=== PATIENT | female | born 1945 | race Caucasian/White ===

== ENCOUNTER 2020-08-06 11:23 | Inpatient (IN) ==
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
--- NOTE | 2020-08-06 12:27 | Ultrasound Report ---
History: Acute renal failure FINDINGS: The patient was technically difficult to scan due to large body habitus and limited mobility. The right kidney measures 5.3 x 6.0 x 11.0 cm and the left measures 4.8 x 5.9 x 10.7 cm. There is no apparent mass, cyst or calculus in either kidney. There is mild dilatation of the infundibula and renal pelvis bilaterally. Doppler shows flow urine through both ureters into the bladder. The bladder contains 105 cc of urine. Adjacent to the posterior wall of the lateral lumen, there is a hypoechoic solid tissue which measures approximately 5.6 cm in width and 1.5 cm in thickness. We attempted to have the patient rolled to see if this structure moved. She was unable to turn . IMPRESSION: Technically limited exam showing borderline hydronephrosis in both kidneys. However, urine does flow through both ureters into the bladder. Solid mass versus sludge adherent to the posterior wall of the bladder lumen. This could be further evaluated by cystoscopy and urinalysis. Interpreted and Authenticated by: Manuel Pina 08/06/20
[2020-08-06 13:35] LABS: Basophils # (Auto) 0.05 K/mcL (0.00-0.20); Basophils % (Auto) 0.5 % (0.0-2.0); Eosinophils # (Auto) 0.17 K/mcL (0.00-0.70); Eosinophils % (Auto) 1.7 % (0.0-7.0); Hematocrit 24.6 % (36.0-48.0); Hemoglobin 8.1 g/dL (12.0-15.0); Lymphocytes # (Auto) 1.01 K/mcL (1.50-4.80); Lymphocytes % (Auto) 10.1 % (15.0-49.0); Mean Cell Volume 94.3 fL (80.0-100.0); Mean Corpuscular HGB Conc 32.9 g/dL (31.0-36.0); Mean Platelet Volume 9.8 fL (7.4-10.4); Monocytes # (Auto) 0.61 K/mcL (0.10-0.90); Monocytes % (Auto) 6.1 % (1.0-12.0); Neutrophils % (Auto) 81.6 % (38.0-78.0); Platelet Count 160 K/mcL (140-440); RBC 2.61 M/mcL (4.00-5.20); Red Cell Distribution Width 14.3 % (11.5-14.5)
[2020-08-06] MEDS ORDERED: NITROFURANTOIN SR 100 MG CAPSULE PO ONE (13:42)
[2020-08-06 13:57] LABS: ALT/SGPT 18 U/L (<40); AST/SGOT 25 U/L (<32); Albumin 2.7 gm/dL (3.2-5.2); Albumin/Globulin Ratio 0.5 (1.0-2.3); Alkaline Phosphatase 177 U/L (39-117); Bilirubin,Total 0.5 mg/dL (0.1-1.0); Blood Urea Nitrogen 70 mg/dL (8-23); Calcium 9.3 mg/dL (8.6-10.4); Carbon Dioxide 19 mmol/L (22-30); Chloride 88 mmol/L (96-108); Globulin 5.4 gm/dL (2.2-3.7); Glomerular Filtration Rate 16; Glucose 275 mg/dL (70-105)
--- NOTE | 2020-08-06 14:53 | Cat Scan Report ---
History: Acute renal failure, hydronephrosis, infection TECHNIQUE: Patient was imaged without contrast from the diaphragm to the symphysis pubis. Sagittal and coronal reformats are created. The radiation exposure was limited using dose reduction technology. FINDINGS: There is mild interstitial fibrosis in a subpleural distribution in both lung bases. No pleural effusion is present. Evaluation the abdominal organs without contrast is somewhat limited. There is subtle lobulation of the capsule of the liver. The liver is normal in size and the parenchyma is homogeneous. Gallbladder is partially contracted. There are no stones. The bile ducts are nondilated. The spleen is normal in size and homogeneous. No abnormality seen within the pancreas. The adrenals are normal and symmetric. Mild hydronephrosis is present in both kidneys and there is also dilatation of both ureters into the renal pelvis down to the ureterovesical junctions. There is no kidney stone. The renal cortex is normal in thickness bilaterally. There is stranding of the perirenal fat. The ureterovesical junctions are patulous. The urinary bladder is somewhat distorted and has asymmetric thickening of the wall. On the preceding ultrasound done earlier the same date there appear to be is solid tissue or sludge layering posteriorly within the urinary bladder. This is a clearly identifiable on the current CT scan. The posterior wall the bladder does appear to be thickened. The uterus and ovaries are atrophic. The bowel gas pattern is normal. No ascites mass, abscess or adenopathy are present within the abdomen or pelvis. Degenerative changes are present throughout the spine and there is a levoscoliotic curvature. IMPRESSION: Hydronephrosis and bilateral hydroureter. However, no obstructing lesion is seen at the ureterovesical junctions. There is asymmetric thickening of the urinary bladder which has an irregular somewhat distorted contour. This could be further evaluated by cystoscopy. Subtle lobulation the capsule of liver. This could be an anatomic variant or early cirrhosis. This should be correlated with liver enzymes. Dr. Berrios was called with the results Interpreted and Authenticated by: Manuel Pina 08/06/20
[2020-08-06] MEDS ORDERED: cefTRIAXone 2 GM in DEXTROSE 5% IN WATER 50 ML IV SCH (15:45)
[2020-08-06] MEDS ORDERED: 0.9 % SODIUM CHLORIDE 1,000 ML IV SCH ×2 (16:00→20:30)
--- NOTE | 2020-08-06 18:02 | Nephrology Progress Note ---
SUBJECTIVE Subjective Patient information: Note initiated : 08/06/20 at 6:02 pm Service Date, if different from initiated Date: [] Patient: Reny Sanches a 75 y/o F admitted on for ARF. Chief Complaint: [Recurrent acute renal failure] This patient's history in terms of her acute renal failure was well documented in my note of August 01, 2020. Patient is a 75-year-old woman with a history of diabetes, hypertension, hyperuricemia/gout, hyperlipidemia, morbid obesity, hypothyroidism referred by Cyrus Massey M.D. for evaluation of a mild decrease in her GFR. Previously, the patient had an episode of acute renal failure in mid May 2020 which was no doubt related to the combination of high-dose valsartan, in combination with low-dose furosemide and hydrochlorothiazide plus the addition of ibuprofen and Bactrim. Creatinine peaked at around 1.8 to 2.0 mg/dL, potassium abdelrahman to low fives and has now improved with just discontinuation of some of the offending medicines. Labs from May 30, 2020: Sodium 139 K 4.1 Cl 104 CO2 23 BUN 17 creatinine 1.0 EGFR 55 Calcium 9.0 Hemoglobin A1c 8.4% White count 6200 with 4.6% eosinophils H&H 9.3 and 30% respectively Albumin is 2.5 alk phos 118 AST 52 ALT 35 total bilirubin 0.[address] October 2019 So in summary this is a 75-year-old woman with near normal GFR 55 cc/min. In May 2020 she had an episode of acute renal failure due to a combination of ARB, diuretics, Bactrim and nonsteroidal anti-inflammatories. All this had resolved, her urine has no proteinuria and I would expect she will do fine as long as known drug combinations that reduced renal perfusion (RAASI therapy & NSAIDS), plus volume depletion (diuretics) or interfere with tubular function (Bactrim) are avoided. There is no proteinuria to suggest underlying diabetic nephropathy. The striking feature is this patient has an ESR of over 100 in July 2020. This is months after treatment of her putative urosepsis at [facility]. In my opinion a sedimentation rate over 100 may be related to infect ion/inflammation, vasculitis or a mitotic process. She will need to have a cath urine sent for urine eosinophils urinalysis and culture. We will also need to have a renal ultrasound to rule out any perinephric stranding in case she had pyelonephritis previously. While she formally had headaches, these are no longer an issue and she is said to have fibromyalgia in the past and if she was bothered by headaches and muscle pain now I would say polymyalgia rheumatica, and her current clinical situation I cannot make that diagnosis. She has been seen by infectious disease for what is believed to be a fungal rash in and around her breast and stage II sacral decubitus sores but there is nothing that the ID specialist on would warrant antibiotic therapy at the time. Finally, there is no history of cancer but this is certainly a concern if the sed rate remains elevated. Third concern of the patient's daughter is her decrease in mentation. Again polypharmacy would lead way and while she has been on Seroquel for years, tramadol, sertraline, and clonazepam should all be discontinued in an elderly patient with dementia and fall risk We will follow attempt to gather additional lab work over the holiday can best be described as difficulty at best. He was the chemistries drawn as she was leaving my office and reported the next day: When I went back to review other lab work in August 01 in the [employer] EMR I was surprised to find that everything was now reported as "TNP". The better part of Wednesday was spent getting the run around from the laboratory service, trying to figure out what had been done which had not been done etc.. I found out that the urine that they had collected was chock full of white cells had been discarded instead of sending for culture as previously ordered, I had the patient sent to the ER. My concern was here is a patient with recurrent acute renal failure, a milky return from her [facility] cath [facility] the [facility] with no culture sent is ordered, still no renal ultrasound and a sedimentation rate of over 100x2 determinations which screams either cancer or serious infection. In the emergency room the following labs were obtained: Laboratory Results - last 48 hr 08/06/20 08/06/20 12:11 12:11 WBC 10.0 RBC 2.61 L Hgb 8.1 L Hct 24.6 L MCV 94.3 MCH 31.0 MCHC 32.9 RDW 14.3 Plt Count 160 MPV 9.8 Neut % (Auto) 81.6 H Lymph % (Auto) 10.1 L Jewell % (Auto) 6.1 Eos % (Auto) 1.7 Baso % (Auto) 0.5 Lymph # (Auto) 1.01 L Jewell # (Auto) 0.61 Eos # (Auto) 0.17 Baso # (Auto) 0.05 Absolute Neutrophils 8.20 H Sodium 123 L Potassium 4.5 Chloride 88 L Carbon Dioxide 19 L Anion Gap 16.0 BUN 70 H Creatinine 2.8 H GFR Calculation 16 Glucose 275 H Calcium 9.3 Total Bilirubin 0.5 AST 25 ALT 18 Alkaline Phosphatase 177 H Total Protein 8.1 Albumin 2.7 L Globulin 5.4 H Albumin/Globulin Ratio 0.5 L Renal ultrasound 08/06/2020 CT scan 08/06/2020 1 year trend of serum creatinine So in summary this is an elderly woman with dementia who has had 2 episodes of acute renal failure since May 2020. The first of which improved with discontinuation of Bactrim, ARB medications, diuretics, and nonsteroidals. When I saw her in my clinic on 31 July I was concerned about polypharmacy and started weaning off as many medicines as I could at the [facility]. I saw that her creatinine had again risen above 2 mg/dl, I arranged for a stat renal ultrasound and a straight catheterization to obtain a sterile urine for culture. While the urine was sent and returned with numerous white cells concerning either for infection, pyelonephritis, renal abscess or papillary necrosis there is some sort of miscommunication and no culture was obtained. Therefore I requested that the patient be taken to the emergency room so that a proper work- up could be obtained in a reasonable fashion. I think that the hydronephrosis, although mild, is new and associated with an increase in the serum creatinine. I do not know what to make out of the material settled out in the base of the bladder but sloughed papilla, necrotic debris, or even cancerous cells given her sedimentation rate over 100 all come to mind. She needs Cedillo catheter, vigorous hydration with normal saline, sterile urine sample for culture and sensitivity, antibiotic therapy pending culture results, multiple urine sample sent for cytology to rule out uroepithelial cancer. She may well require cystoscopy to see why there is UVJ hydronephrosis in the absence of stones unless this is material sloughing from somewhere further up the renal collecting system. If her GFR improves with hydration then not have to admit that the hydronephrosis does not reflect obstructive uropathy but I think it is early to make that decision. Constitutional Vitals: Vital Signs Temp Pulse Resp BP Pulse Ox 36.2 C 71 18 139/70 100 08/06/20 11:27 08/06/20 17:01 08/06/20 11:27 08/06/20 17:01 08/06/20 17:01 Period Temp Pulse Resp BP Sys/Corbin Pulse Ox Last 24 Hr 36.2 C 61-72 18 90-139/42-120 97-100 Intake and Output 08/06/20 08/06/20 08/06/20 05:59 13:59 21:59 Intake Total 50 Balance 50 Weight 109.316 kg Patient Weight 08/07/20 05:59 Weight 109.316 kg Intake & Output: Intake & Output 08/06/20 08/06/20 08/06/20 05:59 13:59 21:59 Intake Total 50 Balance 50 Weight 109.316 kg Intake: IV 50 Rocephin 2 gm In Dextrose 5% in 50 Water 50 ml @ 100 mls/hr IV Q24H [facility] Rx#:[id number] Exam Const General comfortable Nutritional Appearance obese Orientation alert, awake, oriented to person and less confused than on 07/31/2020 Limitations Some alteration in mental status and physical limitations Details Wheelchair-bound Dementia at baseline on [place] Probable polypharmacy and decreased mentation HENMT Head normocephalic and atraumatic Ears hearing grossly normal bilaterally Eyes Alignment and Position alignment normal Sclera sclerae normal Pupils PERRL EOM EOM intact bilaterally Neck Neck supple Carotids normal carotid upstroke; No bruit Chest Chest normal inspection of the chest Resp Effort & Inspection normal respiratory effort Auscultation clear to auscultation bilaterally Cardio Rate regular rate Rhythm regular rhythm Heart Sounds S1 normal and S2 normal GI Inspection obesity Palpation soft Auscultation normal bowel sounds Rectal Exam deferred General deferred Skin General atrophy; No elasticity normal or turgor normal Rashes no rashes Details Cool extremities Neuro General alert, awake, oriented to person, moves all extremities, no focal motor deficits, CN's II-XI intact bilaterally, no meningeal signs, patient confused and unable to asses gait; No gait normal (Wheelchair-bound) Cranial Nerves CN's II-XII intact bilaterally Cognition abnormal cognition Speech speech normal Gait No gait normal (Wheelchair-bound) Extrem General muscle atrophy, pedal edema bilateral and other (Cool hands and f eet) Psych Mental Status No mental status grossly normal Mood mood and affect normal Speech and Movement speech and movement normal Attitude cooperative Insight limited and poor Judgment poor Details memory loss. A/P Assessment and plan (1) Acute prerenal azotemia: Status: Acute Comment: So in summary this is a 75-year-old woman with near normal GFR 55 cc/min. In May 2020 she had an episode of acute renal failure due to a combination of ARB, diuretics, Bactrim and nonsteroidal anti-inflammatories. All this has resolved, her urine has no proteinuria and I would expect she will do fine as long as known drug combinations that reduced renal perfusion (RAASI therapy & NSAIDS), plus volume depletion (diuretics) or interfere with tubular function (Bactrim) are avoided. There is no proteinuria to suggest underlying diabetic nephropathy. After a full recovery, a second episode of ARF has reoccurred in association with bilateral hydro, abnormal urinary bladder, pyuria and an ESR >100 mm/hr. A partial w/u was started but foiled by problems of getting studies done in a [facility] over the . (2) Pyuria: Status: Acute Comment: Outpatient culture was lost or never sent. Recheck tonight for U/A, C&S, urine Eos, urine cytology, urine uric acid/creatinine ratio and UAG. (3) Elevated erythrocyte sedimentation rate: Status: Acute Comment: The differential diagnosis includes infection/inflammation with urinary tract infections or soft tissue infections leading the list, autoimmune processes for which polymyalgia rheumatica would be the leading cause in this group based on age alone but she does not have clinical features at that presently (though she had headaches and myalgias in the past according to her problem list), and we should do some screening for autoimmune diseases with BRANDIE and ANCA testing as well as an RPR, and then malignancies in this group I had be concerned about multiple myeloma so we will check an SPEP and UPEP. (4) Polypharmacy: Status: Acute Comment: Finally, this patient is experiencing either progressive dementia or underlying dementia with medications interfering with her thought process such as the combination of tramadol sertraline and benzodiazepines. I have stopped the tramadol, and to taper the sertraline, and stop the clonazepam. Improved and I asked the melatonin at bedtime as well and may be cut the Seroquel to 50 or 100 mg at bedtime. (5) Acute hyponatremia: Status: Acute Comment: I suspect she has been drinking hypotonic fluids and could not clear the free H2O load due to ARF. (6) Other acute kidney failure: Status: Chronic Comment: R/O ATN, Obstructive uropathy, papillary necrosis, and acute GN (7) Bilateral hydronephrosis: Status: Acute Comment: Relatively acute and not due to stones. Will need a clear the air cysto or IV contrast CT imaging (8) Gout, unspecified: Status: Chronic Comment: Check uric acid and uninr uric acid/creatinine ratio Time Spent With Patient Time: Total time spent is greater than 50% in coordination of care (as documented) at patient's floor/unit and/or counseling patient:
[2020-08-06] MEDS ORDERED: ACETAMINOPHEN 325 MG TABLET PO PRN (20:30)
[2020-08-06] MEDS ORDERED: POLYETHYLENE GLYCOL 3350 17 GM PACKET PO PRN (20:30)
[2020-08-06] MEDS ORDERED: MAGNESIUM SULFATE 2 GM/50 ML BAG IV PRN (20:30)
[2020-08-06] MEDS ORDERED: POTASSIUM CHLORIDE 40 MEQ in DEXTROSE 5% IN WATER 500 ML IV PRN (20:30)
[2020-08-06] MEDS ORDERED: MELATONIN 3 MG TABLET PO PRN (20:30)
[2020-08-06] MEDS ORDERED: BISACODYL 10 MG SUPP.RECT PR PRN (20:30)
[2020-08-06] MEDS ORDERED: ONDANSETRON 4 MG/2 ML VIAL IV PRN (20:30)
[2020-08-06] MEDS ORDERED: DEXTROSE 50% 50 ML VIAL IV PRN (20:30)
[2020-08-06] MEDS ORDERED: ACETAMINOPHEN 650 MG/65 ML BAG IV PRN (20:30)
[2020-08-06] MEDS ORDERED: DEXTROSE 31 GM ORAL.SUSP PO PRN (20:30)
[2020-08-06] MEDS ORDERED: ONDANSETRON 4 MG ODT TABLET SL PRN (20:30)
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
[2020-08-06] MEDS: 0.9 % SODIUM CHLORIDE 1,000 ML IV SCH (21:57)
[2020-08-06] MEDS: INSULIN LISPRO 1 UNIT/0.01 ML UNIT SQ SCH (21:59)
[2020-08-06] MEDS: DOCUSATE SODIUM 100 MG CAPSULE PO SCH (22:52)
[2020-08-06] MEDS: HEPARIN 5,000 UNIT/ML VIAL SQ SCH (22:52)
[2020-08-06] MEDS: SENNOSIDES/DOCUSATE SODIUM 1 TAB TABLET PO SCH (22:52)
[2020-08-06 23:20] LABS: Appearance,Urine TURBID (Clear); Bacteria,Urine MANY /hpf (0); Bilirubin,Urine Negative (Negative); Color,Urine YELLOW; Culture Indicated,Urine No; Glucose,Urine (UA) Negative (Negative); Ketones,Urine Negative (Negative); Leukocyte Esterase,Urine 250 /ug (Negative); Nitrate,Urine Negative (Negative); Protein,Urine 100 mg/dL (Negative); Specific Gravity,Urine 1.009 (1.000-1.035); Urine Blood >=1.0 mg/dL (Negative); Urine RBC > 182 /hpf (0-1); Urine Squamous Epithelial Cell 12 /hpf (0-4); Urine Transitional Epi Cells 3 /hpf (0-2); Urine WBC > 182 /hpf (0-4); Urobilinogen,Urine Negative
[2020-08-06 23:25] LABS: Osmolality,Urine 205 mOSM/kg (80-1000)
[2020-08-06 23:50] LABS: Potassium,Urine Random 15.4 mmol/L
[2020-08-06 23:56] LABS: Uric Acid,Urine Random 11.2 mg/dL (37.0-92.0)
[2020-08-07 00:15] LABS: Creatinine,Urine 22.6 mg/dL (28.0-217.0); Microalbum/Creatinine Ratio,Ur 4526.5 mg/gm (0.0-30.0); Microalbumin,Urine 102.3 mg/dL
[2020-08-07 05:04] LABS: Basophils # (Auto) 0.03 K/mcL (0.00-0.20); Basophils % (Auto) 0.4 % (0.0-2.0); Eosinophils # (Auto) 0.17 K/mcL (0.00-0.70); Eosinophils % (Auto) 2.2 % (0.0-7.0); Hematocrit 23.7 % (36.0-48.0); Hemoglobin 7.5 g/dL (12.0-15.0); Lymphocytes # (Auto) 0.84 K/mcL (1.50-4.80); Lymphocytes % (Auto) 10.9 % (15.0-49.0); Mean Cell Volume 95.2 fL (80.0-100.0); Mean Corpuscular HGB Conc 31.6 g/dL (31.0-36.0); Mean Platelet Volume 9.3 fL (7.4-10.4); Monocytes # (Auto) 0.55 K/mcL (0.10-0.90); Monocytes % (Auto) 7.2 % (1.0-12.0); Neutrophils % (Auto) 79.3 % (38.0-78.0); Platelet Count 132 K/mcL (140-440); RBC 2.49 M/mcL (4.00-5.20); WBC 7.7 K/mcL (4.5-11.0)
[2020-08-07 05:30] LABS: ALT/SGPT 16 U/L (<40); AST/SGOT 22 U/L (<32); Albumin 2.4 gm/dL (3.2-5.2); Albumin/Globulin Ratio 0.5 (1.0-2.3); Alkaline Phosphatase 157 U/L (39-117); Bilirubin,Direct 0.2 mg/dL (<0.3); Bilirubin,Total 0.4 mg/dL (0.1-1.0); Blood Urea Nitrogen 59 mg/dL (8-23); Calcium 9.2 mg/dL (8.6-10.4); Carbon Dioxide 21 mmol/L (22-30); Chloride 99 mmol/L (96-108); Globulin 5.3 gm/dL (2.2-3.7); Glomerular Filtration Rate 19; Glucose 134 mg/dL (70-105); Lactate Dehydrogenase 156 U/L (135-225); Phosphorous 4.7 mg/dL (2.5-4.5); Triglycerides 87 mg/dL (<150); Uric Acid 7.5 mg/dL (2.5-8.0)
[2020-08-07] MEDS: 0.9 % SODIUM CHLORIDE 1,000 ML IV SCH (06:58)
[2020-08-07] MEDS ORDERED: 0.45 % SODIUM CHLORIDE 1,000 ML IV SCH ×2 (07:15→13:12)
[2020-08-07] MEDS: INSULIN LISPRO 1 UNIT/0.01 ML UNIT SQ SCH ×4 (07:38→21:52)
[2020-08-07] MEDS: cefTRIAXone 2 GM in DEXTROSE 5% IN WATER 50 ML IV SCH (08:54)
[2020-08-07] MEDS: MULTIVIT,THER IRON,CA,FA & MIN 1 TABLET PO SCH (08:54)
[2020-08-07] MEDS: DOCUSATE SODIUM 100 MG CAPSULE PO SCH ×2 (08:54→21:51)
[2020-08-07] MEDS: MUPIROCIN OINT 2% 22GM NARES SCH ×2 (08:54→21:55)
[2020-08-07] MEDS: HEPARIN 5,000 UNIT/ML VIAL SQ SCH ×2 (08:54→21:51)
--- NOTE | 2020-08-07 09:52 | Nephrology Progress Note ---
SUBJECTIVE Subjective Patient information: Note initiated : 08/07/20 at 9:46 am Service Date, if different from initiated Date: [] Patient: Reny Sanches 75 y/o F admitted on 08/06/20 for ARF. Chief Complaint: [ issues] This is a patient with mild to moderate dementia living in a assisted who is best described as failure to thrive. At least some of this was due to overmedication and her mental status seems much better yesterday when I saw her in the emergency department having stopped a number of psychoactive medications. In May 2020 she had an episode of acute renal failure that responded to discontinuation of an ARB, Bactrim, nonsteroidals, and diuretics with creatinine improving from 2 back to her baseline of around 1. Every several serum creatinine determinations to clearly demonstrate improvement back to her baseline. Asked to see her subsequently and had labs drawn on 07/31/20 that showed her creatinine had gone back up into the 2 milligrams per deciliter range, there is a marked elevation in her ESR greater than 100 and a urinalysis that had marked leukocytes and bacteria from a cath specimen from the assisted but somehow the culture was never obtained. Nurses at the facility describes her urine as milky and since there had been an inability to get labs done in a timely fashion let alone a renal ultrasound she was transferred to the emergency department where she was found to have ultrasound and CT evidence of bilateral hydronephrosis that is not longstanding as her renal cortical thickness is normal and her GFR was normal just a couple months ago. Also confirmed her was the pyuria and bacteriuria and cultures are pending, as well as acute renal failure with hyponatremia but there was no fever or elevated white count to suggest sepsis. All pyelonephritis was one of my concerns so is a uroepithelial cancer, papillary sloughing, and other causes of white cells in the urine and bilateral hydro without evidence of stones. Urology suggestion was to get an elective cystoscopy and ideally with hydration if her GFR improves she should have a CT with and without IV contrast for imaging of her urinary system and bladder. Urine culture hopefully is pending, she was started on Rocephin, and I have ordered 3 separate urine cytology darren dies as well as calculation of her urine anion gap and urine eosinophils. Laboratory Tests 08/07/20 08/07/20 08/07/20 04:09 04:09 08:05 WBC 7.7 Hgb 7.5 L Hct 23.7 L Plt Count 132 L Eos % (Auto) 2.2 Sodium 132 L 130 L Potassium 4.3 Chloride 99 Carbon Dioxide 21 L Anion Gap 12.0 BUN 59 H Creatinine 2.4 H GFR Calculation 19 Glucose 134 H Uric Acid 7.5 Calcium 9.2 Phosphorus 4.7 H Magnesium 1.7 Total Bilirubin 0.4 Direct Bilirubin 0.2 GGT 107 H AST 22 ALT 16 Alkaline Phosphatase 157 H Lactate Dehydrogenase 156 Total Protein 7.7 Albumin 2.4 L Globulin 5.3 H Albumin/Globulin Ratio 0.5 L Triglycerides 87 Laboratory Tests 08/06/20 08/06/20 08/06/20 21:53 21:53 21:53 Urine Color Yellow Urine Appearance Turbid A Urine pH 6.0 Ur Specific [place] 1.009 Urine Protein 100 A Urine Glucose (UA) Negative Urine Ketones Negative Urine Occult Blood >=1.0 A Urine Nitrate Negative Urine Bilirubin Negative Urine Urobilinogen Negative Ur Leukocyte Esterase 250 A Urine RBC > 182 H Urine WBC > 182 H Ur Squamous Epith Cells 12 H Ur Transition Epith Cell 3 H Urine Bacteria Many A Urine Eosinophils 2% Urine Osmolality 205 U Random Total Protein 256 Ur Random Sodium 46 Ur Random Potassium 15.4 Ur Random Chloride 37 L Ur Random Uric Acid 11.2 L Urine Creatinine 22.6 L Microalb/Creat Ratio 4526.5 H Constitutional Vitals: Vital Signs Temp Pulse Resp BP Pulse Ox 37.4 C H 78 18 131/50 100 08/07/20 08:01 08/07/20 08:01 08/07/20 08:01 08/07/20 08:01 08/07/20 08:01 Period Temp Pulse Resp BP Sys/[place]bin Pulse Ox Last 24 Hr 36.2 C-37.4 C 61-81 11-19 90-154/36-120 96-100 Intake and Output 08/06/20 08/07/20 08/07/20 21:59 05:59 13:59 Intake Total 0712 998 1001 Output Total 625 611 500 Balance 535 -371 1407 Weight 107.411 kg Intake & Output: Intake & Output 08/06/20 08/07/20 08/07/20 21:59 05:59 13:59 Intake Total 3253 346 8225 Output Total 625 611 500 Balance 535 -371 1407 Weight 107.411 kg Intake: IV 510 1067 Sodium Chloride 0.9% 1,000 ml @ 460 1067 125 mls/hr IV .Q8H [facility] Rx#: [id number] Rocephin 2 gm In Dextrose 5% in 50 Water 50 ml @ 100 mls/hr IV Q24H [facility] Rx#:[id number] Oral 240 840 IV - Manual Only 650 Output: Urine Catheter Amount 625 610 500 # of times incontinent of urine 1 Other: Meal Breakfast Percent of Meal Consumed 0% Feeding Ability Independent Urine Appearance Purulent Cloudy Hematuria Hematuria Hematuria Small Blood Clots Uretheral (Cedillo) Purulent Cloudy Hematuria Hematuria Urine Color Blood Tinged Red Brown Blood Tinged Uretheral (Cedillo) Blood Tinged Blood Tinged Urine Odor Normal General appearance: cooperative, no acute distress and obese Exam: Pleasantly demented Head Head exam: Present atraumatic and normocephalic Eye Eye exam: Present EOMI, normal appearance and PERRL Pupils: Present PERRL ENT ENT exam: Present mucous membranes moist Neck Neck exam: Present full ROM and normal inspection; Absent meningismus Respiratory Respiratory exam: Present rhonchi; Absent rales, respiratory distress, stridor and wheezes Cardiovascular Cardiovascular exam: Present normal rate and rhythm, RRR, +S1 and +S2 GI/Abdominal GI/Abdominal exam: Present normal bowel sounds and soft; Absent bruit Additional comments: Cedillo in place initially some blood-tinged urine but now clear yellow Extremities Exam Extremities exam: Present pedal edema; Absent tenderness Back Exam Back exam: Absent CVA tenderness (L) and CVA tenderness (R) Neurological Exam Neurological exam: Present abnormal gait (Not tested baseline is wheelchair bound), alert, altered (Pleasantly demented) and CN II-XII intact; Absent oriented X3 (Oriented to person) Psychiatric Psychiatric exam: Present normal mood Additional comments: Pleasant interactive but with gaps in memory Skin Skin exam: Present dry; Absent petechiae, rash and vesicles A/P Assessment and plan (1) Bilateral hydronephrosis: Status: Acute Comment: Relatively acute and not due to stones. Will need a clear the air cysto or IV contrast CT imaging (2) Pyuria: Status: Acute Comment: Outpatient culture was lost or never sent. Recheck tonight for U/A, C&S, urine Eos, urine cytology, urine uric acid/creatinine ratio and UAG. (3) Acute blood loss anemia: Status: Acute Comment: Check iron stores and retic count before transfusion Narrative A/P Narrative: 1. Continue IV and monitoring electrolyte GFR 2. Urine culture pending 3. Rocephin for now 4. Creatinine goes below 2 we can consider IV contrast CT to image ureters and bladder. 5. Patient she had a number of autoimmune labs sent off to work esr greater than 100/hr- need to find results 6. Reviewing top case assembler note looks like placement may be an issue. Time Spent With Patient Time: Total time spent is greater than 50% in coordination of care (as do cumented) at patient's floor/unit and/or counseling patient: Total time spent with greater than 50% in coordination of care (as documented) at patient's floor/unit and/or counseling patient:: Greater than 35 minutes
[2020-08-07] MEDS ORDERED: LOPERAMIDE 2 MG CAPSULE PO PRN (14:15)
[2020-08-07] MEDS ORDERED: ACETAMINOPHEN (PP) 325MG TABLET (#50) PO PRN (14:15)
--- NOTE | 2020-08-07 14:22 | Internal Med Progress Note ---
SUBJECTIVE Subjective Patient information: Note initiated : 08/07/20 at 2:15 pm Service Date, if different from initiated Date: [] Patient: Reny Sanches a 75 y/o F admitted on 08/06/20 for ARF. Chief Complaint: Ms. Sanches is a 75 year old F with history of HTN/HLD/DM type II/morbid obesity [facility] now presents to the ER from nephrology office for further hospitalization and evaluation of progressive renal insufficiency. Patient has become increasingly fatigued, lethargic and confused over the last few days and has not been able to function or perform ADLs. She denies associated dysuria, diarrhea, nausea but endorses difficulty urination. She denies changes in medications. Patient work-up in the ER was consistent with acute renal failure with creatinine 2.8. Notable pyuria, sodium 122 and profound change in mental status with GCS 8. Most of the history was obtained from patient's daughter/prior EMR notes. CT abdomen revealed bilateral hydronephrosis with likely bladder outlet obstruction. Urology was consulted. Nephrology was consulted and requested admission under hospitalist service. Subsequently hospitalist service was consulted At the time of my evaluation patient is very confused however oriented to place only. She could not provide any meaningful history over the last 72 hours. She however denies chest pain, fever, chills but endorses lightheadedness, dizziness. 08/07-patient clinically improving. Sodium up to 132. Sodium rise higher than goal. Transition to D5 half NS per nephrology. Urine osmolarity appropriately low ruling out SIADH. Creatinine down to 2.4. Continue antibiotic coverage. Await urine cultures. Improving mental status however remains disoriented. No overnight fever chills. No other concerns per nursing staff. No telemetry events. Restart diabetic diet Constitutional Vitals: Vital Signs Temp Pulse Resp BP Pulse Ox 98.6 F 78 15 138/82 99 08/07/20 12:01 08/07/20 08:01 08/07/20 12:08/07/20 12:08/07/20 12:01 Period Temp Pulse Resp BP Sys/Corbin Pulse Ox Last 24 Hr 98.1 F-99.4 F 63-81 11-19 98-154/36-120 96-100 Intake and Output 08/07/20 08/07/20 08/07/20 05:59 13:59 21:59 Intake Total 240 2006 Output Total 611 1000 Balance -371 1007 Weight 107.411 kg Patient Weight 08/08/20 05:59 Weight 107.411 kg Morbidly obese Alert but disoriented Nonlabored breathing Anxious and confused Nontender abdomen Cedillo is draining cloudy urine Intake & Output: Intake & Output 08/07/20 08/07/20 08/07/20 05:59 13:59 21:59 Intake Total 240 2006 Output Total 611 1000 Balance -371 1007 Weight 107.411 kg Intake: IV 1167 Sodium Chloride 0.9% 1,000 ml @ 1067 125 mls/hr IV .Q8H PAIGE Rx#: [id number] Rocephin 2 gm In Dextrose 5% in 50 Water 50 ml @ 100 mls/hr IV Q24H PAIGE Rx#:[id number] Oral 240 840 Output: Urine Catheter Amount 610 1000 # of times incontinent of urine 1 Other: Meal Breakfast Percent of Meal Consumed 0% Feeding Ability Independent Urine Appearance Cloudy Cloudy Hematuria Sediment Purulent Hematuria Uretheral (Cedillo) Cloudy Cloudy Hematuria Hematuria Small Blood Clots Urine Color Red Brown [place] Blood Tinged Uretheral (Cedillo) Blood Tinged Blood Tinged Urine Odor Normal Stool Size Small Stool Color Brown Stool Consistency Soft # of times incontinent of 1 Bowels OBJ DATA Labs CBC & Chem 7: 08/07/20 04:09 08/07/20 08:05 Labs: Abnormal Lab Results 08/07/20 08/07/20 08/07/20 08:05 04:09 04:09 RBC 2.49 L Hgb 7.5 L Hct 23.7 L Plt Count 132 L Neut % (Auto) 79.3 H Lymph % (Auto) 10.9 L Lymph # (Auto) 0.84 L Absolute Neutrophils Sodium 130 L 132 L Chloride Carbon Dioxide 21 L BUN 59 H Creatinine 2.4 H Glucose 134 H Osmolality Phosphorus 4.7 H GGT 107 H Alkaline Phosphatase 157 H Albumin 2.4 L Globulin 5.3 H Albumin/Globulin Ratio 0.5 L Urine Appearance Urine Protein Urine Occult Blood Ur Leukocyte Esterase Urine RBC Urine WBC Ur Squamous Epith Cells Ur Transition Epith Cell Urine Bacteria Urine Eosinophils Ur Random Chloride Ur Random Uric Acid Urine Creatinine Microalb/Creat Ratio 08/07/20 08/06/20 08/06/20 00:24 21:53 21:53 RBC Hgb Hct Plt Count Neut % (Auto) Lymph % (Auto) Lymph # (Auto) Absolute Neutrophils Sodium 127 L Chloride Carbon Dioxide BUN Creatinine Glucose Osmolality Phosphorus GGT Alkaline Phosphatase Albumin Globulin Albumin/Globulin Ratio Urine Appearance Urine Protein Urine Occult Blood Ur Leukocyte Esterase Urine RBC Urine WBC Ur Squamous Epith Cells Ur Transition Epith Cell Urine Bacteria Urine Eosinophils 2% A Ur Random Chloride 37 L Ur Random Uric Acid Urine Creatinine Microalb/Creat Ratio 08/06/20 08/06/20 08/06/20 21:53 21:53 12:11 RBC Hgb Hct Plt Count Neut % (Auto) Lymph % (Auto) Lymph # (Auto) Absolute Neutrophils Sodium Chloride Carbon Dioxide BUN Creatinine Glucose Osmolality 302 H Phosphorus GGT Alkaline Phosphatase Albumin Globulin Albumin/Globulin Ratio Urine Appearance Turbid A Urine Protein 100 A Urine Occult Blood >=1.0 A Ur Leukocyte Esterase 250 A Urine RBC > 182 H Urine WBC > 182 H Ur Squamous Epith Cells 12 H Ur Transition Epith Cell 3 H Urine Bacteria Many A Urine Eosinophils Ur Random Chloride Ur Random Uric Acid 11.2 L Urine Creatinine 22.6 L Microalb/Creat Ratio 4526.5 H 08/06/20 08/06/20 12:11 12:11 RBC 2.61 L Hgb 8.1 L Hct 24.6 L Plt Count Neut % (Auto) 81.6 H Lymph % (Auto) 10.1 L Lymph # (Auto) 1.01 L Absolute Neutrophils 8.20 H Sodium 123 L Chloride 88 L Carbon Dioxide 19 L BUN 70 H Creatinine 2.8 H Glucose 275 H Osmolality Phosphorus GGT Alkaline Phosphatase 177 H Albumin 2.7 L Globulin 5.4 H Albumin/Globulin Ratio 0.5 L Urine Appearance Urine Protein Urine Occult Blood Ur Leukocyte Esterase Urine RBC Urine WBC Ur Squamous Epith Cells Ur Transition Epith Cell Urine Bacteria Urine Eosinophils Ur Random Chloride Ur Random Uric Acid Urine Creatinine Microalb/Creat Ratio Meds: Medications Acetaminophen (Tylenol) 650 mg PO Q4-6HP PRN; Protocol PRN Reason: Per Pain Protocol/Fever > 101 Bisacodyl (Dulcolax) 10 mg WI Q2-3DAYS PRN PRN Reason: Constipation Dextrose (Dextrose 50%) 0 ml IV UD PRN PRN Reason: Hypoglycemia Diagnostic Test (Pha) (Accu-Chek) 1 each FS ACHS PAIGE Last Admin: 08/07/20 12:02 Dose: 1 each Documented by: Docusate Sodium (Colace) 100 mg PO BID [facility] Last Admin: 08/07/20 08:54 Dose: 100 mg Documented by: Glucose (Insta-Glucose) 15 gm PO PRN PRN PRN Reason: Hypoglycemia Heparin Sodium (Porcine) (Heparin) 5,000 unit SQ Q12 [facility] Last Admin: 08/07/20 08:54 Dose: 5,000 unit Documented by: Ceftriaxone Sodium 2 gm/ (Dextrose) 50 mls @ 100 mls/hr IV Q24H [facility]; Protocol Last Infusion: 08/07/20 09:35 Dose: Infused Documented by: Potassium Chloride 40 meq/ (Dextrose) 520 mls @ 130 mls/hr IV UD PRN PRN Reason: K+ = or < 3.5 Acetaminophen (Ofirmev) 650 mg in 65 mls @ 130 mls/hr IV Q6HP PRN; Protocol PRN Reason: Per Pain Protocol/Fever > 101 Magnesium Sulfate (Magnesium Sulfate) 2 gm in 50 mls @ 50 mls/hr IV UD PRN PRN Reason: MG = or < 1.7 Last Infusion: 08/07/20 11:35 Dose: Infused Documented by: Dextrose/Lactated Ringer's (Dextrose 5%-Lactated Ringers) 1,000 mls @ 84 mls/hr IV .[id number] [facility] Stop: 08/08/20 15:15 Sodium Chloride (Sodium Chloride 0.45%) 1,000 mls @ 100 mls/hr IV .Q10H [facility] Stop: 08/07/20 15:15 Insulin Human Lispro (Humalog) 0 unit SQ ACHS [facility]; Protocol Last Admin: 08/07/20 12:33 Dose: 3 units Documented by: Iron Carb/Multivit/Sap Basis Consultant/Folic Acid (Multivitamin W/Minerals) 1 tab PO DAILY [facility] Last Admin: 08/07/20 08:54 Dose: 1 tab Documented by: Melatonin (Melatonin 3mg Tablet) 3 mg PO HSP PRN PRN Reason: Insomnia Mupirocin (Bactroban Oint 2%) 1 dose NARES BID [facility] Last Admin: 08/07/20 08:54 Dose: 1 dose Documented by: Ondansetron HCl (Zofran Odt) 4 mg SL Q4-6HP PRN; Protocol PRN Reason: Nausea And Vomiting Last Admin: 12/30/20 08:34 Dose: 4 mg Documented by: Ondansetron HCl (Zofran) 4 mg IV Q4-6HP PRN; Protocol PRN Reason: Nausea And Vomiting Polyethylene Glycol (Miralax) 17 gm PO DAILYP PRN PRN Reason: Constipation Last Admin: 08/07/20 08:54 Dose: 17 gm Documented by: Senna/Docusate Sodium (Senna Plus Tablet) 1 tab PO HS PAIGE Last Admin: 08/06/20 22:52 Dose: 1 tab Documented by: A/P Narrative A/P Narrative: * Acute renal failure secondary to obstructive uropathy. Clinically improving. Cedillo is in place. Nephrology on board. Creatinine down to 2.4 from 2.8. * Acute change in mental status secondary to combination of hyponatremia/renal failure uremia * Hypervolemic hyponatremia likely secondary to bladder outlet obstruction/renal failure. Sodium improved from 08 30- 30. Continue 4 hourly sodium checks. Urine osmolarity appropriately low * Complicated UTI/[id number]-si-[id number] antibiotic based on cultures. CT evide nce of bladder wall thickening. Urology consulted for cystoscopy/bladder outlet obstruction evaluation. * Anxiety disorder on SSRIs * GERD continue PPI * History of dementia continue memantine * Anxiety/psychosis with dementia continue quetiapine * History of hypertension-ARB on hold in light of renal failure, continue atenolol * HLD on lovastatin * Hypothyroid on thyroxine * DM type II continue basal prandial insulin/renal CC diet * History of gout on allopurinol * Morbid obesity continue directed therapies/nutrition consult * Full code * Prophylaxis heparin Plan * Continue sodium checks * Cedillo's catheter decompression * Antibiotics de-escalation based on cultures * Renal function monitoring/further management per nephrology * Pre-existing medical condition management home medication Time Spent With Patient Time: Total time spent is greater than 50% in coordination of care (as documented) at patient's floor/unit and/or counseling patient: QUALITY Stroke Symptom Onset Unknown: No VTE Deep Vein Thrombosis/Pulmonary Embolism Present on Admission: No
[2020-08-07] MEDS ORDERED: ALBUTEROL SULFATE 200 PUFF INHALER INH PRN (14:40)
[2020-08-07] MEDS: DEXTROSE 5%-LR 1,000 ML IV SCH (15:17)
[2020-08-07] MEDS: SENNOSIDES/DOCUSATE SODIUM 1 TAB TABLET PO SCH (21:51)
[2020-08-07] MEDS: QUEtiapine 100 MG TABLET PO SCH (21:52)
[2020-08-07] MEDS: MELATONIN 3 MG TABLET PO SCH (21:52)
[2020-08-07] MEDS: ATENOLOL 50 MG TABLET PO SCH (21:53)
[2020-08-07] MEDS: SIMVASTATIN 20 MG TABLET PO SCH (21:54)
[2020-08-08] MEDS: DEXTROSE 5%-LR 1,000 ML IV SCH ×2 (03:41→15:46)
[2020-08-08 06:59] LABS: Retic Absolute 0.06 M/mcL (0.02-0.10)
[2020-08-08 07:28] LABS: Iron 72 ug/dL (37-145); TIBC Calculation 179 ug/dl (228-428); Transferrin % Saturation 40 % (15-50)
[2020-08-08 07:40] LABS: ALT/SGPT 14 U/L (<40); AST/SGOT 20 U/L (<32); Albumin 2.3 gm/dL (3.2-5.2); Albumin/Globulin Ratio 0.5 (1.0-2.3); Alkaline Phosphatase 143 U/L (39-117); Bilirubin,Direct < 0.2 mg/dL (<0.3); Bilirubin,Total 0.3 mg/dL (0.1-1.0); Blood Urea Nitrogen 49 mg/dL (8-23); Calcium 9.3 mg/dL (8.6-10.4); Carbon Dioxide 21 mmol/L (22-30); Chloride 98 mmol/L (96-108); Globulin 4.6 gm/dL (2.2-3.7); Glomerular Filtration Rate 25; Glucose 186 mg/dL (70-105); Lactate Dehydrogenase 174 U/L (135-225); Phosphorous 4.2 mg/dL (2.5-4.5); Triglycerides 70 mg/dL (<150); Uric Acid 6.4 mg/dL (2.5-8.0)
[2020-08-08] MEDS: LEVOTHYROXINE 50 MCG TABLET PO SCH (07:54)
[2020-08-08] MEDS: OMEPRAZOLE 20 MG CAPSULE PO SCH (07:54)
--- NOTE | 2020-08-08 08:42 | Nephrology Progress Note ---
SUBJECTIVE Subjective Patient information: Note initiated : 08/08/20 at 8:36 am Service Date, if different from initiated Date: [] Patient: Reny Sanches 75 y/o F admitted on 08/06/20 for ARF. Chief Complaint: [ARF] This is an elderly woman with back to back episodes of acute renal failure the first in May 2020 with complete recovery in the second was discovered at my initial clinic visit on July 31, 2020. She has pyuria, mild bilateral hydronephrosis without stones, some sort of mass or collection of tissue in the bladder, sed rate in excess of 100x2. She also had hyponatremia that rapidly corrected with just normal saline infusions and her serum creatinine was beginning to improve as of yesterday. The case was discussed with the urology service who recommended trying to correct her GFR to the point that a CT KUB with and without contrast could be done to get definitive imaging of her urinary track. An elective cystoscopy was also recommended but was not felt to be urgent. In the clinic visit I stopped many of the offending medications except for furosemide and this was stopped when I became aware of the elevated serum creatinine on or around August 03. There are also eosinophils in the urine but only 2%. And there is proteinuria but this could have to do tissue sloughing or what ever was collecting in the bladder as opposed to actual protein in the urine. I am not sure what the status of her SPEP, UPEP, ANCA, BRANDIE, complement levels all of which were sent as an outpatient but they may have been canceled by either [facility] or her jail. 08/08/20 08/08/20 08/08/20 05:12 05:12 05:12 Absolute Retic 0.06 Percent Retic 2.55 H Sodium 133 Potassium 4.4 Chloride 98 Carbon Dioxide 21 L Anion Gap 14.0 BUN 49 H Creatinine 1.9 H GFR Calculation 25 Glucose 186 H Uric Acid 6.4 Calcium 9.3 Phosphorus 4.2 Magnesium 2.1 Iron 72 TIBC 179 L Unsat Iron Binding 107 L Transferrin % Sat 40 Total Bilirubin 0.3 Direct Bilirubin < 0.2 GGT 92 H AST 20 ALT 14 Alkaline Phosphatase 143 H Lactate Dehydrogenase 174 Total Protein 6.9 Albumin 2.3 L Globulin 4.6 H Triglycerides 70 Iron stores are adequaate Trend of serum creatinine T/S yesterday and given 2 units pRBC for acute blood loss (to lab) anemia and marrow hyporesponsiveness due to ARF. ARF improving. Urine with GM neg rods. Constitutional Vitals: Vital Signs Temp Pulse Resp BP Pulse Ox 37.1 C 77 11 L 131/59 98 08/08/20 08:02 08/08/20 08:15 08/08/20 08:15 08/08/20 08:02 08/08/20 08:15 Period Temp Pulse Resp BP Sys/Corbin Pulse Ox Last 24 Hr 37.0 C-37.4 C 59-85 10-20 106-150/47-92 97-100 Intake and Output 08/07/20 08/08/20 08/08/20 21:59 05:59 13:59 Intake Total 1043 1000 Output Total 450 1450 Balance 593 -450 Weight 103.963 kg Intake & Output: Intake & Output 08/07/20 08/08/20 08/08/20 21:59 05:59 13:59 Intake Total 1043 1000 Output Total 450 1450 Balance 593 -450 Weight 103.963 kg Intake: IV 803 1000 Sodium Chloride 0.45% 1,000 ml 803 @ 100 mls/hr IV .Q10H PAIGE Rx#: [id number] Dextrose 5%-Lactated Ringers 1, 1000 000 ml @ 84 mls/hr IV .[id number] PAIGE Rx#:[id number] Oral 240 Output: Urine Catheter Amount 450 1450 Other: Meal Dinner Percent of Meal Consumed 25% Urine Appearance Sediment Cloudy Mucous Threads Mucous Threads Uretheral (Pettit) Sediment Sediment Mucous Threads Mucous Threads Urine Color Dark Yellow Dark Yellow Uretheral (Pettit) Dark Yellow Dark Yellow Urine Odor Normal Normal Uretheral (Pettit) Normal Normal Stool Size Small Stool Color Brown Stool Consistency Soft General appearance: no acute distress and obese Exam: Pleasantly demented Head Head exam: Present atraumatic; Absent normocephalic Eye Eye exam: Present EOMI and PERRL; Absent nystagmus and scleral icterus Pupils: Present PERRL ENT ENT exam: Present mucous membranes moist Neck Neck exam: Present meningismus and normal inspection Respiratory Respiratory exam: Present normal respiratory exam and CTAB Cardiovascular Cardiovascular exam: Present normal rate and rhythm, +S1 and +S2; Absent JVD GI/Abdominal GI/Abdominal exam: Present normal bowel sounds; Absent tenderness Additional comments: Pettit in place Extremities Exam Extremities exam: Present pedal edema (trace); Absent calf tenderness and tenderness Back Exam Back exam: Absent CVA tenderness (L) and CVA tenderness (R) Neurological Exam Neurological exam: Present altered (underlying dementia) and CN II-XII intact; Absent alert and oriented X3 (To person only) Psychiatric Psychiatric exam: Present normal mood Additional comments: Confused but pleasant Skin Skin exam: Present pallor; Absent petechiae and urticaria A/P Assessment and plan (1) Acute blood loss anemia: Assessment and plan: Less blood work Transfused with 2 units pRBCs Status: Acute Comment: Check iron stores and retic count before transfusion (2) Bilateral hydronephrosis: Assessment and plan: Needs CT KUB +/- IV contrast when SCr improved and then Cysto Status: Acute Comment: Relatively acute and not due to stones. Will need a clear the air cysto or IV contrast CT imaging (3) Urinary tract infection: Assessment and plan: Preceeded pettit Gm neg rods Rocephin for now Status: Acute Qualifiers: Hematuria presence: with hematuria Urinary tract infection type: site unspecified Qualified Code(s): N39.0 - Urinary tract infection, site not specified; R31.9 - Hematuria, unspecified (4) Acute hyponatremia: Assessment and plan: Improving Status: Acute Comment: I suspect she has been drinking hypotonic fluids and could not clear the free H2O load due to ARF. (5) Polypharmacy: Assessment and plan: Root cause of many of her issues Status: Acute Comment: Finally, this patient is experiencing either progressive dementia or underlying dementia with medications interfering with her thought process such as the c ombination of tramadol sertraline and benzodiazepines. I have stopped the tramadol, and to taper the sertraline, and stop the clonazepam. Improved and I asked the melatonin at bedtime as well and may be cut the Seroquel to 50 or 100 mg at bedtime. (6) Acute prerenal azotemia: Assessment and plan: Improving with volume and D/C of furosemide Will always have some edema Status: Acute Comment: So in summary this is a 75-year-old woman with near normal GFR 55 cc/min. In May 2020 she had an episode of acute renal failure due to a combination of ARB, diuretics, Bactrim and nonsteroidal anti-inflammatories. All this has resolved, her urine has no proteinuria and I would expect she will do fine as long as known drug combinations that reduced renal perfusion (RAASI therapy & NSAIDS), plus volume depletion (diuretics) or interfere with tubular function (Bactrim) are avoided. There is no proteinuria to suggest underlying diabetic nephropathy. After a full recovery, a second episode of ARF has reoccurred in association with bilateral hydro, abnormal urinary bladder, pyuria and an ESR >100 mm/hr. A partial w/u was started but foiled by problems of getting studies done in a jail over the holiday. (7) Elevated erythrocyte sedimentation rate: Assessment and plan: Cancer, Cancer Cancer > autoimmune > infection (this is a UTI no radiographic or clinical evidence of Pyelo. 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 Status: Acute Comment: The differential diagnosis includes infection/inflammation with urinary tract infections or soft tissue infections leading the list, autoimmune processes for which polymyalgia rheumatica would be the leading cause in this group based on age alone but she does not have clinical features at that presently (though she had headaches and myalgias in the past according to her problem list), and we should do some screening for autoimmune diseases with BRANDIE and ANCA testing as well as an RPR, and then malignancies in this group I had be concerned about multiple myeloma so we will check an SPEP and UPEP. (8) Pyuria: Assessment and plan: C/W UTI Status: Acute Comment: Outpatient culture was lost or never sent. Recheck tonight for U/A, C&S, urine Eos, urine cytology, urine uric acid/creatinine ratio and UAG. Narrative A/P Narrative: 1. Improved GFR and electrolytes 2. Transfused with 2 units pRBC and normal Iron stores 3. Plans for w/u of bilateral hyro and bladder "mass" with CT KUB and cysto. Pettit for now. Time Spent With Patient Time: 75 min total time spent is greater than 50% in coordination of care (as documented) at patient's floor/unit and/or counseling patient and speaking with daughter.:
[2020-08-08] MEDS: INSULIN LISPRO 1 UNIT/0.01 ML UNIT SQ SCH ×4 (09:11→20:46)
[2020-08-08] MEDS: INSULIN GLARGINE, HUMAN 1 UNIT/0.01 ML SQ SCH (09:12)
[2020-08-08] MEDS: ASPIRIN 325 MG ENTERIC COATED TABLET PO SCH (09:12)
[2020-08-08] MEDS: ALLOPURINOL 100 MG TABLET PO SCH (09:12)
[2020-08-08] MEDS: ATENOLOL 50 MG TABLET PO SCH ×2 (09:12→20:47)
[2020-08-08] MEDS: SERTRALINE 50 MG TABLET PO SCH (09:12)
[2020-08-08] MEDS: HEPARIN 5,000 UNIT/ML VIAL SQ SCH ×2 (09:12→20:46)
[2020-08-08] MEDS: DOCUSATE SODIUM 100 MG CAPSULE PO SCH ×2 (09:13→20:46)
[2020-08-08] MEDS: MULTIVIT,THER IRON,CA,FA & MIN 1 TABLET PO SCH (09:13)
[2020-08-08] MEDS: CYANOCOBALAMIN (VITAMIN B-12) 500 MCG TABLET PO SCH (09:13)
--- NOTE | 2020-08-08 09:25 | XRay Report ---
HISTORY: Acute renal failure FINDINGS: The lungs are clear and there is no evidence of pulmonary edema or pneumonia. The heart size is within upper limits of normal but magnified by portable technique. There is no pleural effusion. The mediastinum and ary are normal. IMPRESSION: Normal exam Interpreted and Authenticated by: Manuel Pina 08/08/20
[2020-08-08 09:45] LABS: Basophils # (Auto) 0.03 K/mcL (0.00-0.20); Basophils % (Auto) 0.6 % (0.0-2.0); Eosinophils # (Auto) 0.14 K/mcL (0.00-0.70); Eosinophils % (Auto) 2.6 % (0.0-7.0); Hematocrit 20.4 % (36.0-48.0); Hemoglobin 6.6 g/dL (12.0-15.0); Lymphocytes # (Auto) 0.97 K/mcL (1.50-4.80); Lymphocytes % (Auto) 17.9 % (15.0-49.0); Mean Corpuscular HGB Conc 32.4 g/dL (31.0-36.0); Mean Platelet Volume 10.8 fL (7.4-10.4); Monocytes # (Auto) 0.51 K/mcL (0.10-0.90); Monocytes % (Auto) 9.4 % (1.0-12.0); Neutrophils % (Auto) 69.5 % (38.0-78.0); Platelet Count 119 K/mcL (140-440); RBC 2.17 M/mcL (4.00-5.20); Red Cell Distribution Width 14.4 % (11.5-14.5); WBC 5.4 K/mcL (4.5-11.0)
[2020-08-08] MEDS ORDERED: 0.9 % SODIUM CHLORIDE 250 ML IV SCH (10:00)
[2020-08-08] MEDS: cefTRIAXone 2 GM in DEXTROSE 5% IN WATER 50 ML IV SCH (10:28)
[2020-08-08] MEDS: MEMANTINE 21 MG PO SCH (10:29)
[2020-08-08] MEDS: Fluticasone Furoate-Vilanterol [Breo Ellipta] Inhaler INH SCH (10:29)
[2020-08-08] MEDS: MUPIROCIN OINT 2% 22GM NARES SCH ×2 (10:29→20:45)
--- NOTE | 2020-08-08 13:39 | Internal Med Progress Note ---
SUBJECTIVE Subjective Patient information: Note initiated : 08/08/20 at 1:30 pm Service Date, if different from initiated Date: [] Patient: Reny Sanches a 75 y/o F admitted on 08/06/20 for ARF. Chief Complaint: [] Interval history: Ms. Sanches is a 75 year old F resident of [facility] since mid-May with history of HTN/HLD/DM type II/morbid obesity who was recently evaluated at nephrology office for worsening renal function now presents to the ER from nephrology office for further hospitalization and evaluation of progressive renal insufficiency. Patient has become increasingly fatigued, lethargic and confused over the last few days and has not been able to function or perform ADLs. She denies associated dysuria, diarrhea, nausea but endorses difficulty urination. She denies changes in medications. Patient work-up in the ER was consistent with acute renal failure with creatinine 2.8. Notable pyuria, sodium 122 and profound change in mental status with GCS 8. Most of the history was obtained from patient's daughter/prior EMR notes. CT abdomen revealed bilateral hydronephrosis with likely bladder outlet obstruction. Urology was consulted. Nephrology was consulted and requested admission under hospitalist service. Moriah almonte hospitalist service was consulted At the time of my evaluation patient is very confused however oriented to place only. She could not provide any meaningful history over the last 72 hours. She however denies chest pain, fever, chills but endorses lightheadedness, dizziness. 08/07-patient clinically improving. Sodium up to 132. Sodium rise higher than goal. Transition to D5 half NS per nephrology. Urine osmolarity appropriately low ruling out SIADH. Creatinine down to 2.4. Continue antibiotic coverage. Await urine cultures. Improving mental status however remains disoriented. No overnight fever chills. No other concerns per nursing staff. No telemetry events. Restart diabetic diet 08/08-patient seen in room along with daughter. Intermittently confused but much more alert since yesterday. Hemoglobin 6.6, 2 units PRBC transfusion per nephrology. Creatinine down to 1.9, Cedillo's draining clear urine, sodium improved to 133. Following commands. Remains disoriented. No overnight fever chills. Ongoing management per nephrology. No concerns expressed by nursing staff except for occasional incontinence. Ongoing MRSA decolonization. Daughter expressed concerns about transitioning to [place] and would want alternate facility including [facility] Constitutional Vitals: Vital Signs Temp Pulse Resp BP Pulse Ox 98.2 F 67 16 143/66 97 08/08/20 12:01 08/08/20 12:02 08/08/20 12:02 08/08/20 12:01 08/08/20 12:02 Period Temp Pulse Resp BP Sys/Corbin Pulse Ox Last 24 Hr 98.2 F-99.3 F 59-85 10- 106-150/47-92 97-100 Intake and Output 08/07/20 08/08/20 08/08/20 21:59 05:59 13:59 Intake Total 1043 1000 720 Output Total 450 1450 1000 Balance 593 -450 -280 Weight 103.963 kg Response to commands, remains confused Cedillo draining clear urine No telemetry events Nonlabored breathing Intake & Output: Intake & Output 08/07/20 08/08/20 08/08/20 21:59 05:59 13:59 Intake Total 1043 1000 720 Output Total 450 1450 1000 Balance 593 -450 -280 Weight 103.963 kg Intake: IV 803 1000 Sodium Chloride 0.45% 1,000 ml 803 @ 100 mls/hr IV .Q10H PAIGE Rx#: [id number] Dextrose 5%-Lactated Ringers 1, 1000 000 ml @ 84 mls/hr IV .[id number] PAIGE Rx#:[id number] Oral 240 720 Output: Urine Catheter Amount 450 1450 1000 Other: Meal Dinner Breakfast Percent of Meal Consumed 25% 100% Feeding Ability Assist with Tray Set Up Urine Appearance Sediment Cloudy Cloudy Mucous Threads Mucous Threads Uretheral (Cedillo) Sediment Sediment Mucous Threads Mucous Threads Urine Color Dark Yellow Dark Yellow Bright Yellow Uretheral (Cedillo) Dark Yellow Dark Yellow Urine Odor Normal Normal Uretheral (Cedillo) Normal Normal Stool Size Small Stool Color Brown Stool Consistency Soft OBJ DATA Labs CBC & Chem 7: 08/08/20 05:12 08/08/20 05:12 Labs: Abnormal Lab Results 08/08/20 08/08/20 08/08/20 05:12 05:12 05:12 RBC Hgb Hct Plt Count MPV Neut % (Auto) Lymph % (Auto) Lymph # (Auto) Absolute Neutrophils Percent Retic 2.55 H Sodium Chloride Carbon Dioxide 21 L BUN 49 H Creatinine 1.9 H Glucose 186 H Osmolality Phosphorus TIBC 179 L Unsat Iron Binding 107 L GGT 92 H Alkaline Phosphatase 143 H Albumin 2.3 L Globulin 4.6 H Albumin/Globulin Ratio 0.5 L Urine Appearance Urine Protein Urine Occult Blood Ur Leukocyte Esterase Urine RBC Urine WBC Ur Squamous Epith Cells Ur Transition Epith Cell Urine Bacteria Urine Eosinophils Ur Random Chloride Ur Random Uric Acid Urine Creatinine Microalb/Creat Ratio 08/08/20 08/07/20 08/07/20 05:12 12:00 08:05 RBC 2.17 L Hgb 6.6 L* Hct 20.4 L* Plt Count 119 L MPV 10.8 H Neut % (Auto) Lymph % (Auto) Lymph # (Auto) 0.97 L Absolute Neutrophils Percent Retic Sodium 129 L 130 L Chloride Carbon Dioxide BUN Creatinine Glucose Osmolality Phosphorus TIBC Unsat Iron Binding GGT Alkaline Phosphatase Albumin Globulin Albumin/Globulin Ratio Urine Appearance Urine Protein Urine Occult Blood Ur Leukocyte Esterase Urine RBC Urine WBC Ur Squamous Epith Cells Ur Transition Epith Cell Urine Bacteria Urine Eosinophils Ur Random Chloride Ur Random Uric Acid Urine Creatinine Microalb/Creat Ratio 08/07/20 08/07/20 08/07/20 04:09 04:09 00:24 RBC 2.49 L Hgb 7.5 L Hct 23.7 L Plt Count 132 L MPV Neut % (Auto) 79.3 H Lymph % (Auto) 10.9 L Lymph # (Auto) 0.84 L Absolute Neutrophils Percent Retic Sodium 132 L 127 L Chloride Carbon Dioxide 21 L BUN 59 H Creatinine 2.4 H Glucose 134 H Osmolality Phosphorus 4.7 H TIBC Unsat Iron Binding GGT 107 H Alkaline Phosphatase 157 H Albumin 2.4 L Globulin 5.3 H Albumin/Globulin Ratio 0.5 L Urine Appearance Urine Protein Urine Occult Blood Ur Leukocyte Esterase Urine RBC Urine WBC Ur Squamous Epith Cells Ur Transition Epith Cell Urine Bacteria Urine Eosinophils Ur Random Chloride Ur Random Uric Acid Urine Creatinine Microalb/Creat Ratio 08/06/20 08/06/20 08/06/20 21:53 21:53 21:53 RBC Hgb Hct Plt Count MPV Neut % (Auto) Lymph % (Auto) Lymph # (Auto) Absolute Neutrophils Percent Retic Sodium Chloride Carbon Dioxide BUN Creatinine Glucose Osmolality Phosphorus TIBC Unsat Iron Binding GGT Alkaline Phosphatase Albumin Globulin Albumin/Globulin Ratio Urine Appearance Urine Protein Urine Occult Blood Ur Leukocyte Esterase Urine RBC Urine WBC Ur Squamous Epith Cells Ur Transition Epith Cell Urine Bacteria Urine Eosinophils 2% A Ur Random Chloride 37 L Ur Random Uric Acid 11.2 L Urine Creatinine 22.6 L Microalb/Creat Ratio 4526.5 H 08/06/20 08/06/20 08/06/20 21:53 12:11 12:11 RBC Hgb Hct Plt Count MPV Neut % (Auto) Lymph % (Auto) Lymph # (Auto) Absolute Neutrophils Percent Retic Sodium 123 L Chloride 88 L Carbon Dioxide 19 L BUN 70 H Creatinine 2.8 H Glucose 275 H Osmolality 302 H Phosphorus TIBC Unsat Iron Binding GGT Alkaline Phosphatase 177 H Albumin 2.7 L Globulin 5.4 H Albumin/Globulin Ratio 0.5 L Urine Appearance Turbid A Urine Protein 100 A Urine Occult Blood >=1.0 A Ur Leukocyte Esterase 250 A Urine RBC > 182 H Urine WBC > 182 H Ur Squamous Epith Cells 12 H Ur Transition Epith Cell 3 H Urine Bacteria Many A Urine Eosinophils Ur Random Chloride Ur Random Uric Acid Urine Creatinine Microalb/Creat Ratio 08/06/20 12:11 RBC 2.61 L Hgb 8.1 L Hct 24.6 L Plt Count MPV Neut % (Auto) 81.6 H Lymph % (Auto) 10.1 L Lymph # (Auto) 1.01 L Absolute Neutrophils 8.20 H Percent Retic Sodium Chloride Carbon Dioxide BUN Creatinine Glucose Osmolality Phosphorus TIBC Unsat Iron Binding GGT Alkaline Phosphatase Albumin Globulin Albumin/Globulin Ratio Urine Appearance Urine Protein Urine Occult Blood Ur Leukocyte Esterase Urine RBC Urine WBC Ur Squamous Epith Cells Ur Transition Epith Cell Urine Bacteria Urine Eosinophils Ur Random Chloride Ur Random Uric Acid Urine Creatinine Microalb/Creat Ratio Meds: Medications Acetaminophen (Tylenol) 650 mg PO Q4-6HP PRN; Protocol PRN Reason: Per Pain Protocol/Fever > 101 Albuterol Sulfate (Ventolin) 1 puff INH Q4HP PRN PRN Reason: Shortness Of Breath Allopurinol (Zyloprim) 100 mg PO DAILY [facility] Last Admin: 08/08/20 09:12 Dose: 100 mg Documented by: Aspirin (Ecotrin) 325 mg PO DAILY [facility] Last Admin: 08/08/20 09:12 Dose: 325 mg Documented by: Atenolol (Tenormin) 50 mg PO BID [facility] Last Admin: 08/08/20 09:12 Dose: 50 mg Documented by: Bisacodyl (Dulcolax) 10 mg MT Q2-3DAYS PRN PRN Reason: Constipation Cyanocobalamin (Vitamin B-12) 1,000 mcg PO DAILY [facility] Last Admin: 08/08/20 09:13 Dose: 1,000 mcg Documented by: Dextrose (Dextrose 50%) 0 ml IV UD PRN PRN Reason: Hypoglycemia Diagnostic Test (Pha) (Accu-Chek) 1 each FS ACHS [facility] Last Admin: 08/08/20 12:12 Dose: 1 each Documented by: Docusate Sodium (Colace) 100 mg PO BID [facility] Last Admin: 08/08/20 09:13 Dose: 100 mg Documented by: Ergocalciferol (Drisdol) 50,000 unit PO TuFr@0900 [facility] Glucose (Insta-Glucose) 15 gm PO PRN PRN PRN Reason: Hypoglycemia Heparin Sodium (Porcine) (Heparin) 5,000 unit SQ Q12 [facility] Last Admin: 08/08/20 09:12 Dose: 5,000 unit Documented by: Ceftriaxone Sodium 2 gm/ (Dextrose) 50 mls @ 100 mls/hr IV Q24H [facility]; Protocol Last Admin: 08/08/20 10:28 Dose: 100 mls/hr Documented by: Potassium Chloride 40 meq/ (Dextrose) 520 mls @ 130 mls/hr IV UD PRN PRN Reason: K+ = or < 3.5 Acetaminophen (Ofirmev) 650 mg in 65 mls @ 130 mls/hr IV Q6HP PRN; Protocol PRN Reason: Per Pain Protocol/Fever > 101 Magnesium Sulfate (Magnesium Sulfate) 2 gm in 50 mls @ 50 mls/hr IV UD PRN PRN Reason: MG = or < 1.7 Last Infusion: 08/07/20 11:35 Dose: Infused Documented by: Dextrose/Lactated Ringer's (Dextrose 5%-Lactated Ringers) 1,000 mls @ 84 mls/hr IV .[id number] [facility] Stop: 08/08/20 15:15 Last Admin: 08/08/20 03:41 Dose: 84 mls/hr Documented by: Sodium Chloride (Sodium Chloride 0.9%) 250 mls @ 20 mls/hr IV .[id number] [facility] Stop: 08/08/20 22:29 Insulin Glargine (Lantus) 44 unit SQ DAILY [facility] Last Admin: 08/08/20 09:12 Dose: 44 unit Documented by: Insulin Human Lispro (Humalog) 0 unit SQ [facility]; Protocol Last Admin: 08/08/20 09:11 Dose: 2 units Documented by: Iron Carb/Multivit/[place]/Folic Acid (Multivitamin W/Minerals) 1 tab PO DAILY [facility] Last Admin: 08/08/20 09:13 Dose: 1 tab Documented by: [facility] Last Admin: 08/08/20 07:54 Dose: 50 mcg Documented by: Loperamide HCl (Imodium) 4 mg PO Q6H PRN PRN Reason: Diarrhea Melatonin (Melatonin 3mg Tablet) 3 mg PO HSP PRN PRN Reason: Insomnia Melatonin (Melatonin 3mg Tablet) 9 mg PO HS [facility] Last Admin: 08/07/20 21:52 Dose: 9 mg Documented by: Mupirocin (Bactroban Oint 2%) 1 dose NARES BID [facility] Last Admin: 08/08/20 10:29 Dose: 1 dose Documented by: Omep[facility] ([facility]ilosec) [facility] Last Admin: 08/08/20 07:54 Dose: 20 mg Documented by: Ondansetron HCl (Zofran Odt) 4 mg SL Q4-6HP PRN; Protocol PRN Reason: Nausea And Vomiting Last Admin: 08/07/20 08:34 Dose: 4 mg Documented by: Ondansetron HCl (Zofran) 4 mg IV Q4-6HP PRN; Protocol PRN Reason: Nausea And Vomiting Fluticasone Furoate- Vilanterol [Breo Ellipta] Inhaler 1 dose INH DAILY [facility] Last Admin: 08/08/20 10:29 Dose: Not Given Documented by: Linaclotide [Linzess (] 145 Mcg Cap) 1 dose PO DAILY [facility] Last Admin: 08/08/20 10:29 Dose: Not Given Documented by: Memantine Er 21 Mg (Tab) 1 dose PO QDAY [facility] Last Admin: 08/08/20 10:29 Dose: Not Given Documented by: Polyethylene Glycol (Miralax) 17 gm PO DAILYP PRN PRN Reason: Constipation Last Admin: 08/07/20 08:54 Dose: 17 gm Documented by: Quetiapine Fumarate (Seroquel) 200 mg PO [facility] Last Admin: 08/07/20 21:52 Dose: 200 mg Documented by: Senna/Docusate Sodium (Senna Plus Tablet) 1 tab PO [facility] Last Admin: 08/07/20 21:51 Dose: 1 tab Documented by: Sertraline HCl (Zoloft) 50 mg PO QDAY [facility] Last Admin: 08/08/20 09:12 Dose: 50 mg Documented by: Simvastatin (Zocor) 20 mg PO [facility] Last Admin: 08/07/20 21:54 Dose: 20 mg Documented by: A/P Narrative A/P Narrative: * Acute renal failure secondary to obstructive uropathy. Cedillo's decompression, nephrology discussed case with urology. No urgent need for cystoscopy. Creatinine down to 1.9 from 2.8. * Acute change in mental status secondary to combination of hyponatremia/renal failure uremia, gradual clinical improvement noted * Hypervolemic hyponatremia likely secondary to bladder outlet obstruction/renal failure. Sodium improved from 122-133. Urine osmolarity suggestive against SIADH * Complicated GNR UTI/cystitis recurrent in nature secondary to urinary retention/fecal soiling - CT evidence of bladder wall thickening possible inflammatory cystitis. Urology consulted for cystoscopy/bladder outlet obstruction evaluation. * Dementia with anxiety psychosis on SSRIs/quetiapine/memantine * GERD continue PPI * History of hypertension-ARB on hold in light of renal failure, continue atenolol * HLD on lovastatin * Hypothyroid on thyroxine * DM type II continue basal prandial insulin/renal CC diet * History of gout on allopurinol * Morbid obesity continue directed therapies/nutrition consult * Full code * Prophylaxis heparin Plan * Continue Cedillo's catheter decompression * Continue electrolyte/renal failure management per nephrology * Antibiotics de-escalation based on cultures * Pre-existing medical condition management home medication * PT OT nutrition support * Discharge planning possibly back to [place] versus alternate SNF Time Spent With Patient Time: Total time spent is greater than 50% in coordination of care (as sandie barry) at patient's floor/unit and/or counseling patient: QUALITY Stroke Symptom Onset Unknown: No VTE Deep Vein Thrombosis/Pulmonary Embolism Present on Admission: No
[2020-08-08] MEDS: SENNOSIDES/DOCUSATE SODIUM 1 TAB TABLET PO SCH (20:46)
[2020-08-08] MEDS: SIMVASTATIN 20 MG TABLET PO SCH (20:47)
[2020-08-08] MEDS: QUEtiapine 100 MG TABLET PO SCH (20:47)
[2020-08-08] MEDS: MELATONIN 3 MG TABLET PO SCH (20:47)
[2020-08-09 06:57] LABS: Basophils # (Auto) 0.04 K/mcL (0.00-0.20); Basophils % (Auto) 0.7 % (0.0-2.0); Eosinophils # (Auto) 0.18 K/mcL (0.00-0.70); Eosinophils % (Auto) 2.9 % (0.0-7.0); Hematocrit 28.7 % (36.0-48.0); Hemoglobin 9.4 g/dL (12.0-15.0); Lymphocytes # (Auto) 1.03 K/mcL (1.50-4.80); Lymphocytes % (Auto) 16.8 % (15.0-49.0); Mean Corpuscular HGB Conc 32.8 g/dL (31.0-36.0); Mean Platelet Volume 9.6 fL (7.4-10.4); Monocytes # (Auto) 0.49 K/mcL (0.10-0.90); Neutrophils % (Auto) 71.6 % (38.0-78.0); Platelet Count 127 K/mcL (140-440); RBC 3.12 M/mcL (4.00-5.20); Red Cell Distribution Width 15.4 % (11.5-14.5); WBC 6.1 K/mcL (4.5-11.0)
[2020-08-09 07:24] LABS: ALT/SGPT 14 U/L (<40); AST/SGOT 21 U/L (<32); Albumin 2.3 gm/dL (3.2-5.2); Albumin/Globulin Ratio 0.5 (1.0-2.3); Alkaline Phosphatase 143 U/L (39-117); Bilirubin,Direct < 0.2 mg/dL (<0.3); Bilirubin,Total 0.4 mg/dL (0.1-1.0); Blood Urea Nitrogen 36 mg/dL (8-23); Carbon Dioxide 24 mmol/L (22-30); Chloride 102 mmol/L (96-108); Glomerular Filtration Rate 25; Glucose 122 mg/dL (70-105); Lactate Dehydrogenase 171 U/L (135-225); Phosphorous 3.7 mg/dL (2.5-4.5); Triglycerides 70 mg/dL (<150); Uric Acid 5.8 mg/dL (2.5-8.0)
[2020-08-09] MEDS: OMEPRAZOLE 20 MG CAPSULE PO SCH (08:26)
[2020-08-09] MEDS: INSULIN LISPRO 1 UNIT/0.01 ML UNIT SQ SCH ×4 (08:26→20:35)
[2020-08-09] MEDS: LEVOTHYROXINE 50 MCG TABLET PO SCH (08:26)
[2020-08-09] MEDS ORDERED: ERGOCALCIFEROL (VITAMIN D2) 50,000 UNIT CAPSULE PO SCH (09:00)
[2020-08-09] MEDS: MUPIROCIN OINT 2% 22GM NARES SCH ×2 (10:22→20:34)
[2020-08-09] MEDS: cefTRIAXone 2 GM in DEXTROSE 5% IN WATER 50 ML IV SCH (10:22)
[2020-08-09] MEDS: SERTRALINE 50 MG TABLET PO SCH (10:22)
[2020-08-09] MEDS: ATENOLOL 50 MG TABLET PO SCH ×2 (10:23→20:34)
[2020-08-09] MEDS: ALLOPURINOL 100 MG TABLET PO SCH (10:23)
[2020-08-09] MEDS: HEPARIN 5,000 UNIT/ML VIAL SQ SCH ×2 (10:23→20:34)
[2020-08-09] MEDS: CYANOCOBALAMIN (VITAMIN B-12) 500 MCG TABLET PO SCH (10:23)
[2020-08-09] MEDS: INSULIN GLARGINE, HUMAN 1 UNIT/0.01 ML SQ SCH (10:23)
[2020-08-09] MEDS: ASPIRIN 325 MG ENTERIC COATED TABLET PO SCH (10:23)
[2020-08-09] MEDS: MULTIVIT,THER IRON,CA,FA & MIN 1 TABLET PO SCH (10:23)
[2020-08-09] MEDS: Fluticasone Furoate-Vilanterol [Breo Ellipta] Inhaler INH SCH (10:24)
[2020-08-09] MEDS: MEMANTINE 21 MG PO SCH (10:24)
[2020-08-09] MEDS: DOCUSATE SODIUM 100 MG CAPSULE PO SCH ×2 (10:24→20:19)
--- NOTE | 2020-08-09 10:56 | Nephrology Progress Note ---
SUBJECTIVE Subjective Patient information: Note initiated : 08/09/20 at 10:56 am Service Date, if different from initiated Date: [] Patient: Reny Sanches 75 y/o F admitted on 08/06/20 for ARF. Chief Complaint: [Acute renal failure] Interval history: This is an elderly woman with back to back episodes of acute renal failure the first in May 2020 with complete recovery in the second was discovered at my initial clinic visit on July 31, 2020. She has pyuria, mild bilateral hydronephrosis without stones, some sort of mass or collection of tissue in the bladder, sed rate in excess of 100x2. She also had hyponatremia that rapidly corrected with just normal saline infusions and her serum creatinine was beginning to improve as of yesterday. The case was discussed with the urology service who recommended trying to correct her GFR to the point that a CT KUB with and without contrast could be done to get definitive imaging of her urinary track. An elective cystoscopy was also recommended but was not felt to be urgent. In the clinic visit I stopped many of the offending medications except for furosemide and this was stopped when I became aware of the elevated serum creatinine on or around August 03. There are also eosinophils in the urine but only 2%. And there is proteinuria but this could have to do tissue sloughing or what ever was collecting in the bladder as opposed to actual protein in the urine. I am not sure what the status of her SPEP, UPEP, ANCA, BRANDIE, complement levels all of which were sent as an outpatient but they may have been canceled by either PRL or her residential. Laboratory Tests 08/09/20 08/09/20 04:01 04:01 WBC 6.1 Hgb 9.4 L Hct 28.7 L Plt Count 127 L Eos % (Auto) 2.9 Sodium 134 Potassium 4.0 Chloride 102 Carbon Dioxide 24 BUN 36 H Creatinine 1.9 H GFR Calculation 25 Glucose 122 H Calcium 9.0 Phosphorus 3.7 Magnesium 1.8 Albumin 2.3 L Constitutional Vitals: Vital Signs Temp Pulse Resp BP Pulse Ox 36.9 C 73 16 148/58 100 08/09/20 08:01 08/09/20 10:27 08/09/20 10:27 08/09/20 10:27 08/09/20 10:27 Period Temp Pulse Resp BP Sys/Corbin Pulse Ox Last 24 Hr 36.6 C-37.1 C 65-84 10-25 109-170/53-143 90-100 Intake and Output 08/08/20 08/09/20 08/09/20 21:59 05:59 13:59 Intake Total 2609 425 Output Total 780 950 320 Balance 1829 525 -320 Weight 110.994 kg Intake & Output: Intake & Output 08/08/20 08/09/20 08/09/20 21:59 05:59 13:59 Intake Total 2609 425 Output Total 780 950 320 Balance 1829 525 -320 Weight 110.994 kg Intake: IV 1619 Sodium Chloride 0.9% 250 ml @ 172 20 mls/hr IV .[id number] PAIGE Rx#: [id number] Dextrose 5%-Lactated Ringers 1, 1447 000 ml @ 84 mls/hr IV .[id number] PAIGE Rx#:[id number] Oral 665 425 Blood Product 325 Output: Urine Catheter Amount 780 950 320 Other: Meal Lunch Percent of Meal Consumed 100% Urine Appearance Cloudy Cloudy Cloudy Mucous Threads Sediment Hematuria Uretheral (Pettit) Sediment Sediment Cloudy Mucous Threads Mucous Threads Sediment Hematuria Hematuria Mucous Threads Hematuria Urine Color Dark Yellow Bright Yellow Dark Yellow Irena Irena Irena Blood Tinged Uretheral (Pettit) Dark Yellow Dark Yellow Pale Irena Irena Bright Yellow Irena Urine Odor Strong Stool Size Large Stool Color Brown Stool Consistency Loose # of times incontinent of 1 Bowels General appearance: no acute distress and obese Head Head exam: Present atraumatic and normocephalic Eye Eye exam: Present EOMI and PERRL Pupils: Present PERRL ENT ENT exam: Present mucous membranes moist Neck Neck exam: Present full ROM; Absent meningismus Respiratory Respiratory exam: Present normal respiratory exam and CTAB Cardiovascular Cardiovascular exam: Present normal rate and rhythm, +S1 and +S2 GI/Abdominal GI/Abdominal exam: Present normal bowel sounds Extremities Exam Extremities exam: Absent calf tenderness and pedal edema Neurological Exam Neurological exam: Present altered (pleasantly demented) and CN II-XII intact; Absent oriented X3 (to person and recog daughter) Psychiatric Psychiatric exam: Present normal mood Additional comments: Dementia Skin Skin exam: Present dry A/P Assessment and plan (1) Acute blood loss anemia: Assessment and plan: Less blood work Transfused with 2 units pRBCs Status: Acute Comment: Check iron stores and retic count before transfusion (2) Bilateral hydronephrosis: Assessment and plan: Needs CT KUB +/- IV contrast when SCr improved and then Cysto Status: Acute Comment: Relatively acute and not due to stones. Will need a clear the air cysto or IV contrast CT imaging (3) Urinary tract infection: Assessment and plan: Preceeded pettit Gm neg rods Rocephin for now Status: Acute Qualifiers: Hematuria presence: with hematuria Urinary tract infection type: site unspecified Qualified Code(s): N39.0 - Urinary tract infection, site not specified; R31.9 - Hematuria, unspecified (4) Acute hyponatremia: Assessment and plan: Improving Status: Acute Comment: I suspect she has been drinking hypotonic fluids and could not clear the free H2O load due to ARF. (5) Polypharmacy: Assessment and plan: Root cause of many of her issues Status: Acute Comment: Finally, this patient is experiencing either progressive dementia or underlying dementia with medications interfering with her thought process such as the combination of tramadol sertraline and benzodiazepines. I have stopped the tramadol, and to taper the sertraline, and stop the clonazepam. Improved and I asked the melatonin at bedtime as well and may be cut the Seroquel to 50 or 100 mg at bedtime. (6) Acute prerenal azotemia: Assessment and plan: Improving with volume and D/C of furosemide Will always have some edema Status: Acute Comment: So in summary this is a 75-year-old woman with near normal GFR 55 cc/min. In May 2020 she had an episode of acute renal failure due to a combination of ARB, diuretics, Bactrim and nonsteroidal anti-inflammatories. All this has resolved, her urine has no proteinuria and I would expect she will do fine as long as known drug combinations that reduced renal perfusion (RAASI therapy & NSAIDS), plus volume depletion (diuretics) or interfere with tubular function (Bactrim) are avoided. There is no proteinuria to suggest underlying diabetic nephropathy. After a full recovery, a second episode of ARF has reoccurred in association with bilateral hydro, abnormal urinary bladder, pyuria and an ESR >100 mm/hr. A partial w/u was started but foiled by problems of getting studies done in a residential over the holiday. (7) Elevated erythrocyte sedimentation rate: Assessment and plan: Cancer, Cancer Cancer > autoimmune > infection (this is a UTI no radiographic or clinical evidence of Pyelo. 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 Status: Acute Comment: The differential diagnosis includes infection/inflammation with urinary tract infections or soft tissue infections leading the list, autoimmune processes for which polymyalgia rheumatica would be the leading cause in this group based on age alone but she does not have clinical features at that presently (though she had headaches and myalgias in the past according to her problem list), and we should do some screening for autoimmune diseases with BRANDIE and ANCA testing as well as an RPR, and then malignancies in this group I had be concerned about multiple myeloma so we will check an SPEP and UPEP. (8) Pyuria: Assessment and plan: C/W UTI Status: Acute Comment: Outpatient culture was lost or never sent. Recheck tonight for U/A, C&S, urine Eos, urine cytology, urine uric acid/creatinine ratio and UAG. Narrative A/P Narrative: Continue current management until Wednesday. Creatinine continues to improve we will perform CT KUB with and without contrast to image urinary collecting system Time Spent With Patient Time: Total time spent is greater than 50% in coordination of care (as document ed) at patient's floor/unit and/or counseling patient: Total time spent with greater than 50% in coordination of care (as documented) at patient's floor/unit and/or counseling patient:: Greater than 35 minutes
--- NOTE | 2020-08-09 10:59 | Internal Med Progress Note ---
SUBJECTIVE Subjective Patient information: Note initiated : 08/09/20 at 10:55 am Service Date, if different from initiated Date: [] Patient: Reny Sanches a 75 y/o F admitted on 08/06/20 for ARF. Chief Complaint: [] Interval history: Ms. Sanches is a 75 year old F resident of [facility] since mid-May with history of HTN/HLD/DM type II/morbid obesity who was recently evaluated at nephrology office for worsening renal function now presents to the ER from nephrology office for further hospitalization and evaluation of progressive renal insufficiency. Patient has become increasingly fatigued, lethargic and confused over the last few days and has not been able to function or perform ADLs. She denies associated dysuria, diarrhea, nausea but endorses difficulty urination. She denies changes in medications. Patient work-up in the ER was consistent with acute renal failure with creatinine 2.8. Notable pyuria, sodium 122 and profound change in mental status with GCS 8. Most of the history was obtained from patient's daughter/prior EMR notes. CT abdomen revealed bilateral hydronephrosis with likely bladder outlet obstruction. Urology was consulted. Nephrology was consulted and requested admission under hospitalist service. Subsequently hospitalist service was consulted At the time of my evaluation patient is very confused however oriented to place only. She could not provide any meaningful history over the last 72 hours. She however denies chest pain, fever, chills but endorses lightheadedness, dizziness. 08/07-patient clinically improving. Sodium up to 132. Sodium rise higher than goal. Transition to D5 half NS per nephrology. Urine osmolarity appropriately low ruling out SIADH. Creatinine down to 2.4. Continue antibiotic coverage. Await urine cultures. Improving mental status however remains disoriented. No overnight fever chills. No other concerns per nursing staff. No telemetry events. Restart diabetic diet 08/08-patient seen in room along with daughter. Intermittently confused but much more alert since yesterday. Hemoglobin 6.6, 2 units PRBC transfusion per nephrology. Creatinine down to 1.9, Cedillo's draining clear urine, sodium improved to 133. Following commands. Remains disoriented. No overnight fever chills. Ongoing management per nephrology. No concerns expressed by nursing staff except for occasional incontinence. Ongoing MRSA decolonization. Daughter expressed concerns about transitioning to [facility] and would want alternate facility including [facility] 08/09-patient appears quite cheerful. No family at bedside. Ongoing physical therapy with therapist in room. No overnight fever chills. No additional concerns expressed with nursing staff. White count 6.1. Stable hemodynamics. Creatinine 1.9.Cedillo is draining clear urine. Continuing antibiotic coverage. Constitutional Vitals: Vital Signs Temp Pulse Resp BP Pulse Ox 98.4 F 73 16 148/58 100 08/09/20 08:01 08/09/20 10:27 08/09/20 10:27 08/09/20 10:27 08/09/20 10:27 Period Temp Pulse Resp BP Sys/Corbin Pulse Ox Last 24 Hr 97.8 F-98.8 F 65-84 10-25 109-170/53-143 90-100 Intake and Output 08/08/20 08/09/20 08/09/20 21:59 05:59 13:59 Intake Total 2609 425 Output Total 780 950 320 Balance 1829 -525 -320 Weight 110.994 kg Intake & Output: Intake & Output 08/08/20 08/09/20 08/09/20 21:59 05:59 13:59 Intake Total 2609 425 Output Total 780 950 320 Balance 1829 -525 -320 Weight 110.994 kg Intake: IV 1619 Sodium Chloride 0.9% 250 ml @ 172 20 mls/hr IV .[id number] PAIGE Rx#: [id number] Dextrose 5%-Lactated Ringers 1, 1447 000 ml @ 84 mls/hr IV .[id number] PAIGE Rx#:[id number] Oral 665 425 Blood Product 325 Output: Urine Catheter Amount 780 950 320 Other: Meal Lunch Percent of Meal Consumed 100% Urine Appearance Cloudy Cloudy Cloudy Mucous Threads Sediment Hematuria Uretheral (Cedillo) Sediment Sediment Cloudy Mucous Threads Mucous Threads Sediment Hematuria Hematuria Mucous Threads Hematuria Urine Color Dark Yellow Bright Yellow Dark Yellow [place] Blood Tinged Uretheral (Cedillo) Dark Yellow Dark Yellow Pale [place] Bright Yellow [place] Urine Odor Strong Stool Size Large Stool Color Brown Stool Consistency Loose # of times incontinent of 1 Bowels Exam: Pleasantly demented OBJ DATA Labs CBC & Chem 7: 08/09/20 04:01 08/09/20 04:01 Labs: Abnormal Lab Results 08/09/20 08/09/20 08/08/20 04:01 04:01 05:12 RBC 3.12 L Hgb 9.4 L Hct 28.7 L RDW 15.4 H Plt Count 127 L MPV Neut % (Auto) Lymph % (Auto) Lymph # (Auto) 1.03 L Absolute Neutrophils Percent Retic Sodium Chloride Carbon Dioxide BUN 36 H Creatinine 1.9 H Glucose 122 H Osmolality Phosphorus TIBC 179 L Unsat Iron Binding 107 L GGT 103 H Alkaline Phosphatase 143 H Albumin 2.3 L Globulin 5.0 H Albumin/Globulin Ratio 0.5 L Urine Appearance Urine Protein Urine Occult Blood Ur Leukocyte Esterase Urine RBC Urine WBC Ur Squamous Epith Cells Ur Transition Epith Cell Urine Bacteria Urine Eosinophils Ur Random Chloride Ur Random Uric Acid Urine Creatinine Microalb/Creat Ratio 08/08/20 08/08/20 08/08/20 05:12 05:12 05:12 RBC 2.17 L Hgb 6.6 L* Hct 20.4 L* RDW Plt Count 119 L MPV 10.8 H Neut % (Auto) Lymph % (Auto) Lymph # (Auto) 0.97 L Absolute Neutrophils Percent Retic 2.55 H Sodium Chloride Carbon Dioxide 21 L BUN 49 H Creatinine 1.9 H Glucose 186 H Osmolality Phosphorus TIBC Unsat Iron Binding GGT 92 H Alkaline Phosphatase 143 H Albumin 2.3 L Globulin 4.6 H Albumin/Globulin Ratio 0.5 L Urine Appearance Urine Protein Urine Occult Blood Ur Leukocyte Esterase Urine RBC Urine WBC Ur Squamous Epith Cells Ur Transition Epith Cell Urine Bacteria Urine Eosinophils Ur Random Chloride Ur Random Uric Acid Urine Creatinine Microalb/Creat Ratio 08/07/20 08/07/20 08/07/20 12:00 08:05 04:09 RBC Hgb Hct RDW Plt Count MPV Neut % (Auto) Lymph % (Auto) Lymph # (Auto) Absolute Neutrophils Percent Retic Sodium 129 L 130 L 132 L Chloride Carbon Dioxide 21 L BUN 59 H Creatinine 2.4 H Glucose 134 H Osmolality Phosphorus 4.7 H TIBC Unsat Iron Binding GGT 107 H Alkaline Phosphatase 157 H Albumin 2.4 L Globulin 5.3 H Albumin/Globulin Ratio 0.5 L Urine Appearance Urine Protein Urine Occult Blood Ur Leukocyte Esterase Urine RBC Urine WBC Ur Squamous Epith Cells Ur Transition Epith Cell Urine Bacteria Urine Eosinophils Ur Random Chloride Ur Random Uric Acid Urine Creatinine Microalb/Creat Ratio 08/07/20 08/07/20 08/06/20 04:09 00:24 21:53 RBC 2.49 L Hgb 7.5 L Hct 23.7 L RDW Plt Count 132 L MPV Neut % (Auto) 79.3 H Lymph % (Auto) 10.9 L Lymph # (Auto) 0.84 L Absolute Neutrophils Percent Retic Sodium 127 L Chloride Carbon Dioxide BUN Creatinine Glucose Osmolality Phosphorus TIBC Unsat Iron Binding GGT Alkaline Phosphatase Albumin Globulin Albumin/Globulin Ratio Urine Appearance Urine Protein Urine Occult Blood Ur Leukocyte Esterase Urine RBC Urine WBC Ur Squamous Epith Cells Ur Transition Epith Cell Urine Bacteria Urine Eosinophils 2% A Ur Random Chloride Ur Random Uric Acid Urine Creatinine Microalb/Creat Ratio 08/06/20 08/06/20 08/06/20 21:53 21:53 21:53 RBC Hgb Hct RDW Plt Count MPV Neut % (Auto) Lymph % (Auto) Lymph # (Auto) Absolute Neutrophils Percent Retic Sodium Chloride Carbon Dioxide BUN Creatinine Glucose Osmolality Phosphorus TIBC Unsat Iron Binding GGT Alkaline Phosphatase Albumin Globulin Albumin/Globulin Ratio Urine Appearance Turbid A Urine Protein 100 A Urine Occult Blood >=1.0 A Ur Leukocyte Esterase 250 A Urine RBC > 182 H Urine WBC > 182 H Ur Squamous Epith Cells 12 H Ur Transition Epith Cell 3 H Urine Bacteria Many A Urine Eosinophils Ur Random Chloride 37 L Ur Random Uric Acid 11.2 L Urine Creatinine 22.6 L Microalb/Creat Ratio 4526.5 H 08/06/20 08/06/20 08/06/20 12:11 12:11 12:11 RBC 2.61 L Hgb 8.1 L Hct 24.6 L RDW Plt Count MPV Neut % (Auto) 81.6 H Lymph % (Auto) 10.1 L Lymph # (Auto) 1.01 L Absolute Neutrophils 8.20 H Percent Retic Sodium 123 L Chloride 88 L Carbon Dioxide 19 L BUN 70 H Creatinine 2.8 H Glucose 275 H Osmolality 302 H Phosphorus TIBC Unsat Iron Binding GGT Alkaline Phosphatase 177 H Albumin 2.7 L Globulin 5.4 H Albumin/Globulin Ratio 0.5 L Urine Appearance Urine Protein Urine Occult Blood Ur Leukocyte Esterase Urine RBC Urine WBC Ur Squamous Epith Cells Ur Transition Epith Cell Urine Bacteria Urine Eosinophils Ur Random Chloride Ur Random Uric Acid Urine Creatinine Microalb/Creat Ratio Meds: Medications Acetaminophen (Tylenol) 650 mg PO Q4-6HP PRN; Protocol PRN Reason: Per Pain Protocol/Fever > 101 Albuterol Sulfate (Ventolin) 1 puff INH Q4HP PRN PRN Reason: Shortness Of Breath Allopurinol (Zyloprim) 100 mg PO DAILY [facility] Last Admin: 08/09/20 10:23 Dose: 100 mg Documented by: Aspirin (Ecotrin) 325 mg PO DAILY [facility] Last Admin: 08/09/20 10:23 Dose: 325 mg Documented by: Atenolol (Tenormin) 50 mg PO BID [facility] Last Admin: 08/09/20 10:23 Dose: 50 mg Documented by: Bisacodyl (Dulcolax) 10 mg CA Q2-3DAYS PRN PRN Reason: Constipation Cyanocobalamin (Vitamin B-12) 1,000 mcg PO DAILY [facility] Last Admin: 08/09/20 10:23 Dose: 1,000 mcg Documented by: Dextrose (Dextrose 50%) 0 ml IV UD PRN PRN Reason: Hypoglycemia Diagnostic Test (Pha) (Accu-Chek) 1 each FS ACHS [facility] Last Admin: 08/09/20 08:25 Dose: 1 each Documented by: Docusate Sodium (Colace) 100 mg PO BID [facility] Last Admin: 08/09/20 10:24 Dose: Not Given Documented by: Ergocalciferol (Drisdol) 50,000 unit PO TuFr@0900 [facility] Last Admin: 08/09/20 10:23 Dose: 50,000 unit Documented by: Glucose (Insta-Glucose) 15 gm PO PRN PRN PRN Reason: Hypoglycemia Heparin Sodium (Porcine) (Heparin) 5,000 unit SQ Q12 [facility] Last Admin: 08/09/20 10:23 Dose: 5,000 unit Documented by: Ceftriaxone Sodium 2 gm/ (Dextrose) 50 mls @ 100 mls/hr IV Q24H [facility]; Protocol Last Admin: 08/09/20 10:22 Dose: 100 mls/hr Documented by: Potassium Chloride 40 meq/ (Dextrose) 520 mls @ 130 mls/hr IV UD PRN PRN Reason: K+ = or < 3.5 Acetaminophen (Ofirmev) 650 mg in 65 mls @ 130 mls/hr IV Q6HP PRN; Protocol PRN Reason: Per Pain Protocol/Fever > 101 Magnesium Sulfate (Magnesium Sulfate) 2 gm in 50 mls @ 50 mls/hr IV UD PRN PRN Reason: MG = or < 1.7 Last Infusion: 08/07/20 11:35 Dose: Infused Documented by: Insulin Glargine (Lantus) 44 unit SQ DAILY [facility] Last Admin: 08/09/20 10:23 Dose: 44 unit Documented by: Insulin Human Lispro (Humalog) 0 unit SQ ACHS [facility]; Protocol Last Admin: 08/09/20 08:26 Dose: Not Given Documented by: Iron Carb/Multivit/[place]/Folic Acid (Multivitamin W/Minerals) 1 tab PO DAILY [facility] Last Admin: 08/09/20 10:23 Dose: 1 tab Documented by: [facility]) [facility] Admin: 08/09/20 08:26 Dose: 50 mcg Documented by: Loperamide HCl (Imodium) 4 mg PO Q6H PRN PRN Reason: Diarrhea Melatonin (Melatonin 3mg Tablet) 9 mg PO HS [facility] Last Admin: 08/08/20 20:47 Dose: 9 mg Documented by: Mupirocin (Bactroban Oint 2%) 1 dose NARES BID [facility] Last Admin: 08/09/20 10:22 Dose: 1 dose Documented by: Omeprazole (Prilosec) 20 mg PO QAMAC [facility] Last Admin: 08/09/20 08:26 Dose: 20 mg Documented by: Ondansetron HCl (Zofran Odt) 4 mg SL Q4-6HP PRN; Protocol PRN Reason: Nausea And Vomiting Last Admin: 08/07/20 08:34 Dose: 4 mg Documented by: Ondansetron HCl (Zofran) 4 mg IV Q4-6HP PRN; Protocol PRN Reason: Nausea And Vomiting Fluticasone Furoate- Vilanterol [Breo Ellipta] Inhaler 1 dose INH DAILY [facility] Last Admin: 08/09/20 10:24 Dose: Not Given Documented by: Linaclotide [Linzess (] 145 Mcg Cap) 1 dose PO DAILY [facility] Last Admin: 08/09/20 10:24 Dose: Not Given Documented by: Memantine Er 21 Mg (Tab) 1 dose PO QDAY [facility] Last Admin: 08/09/20 10:24 Dose: Not Given Documented by: Polyethylene Glycol (Miralax) 17 gm PO DAILYP PRN PRN Reason: Constipation Last Admin: 08/07/20 08:54 Dose: 17 gm Documented by: Quetiapine Fumarate (Seroquel) 200 mg PO [facility] Last Admin: 08/08/20 20:47 Dose: 200 mg Documented by: Senna/Docusate Sodium (Senna Plus Tablet) 1 tab PO [facility] Last Admin: 08/08/20 20:46 Dose: Not Given Documented by: Sertraline HCl (Zoloft) 50 mg PO QDAY [facility] Last Admin: 08/09/20 10:22 Dose: 50 mg Documented by: Simvastatin (Zocor) 20 mg PO [facility] Last Admin: 08/08/20 20:47 Dose: 20 mg Documented by: A/P Narrative A/P Narrative: * Obstructive uropathy likely bladder outlet obstruction. Continue Cedillo's decompression, nephrology discussed case with urology. CT evidence of bladder wall thickening, no urgent need for cystoscopy per urology. Advised follow-up on discharge. * Acute renal failure secondary obstructive uropathy -creatinine plateaued at 1.9 from 2.8 following Cedillo decompression. * Acute change in mental status secondary to combination of hyponatremia/renal failure uremia, gradual clinical improvement noted, per daughter getting close to baseline * Anemia of chronic disease hemoglobin 6.6 improved to 9.4 status post 2 units PRBC transfusion * Hypervolemic hyponatremia likely secondary to bladder outlet obstruction/renal failure. Sodium normalized. Urine osmolarity suggestive against SIADH * Complicated GNR UTI/cystitis recurrent in nature secondary to urinary retention/fecal soiling - CT evidence of bladder wall thickening possible inflammatory cystitis. * Dementia with anxiety psychosis on SSRIs/quetiapine/memantine * GERD continue PPI * History of hypertension-ARB on hold in light of renal failure, continue atenolol * HLD on lovastatin * Hypothyroid on thyroxine * DM type II continue basal prandial insulin/renal CC diet * History of gout on allopurinol * Morbid obesity continue directed therapies/nutrition consult * Full code * Prophylaxis heparin Plan * Continue Cedillo's catheter decompression * Continue electrolyte/renal failure management per nephrology * Antibiotics de-escalation based on cultures * Pre-existing medical condition management home medication * PT OT nutrition support * Outpatient urology follow-up * Discharge planning possibly per case management Time Spent With Patient Time: Total time spent is greater than 50% in coordination of care (as documented) at patient's floor/unit and/or counseling patient: QUALITY Stroke Symptom Onset Unknown: No VTE Deep Vein Thrombosis/Pulmonary Embolism Present on Admission: No
[2020-08-09] MEDS: SENNOSIDES/DOCUSATE SODIUM 1 TAB TABLET PO SCH (20:19)
[2020-08-09] MEDS: MELATONIN 3 MG TABLET PO SCH (20:34)
[2020-08-09] MEDS: SIMVASTATIN 20 MG TABLET PO SCH (20:35)
[2020-08-09] MEDS: QUEtiapine 100 MG TABLET PO SCH (20:35)
[2020-08-09] MEDS ORDERED: OXYBUTYNIN CHLORIDE 5 MG TABLET PO ONE (21:36)
[2020-08-10 06:43] LABS: Basophils # (Auto) 0.04 K/mcL (0.00-0.20); Basophils % (Auto) 0.5 % (0.0-2.0); Eosinophils # (Auto) 0.22 K/mcL (0.00-0.70); Hemoglobin 9.7 g/dL (12.0-15.0); Lymphocytes # (Auto) 0.94 K/mcL (1.50-4.80); Lymphocytes % (Auto) 12.8 % (15.0-49.0); Mean Cell Volume 91.5 fL (80.0-100.0); Mean Corpuscular HGB Conc 32.3 g/dL (31.0-36.0); Mean Platelet Volume 9.8 fL (7.4-10.4); Monocytes # (Auto) 0.54 K/mcL (0.10-0.90); Monocytes % (Auto) 7.3 % (1.0-12.0); Neutrophils % (Auto) 76.4 % (38.0-78.0); Platelet Count 134 K/mcL (140-440); RBC 3.28 M/mcL (4.00-5.20); Red Cell Distribution Width 15.1 % (11.5-14.5); WBC 7.4 K/mcL (4.5-11.0)
[2020-08-10] MEDS ORDERED: OPIUM/BELLADONNA ALKALOIDS 60 MG SUPP.RECT PR ONE (06:53)
[2020-08-10] MEDS ORDERED: OPIUM/BELLADONNA ALKALOIDS 60 MG SUPP.RECT PR PRN ×2 (06:55→07:03)
[2020-08-10] MEDS ORDERED: LOPERAMIDE 2 MG CAPSULE PO PRN (07:03)
[2020-08-10] MEDS ORDERED: DEXTROSE 31 GM ORAL.SUSP PO PRN (07:03)
[2020-08-10] MEDS ORDERED: DEXTROSE 50% 50 ML VIAL IV PRN (07:03)
[2020-08-10] MEDS ORDERED: ALBUTEROL SULFATE 200 PUFF INHALER INH PRN (07:03)
[2020-08-10] MEDS ORDERED: ONDANSETRON 4 MG/2 ML VIAL IV PRN (07:03)
[2020-08-10] MEDS ORDERED: POLYETHYLENE GLYCOL 3350 17 GM PACKET PO PRN (07:03)
[2020-08-10] MEDS ORDERED: POTASSIUM CHLORIDE 40 MEQ in DEXTROSE 5% IN WATER 500 ML IV PRN (07:03)
[2020-08-10] MEDS ORDERED: BISACODYL 10 MG SUPP.RECT PR PRN (07:03)
[2020-08-10] MEDS ORDERED: ACETAMINOPHEN 650 MG/65 ML BAG IV PRN (07:03)
[2020-08-10] MEDS ORDERED: ONDANSETRON 4 MG ODT TABLET SL PRN (07:03)
[2020-08-10] MEDS: OMEPRAZOLE 20 MG CAPSULE PO SCH (07:09)
[2020-08-10] MEDS: LEVOTHYROXINE 50 MCG TABLET PO SCH (07:09)
[2020-08-10] MEDS: INSULIN LISPRO 1 UNIT/0.01 ML UNIT SQ SCH ×4 (07:13→21:34)
[2020-08-10 07:18] LABS: ALT/SGPT 11 U/L (<40); AST/SGOT 25 U/L (<32); Albumin 2.4 gm/dL (3.2-5.2); Albumin/Globulin Ratio 0.5 (1.0-2.3); Alkaline Phosphatase 143 U/L (39-117); Bilirubin,Direct < 0.2 mg/dL (<0.3); Bilirubin,Total 0.4 mg/dL (0.1-1.0); Blood Urea Nitrogen 32 mg/dL (8-23); Calcium 9.3 mg/dL (8.6-10.4); Carbon Dioxide 23 mmol/L (22-30); Chloride 99 mmol/L (96-108); Glomerular Filtration Rate 34; Glucose 78 mg/dL (70-105); Lactate Dehydrogenase 181 U/L (135-225); Phosphorous 3.8 mg/dL (2.5-4.5); Triglycerides 82 mg/dL (<150); Uric Acid 5.8 mg/dL (2.5-8.0)
--- NOTE | 2020-08-10 08:38 | Internal Med Progress Note ---
SUBJECTIVE Subjective Patient information: Note initiated : 08/10/20 at 8:33 am Service Date, if different from initiated Date: [] Patient: Reny Sanches a 75 y/o F admitted on 08/06/20 for ARF. Chief Complaint: [] Interval history: Ms. Sanches is a 75 year old F resident of [facility] since mid-May with history of HTN/HLD/DM type II/morbid obesity who was recently evaluated at nephrology office for worsening renal function now presents to the ER from nephrology office for further hospitalization and evaluation of progressive renal insufficiency. Patient has become increasingly fatigued, lethargic and confused over the last few days and has not been able to function or perform ADLs. She denies associated dysuria, diarrhea, nausea but endorses difficulty urination. She denies changes in medications. Patient work-up in the ER was consistent with acute renal failure with creatinine 2.8. Notable pyuria, sodium 122 and profound change in mental status with GCS 8. Most of the history was obtained from patient's daughter/prior EMR notes. CT abdomen revealed bilateral hydronephrosis with likely bladder outlet obstruction. Urology was consulted. Nephrology was consulted and requested admission under hospitalist service. Moriah almonte hospitalist service was consulted At the time of my evaluation patient is very confused however oriented to place only. She could not provide any meaningful history over the last 72 hours. She however denies chest pain, fever, chills but endorses lightheadedness, dizziness. 08/07-patient clinically improving. Sodium up to 132. Sodium rise higher than goal. Transition to D5 half NS per nephrology. Urine osmolarity appropriately low ruling out SIADH. Creatinine down to 2.4. Continue antibiotic coverage. Await urine cultures. Improving mental status however remains disoriented. No overnight fever chills. No other concerns per nursing staff. No telemetry events. Restart diabetic diet 08/08-patient seen in room along with daughter. Intermittently confused but much more alert since yesterday. Hemoglobin 6.6, 2 units PRBC transfusion per nephrology. Creatinine down to 1.9, Cedillo's draining clear urine, sodium improved to 133. Following commands. Remains disoriented. No overnight fever chills. Ongoing management per nephrology. No concerns expressed by nursing staff except for occasional incontinence. Ongoing MRSA decolonization. Daughter expressed concerns about transitioning to [place] and would want alternate facility including [facility] 08/09-patient appears quite cheerful. No family at bedside. Ongoing physical therapy with therapist in room. No overnight fever chills. No additional concerns expressed with nursing staff. White count 6.1. Stable hemodynamics. Creatinine 1.9.Cedillo is draining clear urine. Continuing antibiotic coverage. 08/10-patient clinically improving. More lucid. Complains of intermittent b ladder spasm. Responded well to BNO suppository. White count 7.4. Nephrology recommends confusion of Cedillo's catheter with further work-up by urology on discharge. Creatinine down to 1.5, on antibiotic coverage for E. coli UTI. Multidrug-resistant sensitive to nitrofurantoin. Constitutional Vitals: Vital Signs Temp Pulse Resp BP Pulse Ox 98.2 F 67 15 146/67 98 08/10/20 04:01 08/10/20 07:13 08/10/20 07:13 08/10/20 06:01 08/10/20 07:13 Period Temp Pulse Resp BP Sys/Corbin Pulse Ox Last 24 Hr 97.8 F-98.2 F 56-80 12-24 85-176/38-105 93-100 Intake and Output 08/09/20 08/10/20 08/10/20 21:59 05:59 13:59 Intake Total 905 350 Output Total 1250 550 Balance -345 -200 Weight 109.633 kg Alert nonlabored breathing No anxiety Cedillo is draining clear urine Nondistended nontender abdomen Intake & Output: Intake & Output 08/09/20 08/10/20 08/10/20 21:59 05:59 13:59 Intake Total 905 350 Output Total 1250 550 Balance -345 -200 Weight 109.633 kg Intake: Oral 905 350 Output: Urine Catheter Amount 1250 550 Other: Urine Appearance Cloudy Clear Sediment Sediment Mucous Threads Mucous Threads Hematuria Uretheral (Cedillo) Cloudy Cloudy Cloudy Sediment Sediment Sediment Mucous Threads Mucous Threads Mucous Threads Hematuria Hematuria Hematuria Urine Color Pale Bright Yellow [place] Uretheral (Cedillo) Bright Yellow Bright Yellow Bright Yellow [place] Urine Odor Strong Exam: Pleasantly demented OBJ DATA Labs CBC & Chem 7: 08/10/20 04:57 08/10/20 04:57 Labs: Abnormal Lab Results 08/10/20 08/10/20 08/09/20 04:57 04:57 04:01 RBC 3.28 L Hgb 9.7 L Hct 30.0 L RDW 15.1 H Plt Count 134 L MPV Lymph % (Auto) 12.8 L Lymph # (Auto) 0.94 L Percent Retic Sodium Carbon Dioxide BUN 32 H 36 H Creatinine 1.5 H 1.9 H Glucose 122 H TIBC Unsat Iron Binding GGT 110 H 103 H Alkaline Phosphatase 143 H 143 H Albumin 2.4 L 2.3 L Globulin 5.0 H 5.0 H Albumin/Globulin Ratio 0.5 L 0.5 L 08/09/20 08/08/20 08/08/20 04:01 05:12 05:12 RBC 3.12 L Hgb 9.4 L Hct 28.7 L RDW 15.4 H Plt Count 127 L MPV Lymph % (Auto) Lymph # (Auto) 1.03 L Percent Retic 2.55 H Sodium Carbon Dioxide BUN Creatinine Glucose TIBC 179 L Unsat Iron Binding 107 L GGT Alkaline Phosphatase Albumin Globulin Albumin/Globulin Ratio 08/08/20 08/08/20 08/07/20 05:12 05:12 12:00 RBC 2.17 L Hgb 6.6 L* Hct 20.4 L* RDW Plt Count 119 L MPV 10.8 H Lymph % (Auto) Lymph # (Auto) 0.97 L Percent Retic Sodium 129 L Carbon Dioxide 21 L BUN 49 H Creatinine 1.9 H Glucose 186 H TIBC Unsat Iron Binding GGT 92 H Alkaline Phosphatase 143 H Albumin 2.3 L Globulin 4.6 H Albumin/Globulin Ratio 0.5 L 08/07/20 08:05 RBC Hgb Hct RDW Plt Count MPV Lymph % (Auto) Lymph # (Auto) Percent Retic Sodium 130 L Carbon Dioxide BUN Creatinine Glucose TIBC Unsat Iron Binding GGT Alkaline Phosphatase Albumin Globulin Albumin/Globulin Ratio Meds: Medications Acetaminophen (Tylenol) 650 mg PO Q4-6HP PRN; Protocol PRN Reason: Per Pain Protocol/Fever > 101 Albuterol Sulfate (Ventolin) 1 puff INH Q4HP PRN PRN Reason: Shortness Of Breath Allopurinol (Zyloprim) 100 mg PO DAILY [facility] Aspirin (Ecotrin) 325 mg PO DAILY [facility] Atenolol (Tenormin) 50 mg PO BID [facility] Belladonna Alkaloids/Opium (B & O) 30 mg LA Q4HP PRN PRN Reason: Pain Bisacodyl (Dulcolax) 10 mg LA Q2-3DAYS PRN PRN Reason: Constipation Cyanocobalamin (Vitamin B-12) 1,000 mcg PO DAILY [facility] Dextrose (Dextrose 50%) 0 ml IV UD PRN PRN Reason: Hypoglycemia Diagnostic Test (Pha) (Accu-Chek) 1 each FS [facility] Last Admin: 08/10/20 07:12 Dose: 1 each Documented by: Docusate Sodium (Colace) 100 mg PO BID [facility] Ergocalciferol (Drisdol) 50,000 unit PO TuFr@0900 [facility] Glucose (Insta-Glucose) 15 gm PO PRN PRN PRN Reason: Hypoglycemia Heparin Sodium (Porcine) (Heparin) 5,000 unit SQ Q12 [facility] Ceftriaxone Sodium 2 gm/ (Dextrose) 50 mls @ 100 mls/hr IV Q24H [facility]; Protocol Magnesium Sulfate (Magnesium Sulfate) 2 gm in 50 mls @ 50 mls/hr IV UD PRN PRN Reason: MG = or < 1.7 Potassium Chloride 40 meq/ (Dextrose) 520 mls @ 130 mls/hr IV UD PRN PRN Reason: K+ = or < 3.5 Acetaminophen (Ofirmev) 650 mg in 65 mls @ 130 mls/hr IV Q6HP PRN; Protocol PRN Reason: Per Pain Protocol/Fever > 101 Insulin Glargine (Lantus) 44 unit SQ DAILY [facility] Insulin Human Lispro (Humalog) 0 unit SQ [facility]; Protocol Last Admin: 08/10/20 07:13 Dose: Not Given Documented by: Iron Carb/Multivit/[place]/Folic Acid (Multivitamin W/Minerals) 1 tab PO DAILY [facility] Levothyroxine Sodium (Synthroid) 50 mcg PO QAMAC [facility] Last Admin: 08/10/20 07:09 Dose: 50 mcg Documented by: Loperamide HCl (Imodium) 4 mg PO Q6H PRN PRN Reason: Diarrhea Melatonin (Melatonin 3mg Tablet) 9 mg PO HS [facility] Mupirocin (Bactroban Oint 2%) 1 dose NARES BID [facility] Omeprazole (Prilosec) 20 mg PO QAMAC [facility] Last Admin: 01/02/21 07:09 Dose: 20 mg Documented by: Ondansetron HCl (Zofran Odt) 4 mg SL Q4-6HP PRN; Protocol PRN Reason: Nausea And Vomiting Ondansetron HCl (Zofran) 4 mg IV Q4-6HP PRN; Protocol PRN Reason: Nausea And Vomiting Fluticasone Furoate- Vilanterol [Breo Ellipta] Inhaler 1 dose INH DAILY [facility] Linaclotide [Linzess (] 145 Mcg Cap) 1 dose PO DAILY [facility] Memantine Er 21 Mg (Tab) 1 dose PO QDAY [facility] Polyethylene Glycol (Miralax) 17 gm PO DAILYP PRN PRN Reason: Constipation Quetiapine Fumarate (Seroquel) 200 mg PO HS [facility] Senna/Docusate Sodium (Senna Plus Tablet) 1 tab PO HS [facility] Sertraline HCl (Zoloft) 50 mg PO QDAY [facility] Simvastatin (Zocor) 20 mg PO HS [facility] A/P Narrative A/P Narrative: * Obstructive uropathy likely bladder outlet obstruction. Continue Cedillo's decompression, CT evidence of bladder wall thickening, no urgent need for cystoscopy per urology. Advised follow-up on discharge. * Acute renal failure secondary obstructive uropathy -creatinine down to 1.5 from 2.[address] KUB per nephrology today * Acute change in mental status secondary to combination of hyponatremia/renal failure uremia, much improved * Anemia of chronic disease hemoglobin 6.6 improved to 9.4 status post 2 units PRBC transfusion * Hypervolemic hyponatremia likely secondary to bladder outlet obstruction/renal failure. Sodium normalized. Urine osmolarity suggestive against SIADH * Complicated multidrug-resistant E. coli UTI/cystitis recurrent in nature secondary to urinary retention/fecal soiling - CT evidence of bladder wall thickening possible inflammatory cystitis. De-escalate antibiotics to nitrofurantoin based on culture sensitivity * Dementia with anxiety psychosis on SSRIs/quetiapine/memantine * GERD continue PPI * History of hypertension-ARB on hold in light of renal failure, continue atenolol * HLD on lovastatin * Hypothyroid on thyroxine * DM type II continue basal prandial insulin/renal CC diet * History of gout on allopurinol * Morbid obesity continue directed therapies/nutrition consult * Full code * Prophylaxis heparin Plan * Continue Cedillo's catheter decompression * Continue electrolyte/renal failure management per nephrology * switch to nitrofurantoin * Pre-existing medical condition management home medication * PT OT nutrition support * Outpatient urology follow-up * Discharge planning per case management likely SNF Time Spent With Patient Time: Total time spent is greater than 50% in coordination of care (as documented) at patient's floor/unit and/or counseling patient: QUALITY Stroke Symptom Onset Unknown: No VTE Deep Vein Thrombosis/Pulmonary Embolism Present on Admission: No
[2020-08-10] MEDS ORDERED: cefTRIAXone 2 GM in DEXTROSE 5% IN WATER 50 ML IV SCH (09:00)
[2020-08-10] MEDS: MUPIROCIN OINT 2% 22GM NARES SCH ×3 (10:31→21:58)
[2020-08-10] MEDS: INSULIN GLARGINE, HUMAN 1 UNIT/0.01 ML SQ SCH (10:32)
[2020-08-10] MEDS: ASPIRIN 325 MG ENTERIC COATED TABLET PO SCH (10:33)
[2020-08-10] MEDS: DOCUSATE SODIUM 100 MG CAPSULE PO SCH ×2 (10:33→21:28)
[2020-08-10] MEDS: MULTIVIT,THER IRON,CA,FA & MIN 1 TABLET PO SCH (10:33)
[2020-08-10] MEDS: ATENOLOL 50 MG TABLET PO SCH ×2 (10:33→21:45)
[2020-08-10] MEDS: CYANOCOBALAMIN (VITAMIN B-12) 500 MCG TABLET PO SCH (10:34)
[2020-08-10] MEDS: SERTRALINE 50 MG TABLET PO SCH (10:34)
[2020-08-10] MEDS: ALLOPURINOL 100 MG TABLET PO SCH (10:34)
[2020-08-10] MEDS: HEPARIN 5,000 UNIT/ML VIAL SQ SCH ×2 (10:34→21:43)
[2020-08-10] MEDS: Fluticasone Furoate-Vilanterol [Breo Ellipta] Inhaler INH SCH (10:35)
[2020-08-10] MEDS: MEMANTINE 21 MG PO SCH (10:35)
[2020-08-10] MEDS: NITROFURANTOIN SR 100 MG CAPSULE PO SCH ×2 (10:49→21:46)
--- NOTE | 2020-08-10 12:52 | Internal Med Progress Note ---
SUBJECTIVE Subjective Patient information: Note initiated : 08/10/20 at 12:45 pm Service Date, if different from initiated Date: [] Patient: Reny Sanches a 75 y/o F admitted on 08/06/20 for ARF. Chief Complaint: [] Interval history: Ms. Sanches is a 75 year old F resident of [facility] since mid-May with history of HTN/HLD/DM type II/morbid obesity who was recently evaluated at nephrology office for worsening renal function now presents to the ER from nephrology office for further hospitalization and evaluation of progressive renal insufficiency. Patient has become increasingly fatigued, lethargic and confused over the last few days and has not been able to function or perform ADLs. She denies associated dysuria, diarrhea, nausea but endorses difficulty urination. She denies changes in medications. Patient work-up in the ER was consistent with acute renal failure with creatinine 2.8. Notable pyuria, sodium 122 and profound change in mental status with GCS 8. Most of the history was obtained from patient's daughter/prior EMR notes. CT abdomen revealed bilateral hydronephrosis with likely bladder outlet obstruction. Urology was consulted. Nephrology was consulted and requested admission under hospitalist service. Subsequently hospitalist service was consulted At the time of my evaluation patient is very confused however oriented to place only. She could not provide any meaningful history over the last 72 hours. She however denies chest pain, fever, chills but endorses lightheadedness, dizziness. 08/07-patient clinically improving. Sodium up to 132. Sodium rise higher than goal. Transition to D5 half NS per nephrology. Urine osmolarity appropriately low ruling out SIADH. Creatinine down to 2.4. Continue antibiotic coverage. Await urine cultures. Improving mental status however remains disoriented. No overnight fever chills. No other concerns per nursing staff. No telemetry events. Restart diabetic diet 08/08-patient seen in room along with daughter. Intermittently confused but much more alert since yesterday. Hemoglobin 6.6, 2 units PRBC transfusion per nephrology. Creatinine down to 1.9, Pettit's draining clear urine, sodium improved to 133. Following commands. Remains disoriented. No overnight fever chills. Ongoing management per nephrology. No concerns expressed by nursing staff except for occasional incontinence. Ongoing MRSA decolonization. Daughter expressed concerns about transitioning to [place] and would want alternate facility including [facility] 08/09-patient appears quite cheerful. No family at bedside. Ongoing physical therapy with therapist in room. No overnight fever chills. No additional concerns expressed with nursing staff. White count 6.1. Stable hemodynamics. Creatinine 1.9.Pettit is draining clear urine. Continuing antibiotic coverage. 08/10-patient clinically improving. More lucid. Complains of intermittent bladder spasm. Responded well to BNO suppository. White count 7.4. Nephrology recommends confusion of Pettit's catheter with further work-up by urology on discharge. Creatinine down to 1.5, on antibiotic coverage for E. coli UTI. Multidrug-resistant sensitive to nitrofurantoin. 08/11 Constitutional Vitals: Vital Signs Temp Pulse Resp BP Pulse Ox 97.8 F 77 16 143/61 100 08/10/20 09:47 08/10/20 11:04 08/10/20 11:04 08/10/20 09:47 08/10/20 11:04 Period Temp Pulse Resp BP Sys/Corbin Pulse Ox Last 24 Hr 97.8 F-98.2 F 56-80 12-24 85-176/38-105 93-100 Intake and Output 08/09/20 08/10/20 08/10/20 21:59 05:59 13:59 Intake Total 905 350 Output Total 1250 550 550 Balance -345 -200 -550 Weight 109.633 kg Intake & Output: Intake & Output 08/09/20 08/10/20 08/10/20 21:59 05:59 13:59 Intake Total 905 350 Output Total 1250 550 550 Balance -345 -200 -550 Weight 109.633 kg Intake: Oral 905 350 Output: Urine Catheter Amount 1250 550 550 Other: Urine Appearance Cloudy Clear Sediment Sediment Sediment Mucous Threads Mucous Threads Hematuria Uretheral (Pettit) Cloudy Cloudy Cloudy Sediment Sediment Sediment Mucous Threads Mucous Threads Mucous Threads Hematuria Hematuria Hematuria Urine Color Pale Bright Yellow Bright Yellow [place] Uretheral (Pettit) Bright Yellow Bright Yellow Bright Yellow [place] Urine Odor Strong Exam: General: Alert, Awake, No acute Distress Eyes/N/T: EOMI, Head/Neck: neck supple, CV: RRR, No murmurs, Pulm: Clear b/l, no wheezing/rhonchi/rales Abd: soft, nontender, +BS x4, Pettit in place Ext: no clubbing/cyanosis/edema Neuro: Alert, no focal deficits, moves all extremities, Skin: warm/dry OBJ DATA Labs CBC & Chem 7: 08/10/20 04:57 08/10/20 04:57 Labs: Abnormal Lab Results 08/10/20 08/10/20 08/09/20 04:57 04:57 04:01 RBC 3.28 L Hgb 9.7 L Hct 30.0 L RDW 15.1 H Plt Count 134 L MPV Lymph % (Auto) 12.8 L Lymph # (Auto) 0.94 L Percent Retic Sodium Carbon Dioxide BUN 32 H 36 H Creatinine 1.5 H 1.9 H Glucose 122 H TIBC Unsat Iron Binding GGT 110 H 103 H Alkaline Phosphatase 143 H 143 H Albumin 2.4 L 2.3 L Globulin 5.0 H 5.0 H Albumin/Globulin Ratio 0.5 L 0.5 L 08/09/20 08/08/20 08/08/20 04:01 05:12 05:12 RBC 3.12 L Hgb 9.4 L Hct 28.7 L RDW 15.4 H Plt Count 127 L MPV Lymph % (Auto) Lymph # (Auto) 1.03 L Percent Retic 2.55 H Sodium Carbon Dioxide BUN Creatinine Glucose TIBC 179 L Unsat Iron Binding 107 L GGT Alkaline Phosphatase Albumin Globulin Albumin/Globulin Ratio 08/08/20 08/08/20 08/07/20 05:12 05:12 12:00 RBC 2.17 L Hgb 6.6 L* Hct 20.4 L* RDW Plt Count 119 L MPV 10.8 H Lymph % (Auto) Lymph # (Auto) 0.97 L Percent Retic Sodium 129 L Carbon Dioxide 21 L BUN 49 H Creatinine 1.9 H Glucose 186 H TIBC Unsat Iron Binding GGT 92 H Alkaline Phosphatase 143 H Albumin 2.3 L Globulin 4.6 H Albumin/Globulin Ratio 0.5 L Meds: Medications Acetaminophen (Tylenol) 650 mg PO Q4-6HP PRN; Protocol PRN Reason: Per Pain Protocol/Fever > 101 Albuterol Sulfate (Ventolin) 1 puff INH Q4HP PRN PRN Reason: Shortness Of Breath Allopurinol (Zyloprim) 100 mg PO DAILY [facility] Last Admin: 08/10/20 10:34 Dose: 100 mg Documented by: Aspirin (Ecotrin) 325 mg PO DAILY [facility] Last Admin: 08/10/20 10:33 Dose: 325 mg Documented by: Atenolol (Tenormin) 50 mg PO BID [facility] Last Admin: 08/10/20 10:33 Dose: 50 mg Documented by: Belladonna Alkaloids/Opium (B & O) 30 mg VT Q4HP PRN PRN Reason: Pain Bisacodyl (Dulcolax) 10 mg VT Q2-3DAYS PRN PRN Reason: Constipation Cyanocobalamin (Vitamin B-12) 1,000 mcg PO DAILY [facility] Last Admin: 08/10/20 10:34 Dose: 1,000 mcg Documented by: Dextrose (Dextrose 50%) 0 ml IV UD PRN PRN Reason: Hypoglycemia Diagnostic Test (Pha) (Accu-Chek) 1 each FS ACHS [facility] Last Admin: 08/10/20 11:44 Dose: 1 each Documented by: Docusate Sodium (Colace) 100 mg PO BID [facility] Last Admin: 08/10/20 10:33 Dose: 100 mg Documented by: Ergocalciferol (Drisdol) 50,000 unit PO TuFr@0900 [facility] Glucose (Insta-Glucose) 15 gm PO PRN PRN PRN Reason: Hypoglycemia Heparin Sodium (Porcine) (Heparin) 5,000 unit SQ Q12 [facility] Last Admin: 08/10/20 10:34 Dose: 5,000 unit Documented by: Magnesium Sulfate (Magnesium Sulfate) 2 gm in 50 mls @ 50 mls/hr IV UD PRN PRN Reason: MG = or < 1.7 Potassium Chloride 40 meq/ (Dextrose) 520 mls @ 130 mls/hr IV UD PRN PRN Reason: K+ = or < 3.5 Acetaminophen (Ofirmev) 650 mg in 65 mls @ 130 mls/hr IV Q6HP PRN; Protocol PRN Reason: Per Pain Protocol/Fever > 101 Insulin Glargine (Lantus) 44 unit SQ DAILY [facility] Last Admin: 08/10/20 10:32 Dose: 44 unit Documented by: Insulin Human Lispro (Humalog) 0 unit SQ ACHS [facility]; Protocol Last Admin: 08/10/20 11:45 Dose: Not Given Documented by: Iron Carb/Multivit/[place]/Folic Acid (Multivitamin W/Minerals) 1 tab PO DAILY [facility] Last Admin: 08/10/20 10:33 Dose: 1 tab Documented by: [facility]othy[facility]ine [facility] ([facility]throid) [facility] Last Admin: 08/10/20 07:09 Dose: 50 mcg Documented by: Loperamide HCl (Imodium) 4 mg PO Q6H PRN PRN Reason: Diarrhea Melatonin (Melatonin 3mg Tablet) 9 mg PO [facility] Mupirocin (Bactroban Oint 2%) 1 dose NARES BID [facility] Last Admin: 08/10/20 10:31 Dose: 1 dose Documented by: Nitrofurantoin Macrocrystals (Macrobid) 100 mg PO BID [facility] Last Admin: 08/10/20 10:49 Dose: 100 mg Documented by: Omeprazole (Prilosec) 20 mg PO QAMAC [facility] Last Admin: 08/10/20 07:09 Dose: 20 mg Documented by: Ondansetron HCl (Zofran Odt) 4 mg SL Q4-6HP PRN; Protocol PRN Reason: Nausea And Vomiting Ondansetron HCl (Zofran) 4 mg IV Q4-6HP PRN; Protocol PRN Reason: Nausea And Vomiting Fluticasone Furoate- Vilanterol [Breo Ellipta] Inhaler 1 dose INH DAILY [facility] Last Admin: 08/10/20 10:35 Dose: Not Given Documented by: Linaclotide [Linzess (] 145 Mcg Cap) 1 dose PO DAILY [facility] Last Admin: 08/10/20 10:35 Dose: Not Given Documented by: Memantine Er 21 Mg (Tab) 1 dose PO QDAY [facility] Last Admin: 08/10/20 10:35 Dose: Not Given Documented by: Polyethylene Glycol (Miralax) 17 gm PO DAILYP PRN PRN Reason: Constipation Quetiapine Fumarate (Seroquel) 200 mg PO [facility] Senna/Docusate Sodium (Senna Plus Tablet) 1 tab PO [facility] Sertraline HCl (Zoloft) 50 mg PO QDAY [facility] Last Admin: 08/10/20 10:34 Dose: 50 mg Documented by: Simvastatin (Zocor) 20 mg PO [facility] A/P Narrative A/P Narrative: A: *Obstructive uropathy likely bladder outlet obstruction: -CT evidence of bladder wall thickening, no urgent need for cystoscopy per urology. Advised follow-up on discharge. *PRIMO: secondary obstructive uropathy -creatinine improved *AMS: secondary to combination of hyponatremia/renal failure uremia, much improved *Anemia of chronic disease: -status post 2 units PRBC transfusion *Hyponatremia: likely secondary to bladder outlet obstruction/renal failure. Urine osmolarity suggestive against SIADH *Complicated multidrug-resistant E. coli UTI/cystitis: recurrent in nature secondary to urinary retention/fecal soiling -CT evidence of bladder wall thickening possible inflammatory cystitis. *Dementia with anxiety psychosis: on SSRIs/quetiapine/memantine *GERD continue PPI *HTN/HLD: ARB on hold in light of renal failure, continue atenolol *Hypothyroid on thyroxine *DM type II: *History of gout on allopurinol *Morbid obesity continue directed therapies/nutrition consult Plan: -Continue Pettit's catheter decompression -Continue electrolyte/renal failure management per nephrology -CT KUB per nephrology today -switched to nitrofurantoin -ARB on hold in light of renal failure, continue atenolol - continue basal prandial insulin/renal CC diet -PT OT nutrition support -Outpatient urology follow-up, maintain pettit on d/c -Discharge planning per case management likely SNF -ppx: Heparin Full code Time Spent With Patient Time: Total time spent is greater than 50% in coordination of care (as documented) at patient's floor/unit and/or counseling patient: QUALITY Stroke Symptom Onset Unknown: No VTE Deep Vein Thrombosis/Pulmonary Embolism Present on Admission: No
--- NOTE | 2020-08-10 12:55 | Nephrology Progress Note ---
SUBJECTIVE Subjective Patient information: Note initiated : 08/10/20 at 12:54 pm Service Date, if different from initiated Date: [] Patient: Reny Sanches 75 y/o F admitted on 08/06/20 for ARF. Chief Complaint: [bilateral hydro] Interval history: This is an elderly woman with back to back episodes of acute renal failure the first in May 2020 with complete recovery in the second was discovered at my initial clinic visit on July 31, 2020. She has pyuria, mild bilateral hydronephrosis without stones, some sort of mass or collection of tissue in the bladder, sed rate in excess of 100x2. She also had hyponatremia that rapidly corrected with just normal saline infusions and her serum creatinine was beginning to improve as of yesterday. The case was discussed with the urology service who recommended trying to correct her GFR to the point that a CT KUB with and without contrast could be done to get definitive imaging of her urinary track. An elective cystoscopy was also recommended but was not felt to be urgent. In the clinic visit I stopped many of the offending medications except for furosemide and this was stopped when I became aware of the elevated serum creatinine on or around August 03. There are also eosinophils in the urine but only 2%. And there is proteinuria but this could have to do tissue sloughing or what ever was collecting in the bladder as opposed to actual protein in the urine. I am not sure what the status of her SPEP, UPEP, ANCA, BRANDIE, complement levels all of which were sent as an outpatient but they may have been canceled by either [facility] or her [place] [facility] facility. Laboratory Tests 08/10/20 08/10/20 04:57 04:57 WBC 7.4 Hgb 9.7 L Hct 30.0 L Plt Count 134 L Eos % (Auto) 3.0 Sodium 135 Potassium 4.0 Chloride 99 Carbon Dioxide 23 Anion Gap 13.0 BUN 32 H Creatinine 1.5 H GFR Calculation 34 Glucose 78 Uric Acid 5.8 Calcium 9.3 Phosphorus 3.8 Magnesium 1.8 Direct Bilirubin < 0.2 GGT 110 H AST 25 ALT 11 Alkaline Phosphatase 143 H Lactate Dehydrogenase 181 Total Protein 7.4 Albumin 2.4 L Globulin 5.0 H Albumin/Globulin Ratio 0.5 L Triglycerides 82 Uri culture with E coli resistant to multiple Rx Change to pip/maddie based on sensitivities 2.25 gm IV q6hr Constitutional Vitals: Vital Signs Temp Pulse Resp BP Pulse Ox 36.6 C 77 16 143/61 100 08/10/20 09:47 08/10/20 11:04 08/10/20 11:04 08/10/20 09:47 08/10/20 11:04 Period Temp Pulse Resp BP Sys/Corbin Pulse Ox Last 24 Hr 36.6 C-36.8 C 56-80 12-24 85-176/38-105 93-100 Intake and Output 08/09/20 08/10/20 08/10/20 21:59 05:59 13:59 Intake Total 905 350 Output Total 1250 550 550 Balance -345 -200 -550 Weight 109.633 kg Intake & Output: Intake & Output 08/09/20 08/10/20 08/10/20 21:59 05:59 13:59 Intake Total 905 350 Output Total 1250 550 550 Balance -345 -200 -550 Weight 109.633 kg Intake: Oral 905 350 Output: Urine Catheter Amount 1250 550 550 Other: Urine Appearance Cloudy Clear Sediment Sediment Sediment Mucous Threads Mucous Threads Hematuria Uretheral (Pettit) Cloudy Cloudy Cloudy Sediment Sediment Sediment Mucous Threads Mucous Threads Mucous Threads Hematuria Hematuria Hematuria Urine Color Pale Bright Yellow Bright Yellow [place] Uretheral (Pettit) Bright Yellow Bright Yellow Bright Yellow [place] Urine Odor Strong General appearance: no acute distress and obese Exam: dementia Head Head exam: Present atraumatic and normocephalic Eye Eye exam: Present EOMI and PERRL Pupils: Present PERRL ENT ENT exam: Present mucous membranes dry Neck Neck exam: Present full ROM and meningismus Respiratory Respiratory exam: Present normal respiratory exam and CTAB Cardiovascular Cardiovascular exam: Present normal rate and rhythm, +S1 and +S2; Absent JVD GI/Abdominal GI/Abdominal exam: Present normal bowel sounds; Absent tenderness Neurological Exam Neurological exam: Present altered (underlying dementia) and CN II-XII intact; Absent abnormal gait (no walking for a while, up in chair) Psychiatric Psychiatric exam: Absent normal affect and normal mood Additional comments: Pleasant but demented Skin Skin exam: Present dry A/P Assessment and plan (1) Acute blood loss anemia: Assessment and plan: Less blood work Transfused with 2 units pRBCs Status: Acute Comment: Check iron stores and retic count before transfusion (2) Bilateral hydronephrosis: Assessment and plan: Needs CT KUB +/- IV contrast when SCr improved (sc hedule for Mon) and then Cysto Status: Acute Comment: Relatively acute and not due to stones. Will need a clear the air cysto or IV contrast CT imaging (3) Urinary tract infection: Assessment and plan: Preceeded pettit E coli Rocephin => pip/maddie adjusted for GFR 30 cc/min Status: Acute Qualifiers: Hematuria presence: with hematuria Urinary tract infection type: site unspecified Qualified Code(s): N39.0 - Urinary tract infection, site not sp ecified; R31.9 - Hematuria, unspecified (4) Acute hyponatremia: Assessment and plan: Improving Status: Acute Comment: I suspect she has been drinking hypotonic fluids and could not clear the free H2O load due to ARF. (5) Polypharmacy: Assessment and plan: Root cause of many of her issues Status: Acute Comment: Finally, this patient is experiencing either progressive dementia or underlying dementia with medications interfering with her thought process such as the combination of tramadol sertraline and benzodiazepines. I have stopped the tramadol, and to taper the sertraline, and stop the clonazepam. Improved and I asked the melatonin at bedtime as well and may be cut the Seroquel to 50 or 100 mg at bedtime. (6) Acute prerenal azotemia: Assessment and plan: Improving with volume and D/C of furosemide Will always have some edema Status: Acute Comment: So in summary this is a 75-year-old woman with near normal GFR 55 cc/min. In May 2020 she had an episode of acute renal failure due to a combination of ARB, diuretics, Bactrim and nonsteroidal anti-inflammatories. All this has resolved, her urine has no proteinuria and I would expect she will do fine as long as known drug combinations that reduced renal perfusion (RAASI therapy & NSAIDS), plus volume depletion (diuretics) or interfere with tubular function (Bactrim) are avoided. There is no proteinuria to suggest underlying diabetic nephropathy. After a full recovery, a second episode of ARF has reoccurred in association with bilateral hydro, abnormal urinary bladder, pyuria and an ESR >100 mm/hr. A partial w/u was started but foiled by problems of getting studies done in a [place] [facility] [place] facility over the holiday. (7) Elevated erythrocyte sedimentation rate: Assessment and plan: Cancer, Cancer Cancer > autoimmune > infection (this is a UTI no radiographic or clinical evidence of Pyelo. 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 Status: Acute Comment: The differential diagnosis includes infection/inflammation with urinary tract infections or soft tissue infections leading the list, autoimmune processes for which polymyalgia rheumatica would be the leading cause in this group based on age alone but she does not have clinical features at that presently (though she had headaches and myalgias in the past according to her problem list), and we should do some screening for autoimmune diseases with BRANDIE and ANCA testing as well as an RPR, and then malignancies in this group I had be concerned about multiple myeloma so we will check an SPEP and UPEP. (8) Pyuria: Assessment and plan: C/W UTI => E coli uti sens to pip/maddie Status: Acute Comment: Outpatient culture was lost or never sent. Recheck tonight for U/A, C&S, urine Eos, urine cytology, urine uric acid/creatinine ratio and UAG. Narrative A/P Narrative: Adj abx per Culture and sensitivity CT on mon Time Spent With Patient Time: Total time spent is greater than 50% in coordination of care (as documented) at patient's floor/unit and/or counseling patient: Total time spent with greater than 50% in coordination of care (as documented) at patient's floor/unit and/or counseling patient:: Greater than 35 minutes
[2020-08-10] MEDS: PIPERACILLIN SODIUM/TAZOBACTAM 2.25 GM in DEXTROSE 5% IN WATER 50 ML IV SCH ×3 (13:31→23:45)
[2020-08-10] MEDS: SENNOSIDES/DOCUSATE SODIUM 1 TAB TABLET PO SCH (21:36)
[2020-08-10] MEDS: MELATONIN 3 MG TABLET PO SCH (21:44)
[2020-08-10] MEDS: SIMVASTATIN 20 MG TABLET PO SCH (21:45)
[2020-08-10] MEDS: QUEtiapine 100 MG TABLET PO SCH (21:45)
[2020-08-11] MEDS: PIPERACILLIN SODIUM/TAZOBACTAM 2.25 GM in DEXTROSE 5% IN WATER 50 ML IV SCH ×3 (06:00→17:22)
[2020-08-11] MEDS: MEMANTINE 21 MG PO SCH (07:11)
[2020-08-11] MEDS: Fluticasone Furoate-Vilanterol [Breo Ellipta] Inhaler INH SCH (07:11)
--- NOTE | 2020-08-11 07:26 | Internal Med Progress Note ---
SUBJECTIVE Subjective Patient information: Note initiated : 08/11/20 at 7:23 am Service Date, if different from initiated Date: [] Patient: Reny Sanches a 75 y/o F admitted on 08/06/20 for ARF. Chief Complaint: [] Interval history: Ms. Sanches is a 75 year old F resident of [facility] since mid-May with history of HTN/HLD/DM type II/morbid obesity who was recently evaluated at nephrology office for worsening renal function now presents to the ER from nephrology office for further hospitalization and evaluation of progressive renal insufficiency. Patient has become increasingly fatigued, lethargic and confused over the last few days and has not been able to function or perform ADLs. She denies associated dysuria, diarrhea, nausea but endorses difficulty urination. She denies changes in medications. Patient work-up in the ER was consistent with acute renal failure with creatinine 2.8. Notable pyuria, sodium 122 and profound change in mental status with GCS 8. Most of the history was obtained from patient's daughter/prior EMR notes. CT abdomen revealed bilateral hydronephrosis with likely bladder outlet obstruction. Urology was consulted. Nephrology was consulted and requested admission under hospitalist service. Moriah almonte hospitalist service was consulted At the time of my evaluation patient is very confused however oriented to place only. She could not provide any meaningful history over the last 72 hours. She however denies chest pain, fever, chills but endorses lightheadedness, dizziness. 08/07-patient clinically improving. Sodium up to 132. Sodium rise higher than goal. Transition to D5 half NS per nephrology. Urine osmolarity appropriately low ruling out SIADH. Creatinine down to 2.4. Continue antibiotic coverage. Await urine cultures. Improving mental status however remains disoriented. No overnight fever chills. No other concerns per nursing staff. No telemetry events. Restart diabetic diet 08/08-patient seen in room along with daughter. Intermittently confused but much more alert since yesterday. Hemoglobin 6.6, 2 units PRBC transfusion per nephrology. Creatinine down to 1.9, Pettit's draining clear urine, sodium improved to 133. Following commands. Remains disoriented. No overnight fever chills. Ongoing management per nephrology. No concerns expressed by nursing staff except for occasional incontinence. Ongoing MRSA decolonization. Daughter expressed concerns about transitioning to [place] and would want alternate facility including [facility] 08/09-patient appears quite cheerful. No family at bedside. Ongoing physical therapy with therapist in room. No overnight fever chills. No additional concerns expressed with nursing staff. White count 6.1. Stable hemodynamics. Creatinine 1.9.Pettit is draining clear urine. Continuing antibiotic coverage. 08/10-patient clinically improving. More lucid. Complains of intermittent b ladder spasm. Responded well to BNO suppository. White count 7.4. Nephrology recommends confusion of Pettit's catheter with further work-up by urology on discharge. Creatinine down to 1.5, on antibiotic coverage for E. coli UTI. Multidrug-resistant sensitive to nitrofurantoin. 08/11 No new complaints. No overnight events. BC stable. Creatinine 1.6. Review of Systems: denies headache/fever/chills/nausea/vomiting/chest or abdominal pain/cough/dyspnea/diarrhea. Otherwise see above. Constitutional Vitals: Vital Signs Temp Pulse Resp BP Pulse Ox 97.8 F 65 16 130/60 98 08/11/20 07:17 08/11/20 07:17 08/11/20 07:17 08/11/20 07:17 08/11/20 07:17 Period Temp Pulse Resp BP Sys/Corbin Pulse Ox Last 24 Hr 97.0 F-98.8 F 58-77 12-27 130-161/58-76 95-100 Intake and Output 08/10/20 08/11/20 08/11/20 21:59 05:59 13:59 Intake Total 1040 230 Output Total 1675 425 Balance -635 -195 Weight 107.91 kg Intake & Output: Intake & Output 08/10/20 08/11/20 08/11/20 21:59 05:59 13:59 Intake Total 1040 230 Output Total 1675 425 Balance -635 -195 Weight 107.91 kg Intake: IV 100 50 Zosyn 2.25 gm In Dextrose 5% in 100 50 Water 50 ml @ 100 mls/hr IV Q6H [facility] Rx#:[id number] Oral 940 180 Output: Urine Catheter Amount 1675 425 Other: Meal Dinner Percent of Meal Consumed 50% Feeding Ability Needs Supervision Urine Appearance Cloudy Cloudy Sediment Sediment Mucous Threads Mucous Threads Uretheral (Pettit) Cloudy Cloudy Sediment Sediment Mucous Threads Urine Color Bright Yellow Bright Yellow Uretheral (Pettit) Bright Yellow Bright Yellow Urine Odor Normal Strong Uretheral (Pettit) Strong Stool Size Moderate Stool Color Brown Stool Consistency Soft # Bowel Movements 1 Exam: General: Awake, No acute Distress Eyes/N/T: EOMI, Head/Neck: neck supple, CV: RRR, No murmurs, Pulm: Clear b/l, no wheezing/rhonchi/rales Abd: soft, nontender, +BS x4, Pettit in place Ext: no clubbing/cyanosis/edema Neuro: confusion, no focal deficits, moves all extremities, Skin: warm/dry OBJ DATA Labs CBC & Chem 7: 08/11/20 06:02 08/11/20 06:02 Labs: Abnormal Lab Results 08/10/20 08/10/20 08/09/20 04:57 04:57 04:01 RBC 3.28 L Hgb 9.7 L Hct 30.0 L RDW 15.1 H Plt Count 134 L MPV Lymph % (Auto) 12.8 L Lymph # (Auto) 0.94 L Carbon Dioxide BUN 32 H 36 H Creatinine 1.5 H 1.9 H Glucose 122 H TIBC Unsat Iron Binding GGT 110 H 103 H Alkaline Phosphatase 143 H 143 H Albumin 2.4 L 2.3 L Globulin 5.0 H 5.0 H Albumin/Globulin Ratio 0.5 L 0.5 L 08/09/20 08/08/20 08/08/20 04:01 05:12 05:12 RBC 3.12 L Hgb 9.4 L Hct 28.7 L RDW 15.4 H Plt Count 127 L MPV Lymph % (Auto) Lymph # (Auto) 1.03 L Carbon Dioxide 21 L BUN 49 H Creatinine 1.9 H Glucose 186 H TIBC 179 L Unsat Iron Binding 107 L GGT 92 H Alkaline Phosphatase 143 H Albumin 2.3 L Globulin 4.6 H Albumin/Globulin Ratio 0.5 L 08/08/20 05:12 RBC 2.17 L Hgb 6.6 L* Hct 20.4 L* RDW Plt Count 119 L MPV 10.8 H Lymph % (Auto) Lymph # (Auto) 0.97 L Carbon Dioxide BUN Creatinine Glucose TIBC Unsat Iron Binding GGT Alkaline Phosphatase Albumin Globulin Albumin/Globulin Ratio Meds: Medications Acetaminophen (Tylenol) 650 mg PO Q4-6HP PRN; Protocol PRN Reason: Per Pain Protocol/Fever > 101 Albuterol Sulfate (Ventolin) 1 puff INH Q4HP PRN PRN Reason: Shortness Of Breath Allopurinol (Zyloprim) 100 mg PO DAILY [facility] Last Admin: 08/10/20 10:34 Dose: 100 mg Documented by: Aspirin (Ecotrin) 325 mg PO DAILY [facility] Last Admin: 08/10/20 10:33 Dose: 325 mg Documented by: Atenolol (Tenormin) 50 mg PO BID [facility] Last Admin: 08/10/20 21:45 Dose: 50 mg Documented by: Belladonna Alkaloids/Opium (B & O) 30 mg IN Q4HP PRN PRN Reason: Pain Bisacodyl (Dulcolax) 10 mg IN Q2-3DAYS PRN PRN Reason: Constipation Cyanocobalamin (Vitamin B-12) 1,000 mcg PO DAILY [facility] Last Admin: 08/10/20 10:34 Dose: 1,000 mcg Documented by: Dextrose (Dextrose 50%) 0 ml IV UD PRN PRN Reason: Hypoglycemia Diagnostic Test (Pha) (Accu-Chek) 1 each FS ACHS [facility] Last Admin: 08/10/20 21:33 Dose: 1 each Documented by: Docusate Sodium (Colace) 100 mg PO BID [facility] Last Admin: 08/10/20 21:28 Dose: Not Given Documented by: Ergocalciferol (Drisdol) 50,000 unit PO TuFr@0900 [facility] Glucose (Insta-Glucose) 15 gm PO PRN PRN PRN Reason: Hypoglycemia Heparin Sodium (Porcine) (Heparin) 5,000 unit SQ Q12 [facility] Last Admin: 08/10/20 21:43 Dose: 5,000 unit Documented by: Magnesium Sulfate (Magnesium Sulfate) 2 gm in 50 mls @ 50 mls/hr IV UD PRN PRN Reason: MG = or < 1.7 Potassium Chloride 40 meq/ (Dextrose) 520 mls @ 130 mls/hr IV UD PRN PRN Reason: K+ = or < 3.5 Acetaminophen (Ofirmev) 650 mg in 65 mls @ 130 mls/hr IV Q6HP PRN; Protocol PRN Reason: Per Pain Protocol/Fever > 101 Piperacillin Sod/Tazobactam (Sod 2.25 gm/ Dextrose) 50 mls @ 100 mls/hr IV Q6H [facility]; Protocol Stop: 08/16/20 13:29 Last Admin: 08/11/20 06:00 Dose: 100 mls/hr Documented by: Insulin Glargine (Lantus) 44 unit SQ DAILY [facility] Last Admin: 08/10/20 10:32 Dose: 44 unit Documented by: Insulin Human Lispro (Humalog) 0 unit SQ ACHS [facility]; Protocol Last Admin: 08/10/20 21:34 Dose: Not Given Documented by: Iron Carb/Multivit/Money Room Teller/Folic Acid (Multivitamin W/Minerals) 1 tab PO DAILY [facility] Last Admin: 08/10/20 10:33 Dose: 1 tab Documented by: Levothyroxine Sodium (Synthroid) 50 mcg PO [facility] Last Admin: 08/10/20 07:09 Dose: 50 mcg Documented by: Loperamide HCl (Imodium) 4 mg PO Q6H PRN PRN Reason: Diarrhea Melatonin (Melatonin 3mg Tablet) 9 mg PO HS [facility] Last Admin: 08/10/20 21:44 Dose: 9 mg Documented by: Mupirocin (Bactroban Oint 2%) 1 dose NARES BID [facility] Last Admin: 08/10/20 21:00 Dose: 1 dose Documented by: Nitrofurantoin Macrocrystals (Macrobid) 100 mg PO BID [facility] Last Admin: 08/10/20 21:46 Dose: 100 mg Documented by: Omeprazole (Prilosec) 20 mg PO [facility] Last Admin: 08/10/20 07:09 Dose: 20 mg Documented by: Ondansetron HCl (Zofran Odt) 4 mg SL Q4-6HP PRN; Protocol PRN Reason: Nausea And Vomiting Ondansetron HCl (Zofran) 4 mg IV Q4-6HP PRN; Protocol PRN Reason: Nausea And Vomiting Fluticasone Furoate- Vilanterol [Breo Ellipta] Inhaler 1 dose INH DAILY [facility] Last Admin: 08/11/20 07:11 Dose: Not Given Documented by: Linaclotide [Linzess (] 145 Mcg Cap) 1 dose PO DAILY [facility] Last Admin: 08/11/20 07:11 Dose: Not Given Documented by: Memantine Er 21 Mg (Tab) 1 dose PO QDAY [facility] Last Admin: 08/11/20 07:11 Dose: Not Given Documented by: Polyethylene Glycol (Miralax) 17 gm PO DAILYP PRN PRN Reason: Constipation Quetiapine Fumarate (Seroquel) 200 mg PO [facility] Last Admin: 08/10/20 21:45 Dose: 200 mg Documented by: Senna/Docusate Sodium (Senna Plus Tablet) 1 tab PO [facility] Last Admin: 08/10/20 21:36 Dose: Not Given Documented by: Sertraline HCl (Zoloft) 50 mg PO QDAY [facility] Last Admin: 08/10/20 10:34 Dose: 50 mg Documented by: Simvastatin (Zocor) 20 mg PO [facility] Last Admin: 08/10/20 21:45 Dose: 20 mg Documented by: A/P Narrative A/P Narrative: A: *Obstructive uropathy likely bladder outlet obstruction with b/l hydronephrosis: -CT evidence of bladder wall thickening, no urgent need for cystoscopy per urology. Advised follow-up on discharge. *PRIMO: secondary obstructive uropathy -creatinine improving *AMS, superimposed on underlying Dementia: secondary to combination of hyponatr emia/renal failure uremia/medications, much improved *Dementia with anxiety: on SSRIs/quetiapine/memantine *Anemia of chronic disease: -status post 2 units PRBC transfusion *Hyponatremia: likely secondary to bladder outlet obstruction/renal failure. Urine osmolarity suggestive against SIADH *Complicated multidrug-resistant E. coli UTI/cystitis: recurrent in nature secondary to urinary retention/fecal soiling -CT evidence of bladder wall thickening possible inflammatory cystitis. *GERD continue PPI *HTN/HLD: ARB on hold in light of renal failure, continue atenolol *Hypothyroid on thyroxine *DM type II: *History of gout on allopurinol *Morbid obesity continue directed therapies/nutrition consult Plan: -Continue Pettit's catheter decompression -Continue electrolyte/renal failure management per nephrology -CT KUB per nephrology when Cr improved, likely wednesday -switched to nitrofurantoin -ARB on hold in light of renal failure, continue atenolol - continue basal prandial insulin/renal CC diet -PT OT nutrition support -Outpatient urology follow-up, maintain pettit on d/c -Discharge planning per case management likely SNF -ppx: Heparin Time Spent With Patient Time: Total time spent is greater than 50% in coordination of care (as documented) at patient's floor/unit and/or counseling patient: QUALITY Stroke Symptom Onset Unknown: No VTE Deep Vein Thrombosis/Pulmonary Embolism Present on Admission: No
[2020-08-11 07:28] LABS: Basophils # (Auto) 0.03 K/mcL (0.00-0.20); Basophils % (Auto) 0.4 % (0.0-2.0); Eosinophils # (Auto) 0.24 K/mcL (0.00-0.70); Hematocrit 30.9 % (36.0-48.0); Hemoglobin 9.9 g/dL (12.0-15.0); Lymphocytes # (Auto) 0.91 K/mcL (1.50-4.80); Lymphocytes % (Auto) 11.3 % (15.0-49.0); Mean Cell Volume 92.2 fL (80.0-100.0); Mean Platelet Volume 9.8 fL (7.4-10.4); Monocytes # (Auto) 0.65 K/mcL (0.10-0.90); Neutrophils % (Auto) 77.3 % (38.0-78.0); Platelet Count 127 K/mcL (140-440); RBC 3.35 M/mcL (4.00-5.20); Red Cell Distribution Width 14.9 % (11.5-14.5); WBC 8.1 K/mcL (4.5-11.0)
[2020-08-11 07:37] LABS: ALT/SGPT 17 U/L (<40); AST/SGOT 33 U/L (<32); Albumin 2.3 gm/dL (3.2-5.2); Albumin/Globulin Ratio 0.5 (1.0-2.3); Alkaline Phosphatase 141 U/L (39-117); Bilirubin,Direct < 0.2 mg/dL (<0.3); Bilirubin,Total 0.5 mg/dL (0.1-1.0); Blood Urea Nitrogen 27 mg/dL (8-23); Carbon Dioxide 23 mmol/L (22-30); Chloride 98 mmol/L (96-108); Globulin 5.1 gm/dL (2.2-3.7); Glomerular Filtration Rate 31; Glucose 78 mg/dL (70-105); Lactate Dehydrogenase 198 U/L (135-225); Phosphorous 3.5 mg/dL (2.5-4.5); Triglycerides 109 mg/dL (<150); Uric Acid 5.3 mg/dL (2.5-8.0)
[2020-08-11] MEDS: INSULIN LISPRO 1 UNIT/0.01 ML UNIT SQ SCH ×4 (07:43→20:59)
[2020-08-11 07:52] LABS: Appearance,Urine CLOUDY (Clear); Bacteria,Urine MOD /hpf (0); Bilirubin,Urine Negative (Negative); Color,Urine YELLOW; Culture Indicated,Urine yes; Glucose,Urine (UA) Negative (Negative); Ketones,Urine Negative (Negative); Leukocyte Esterase,Urine 500 /ug (Negative); Nitrate,Urine Negative (Negative); Protein,Urine 100 mg/dL (Negative); Specific Gravity,Urine 1.011 (1.000-1.035); Urine Blood >=1.0 mg/dL (Negative); Urine RBC 72 /hpf (0-3); Urine Squamous Epithelial Cell 2 /hpf (0-4); Urine Transitional Epi Cells 2 /hpf (0-2); Urine WBC > 182 /hpf (0-4); Urobilinogen,Urine Negative
[2020-08-11] MEDS: DOCUSATE SODIUM 100 MG CAPSULE PO SCH ×2 (08:49→20:59)
[2020-08-11] MEDS: OMEPRAZOLE 20 MG CAPSULE PO SCH (08:49)
[2020-08-11] MEDS: MULTIVIT,THER IRON,CA,FA & MIN 1 TABLET PO SCH (08:50)
[2020-08-11] MEDS: SERTRALINE 50 MG TABLET PO SCH (08:50)
[2020-08-11] MEDS: NITROFURANTOIN SR 100 MG CAPSULE PO SCH ×2 (08:50→20:58)
[2020-08-11] MEDS: ATENOLOL 50 MG TABLET PO SCH ×2 (08:51→21:00)
[2020-08-11] MEDS: LEVOTHYROXINE 50 MCG TABLET PO SCH (08:51)
[2020-08-11] MEDS: ASPIRIN 325 MG ENTERIC COATED TABLET PO SCH (08:51)
[2020-08-11] MEDS: CYANOCOBALAMIN (VITAMIN B-12) 500 MCG TABLET PO SCH (08:51)
[2020-08-11] MEDS: ALLOPURINOL 100 MG TABLET PO SCH (08:51)
[2020-08-11] MEDS: INSULIN GLARGINE, HUMAN 1 UNIT/0.01 ML SQ SCH (08:53)
[2020-08-11] MEDS: HEPARIN 5,000 UNIT/ML VIAL SQ SCH ×2 (08:53→20:59)
[2020-08-11] MEDS: MUPIROCIN OINT 2% 22GM NARES SCH ×2 (08:54→20:45)
[2020-08-11] MEDS: MAGNESIUM SULFATE 2 GM/50 ML BAG IV PRN (10:32)
--- NOTE | 2020-08-11 14:13 | Nephrology Progress Note ---
SUBJECTIVE Subjective Patient information: Note initiated : 08/11/20 at 2:11 pm Service Date, if different from initiated Date: [] Patient: Reny Sanches 75 y/o F admitted on 08/06/20 for ARF. Chief Complaint: [Bilateral hydro and ARF] Interval history: This is an elderly woman with back to back episodes of acute renal failure the first in May 2020 with complete recovery in the second was discovered at my initial clinic visit on July 31, 2020. She has pyuria, mild bilateral hydronephrosis without stones, some sort of mass or collection of tissue in the bladder, sed rate in excess of 100 x 3determinations despite treatment of e coli UTI. She also had hyponatremia that rapidly corrected with just normal saline infusions and her serum creatinine was beginning to improve as of yesterday. The case was discussed with the urology service who recommended trying to correct her GFR to the point that a CT KUB with and without contrast could be done to get definitive imaging of her urinary track. An elective cystoscopy was also recommended but was not felt to be urgent. In the clinic visit I stopped many of the offending medications except for furosemide and this was stopped when I became aware of the elevated serum creatinine on or around August 03. There are also eosinophils in the urine but only 2%. And there is proteinuria but this could have to do tissue sloughing or what ever was collecting in the bladder as opposed to actual protein in the urine. I am not sure what the status of her SPEP, UPEP, ANCA, BRANDIE, complement levels all of which were sent as an outpatient but they may have been canceled by either [facility] or her correction. Laboratory Tests 08/11/20 08/11/20 08/11/20 06:02 06:02 06:02 WBC 8.1 Hgb 9.9 L Hct 30.9 L Plt Count 127 L Eos % (Auto) 3.0 ESR 122 H Sodium 132 L Potassium 4.2 Chloride 98 Carbon Dioxide 23 Anion Gap 11.0 BUN 27 H Creatinine 1.6 H GFR Calculation 31 Glucose 78 Uric Acid 5.3 Calcium 9.0 Phosphorus 3.5 Magnesium 1.6 Direct Bilirubin < 0.2 GGT 113 H ALT 17 Alkaline Phosphatase 141 H Lactate Dehydrogenase 198 Albumin 2.3 L Globulin 5.1 H Albumin/Globulin Ratio 0.5 L Laboratory Tests 08/11/20 04:00 Urine Color Yellow Urine Appearance Cloudy A Urine pH 6.0 Ur Specific [place] 1.011 Urine Protein 100 A Urine Glucose (UA) Negative Urine Ketones Negative Urine Occult Blood >=1.0 A Urine Nitrate Negative Urine Bilirubin Negative Urine Urobilinogen Negative Ur Leukocyte Esterase 500 A Urine RBC 72 H Urine WBC > 182 H Ur Squamous Epith Cells 2 Ur Transition Epith Cell 2 Urine Bacteria Mod A Should be able to image kidneys, ureter and bladder +/- contrast tomorrow and obtain a Urology consult if there is a mass, stone or hydro. Have been sending urine cytologies x 3 but no path reports over weekend or holiday. Clinically improved with fluids, abx and pettit as well as D/C of december neuropsychiatric meds from [place]. Given bilateral hydro and ESR >100 mm/hr, I fear a mitotic process>> autoimmune >> simple UTI. renal abscess would have to be bilateral as would any other cause of bilateral UVJ obstruction, so a uroepithelial cancer is my biggest concern given the initial U/S and CT appearance of the bladder. Constitutional Vitals: Vital Signs Temp Pulse Resp BP Pulse Ox 36.6 C 71 16 134/71 98 08/11/20 11:53 08/11/20 11:53 08/11/20 11:53 08/11/20 11:53 08/11/20 11:53 Period Temp Pulse Resp BP Sys/Corbin Pulse Ox Last 24 Hr 36.1 C-36.6 C 58-75 12-20 130-161/58-76 92-99 Intake and Output 08/11/20 08/11/20 08/11/20 05:59 13:59 21:59 Intake Total 230 1460 Output Total 425 450 Balance -195 1010 Intake & Output: Intake & Output 08/11/20 08/11/20 08/11/20 05:59 13:59 21:59 Intake Total 230 1460 Output Total 425 450 Balance -195 1010 Intake: IV 50 100 Zosyn 2.25 gm In Dextrose 5% in 50 50 Water 50 ml @ 100 mls/hr IV Q6H [facility] Rx#:[id number] Oral 180 1360 Output: Urine Catheter Amount 425 Void Amount 450 Other: Meal Lunch Percent of Meal Consumed 75% Feeding Ability Independent Urine Appearance Cloudy Clear Sediment Mucous Threads Uretheral (Pettit) Cloudy Cloudy Sediment Sediment Mucous Threads Mucous Threads Urine Color Bright Yellow Bright Yellow Uretheral (Pettit) Bright Yellow Bright Yellow Urine Odor Strong Strong Uretheral (Pettit) Strong Strong General appearance: obese Exam: sleeping comfortably Head Head exam: Present atraumatic and normocephalic Eye Eye exam: Present conjunctival injection, EOMI and PERRL Pupils: Present PERRL Neck Neck exam: Present full ROM; Absent meningismus Respiratory Respiratory exam: Present CTAB; Absent rales and rhonchi Cardiovascular Cardiovascular exam: Present normal rate and rhythm, +S1 and +S2; Absent JVD Extremities Exam Extremities exam: Present pedal edema; Absent tenderness Neurological Exam Neurological exam: Present CN II-XII intact; Absent oriented X3 (oriented to self) Skin Skin exam: Present dry A/P Assessment and plan (1) Bilateral hydronephrosis: Status: Acute Comment: Relatively acute and not due to stones. Will need a clear the air cysto or IV contrast CT imaging (2) Urinary tract infection: Status: Acute Comment: E coli sensitive to pip/maddie Qualifiers: Hematuria presence: with hematuria Urinary tract infection type: site unspecified Qualified Code(s): N39.0 - Urinary tract infection, site not specified; R31.9 - Hematuria, unspecified (3) Elevated erythrocyte sedimentation rate: Status: Acute Comment: The differential diagnosis includes infection/inflammation with urinary tract infections or soft tissue infections leading the list, autoimmune processes for which polymyalgia rheumatica would be the leading cause in this group based on age alone but she does not have clinical features at that presently (though she had headaches and myalgias in the past according to her problem list), and we should do some screening for autoimmune diseases with BRANDIE and ANCA testing as well as an RPR, and then malignancies in this group I had be concerned about multiple myeloma so we will check an SPEP and UPEP. Narrative A/P Narrative: 1. Progressive improvement in ARF to Scr 1.6 mg/dl or GFR 30 cc/min 2. E coli UTI sen to 2nd gen cephalosporin and pip/maddie only 3. Sedimentation rate still well above 100 mm/hr 4. CT KUB ordered to evaluate bilateral UVB obstruction and bladder mass/crud 5. Urine cytology x 3 pending 6. Urology evaluation and voiding trial post cysto 7. Serology evaluation for autoimmune if no explanation for sed rate is forth coming. Time Spent With Patient Time: Total time spent is greater than 50% in coordination of care (as documented) at patient's floor/unit and/or counseling patient:
[2020-08-11] MEDS: MELATONIN 3 MG TABLET PO SCH (20:58)
[2020-08-11] MEDS: SIMVASTATIN 20 MG TABLET PO SCH (20:58)
[2020-08-11] MEDS: QUEtiapine 100 MG TABLET PO SCH (20:59)
[2020-08-11] MEDS: SENNOSIDES/DOCUSATE SODIUM 1 TAB TABLET PO SCH (21:00)
[2020-08-12] MEDS: PIPERACILLIN SODIUM/TAZOBACTAM 2.25 GM in DEXTROSE 5% IN WATER 50 ML IV SCH ×4 (00:05→17:28)
[2020-08-12] MEDS: INSULIN LISPRO 1 UNIT/0.01 ML UNIT SQ SCH ×4 (07:03→22:17)
--- NOTE | 2020-08-12 07:13 | Internal Med Progress Note ---
SUBJECTIVE Subjective Patient information: Note initiated : 08/12/20 at 7:05 am Service Date, if different from initiated Date: [] Patient: Reny Sanches a 75 y/o F admitted on 08/06/20 for ARF. Chief Complaint: [] Interval history: Ms. Sanches is a 75 year old F resident of [facility] since mid-May with history of HTN/HLD/DM type II/morbid obesity who was recently evaluated at nephrology office for worsening renal function now presents to the ER from nephrology office for further hospitalization and evaluation of progressive renal insufficiency. Patient has become increasingly fatigued, lethargic and confused over the last few days and has not been able to function or perform ADLs. She denies associated dysuria, diarrhea, nausea but endorses difficulty urination. She denies changes in medications. Patient work-up in the ER was consistent with acute renal failure with creatinine 2.8. Notable pyuria, sodium 122 and profound change in mental status with GCS 8. Most of the history was obtained from patient's daughter/prior EMR notes. CT abdomen revealed bilateral hydronephrosis with likely bladder outlet obstruction. Urology was consulted. Nephrology was consulted and requested admission under hospitalist service. Moriah almonte hospitalist service was consulted At the time of my evaluation patient is very confused however oriented to place only. She could not provide any meaningful history over the last 72 hours. She however denies chest pain, fever, chills but endorses lightheadedness, dizziness. 08/07-patient clinically improving. Sodium up to 132. Sodium rise higher than goal. Transition to D5 half NS per nephrology. Urine osmolarity appropriately low ruling out SIADH. Creatinine down to 2.4. Continue antibiotic coverage. Await urine cultures. Improving mental status however remains disoriented. No overnight fever chills. No other concerns per nursing staff. No telemetry events. Restart diabetic diet 08/08-patient seen in room along with daughter. Intermittently confused but much more alert since yesterday. Hemoglobin 6.6, 2 units PRBC transfusion per nephrology. Creatinine down to 1.9, Pettit's draining clear urine, sodium improved to 133. Following commands. Remains disoriented. No overnight fever chills. Ongoing management per nephrology. No concerns expressed by nursing staff except for occasional incontinence. Ongoing MRSA decolonization. Daughter expressed concerns about transitioning to [place] and would want alternate facility including [facility] 08/09-patient appears quite cheerful. No family at bedside. Ongoing physical therapy with therapist in room. No overnight fever chills. No additional concerns expressed with nursing staff. White count 6.1. Stable hemodynamics. Creatinine 1.9.Pettit is draining clear urine. Continuing antibiotic coverage. 08/10-patient clinically improving. More lucid. Complains of intermittent b ladder spasm. Responded well to BNO suppository. White count 7.4. Nephrology recommends confusion of Pettit's catheter with further work-up by urology on discharge. Creatinine down to 1.5, on antibiotic coverage for E. coli UTI. Multidrug-resistant sensitive to nitrofurantoin. 08/11 No new complaints. No overnight events. BC stable. Creatinine 1.6. 08/12 Pleasantly demented this morning as usual. Received CT KUB this morning. Review of Systems: denies headache/fever/chills/nausea/vomiting/chest or abdominal pain/cough/dyspnea/diarrhea. Otherwise see above. Constitutional Vitals: Vital Signs Temp Pulse Resp BP Pulse Ox 97.3 F 78 16 135/70 94 08/12/20 04:00 08/12/20 04:00 08/12/20 04:00 08/12/20 04:00 08/12/20 04:00 Period Temp Pulse Resp BP Sys/Corbin Pulse Ox Last 24 Hr 97.3 F-98.5 F 65-78 16-22 130-148/60-79 92-99 Intake and Output 08/11/20 08/12/20 08/12/20 21:59 05:59 13:59 Intake Total 1170 650 50 Output Total 500 700 Balance 670 -50 50 Weight 110.858 kg Intake & Output: Intake & Output 08/11/20 08/12/20 08/12/20 21:59 05:59 13:59 Intake Total 1170 650 50 Output Total 500 700 Balance 670 -50 50 Weight 110.858 kg Intake: IV 50 50 50 Zosyn 2.25 gm In Dextrose 5% in 50 50 50 Water 50 ml @ 100 mls/hr IV Q6H [facility] Rx#:[id number] Oral 1120 600 Output: Urine Catheter Amount 500 700 Other: Meal Dinner Percent of Meal Consumed 50% Feeding Ability Independent Urine Appearance Cloudy Cloudy Sediment Sediment Mucous Threads Uretheral (Pettit) Cloudy Sediment Mucous Threads Urine Color Dark Alyssa Dark Yellow Uretheral (Pettit) Bright Yellow Urine Odor Foul Strong Uretheral (Pettit) Strong Stool Size Moderate Copious Stool Color Brown Brown Stool Consistency Soft Soft # of times incontinent of 1 Bowels Exam: General: Awake, No acute Distress Eyes/N/T: EOMI, Head/Neck: neck supple, CV: RRR, No murmurs, Pulm: Clear b/l, no wheezing/rhonchi/rales Abd: soft, nontender, +BS x4, Pettit in place Ext: no clubbing/cyanosis, 1+ b/l LE edema Neuro: confusion, no focal deficits, moves all extremities, Skin: warm/dry OBJ DATA Labs CBC & Chem 7: 08/11/20 06:02 08/12/20 06:16 Labs: Abnormal Lab Results 08/11/20 08/11/20 08/11/20 06:02 06:02 06:02 RBC 3.35 L Hgb 9.9 L Hct 30.9 L RDW 14.9 H Plt Count 127 L Lymph % (Auto) 11.3 L Lymph # (Auto) 0.91 L ESR 122 H Sodium 132 L BUN 27 H Creatinine 1.6 H Glucose GGT 113 H AST 33 H Alkaline Phosphatase 141 H Albumin 2.3 L Globulin 5.1 H Albumin/Globulin Ratio 0.5 L Urine Appearance Urine Protein Urine Occult Blood Ur Leukocyte Esterase Urine RBC Urine WBC Urine Bacteria 08/11/20 08/10/20 08/10/20 04:00 04:57 04:57 RBC 3.28 L Hgb 9.7 L Hct 30.0 L RDW 15.1 H Plt Count 134 L Lymph % (Auto) 12.8 L Lymph # (Auto) 0.94 L ESR Sodium BUN 32 H Creatinine 1.5 H Glucose GGT 110 H AST Alkaline Phosphatase 143 H Albumin 2.4 L Globulin 5.0 H Albumin/Globulin Ratio 0.5 L Urine Appearance Cloudy A Urine Protein 100 A Urine Occult Blood >=1.0 A Ur Leukocyte Esterase 500 A Urine RBC 72 H Urine WBC > 182 H Urine Bacteria Mod A 08/09/20 04:01 RBC Hgb Hct RDW Plt Count Lymph % (Auto) Lymph # (Auto) ESR Sodium BUN 36 H Creatinine 1.9 H Glucose 122 H GGT 103 H AST Alkaline Phosphatase 143 H Albumin 2.3 L Globulin 5.0 H Albumin/Globulin Ratio 0.5 L Urine Appearance Urine Protein Urine Occult Blood Ur Leukocyte Esterase Urine RBC Urine WBC Urine Bacteria Meds: Medications Acetaminophen (Tylenol) 650 mg PO Q4-6HP PRN; Protocol PRN Reason: Per Pain Protocol/Fever > 101 Albuterol Sulfate (Ventolin) 1 puff INH Q4HP PRN PRN Reason: Shortness Of Breath Allopurinol (Zyloprim) 100 mg PO DAILY [facility] Last Admin: 08/11/20 08:51 Dose: 100 mg Documented by: Aspirin (Ecotrin) 325 mg PO DAILY [facility] Last Admin: 08/11/20 08:51 Dose: 325 mg Documented by: Atenolol (Tenormin) 50 mg PO BID [facility] Last Admin: 08/11/20 21:00 Dose: 50 mg Documented by: Belladonna Alkaloids/Opium (B & O) 30 mg CO Q4HP PRN PRN Reason: Pain Bisacodyl (Dulcolax) 10 mg CO Q2-3DAYS PRN PRN Reason: Constipation Cyanocobalamin (Vitamin B-12) 1,000 mcg PO DAILY [facility] Last Admin: 08/11/20 08:51 Dose: 1,000 mcg Documented by: Dextrose (Dextrose 50%) 0 ml IV UD PRN PRN Reason: Hypoglycemia Diagnostic Test (Pha) (Accu-Chek) 1 each FS ACHS [facility] Last Admin: 08/12/20 07:02 Dose: 1 each Documented by: Docusate Sodium (Colace) 100 mg PO BID [facility] Last Admin: 08/11/20 20:59 Dose: 100 mg Documented by: Ergocalciferol (Drisdol) 50,000 unit PO TuFr@0900 [facility] Glucose (Insta-Glucose) 15 gm PO PRN PRN PRN Reason: Hypoglycemia Heparin Sodium (Porcine) (Heparin) 5,000 unit SQ Q12 [facility] Last Admin: 08/11/20 20:59 Dose: 5,000 unit Documented by: Magnesium Sulfate (Magnesium Sulfate) 2 gm in 50 mls @ 50 mls/hr IV UD PRN PRN Reason: MG = or < 1.7 Last Infusion: 08/11/20 11:24 Dose: Infused Documented by: Potassium Chloride 40 meq/ (Dextrose) 520 mls @ 130 mls/hr IV UD PRN PRN Reason: K+ = or < 3.5 Acetaminophen (Ofirmev) 650 mg in 65 mls @ 130 mls/hr IV Q6HP PRN; Protocol PRN Reason: Per Pain Protocol/Fever > 101 Piperacillin Sod/Tazobactam (Sod 2.25 gm/ Dextrose) 50 mls @ 100 mls/hr IV Q6H [facility]; Protocol Stop: 08/16/20 13:29 Last Infusion: 08/12/20 06:55 Dose: Infused Documented by: Insulin Glargine (Lantus) 44 unit SQ DAILY [facility] Last Admin: 08/11/20 08:53 Dose: 44 unit Documented by: Insulin Human Lispro (Humalog) 0 unit SQ ACHS [facility]; Protocol Last Admin: 08/12/20 07:03 Dose: Not Given Documented by: Iron Carb/Multivit/Vera/Folic Acid (Multivitamin W/Minerals) 1 tab PO DAILY [facility] Last Admin: 08/11/20 08:50 Dose: 1 tab Documented by: Levothyroxine Sodium (Synthroid) 50 mcg PO [facility] Last Admin: 08/11/20 08:51 Dose: 50 mcg Documented by: Loperamide HCl (Imodium) 4 mg PO Q6H PRN PRN Reason: Diarrhea Melatonin (Melatonin 3mg Tablet) 9 mg PO HS [facility] Last Admin: 08/11/20 20:58 Dose: 9 mg Documented by: Mupirocin (Bactroban Oint 2%) 1 dose NARES BID [facility] Last Admin: 08/11/20 20:45 Dose: 1 dose Documented by: Nitrofurantoin Macrocrystals (Macrobid) 100 mg PO BID [facility] Last Admin: 08/11/20 20:58 Dose: 100 mg Documented by: [facility]) [facility] Admin: 08/11/20 08:49 Dose: 20 mg Documented by: Ondansetron HCl (Zofran Odt) 4 mg SL Q4-6HP PRN; Protocol PRN Reason: Nausea And Vomiting Ondansetron HCl (Zofran) 4 mg IV Q4-6HP PRN; Protocol PRN Reason: Nausea And Vomiting Fluticasone Furoate- Vilanterol [Breo Ellipta] Inhaler 1 dose INH DAILY [facility] Last Admin: 08/11/20 07:11 Dose: Not Given Documented by: Linaclotide [Linzess (] 145 Mcg Cap) 1 dose PO DAILY [facility] Last Admin: 08/11/20 07:11 Dose: Not Given Documented by: Memantine Er 21 Mg (Tab) 1 dose PO QDAY [facility] Last Admin: 08/11/20 07:11 Dose: Not Given Documented by: Polyethylene Glycol (Miralax) 17 gm PO DAILYP PRN PRN Reason: Constipation Quetiapine Fumarate (Seroquel) 200 mg PO [facility] Last Admin: 08/11/20 20:59 Dose: 200 mg Documented by: Senna/Docusate Sodium (Senna Plus Tablet) 1 tab PO [facility] Last Admin: 08/11/20 21:00 Dose: 1 tab Documented by: Sertraline HCl (Zoloft) 50 mg PO QDAY [facility] Last Admin: 08/11/20 08:50 Dose: 50 mg Documented by: Simvastatin (Zocor) 20 mg PO [facility] Last Admin: 08/11/20 20:58 Dose: 20 mg Documented by: A/P Narrative A/P Narrative: A: *Obstructive uropathy likely bladder outlet obstruction with b/l hydronephrosis: -CT evidence of bladder wall thickening, no urgent need for cystoscopy per urology. Advised follow-up on discharge. *PRIMO: secondary obstructive uropathy -1.7<1.6<1.5<1.9<<2.8 *AMS, superimposed on underlying Dementia: secondary to combination of hyponatremia/renal failure uremia/medications -much improved to likely baseline *Dementia with anxiety: on SSRIs/quetiapine/memantine *Anemia of chronic disease: -status post 2 units PRBC transfusion, stable *Hyponatremia: likely secondary to bladder outlet obstruction/renal failure. Urine osmolarity suggestive against SIADH -improved *Complicated MDR E. coli UTI/cystitis: recurrent in nature secondary to urinary retention/fecal soiling -CT evidence of bladder wall thickening possible inflammatory cystitis. *GERD continue PPI *HTN/HLD: ARB on hold in light of renal failure, continue atenolol *Hypothyroid on thyroxine *DM type II: *History of gout on allopurinol *Morbid obesity continue directed therapies/nutrition consult Plan: -Continue Pettit's catheter decompression -Continue electrolyte/renal failure management per nephrology -CT KUB per nephrology when Cr improved, likely wednesday -cont cefoxitin to finish course -ARB on hold in light of renal failure, continue atenolol - continue basal prandial insulin(decrease from 44 to 36)/renal CC diet -PT OT nutrition support -Outpatient urology follow-up, maintain pettit on d/c -Discharge planning per case management likely SNF -ppx: Heparin Time Spent With Patient Time: Total time spent is greater than 50% in coordination of care (as documented) at patient's floor/unit and/or counseling patient: QUALITY Stroke Symptom Onset Unknown: No VTE Deep Vein Thrombosis/Pulmonary Embolism Present on Admission: No
[2020-08-12] MEDS ORDERED: cefOXitin 2 GM VIAL IV SCH (07:15)
[2020-08-12 07:47] LABS: Blood Urea Nitrogen 25 mg/dL (8-23); Carbon Dioxide 23 mmol/L (22-30); Chloride 96 mmol/L (96-108); Glomerular Filtration Rate 29; Glucose 83 mg/dL (70-105)
[2020-08-12] MEDS ORDERED: IOPAMIDOL 100 ML BOTTLE IV ONE (08:33)
[2020-08-12] MEDS: ASPIRIN 325 MG ENTERIC COATED TABLET PO SCH (08:45)
[2020-08-12] MEDS: MULTIVIT,THER IRON,CA,FA & MIN 1 TABLET PO SCH (08:45)
[2020-08-12] MEDS: ATENOLOL 50 MG TABLET PO SCH ×2 (08:45→22:19)
[2020-08-12] MEDS: CYANOCOBALAMIN (VITAMIN B-12) 500 MCG TABLET PO SCH (08:46)
[2020-08-12] MEDS: ALLOPURINOL 100 MG TABLET PO SCH (08:46)
[2020-08-12] MEDS: OMEPRAZOLE 20 MG CAPSULE PO SCH (08:46)
[2020-08-12] MEDS: SERTRALINE 50 MG TABLET PO SCH (08:47)
[2020-08-12] MEDS: LEVOTHYROXINE 50 MCG TABLET PO SCH (08:47)
[2020-08-12] MEDS: HEPARIN 5,000 UNIT/ML VIAL SQ SCH ×2 (08:48→22:19)
[2020-08-12] MEDS: MUPIROCIN OINT 2% 22GM NARES SCH ×2 (08:49→22:17)
[2020-08-12] MEDS: DOCUSATE SODIUM 100 MG CAPSULE PO SCH ×2 (08:49→22:20)
[2020-08-12] MEDS: INSULIN GLARGINE, HUMAN 1 UNIT/0.01 ML SQ SCH (08:50)
[2020-08-12] MEDS: Fluticasone Furoate-Vilanterol [Breo Ellipta] Inhaler INH SCH (08:50)
[2020-08-12] MEDS: MEMANTINE 21 MG PO SCH (08:51)
--- NOTE | 2020-08-12 11:32 | Nephrology Progress Note ---
SUBJECTIVE Subjective Patient information: Note initiated : 08/12/20 at 11:31 am Service Date, if different from initiated Date: [] Patient: Reny Sanches 75 y/o F admitted on 08/06/20 for ARF. Chief Complaint: [arf with e coli uti and bilateral hydro] Interval history: This is an elderly woman with back to back episodes of acute renal failure the first in May 2020 with complete recovery in the second was discovered at my initial clinic visit on July 31, 2020. She has pyuria, mild bilateral hydronephrosis without stones, some sort of mass or collection of tissue in the bladder, sed rate in excess of 100 x 3determinations despite treatment of e coli UTI. She also had hyponatremia that rapidly corrected with just normal saline infusions and her serum creatinine was beginning to improve as of yesterday. The case was discussed with the urology service who recommended trying to correct her GFR to the point that a CT KUB with and without contrast could be done to get definitive imaging of her urinary track. An elective cystoscopy was also recommended but was not felt to be urgent. In the clinic visit I stopped many of the offending medications except for furosemide and this was stopped when I became aware of the elevated serum creatinine on or around August 03. There are also eosinophils in the urine but only 2%. And there is proteinuria but this could have to do tissue sloughing or what ever was collecting in the bladder as opposed to actual protein in the urine. I am not sure what the status of her SPEP, UPEP, ANCA, BRANDIE, complement levels all of which were sent as an outpatient but they may have been canceled by either [facility] [place]NOTE 2] or her [facility]. So they were re-ordered today. Laboratory Tests 08/11/20 08/11/20 08/12/20 06:02 06:02 06:16 WBC 8.1 Hgb 9.9 L Hct 30.9 L Plt Count 127 L ESR 122 H Sodium 133 Potassium 3.8 Chloride 96 Carbon Dioxide 23 Anion Gap 14.0 BUN 25 H Creatinine 1.7 H GFR Calculation 29 Glucose [address] KUB +/- IV contrast pending. Still with dilated ureter and thickened bladder wall to my eye. Final report pending. Constitutional Vitals: Vital Signs Temp Pulse Resp BP Pulse Ox 36.4 C 78 20 148/58 98 08/12/20 07:22 08/12/20 08:00 08/12/20 08:00 08/12/20 07:22 08/12/20 08:00 Period Temp Pulse Resp BP Sys/Corbin Pulse Ox Last 24 Hr 36.3 C-36.9 C 66-78 16-22 134-148/58-79 94-99 Intake and Output 08/11/20 08/12/20 08/12/20 21:59 05:59 13:59 Intake Total 1170 650 290 Output Total 500 700 Balance 670 -50 290 Weight 110.858 kg Intake & Output: Intake & Output 08/11/20 08/12/20 08/12/20 21:59 05:59 13:59 Intake Total 1170 650 290 Output Total 500 700 Balance 670 -50 290 Weight 110.858 kg Intake: IV 50 50 50 Zosyn 2.25 gm In Dextrose 5% in 50 50 50 Water 50 ml @ 100 mls/hr IV Q6H [facility] Rx#:[id number] Oral 1120 600 240 Output: Urine Catheter Amount 500 700 Other: Meal Dinner Breakfast Percent of Meal Consumed 50% 100% Feeding Ability Independent Independent Urine Appearance Cloudy Cloudy Cloudy Sediment Sediment Sediment Mucous Threads Mucous Threads Uretheral (Cedillo) Cloudy Cloudy Sediment Sediment Mucous Threads Mucous Threads Urine Color Dark Alyssa Dark Yellow Dark Yellow Uretheral (Cedillo) Bright Yellow Bright Yellow Urine Odor Foul Strong Strong Uretheral (Cedillo) Strong Strong Stool Size Moderate Copious Stool Color Brown Brown Brown Stool Consistency Soft Soft Soft # of times incontinent of 1 1 Bowels General appearance: no acute distress and obese Head Head exam: Present atraumatic and normocephalic Eye Eye exam: Present EOMI and PERRL Neck Neck exam: Present full ROM; Absent meningismus Respiratory Respiratory exam: Present normal respiratory exam and CTAB Cardiovascular Cardiovascular exam: Present normal rate and rhythm, +S1 and +S2 GI/Abdominal GI/Abdominal exam: Present normal bowel sounds and soft Neurological Exam Neurological exam: Present abnormal gait, altered, CN II-XII intact and motor sensory deficit Psychiatric Psychiatric exam: Present flat affect Skin Skin exam: Present dry A/P Assessment and plan (1) Bilateral hydronephrosis: Status: Acute Comment: Relatively acute and not due to stones. Will need a clear the air cysto or IV contrast CT imaging (2) Urinary tract infection: Status: Acute Comment: E coli sensitive to pip/maddie Qualifiers: Hematuria presence: with hematuria Urinary tract infection type: site unspecified Qualified Code(s): N39.0 - Urinary tract infection, site not specified; R31.9 - Hematuria, unspecified (3) Acute hyponatremia: Status: Acute Comment: I suspect she has been drinking hypotonic fluids and could not clear the free H2O load due to ARF. (4) Polypharmacy: Status: Acute Comment: Finally, this patient is experiencing either progressive dementia or underlying dementia with medications interfering with her thought process such as the combination of tramadol sertraline and benzodiazepines. I have stopped the tramadol, and to taper the sertraline, and stop the clonazepam. Improved and I asked the melatonin at bedtime as well and may be cut the Seroquel to 50 or 100 mg at bedtime. (5) Acute prerenal azotemia: Status: Acute Comment: So in summary this is a 75-year-old woman with near normal GFR 55 cc/min. In May 2020 she had an episode of acute renal failure due to a combination of ARB, diuretics, Bactrim and nonsteroidal anti-inflammatories. All this has resolved, her urine has no proteinuria and I would expect she will do fine as long as known drug combinations that reduced renal perfusion (RAASI therapy & NSAIDS), plus volume depletion (diuretics) or interfere with tubular function (Bactrim) are avoided. There is no proteinuria to suggest underlying diabetic nephropathy. After a full recovery, a second episode of ARF has reoccurred in association with bilateral hydro, abnormal urinary bladder, pyuria and an ESR >100 mm/hr. A partial w/u was started but foiled by problems of getting studies done in a [facility] over the . (6) Elevated erythrocyte sedimentation rate: Status: Acute Comment: The differential diagnosis includes infection/inflammation with urinary tract infections or soft tissue infections leading the list, autoimmune processes for which polymyalgia rheumatica would be the leading cause in this group based on age alone but she does not have clinical features at that presently (though she had headaches and myalgias in the past according to her problem list), and we should do some screening for autoimmune diseases with BRANDIE and ANCA testing as well as an RPR, and then malignancies in this group I had be concerned about multiple myeloma so we will check an SPEP and UPEP. (7) Pyuria: Status: Acute Comment: Outpatient culture was lost or never sent. Recheck tonight for U/A, C&S, urine Eos, urine cytology, urine uric acid/cre atinine ratio and UAG. Narrative A/P Narrative: 1. CT KUB with partial resolution of hydronephrosis, much change in the bladder, urology consult and cystoscopy needed 2. Continue antibiotics as directed by sensitivities for urinary tract infection (E. coli). 3. Follow-up on all the autoimmune labs ordered to ferret out etiology of nikki vated ESR 4. Follow-up: Urine cytology 5. Patient needs a urology evaluation for hydronephrosis and thickened bladder. A Cedillo in place until cystoscopy is performed. Time Spent With Patient Time: Total time spent is greater than 50% in coordination of care (as documented) at patient's floor/unit and/or counseling patient:
[2020-08-12] MEDS ORDERED: 0.9 % SODIUM CHLORIDE 1,000 ML BAG IV ONE (11:36)
[2020-08-12] MEDS ORDERED: 0.9 % SODIUM CHLORIDE 1,000 ML IV SCH (11:45)
[2020-08-12] MEDS ORDERED: diphenhydrAMINE 25 MG CAPSULE PO PRN (20:35)
[2020-08-12] MEDS: MELATONIN 3 MG TABLET PO SCH (22:18)
[2020-08-12] MEDS: QUEtiapine 100 MG TABLET PO SCH (22:18)
[2020-08-12] MEDS: SIMVASTATIN 20 MG TABLET PO SCH (22:19)
[2020-08-12] MEDS: SENNOSIDES/DOCUSATE SODIUM 1 TAB TABLET PO SCH (22:20)
[2020-08-13] MEDS: PIPERACILLIN SODIUM/TAZOBACTAM 2.25 GM in DEXTROSE 5% IN WATER 50 ML IV SCH ×3 (00:13→13:31)
--- NOTE | 2020-08-13 06:17 | Cat Scan Report ---
CLINICAL INFORMATION: Bilateral hydronephrosis COMPARISON: Abdomen and pelvic CT 08/06/2020 TECHNIQUE: 2.5mm precontrast images were obtained from kidneys through bladder. 60 cc of Isovue-370 were then injected intravenously. 7 minutes later, 60 cc of Isovue 370 was reinjected and 8 minutes after initial injection, 0.625 mm helical slices were obtained from the mid heart through the subtrochanteric regions of the femurs. Following reconstruction, 2.5 mm sagittal, coronal and axial reformatted images were obtained through the entire abdomen. The exam was performed using radiation dose optimization techniques including, but not limited to, automated exposure control, adjustment of the mA and/or kV according to patient size and use of iterative reconstruction technique. FINDINGS: Lung bases show scattered scarring and/or atelectasis. No effusion. The visualized heart is mildly enlarged. Abdominal images show slight decreased hepatic size with inhomogeneous attenuation, cortical surface irregularity with asymmetric enlargement of the caudate lobe all suggestive of hepatic cirrhosis. No focal hepatic lesions. There is mild distention of the portal vein and tributaries and mild splenomegaly: 14 x 12 x 6 cm. Small amount of ascites is noted in the perihepatic region and in the deep true pelvis. Varices in the left renal hilar region with congestion of the left renal vein is suggestive of a spontaneous splenorenal shunt. Both adrenal glands pancreas and aorta including aortic branches are normal in size, configuration and attenuation without focal lesion. There is no free air or adenopathy. Since the previous CT, less than one week prior, a Cedillo catheter has been satisfactory placement in the urinary bladder resulting in urinary bladder and left upper collecting syste /ureteral decompression. Moderate air in the left ureter is likely benign and sourced from the Cedillo catheter. Marked diffuse wall thickening of the urinary bladder includes encasement and narrowing of both UVJ. This is more prominent on the right side resulting moderate persistent hydronephrosis/hydroureter. Delayed postcontrast images show multiple small filling defects within the calyces and pelvis bilaterally - more prominent on the right. The nature of these particles is unknown: they could represent sloughed tissue fragments, hemorrhage or, less likely, nonopaque stones. They range up to 4 mm. Anteflexed postmenopausal uterus is normal in size is 4 x 3 cm. The region of both ovaries are normal. The stomach, small bowel, appendix and large bowel grossly normal. Bone windows show no significant osseous abnormality. Moderate degenerative change seen in the lumbar spine. IMPRESSION: 1. Marked diffuse wall thickening of the urinary bladder including encasement of both UVJ regions. Pathologic infiltration by tumor or inflammation is suspected. The left upper collecting system and ureter have decompressed since the prior pre-Cedillo catheter CT, however there is persistent moderate right hydroureter/hydronephrosis. This may be due to pathologic encasement of the right UVJ, rather than bladder outlet obstruction or neurogenic bladder. More specific evaluation with cystoscopy is suggested. 2. Scattered small low-attenuation filling defects within the upper collecting systems of both kidneys - more prominent on the right. This could represent sloughed tissue from papillary necrosis, scattered thrombi or, less likely, nonopaque stones. This could also be more specifically evaluated at time of cystoscopy/ ureteroscopy. 3. Probable cirrhosis with evidence for mild portal hypertension and even a left splenorenal shunt. The spleen is mildly enlarged. Small amount of ascites appreciated. Interpreted and Authenticated by: Coy Barr 08/13/20
--- NOTE | 2020-08-13 07:10 | Internal Med Progress Note ---
SUBJECTIVE Subjective Patient information: Note initiated : 08/13/20 at 7:04 am Service Date, if different from initiated Date: [] Patient: Reny Sanches a 75 y/o F admitted on 08/06/20 for ARF. Chief Complaint: [] Interval history: Ms. Sanches is a 75 year old F resident of [facility] since mid-May with history of HTN/HLD/DM type II/morbid obesity who was recently evaluated at nephrology office for worsening renal function now presents to the ER from nephrology office for further hospitalization and evaluation of progressive renal insufficiency. Patient has become increasingly fatigued, lethargic and confused over the last few days and has not been able to function or perform ADLs. She denies associated dysuria, diarrhea, nausea but endorses difficulty urination. She denies changes in medications. Patient work-up in the ER was consistent with acute renal failure with creatinine 2.8. Notable pyuria, sodium 122 and profound change in mental status with GCS 8. Most of the history was obtained from patient's daughter/prior EMR notes. CT abdomen revealed bilateral hydronephrosis with likely bladder outlet obstruction. Urology was consulted. Nephrology was consulted and requested admission under hospitalist service. Moriah almonte hospitalist service was consulted At the time of my evaluation patient is very confused however oriented to place only. She could not provide any meaningful history over the last 72 hours. She however denies chest pain, fever, chills but endorses lightheadedness, dizziness. 08/07-patient clinically improving. Sodium up to 132. Sodium rise higher than goal. Transition to D5 half NS per nephrology. Urine osmolarity appropriately low ruling out SIADH. Creatinine down to 2.4. Continue antibiotic coverage. Await urine cultures. Improving mental status however remains disoriented. No overnight fever chills. No other concerns per nursing staff. No telemetry events. Restart diabetic diet 08/08-patient seen in room along with daughter. Intermittently confused but much more alert since yesterday. Hemoglobin 6.6, 2 units PRBC transfusion per nephrology. Creatinine down to 1.9, Cedillo's draining clear urine, sodium improved to 133. Following commands. Remains disoriented. No overnight fever chills. Ongoing management per nephrology. No concerns expressed by nursing staff except for occasional incontinence. Ongoing MRSA decolonization. Daughter expressed concerns about transitioning to [place] and would want alternate facility including [facility] 08/09-patient appears quite cheerful. No family at bedside. Ongoing physical therapy with therapist in room. No overnight fever chills. No additional concerns expressed with nursing staff. White count 6.1. Stable hemodynamics. Creatinine 1.9.Cedillo is draining clear urine. Continuing antibiotic coverage. 08/10-patient clinically improving. More lucid. Complains of intermittent b ladder spasm. Responded well to BNO suppository. White count 7.4. Nephrology recommends confusion of Cedillo's catheter with further work-up by urology on discharge. Creatinine down to 1.5, on antibiotic coverage for E. coli UTI. Multidrug-resistant sensitive to nitrofurantoin. 08/11 No new complaints. No overnight events. BC stable. Creatinine 1.6. 08/12 Pleasantly demented this morning as usual. Received CT KUB this morning. 08/13 Patient again pleasantly demented. Creatinine elevating. CT imaging concern for bladder malignancy. Urology consulted. Review of Systems: denies headache/fever/chills/nausea/vomiting/chest or abdominal pain/cough/dyspnea/diarrhea. Otherwise see above. Constitutional Vitals: Vital Signs Temp Pulse Resp BP Pulse Ox 97.8 F 62 14 131/60 97 08/13/20 03:43 08/13/20 03:43 08/13/20 03:43 08/13/20 03:43 08/13/20 03:43 Period Temp Pulse Resp BP Sys/Corbin Pulse Ox Last 24 Hr 97.2 F-98.8 F 62-79 14-20 113-148/58-76 96-99 Intake and Output 08/12/20 08/13/20 08/13/20 21:59 05:59 13:59 Intake Total 1030 1325 Output Total 450 850 Balance 580 475 Weight 110.631 kg Intake & Output: Intake & Output 08/12/20 08/13/20 08/13/20 21:59 05:59 13:59 Intake Total 1030 1325 Output Total 450 850 Balance 580 475 Weight 110.631 kg Intake: IV 50 1050 Sodium Chloride 0.9% 1,000 ml @ 1000 100 mls/hr IV .Q10H [facility] Rx#: [id number] Zosyn 2.25 gm In Dextrose 5% in 50 50 Water 50 ml @ 100 mls/hr IV Q6H [facility] Rx#:[id number] Oral 980 275 Output: Urine Catheter Amount 450 850 Other: Meal Dinner Percent of Meal Consumed 50% Feeding Ability Independent Urine Appearance Cloudy Cloudy Sediment Uretheral (Cedillo) Cloudy Sediment Mucous Threads Urine Color Dark Yellow Straw Uretheral (Cedillo) Bright Yellow Urine Odor Strong Uretheral (Cedillo) Strong Stool Size Copious Stool Color Brown Stool Consistency Soft Exam: General: Awake, No acute Distress Eyes/N/T: EOMI, Head/Neck: neck supple, CV: RRR, No murmurs, Pulm: Clear b/l, no wheezing/rhonchi/rales Abd: soft, nontender, +BS x4, Cedillo in place Ext: no clubbing/cyanosis, 1+ b/l LE edema Neuro: confusion, no focal deficits, moves all extremities, Skin: warm/dry OBJ DATA Labs CBC & Chem 7: 08/11/20 06:02 08/13/20 05:24 Labs: Abnormal Lab Results 08/12/20 08/11/20 08/11/20 06:16 06:02 06:02 RBC Hgb Hct RDW Plt Count Lymph % (Auto) Lymph # (Auto) ESR 122 H Sodium 132 L BUN 25 H 27 H Creatinine 1.7 H 1.6 H GGT 113 H AST 33 H Alkaline Phosphatase 141 H Albumin 2.3 L Globulin 5.1 H Albumin/Globulin Ratio 0.5 L Urine Appearance Urine Protein Urine Occult Blood Ur Leukocyte Esterase Urine RBC Urine WBC Urine Bacteria 08/11/20 08/11/20 08/10/20 06:02 04:00 04:57 RBC 3.35 L Hgb 9.9 L Hct 30.9 L RDW 14.9 H Plt Count 127 L Lymph % (Auto) 11.3 L Lymph # (Auto) 0.91 L ESR Sodium BUN 32 H Creatinine 1.5 H GGT 110 H AST Alkaline Phosphatase 143 H Albumin 2.4 L Globulin 5.0 H Albumin/Globulin Ratio 0.5 L Urine Appearance Cloudy A Urine Protein 100 A Urine Occult Blood >=1.0 A Ur Leukocyte Esterase 500 A Urine RBC 72 H Urine WBC > 182 H Urine Bacteria Mod A Meds: Medications Acetaminophen (Tylenol) 650 mg PO Q4-6HP PRN; Protocol PRN Reason: Per Pain Protocol/Fever > 101 Albuterol Sulfate (Ventolin) 1 puff INH Q4HP PRN PRN Reason: Shortness Of Breath Allopurinol (Zyloprim) 100 mg PO DAILY [facility] Last Admin: 08/12/20 08:46 Dose: 100 mg Documented by: Aspirin (Ecotrin) 325 mg PO DAILY [facility] Last Admin: 08/12/20 08:45 Dose: 325 mg Documented by: Atenolol (Tenormin) 50 mg PO BID [facility] Last Admin: 08/12/20 22:19 Dose: 50 mg Documented by: Belladonna Alkaloids/Opium (B & O) 30 mg DC Q4HP PRN PRN Reason: Pain Bisacodyl (Dulcolax) 10 mg DC Q2-3DAYS PRN PRN Reason: Constipation Cyanocobalamin (Vitamin B-12) 1,000 mcg PO DAILY [facility] Last Admin: 08/12/20 08:46 Dose: 1,000 mcg Documented by: Dextrose (Dextrose 50%) 0 ml IV UD PRN PRN Reason: Hypoglycemia Diagnostic Test (Pha) (Accu-Chek) 1 each FS ACHS [facility] Last Admin: 08/12/20 22:16 Dose: 1 each Documented by: Diphenhydramine HCl (Benadryl) 25 mg PO Q6HP PRN PRN Reason: Allergic Symptoms Docusate Sodium (Colace) 100 mg PO BID [facility] Last Admin: 08/12/20 22:20 Dose: Not Given Documented by: Ergocalciferol (Drisdol) 50,000 unit PO TuFr@0900 [facility] Glucose (Insta-Glucose) 15 gm PO PRN PRN PRN Reason: Hypoglycemia Heparin Sodium (Porcine) (Heparin) 5,000 unit SQ Q12 [facility] Last Admin: 08/12/20 22:19 Dose: 5,000 unit Documented by: Magnesium Sulfate (Magnesium Sulfate) 2 gm in 50 mls @ 50 mls/hr IV UD PRN PRN Reason: MG = or < 1.7 Last Infusion: 08/11/20 11:24 Dose: Infused Documented by: Potassium Chloride 40 meq/ (Dextrose) 520 mls @ 130 mls/hr IV UD PRN PRN Reason: K+ = or < 3.5 Acetaminophen (Ofirmev) 650 mg in 65 mls @ 130 mls/hr IV Q6HP PRN; Protocol PRN Reason: Per Pain Protocol/Fever > 101 Piperacillin Sod/Tazobactam (Sod 2.25 gm/ Dextrose) 50 mls @ 100 mls/hr IV Q6H [facility]; Protocol Stop: 08/16/20 13:29 Last Admin: 08/13/20 04:55 Dose: 100 mls/hr Documented by: Insulin Glargine (Lantus) 36 unit SQ DAILY [facility] Last Admin: 08/12/20 08:50 Dose: 36 units Documented by: Insulin Human Lispro (Humalog) 0 unit SQ ACHS [facility]; Protocol Last Admin: 08/12/20 22:17 Dose: 2 units Documented by: Iron Carb/Multivit/Hernando/Folic Acid (Multivitamin W/Minerals) 1 tab PO DAILY [facility] Last Admin: 08/12/20 08:45 Dose: 1 tab Documented by: Levothyroxine Sodium (Synthroid) [address] [facility] Last Admin: 08/12/20 08:47 Dose: 50 mcg Documented by: Loperamide HCl (Imodium) 4 mg PO Q6H PRN PRN Reason: Diarrhea Melatonin (Melatonin 3mg Tablet) 9 mg PO HS [facility] Last Admin: 08/12/20 22:18 Dose: 9 mg Documented by: Mupirocin (Bactroban Oint 2%) 1 dose NARES BID [facility] Last Admin: 08/12/20 22:17 Dose: 1 dose Documented by: Omeprazole (Prilosec) 20 mg PO QAMAC [facility] Last Admin: 08/12/20 08:46 Dose: 20 mg Documented by: Ondansetron HCl (Zofran Odt) 4 mg SL Q4-6HP PRN; Protocol PRN Reason: Nausea And Vomiting Ondansetron HCl (Zofran) 4 mg IV Q4-6HP PRN; Protocol PRN Reason: Nausea And Vomiting Fluticasone Furoate- Vilanterol [Breo Ellipta] Inhaler 1 dose INH DAILY [facility] Last Admin: 08/12/20 08:50 Dose: Not Given Documented by: Linaclotide [Linzess (] 145 Mcg Cap) 1 dose PO DAILY [facility] Last Admin: 08/12/20 08:51 Dose: Not Given Documented by: Memantine Er 21 Mg (Tab) 1 dose PO QDAY [facility] Last Admin: 08/12/20 08:51 Dose: Not Given Documented by: Polyethylene Glycol (Miralax) 17 gm PO DAILYP PRN PRN Reason: Constipation Quetiapine Fumarate (Seroquel) 200 mg PO [facility] Last Admin: 08/12/20 22:18 Dose: 200 mg Documented by: Senna/Docusate Sodium (Senna Plus Tablet) 1 tab PO [facility] Last Admin: 08/12/20 22:20 Dose: Not Given Documented by: Sertraline HCl (Zoloft) 50 mg PO QDAY [facility] Last Admin: 08/12/20 08:47 Dose: 50 mg Documented by: Simvastatin (Zocor) 20 mg PO [facility] Last Admin: 08/12/20 22:19 Dose: 20 mg Documented by: A/P Narrative A/P Narrative: A: *Obstructive uropathy with b/l hydronephrosis: -CT evidence of bladder wall thickening, no urgent need for cystoscopy per urology. Advised follow-up on discharge. *Diffuse thickening of bladder, encasing both UPJ: concern for malignancy *PRIMO: secondary obstructive uropathy -1.7<1.6<1.5<1.9<<2.8 *AMS, superimposed on underlying Dementia: secondary to combination of hyponatremia/renal failure uremia/medications -much improved *Dementia with anxiety: on SSRIs/quetiapine/memantine *Anemia of chronic disease: -s/p 2 units PRBC (08/08), stable *Hyponatremia: likely secondary to bladder outlet obstruction/renal failure. Urine osmolarity suggestive against SIADH -improved *Complicated MDR E. coli UTI/cystitis: recurrent in nature secondary to urinary retention/fecal soiling *GERD continue PPI *HTN/HLD: *Hypothyroid on thyroxine *DM type II: *History of gout: on allopurinol *Morbid obesity continue directed therapies/nutrition consult Plan: -Continue Cedillo's catheter decompression -Continue electrolyte/renal failure management per nephrology -urology consulted -on zosyn to finish course -ARB on hold in light of renal failure, continue atenolol - continue basal prandial insulin(36u)/renal CC diet -PT OT nutrition support -Discharge planning per case management likely SNF -ppx: Heparin Time Spent With Patient Time: Total time spent is greater than 50% in coordination of care (as docume nted) at patient's floor/unit and/or counseling patient: QUALITY Stroke Symptom Onset Unknown: No VTE Deep Vein Thrombosis/Pulmonary Embolism Present on Admission: No
[2020-08-13 07:21] LABS: Blood Urea Nitrogen 29 mg/dL (8-23); Calcium 8.5 mg/dL (8.6-10.4); Carbon Dioxide 21 mmol/L (22-30); Chloride 104 mmol/L (96-108); Glomerular Filtration Rate 20; Glucose 168 mg/dL (70-105)
[2020-08-13] MEDS: LEVOTHYROXINE 50 MCG TABLET PO SCH (07:26)
[2020-08-13] MEDS: OMEPRAZOLE 20 MG CAPSULE PO SCH (07:27)
--- NOTE | 2020-08-13 07:42 | Nephrology Progress Note ---
SUBJECTIVE Subjective Patient information: Note initiated : 08/13/20 at 7:39 am Service Date, if different from initiated Date: [] Patient: Reny Sanches 75 y/o F admitted on 08/06/20 for ARF. Chief Complaint: [ARF] Bilateral hydro w/o stones. GFR better with hydration More alert with D/C of numerous Rx...Pleasantly demented W/U for ESR > 100 underway Cancer>autoimmune>UTI E coli UTI prior to pettit placement CT KUB IMPRESSION: 1. Marked diffuse wall thickening of the urinary bladder including encasement of both UVJ regions. Pathologic infiltration by tumor or inflammation is suspected. The left upper collecting system and ureter have decompressed since the prior pre-Pettit catheter CT, however there is persistent moderate right hydroureter/hydronephrosis. This may be due to pathologic encasement of the right UVJ, rather than bladder outlet obstruction or neurogenic bladder. More specific evaluation with cystoscopy is suggested. 2. Scattered small low-attenuation filling defects within the upper collecting systems of both kidneys - more prominent on the right. This could represent sloughed tissue from papillary necrosis, scattered thrombi or, less likely, nonopaque stones. This could also be more specifically evaluated at time of cystoscopy/ ureteroscopy. 3. Probable cirrhosis with evidence for mild portal hypertension and even a left splenorenal shunt. The spleen is mildly enlarged. Small amount of ascites appreciated. Laboratory Results - last 48 hr 08/11/20 08/11/20 08/12/20 04:00 06:02 05:22 ESR 122 H Sodium Potassium Chloride Carbon Dioxide Anion Gap BUN Creatinine GFR Calculation Glucose Calcium Urine Color Yellow Urine Appearance Cloudy A Urine pH 6.0 Ur Specific [place] 1.011 Urine Protein 100 A Urine Glucose (UA) Negative Urine Ketones Negative Urine Occult Blood >=1.0 A Urine Nitrate Negative Urine Bilirubin Negative Urine Urobilinogen Negative Ur Leukocyte Esterase 500 A Urine RBC 72 H Urine WBC > 182 H Ur Squamous Epith Cells 2 Ur Transition Epith Cell 2 Urine Bacteria Mod A Ur Culture Indicated? yes Urine Eosinophils <1.00 08/12/20 08/13/20 06:16 05:24 ESR Sodium 133 134 Potassium 3.8 4.0 Chloride 96 104 Carbon Dioxide 23 21 L Anion Gap 14.0 9.0 BUN 25 H 29 H Creatinine 1.7 H 2.3 H GFR Calculation 29 20 Glucose 83 168 H Calcium 9.0 8.5 L Urine Color Urine Appearance Urine pH Ur Specific [place] Urine Protein Urine Glucose (UA) Urine Ketones Urine Occult Blood Urine Nitrate Urine Bilirubin Urine Urobilinogen Ur Leukocyte Esterase Urine RBC Urine WBC Ur Squamous Epith Cells Ur Transition Epith Cell Urine Bacteria Ur Culture Indicated? Urine Eosinophils Microbiology 08/11/20 04:00 Urine - Catheterized Urine Culture - Preliminary Gram negative bacillus 08/06/20 21:53 Urine - Catheterized Urine Culture - Final Escherichia coli 08/06/20 20:25 Nose MRSA (PCR) - Final Constitutional Vitals: Vital Signs Temp Pulse Resp BP Pulse Ox 36.6 C 62 14 131/60 97 08/13/20 03:43 08/13/20 03:43 08/13/20 03:43 08/13/20 03:43 08/13/20 03:43 Period Temp Pulse Resp BP Sys/Corbin Pulse Ox Last 24 Hr 36.2 C-37.1 C 62-79 14-20 113-144/60-76 96-99 Intake and Output 08/12/20 08/13/20 08/13/20 21:59 05:59 13:59 Intake Total 1030 1325 Output Total 450 850 Balance 580 475 Weight 110.631 kg Intake & Output: Intake & Output 08/12/20 08/13/20 08/13/20 21:59 05:59 13:59 Intake Total 1030 1325 Output Total 450 850 Balance 580 475 Weight 110.631 kg Intake: IV 50 1050 Sodium Chloride 0.9% 1,000 ml @ 1000 100 mls/hr IV .Q10H PAIGE Rx#: [id number] Zosyn 2.25 gm In Dextrose 5% in 50 50 Water 50 ml @ 100 mls/hr IV Q6H PAIGE Rx#:[id number] Oral 980 275 Output: Urine Catheter Amount 450 850 Other: Meal Dinner Percent of Meal Consumed 50% Feeding Ability Independent Urine Appearance Cloudy Cloudy Sediment Uretheral (Pettit) Cloudy Sediment Mucous Threads Urine Color Dark Yellow Straw Uretheral (Pettit) Bright Yellow Urine Odor Strong Uretheral (Pettit) Strong Stool Size Copious Stool Color Brown Stool Consistency Soft General appearance: obese Exam: Sitting up in a chair in no acute distress Head Head exam: Present normal inspection Eye Eye exam: Present EOMI and PERRL; Absent nystagmus Pupils: Present PERRL ENT ENT exam: Present mucous membranes dry Neck Neck exam: Absent meningismus and tenderness Respiratory Respiratory exam: Present normal respiratory exam and CTAB Cardiovascular Cardiovascular exam: Present normal rate and rhythm, +S1 and +S2; Absent JVD GI/Abdominal GI/Abdominal exam: Present normal bowel sounds and soft; Absent guarding, mass and tenderness Extremities Exam Extremities exam: Absent calf tenderness, pedal edema and tenderness Neurological Exam Neurological exam: Present alert and CN II-XII intact; Absent oriented X3 (Pleasantly demented) Psychiatric Additional comments: Dementia Skin Skin exam: Present dry A/P Assessment and plan (1) Acute blood loss anemia: Assessment and plan: Less blood work Transfused with 2 units pRBCs Status: Acute Comment: Check iron stores and retic count before transfusion (2) Bilateral hydronephrosis: Assessment and plan: Needs CT KUB +/- IV contrast when SCr improved (schedule for Mon) and then Cysto Status: Acute Comment: Relatively acute and not due to stones. Will need a clear the air cysto or IV contrast CT imaging (3) Urinary tract infection: Assessment and plan: Preceeded pettit E coli Rocephin => pip/maddie adjusted for GFR 30 cc/min Status: Acute Comment: E coli sensitive to pip/maddie Qualifiers: Hematuria presence: with hematuria Urinary tract infection type: site unspecified Qualified Code(s): N39.0 - Urinary tract infection, site not specified; R31.9 - Hematuria, unspecified (4) Acute hyponatremia: Assessment and plan: Improving Status: Acute Comment: I suspect she has been drinking hypotonic fluids and could not clear the free H2O load due to ARF. (5) Polypharmacy: Assessment and plan: Root cause of many of her issues Status: Acute Comment: Finally, this patient is experiencing either progressive dementia or underlying dementia with medications interfering with her thought process such as the combination of tramadol sertraline and benzodiazepines. I have stopped the tramadol, and to taper the sertraline, and stop the clonazepam. Improved and I asked the melatonin at bedtime as well and may be cut the Seroquel to 50 or 100 mg at bedtime. (6) Acute prerenal azotemia: Assessment and plan: Improving with volume and D/C of furosemide Will always have some edema Status: Acute Comment: So in summary this is a 75-year-old woman with near normal GFR 55 cc/min. In May 2020 she had an episode of acute renal failure due to a combination of ARB, diuretics, Bactrim and nonsteroidal anti-inflammatories. All this has resolved, her urine has no proteinuria and I would expect she will do fine as long as known drug combinations that reduced renal perfusion (RAASI therapy & NSAIDS), plus volume depletion (diuretics) or interfere with tubular function (Bactrim) are avoided. There is no proteinuria to suggest underlying diabetic nephropathy. After a full recovery, a second episode of ARF has reoccurred in association with bilateral hydro, abnormal urinary bladder, pyuria and an ESR >100 mm/hr. A partial w/u was started but foiled by problems of getting studies done in a long-term over the holiday. (7) Elevated erythrocyte sedimentation rate: Assessment and plan: Cancer, Cancer Cancer > autoimmune > infection (this is a UTI no radiographic or clinical evidence of Pyelo. 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 Status: Acute Comment: The differential diagnosis includes infection/inflammation with urinary tract infections or soft tissue infections leading the list, autoimmune processes for which polymyalgia rheumatica would be the leading cause in this group based on age alone but she does not have clinical features at that presently (though she had headaches and myalgias in the past according to her problem list), and we should do some screening for autoimmune diseases with BRANDIE and ANCA testing as well as an RPR, and then malignancies in this group I had be concerned about multiple myeloma so we will check an SPEP and UPEP. (8) Pyuria: Assessment and plan: C/W UTI => E coli uti sens to pip/maddie Status: Acute Comment: Outpatient culture was lost or never sent. Recheck tonight for U/A, C&S, urine Eos, urine cytology, urine uric acid/creatinine ratio and UAG. Narrative A/P Narrative: 1. Continue hydration overnight 2. Serial labs 3. No objection to return to long-term with outpatient follow-up 4. We will check for urine eosinophils as she is on PIP Maddie 5. Need to follow up on autoimmune labs and urine cytology Time Spent With Patient Time: Total time spent is greater than 50% in coordination of care (as documented) at patient's floor/unit and/or counseling patient:
[2020-08-13] MEDS: INSULIN LISPRO 1 UNIT/0.01 ML UNIT SQ SCH ×4 (07:46→22:22)
[2020-08-13] MEDS: HEPARIN 5,000 UNIT/ML VIAL SQ SCH ×2 (10:40→22:20)
[2020-08-13] MEDS: ERGOCALCIFEROL (VITAMIN D2) 50,000 UNIT CAPSULE PO SCH (10:42)
[2020-08-13] MEDS: ALLOPURINOL 100 MG TABLET PO SCH (10:42)
[2020-08-13] MEDS: CYANOCOBALAMIN (VITAMIN B-12) 500 MCG TABLET PO SCH (10:42)
[2020-08-13] MEDS: SERTRALINE 50 MG TABLET PO SCH (10:42)
[2020-08-13] MEDS: ATENOLOL 50 MG TABLET PO SCH ×2 (10:42→22:21)
[2020-08-13] MEDS: MULTIVIT,THER IRON,CA,FA & MIN 1 TABLET PO SCH (10:42)
[2020-08-13] MEDS: DOCUSATE SODIUM 100 MG CAPSULE PO SCH ×2 (10:42→22:19)
[2020-08-13] MEDS: ASPIRIN 325 MG ENTERIC COATED TABLET PO SCH (10:42)
[2020-08-13] MEDS: Fluticasone Furoate-Vilanterol [Breo Ellipta] Inhaler INH SCH (10:44)
[2020-08-13] MEDS: MEMANTINE 21 MG PO SCH (10:45)
--- NOTE | 2020-08-13 11:24 | Discharge Summary ---
Discharge Provider Provider Patient information: Note initiated : 08/13/20 at 11:21 am Service Date, if different from initiated Date: [] Patient: Reny Sanches 75 y/o F admitted on 08/06/20 for ARF. Chief Complaint: [] Date of admission: 08/06/20 20:12 Primary care physician: Cyrus Massey Consults: 08/06/20 16:58 Consult to Physician [CONS] Stat Comment: Consulting Provider: Jose Alberto Bernard Reason For Exam: Physician to Consult 08/06/20 20:30 Consult to Physician [CONS] Routine Comment: Consulting Provider: Yemi Kent Reason For Exam: Physician to Consult 08/12/20 17:35 Consult to Physician [CONS] Routine Comment: [place], ARF => cysto Consulting Provider: Johnson Sharif Reason For Exam: Physician to Consult Discharge Meds Discharge Medications Home Medications acetaminophen 325 mg tablet 325 - 650 mg PO Q4H PRN tab 05/18/19 [History Confirmed 08/07/20 Last Taken 08/06/20] levothyroxine 50 mcg tablet 50 mcg PO QDAY #90 tab 11/21/19 [Rx Confirmed 08/07/20 Last Taken 08/06/20] lovastatin 40 mg tablet 40 mg PO QDAY #90 tab 11/21/19 [Rx Confirmed 08/07/20 Last Taken 08/05/20] furosemide 20 mg tablet 20 mg PO QDAY #90 tab 01/22/20 [Rx Confirmed 08/07/20 Last Taken 08/06/20] ergocalciferol (vitamin D2) 1,250 mcg (50,000 unit) capsule 50,000 unit PO .COMPLEX #24 cap 02/08/20 [Rx Confirmed 08/07/20 Last Taken 08/06/20] insulin aspart U-100 100 unit/mL (3 mL) subcutaneous pen See Rx Instructions .ROUTE .COMPLEX #9 milliliter 02/08/20 [Rx Confirmed 08/07/20 Last Taken 08/06/20 07:30] memantine 21 mg capsule sprinkle,extended release 24hr 21 mg PO QDAY #90 each 02/08/20 [Rx Confirmed 08/07/20 Last Taken 08/06/20] linaclotide 145 mcg capsule See Rx Instructions .ROUTE .COMPLEX #30 each 02/19/20 [Rx Confirmed 08/07/20 Last Taken 08/06/20] fluticasone furoate 100 mcg-vilanterol 25 mcg/dose inhalation powder See Rx Instructions .ROUTE .COMPLEX #60 each 02/28/20 [Rx Confirmed 08/07/20 Last Taken 08/06/20] omeprazole 20 mg capsule,delayed release 20 mg PO QDAY #90 cap 03/04/20 [Rx Confirmed 08/07/20 Last Taken 08/06/20] pen needle, diabetic, safety 30 gauge x 1/3" #100 each 03/08/20 [Rx Confirmed 08/07/20 Last Taken Unknown] atenolol 50 mg tablet See Rx Instructions .ROUTE .COMPLEX #60 each 05/13/20 [Rx Confirmed 08/07/20 Last Taken 08/06/20 08:00] quetiapine 200 mg tablet 200 mg PO QHS #30 tab 05/27/20 [Rx Confirmed 08/07/20 Last Taken 08/05/20] albuterol sulfate 90 mcg/actuation breath activated powder inhaler,sensor 1 inh INHALATION Q4H PRN 07/31/20 [History Confirmed 08/07/20 Last Taken Unknown] cyanocobalamin (vitamin B-12) 1,000 mcg tablet 1,000 mcg PO QDAY 07/31/20 [History Confirmed 08/07/20 Last Taken 08/06/20] loperamide 2 mg capsule 4 mg PO Q6H PRN cap 07/31/20 [History Confirmed 08/07/20 Last Taken Unknown] losartan 100 mg tablet 100 mg PO QDAY 07/31/20 [History Confirmed 08/07/20 Last Taken 08/06/20] melatonin 10 mg capsule 10 mg PO HS 07/31/20 [History Confirmed 08/07/20 Last Taken 08/05/20] polyethylene glycol 3350 17 gram/dose oral powder 17 g PO QDAY 07/31/20 [History Confirmed 08/07/20 Last Taken 08/06/20] Lantus U-100 Insulin 44 unit SUBCUT DAILY 08/07/20 [History Confirmed 08/07/20 Last Taken 08/06/20] allopurinol 100 mg PO DAILY 08/07/20 [History Confirmed 08/07/20 Last Taken 08/06/20] aspirin 325 mg PO QDAY 08/07/20 [History Confirmed 08/07/20 Last Taken 08/06/20] ferrous gluconate 324 mg PO QDAY 08/07/20 [History Confirmed 08/07/20 Last Taken 08/06/20] insulin aspart U-100 [Novolog U-100 Insulin aspart] 6 unit SUBCUT AC 08/07/20 [History Confirmed 08/07/20 Last Taken 08/06/20 07:00] insulin glargine [Lantus U-100 Insulin] 35 unit SUBCUT HS 08/07/20 [History Confirmed 08/07/20 Last Taken 08/05/20] sertraline 50 mg PO QDAY 08/07/20 [History Confirmed 08/07/20 Last Taken 08/06/20] COURSE Hospital Course Hospital course: Interval history: Ms. Sanches is a 75 year old F resident of [facility] since mid-May with history of HTN/HLD/DM type II/morbid obesity who was recently evaluated at nephrology office for worsening renal function now presents to the ER from nephrology office for further hospitalization and evaluation of progressive renal insufficiency. Patient has become increasingly fatigued, lethargic and confused over the last few days and has not been able to function or perform ADLs. She denies associated dysuria, diarrhea, nausea but endorses difficulty urination. She denies changes in medications. Patient work-up in the ER was consistent with acute renal failure with creatinine 2.8. Notable pyuria, sodium 122 and profound change in mental status with GCS 8. Most of the history was obtained from patient's daughter/prior EMR notes. CT abdomen revealed bilateral hydronephrosis with likely bladder outlet obstruction. Urology was consulted. Nephrology was consulted and requested admission under hospitalist service. Subsequently hospitalist service was consulted At the time of my evaluation patient is very confused however oriented to place only. She could not provide any meaningful history over the last 72 hours. She however denies chest pain, fever, chills but endorses lightheadedness, dizziness. 08/07-patient clinically improving. Sodium up to 132. Sodium rise higher than goal. Transition to D5 half NS per nephrology. Urine osmolarity appropriately low ruling out SIADH. Creatinine down to 2.4. Continue antibiotic coverage. Await urine cultures. Improving mental status however remains disoriented. No overnight fever chills. No other concerns per nursing staff. No telemetry events. Restart diabetic diet 08/08-patient seen in room along with daughter. Intermittently confused but much more alert since yesterday. Hemoglobin 6.6, 2 units PRBC transfusion per nephrology. Creatinine down to 1.9, Cedillo's draining clear urine, sodium improved to 133. Following commands. Remains disoriented. No overnight fever chills. Ongoing management per nephrology. No concerns expressed by nursing staff except for occasional incontinence. Ongoing MRSA decolonization. Daughter expressed concerns about transitioning to [place] and would want alternate facility including [facility] 08/09-patient appears quite cheerful. No family at bedside. Ongoing physical therapy with therapist in room. No overnight fever chills. No additional concerns expressed with nursing staff. White count 6.1. Stable hemodynamics. Creatinine 1.9.Cedillo is draining clear urine. Continuing antibiotic coverage. 08/10-patient clinically improving. More lucid. Complains of intermittent bladder spasm. Responded well to BNO suppository. White count 7.4. Nephrology recommends confusion of Cedillo's catheter with further work-up by urology on discharge. Creatinine down to 1.5, on antibiotic coverage for E. coli UTI. Multidrug-resistant sensitive to nitrofurantoin. 08/11 No new complaints. No overnight events. BC stable. Creatinine 1.6. 08/12 Pleasantly demented this morning as usual. Received CT KUB this morning. 08/13 Patient again pleasantly demented. Creatinine elevating. CT imaging concern for bladder malignancy. Urology consulted. A: *Obstructive uropathy with b/l hydronephrosis: -CT evidence of bladder wall thickening, no urgent need for cystoscopy per urology. Advised follow-up on discharge. *Diffuse thickening of bladder, encasing both UPJ: concern for malignancy *PRIMO: secondary obstructive uropathy *AMS, superimposed on underlying Dementia: secondary to combination of hyponatremia/renal failure uremia/medications -much improved *Dementia with anxiety: on SSRIs/quetiapine/memantine *Anemia of chronic disease: -s/p 2 units PRBC (08/08), stable *Hyponatremia: likely secondary to bladder outlet obstruction/renal failure. Urine osmolarity suggestive against SIADH -improved *Complicated MDR E. coli UTI/cystitis: recurrent in nature secondary to urinary retention/fecal soiling *GERD continue PPI *HTN/HLD: *Hypothyroid on thyroxine *DM type II: *History of gout: on allopurinol *Morbid obesity continue directed therapies/nutrition consult Discharge diagnosis: Struct of uropathy with bilateral hydronephrosis he is thi ckening of the bl Secondary discharge diagnosis: She is thickening of the bladder concern for malignancy acute kidney injury dementia chronic anemia E. coli UTI MDR GERD hypertension hypothyroidism diabetes gout morbid obesity Time Spent with Patient Time attestation: Total time spent providing and/or coordinating discharge services: Time spent: Greater than 30 minutes EXAM Constitutional Vitals: Temp Pulse Resp BP Pulse Ox 96.8 F L 66 14 135/55 96 08/13/20 07:51 08/13/20 07:51 08/13/20 07:51 08/13/20 07:51 08/13/20 07:51 Discharge Data Data Completed and Pending Labs on day of discharge: Labs from last 24 hours 08/13/20 08/12/20 05:24 05:22 Sodium 134 Potassium 4.0 Chloride 104 Carbon Dioxide 21 L Anion Gap 9.0 BUN 29 H Creatinine 2.3 H GFR Calculation 20 Glucose 168 H Calcium 8.5 L Urine Eosinophils <1.00 Preliminary micro results at discharge 08/11/20 04:00 Urine Culture - Preliminary Urine - Catheterized Gram negative bacillus Discharge Plan Patient/Caregiver Discharge Instructions Activity: increase activity as tolerated Diet: Renal/Consistent Carbs Prescriptions: No Action memantine 21 mg capsule,sprinkle,ER 24hr 21 mg PO QDAY Qty: 90 RF: 3 ergocalciferol (vitamin D2) 1,250 mcg (50,000 unit) capsule 50,000 unit PO .COMPLEX Qty: 24 RF: 5 insulin aspart U-100 [Novolog Flexpen U-100 Insulin] 100 unit/mL (3 mL) insulin pen See Rx Instructions .ROUTE .COMPLEX Qty: 9 RF: 10 levothyroxine 50 mcg tablet 50 mcg PO QDAY Qty: 90 RF: 4 lovastatin 40 mg tablet 40 mg PO QDAY Qty: 90 RF: 4 furosemide [Lasix] 20 mg tablet 20 mg PO QDAY Qty: 90 RF: 0 linaclotide [Linzess] 145 mcg capsule See Rx Instructions .ROUTE .COMPLEX Qty: 30 RF: 10 Breo Ellipta 100-25 mcg/dose blister with device See Rx Instructions .ROUTE .COMPLEX Qty: 60 RF: 12 omeprazole 20 mg capsule,delayed release(DR/EC) 20 mg PO QDAY Qty: 90 RF: 0 (DME) Novofine Autocover 30 gauge x 1/3" needle See Rx Instructions .ROUTE .MEDSUPPLY Qty: 100 RF: 10 atenolol 50 mg tablet See Rx Instructions .ROUTE .COMPLEX Qty: 60 RF: 10 quetiapine 200 mg tablet 200 mg PO QHS Qty: 30 RF: 5 acetaminophen [Tylenol] 325 mg tablet 325 - 650 mg PO Q4H PRN (Reason: Pain) RF: 0 albuterol sulfate 90 mcg/actuation aero powdr breath act w/sensor 1 inh INHALATION Q4H PRN (Reason: Shortness Of Breath) RF: 0 loperamide [Anti-Diarrheal (loperamide)] 2 mg capsule 4 mg PO Q6H PRN (Reason: Diarrhea) RF: 0 losartan 100 mg tablet 100 mg PO QDAY RF: 0 melatonin 10 mg capsule 10 mg PO HS RF: 0 polyethylene glycol 3350 17 gram/dose powder 17 g PO QDAY RF: 0 cyanocobalamin (vitamin B-12) [Vitamin B-12] 1,000 mcg tablet 1,000 mcg PO QDAY RF: 0 allopurinol 100 mg tablet 100 mg PO DAILY RF: 0 ferrous gluconate 324 mg (38 mg iron) Tablet 324 mg PO QDAY RF: 0 sertraline 50 mg Tablet 50 mg PO QDAY RF: 0 aspirin 325 mg Tablet 325 mg PO QDAY RF: 0 Lantus U-100 Insulin 100 unit/mL Solution 35 unit SUBCUT HS RF: 0 insulin aspart U-100 [Novolog U-100 Insulin aspart] 100 unit/mL Solution 6 unit subcut AC RF: 0 Lantus U-100 Insulin 44 unit subcut DAILY RF: 0 Follow Up Plan Follow up with: Cyrus Massey MD [Primary Care Provider] - Patient Disposition: Xfer SNF Rehab Potential: Undetermined I certify that the patient requires SNF services: Yes QUALITY VTE Deep Vein Thrombosis/Pulmonary Embolism Present on Admission: No
[2020-08-13] MEDS ORDERED: 0.9 % SODIUM CHLORIDE 500 ML IV SCH (11:30)
[2020-08-13] MEDS: INSULIN GLARGINE, HUMAN 1 UNIT/0.01 ML SQ SCH (13:29)
[2020-08-13] MEDS: MUPIROCIN OINT 2% 22GM NARES SCH ×2 (13:43→22:21)
[2020-08-13 14:19] LABS: Albumin PEP 2.25 gm/dL (3.10-4.70); Albumin/Globulin Ratio PEP 0.5 RATIO (0.9-1.7); Alpha-1-Globulins 0.45 gm/dL (0.10-0.50); Alpha-2-Globulins 1.02 gm/dL (0.40-1.20); Beta Globulins 1.18 gm/dL (0.60-1.20); Globulin PEP 4.8 gm/dL (2.4-3.6)
[2020-08-13] MEDS: DEXTROSE 5%-NS 1,000 ML IV SCH (21:43)
[2020-08-13] MEDS: MELATONIN 3 MG TABLET PO SCH (22:19)
[2020-08-13] MEDS: SIMVASTATIN 20 MG TABLET PO SCH (22:20)
[2020-08-13] MEDS: QUEtiapine 100 MG TABLET PO SCH (22:20)
[2020-08-13] MEDS: SENNOSIDES/DOCUSATE SODIUM 1 TAB TABLET PO SCH (22:21)
[2020-08-13] MEDS: CEFUROXIME 500 MG TABLET PO SCH (22:21)
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
[2020-08-14] MEDS: DEXTROSE 5%-NS 1,000 ML IV SCH ×3 (03:02→23:48)
--- NOTE | 2020-08-14 07:16 | Internal Med Progress Note ---
SUBJECTIVE Subjective Patient information: Note initiated : 08/14/20 at 7:09 am Service Date, if different from initiated Date: [] Patient: Reny Sanches a 75 y/o F admitted on 08/06/20 for ARF. Chief Complaint: [] Interval history: Ms. Sanches is a 75 year old F resident of [facility] since mid-May with history of HTN/HLD/DM type II/morbid obesity who was recently evaluated at nephrology office for worsening renal function now presents to the ER from nephrology office for further hospitalization and evaluation of progressive renal insufficiency. Patient has become increasingly fatigued, lethargic and confused over the last few days and has not been able to function or perform ADLs. She denies associated dysuria, diarrhea, nausea but endorses difficulty urination. She denies changes in medications. Patient work-up in the ER was consistent with acute renal failure with creatinine 2.8. Notable pyuria, sodium 122 and profound change in mental status with GCS 8. Most of the history was obtained from patient's daughter/prior EMR notes. CT abdomen revealed bilateral hydronephrosis with likely bladder outlet obstruction. Urology was consulted. Nephrology was consulted and requested admission under hospitalist service. Moriah almonte hospitalist service was consulted At the time of my evaluation patient is very confused however oriented to place only. She could not provide any meaningful history over the last 72 hours. She however denies chest pain, fever, chills but endorses lightheadedness, dizziness. 08/07-patient clinically improving. Sodium up to 132. Sodium rise higher than goal. Transition to D5 half NS per nephrology. Urine osmolarity appropriately low ruling out SIADH. Creatinine down to 2.4. Continue antibiotic coverage. Await urine cultures. Improving mental status however remains disoriented. No overnight fever chills. No other concerns per nursing staff. No telemetry events. Restart diabetic diet 08/08-patient seen in room along with daughter. Intermittently confused but much more alert since yesterday. Hemoglobin 6.6, 2 units PRBC transfusion per nephrology. Creatinine down to 1.9, Cedillo's draining clear urine, sodium improved to 133. Following commands. Remains disoriented. No overnight fever chills. Ongoing management per nephrology. No concerns expressed by nursing staff except for occasional incontinence. Ongoing MRSA decolonization. Daughter expressed concerns about transitioning to [place] and would want alternate facility including [facility] 08/09-patient appears quite cheerful. No family at bedside. Ongoing physical therapy with therapist in room. No overnight fever chills. No additional concerns expressed with nursing staff. White count 6.1. Stable hemodynamics. Creatinine 1.9.Cedillo is draining clear urine. Continuing antibiotic coverage. 08/10-patient clinically improving. More lucid. Complains of intermittent b ladder spasm. Responded well to BNO suppository. White count 7.4. Nephrology recommends confusion of Cedillo's catheter with further work-up by urology on discharge. Creatinine down to 1.5, on antibiotic coverage for E. coli UTI. Multidrug-resistant sensitive to nitrofurantoin. 08/11 No new complaints. No overnight events. BC stable. Creatinine 1.6. 08/12 Pleasantly demented this morning as usual. Received CT KUB this morning. 08/13 Patient again pleasantly demented. Creatinine elevating. CT imaging concern for bladder malignancy. Urology consulted. 08/14 No overnight event or new complaints. Seen by urology. He needs Nuc med lasix renogram. Review of Systems: denies headache/fever/chills/nausea/vomiting/chest or abdominal pain/cough/dyspnea/diarrhea. Otherwise see above. Constitutional Vitals: Vital Signs Temp Pulse Resp BP Pulse Ox 97.4 F 63 12 129/56 96 08/14/20 03:31 08/14/20 03:31 08/14/20 03:31 08/14/20 03:31 08/14/20 03:31 Period Temp Pulse Resp BP Sys/Corbin Pulse Ox Last 24 Hr 96.8 F-98.4 F 60-76 12-14 129-147/55-69 96-98 Intake and Output 08/13/20 08/14/20 08/14/20 21:59 05:59 13:59 Intake Total 290 400 Output Total 800 1250 Balance -510 -850 Weight 110.45 kg Intake & Output: Intake & Output 08/13/20 08/14/20 08/14/20 21:59 05:59 13:59 Intake Total 290 400 Output Total 800 1250 Balance -510 -850 Weight 110.45 kg Intake: IV 50 Zosyn 2.25 gm In Dextrose 5% in 50 Water 50 ml @ 100 mls/hr IV Q6H [facility] Rx#:[id number] Oral 240 400 Output: Urine Catheter Amount 800 1250 Other: Meal Dinner Percent of Meal Consumed 75% Feeding Ability Independent Urine Appearance Cloudy Cloudy Sediment Sediment Uretheral (Cedillo) Cloudy Sediment Mucous Threads Urine Color Dark Yellow Bright Yellow Uretheral (Cedillo) Dark Yellow Urine Odor Strong Uretheral (Cedillo) Strong Exam: General: Awake, No acute Distress Eyes/N/T: EOMI, Head/Neck: neck supple, CV: RRR, No murmurs, Pulm: Clear b/l, no wheezing/rhonchi/rales Abd: soft, nontender, +BS x4, Cedillo in place Ext: no clubbing/cyanosis, 1+ b/l LE edema Neuro: confusion, no focal deficits, moves all extremities, Skin: warm/dry OBJ DATA Labs CBC & Chem 7: 08/11/20 06:02 08/13/20 05:24 Labs: Abnormal Lab Results 08/13/20 08/12/20 08/12/20 05:24 06:16 06:16 RBC Hgb Hct RDW Plt Count Lymph % (Auto) Lymph # (Auto) ESR Sodium Carbon Dioxide 21 L BUN 29 H 25 H Creatinine 2.3 H 1.7 H Glucose 168 H Calcium 8.5 L GGT AST Alkaline Phosphatase Albumin Globulin Albumin (PEP) 2.25 L Albumin/Globulin Ratio Globulin (PEP) 4.8 H Albumin/Globulin (PEP) 0.5 L Gamma Globulins 2.10 H Urine Appearance Urine Protein Urine Occult Blood Ur Leukocyte Esterase Urine RBC Urine WBC Urine Bacteria 08/11/20 08/11/20 08/11/20 06:02 06:02 06:02 RBC 3.35 L Hgb 9.9 L Hct 30.9 L RDW 14.9 H Plt Count 127 L Lymph % (Auto) 11.3 L Lymph # (Auto) 0.91 L ESR 122 H Sodium 132 L Carbon Dioxide BUN 27 H Creatinine 1.6 H Glucose Calcium GGT 113 H AST 33 H Alkaline Phosphatase 141 H Albumin 2.3 L Globulin 5.1 H Albumin (PEP) Albumin/Globulin Ratio 0.5 L Globulin (PEP) Albumin/Globulin (PEP) Gamma Globulins Urine Appearance Urine Protein Urine Occult Blood Ur Leukocyte Esterase Urine RBC Urine WBC Urine Bacteria 08/11/20 04:00 RBC Hgb Hct RDW Plt Count Lymph % (Auto) Lymph # (Auto) ESR Sodium Carbon Dioxide BUN Creatinine Glucose Calcium GGT AST Alkaline Phosphatase Albumin Globulin Albumin (PEP) Albumin/Globulin Ratio Globulin (PEP) Albumin/Globulin (PEP) Gamma Globulins Urine Appearance Cloudy A Urine Protein 100 A Urine Occult Blood >=1.0 A Ur Leukocyte Esterase 500 A Urine RBC 72 H Urine WBC > 182 H Urine Bacteria Mod A Meds: Medications Acetaminophen (Tylenol) 650 mg PO Q4-6HP PRN; Protocol PRN Reason: Per Pain Protocol/Fever > 101 Albuterol Sulfate (Ventolin) 1 puff INH Q4HP PRN PRN Reason: Shortness Of Breath Allopurinol (Zyloprim) 100 mg PO DAILY [facility] Last Admin: 08/13/20 10:42 Dose: 100 mg Documented by: Aspirin (Ecotrin) 325 mg PO DAILY [facility] Last Admin: 08/13/20 10:42 Dose: 325 mg Documented by: Atenolol (Tenormin) 50 mg PO BID [facility] Last Admin: 08/13/20 22:21 Dose: 50 mg Documented by: Belladonna Alkaloids/Opium (B & O) 30 mg MI Q4HP PRN PRN Reason: Pain Bisacodyl (Dulcolax) 10 mg MI Q2-3DAYS PRN PRN Reason: Constipation Cefuroxime Axetil (Ceftin) 500 mg PO Q12 [facility]; Protocol Stop: 08/23/20 09:01 Last Admin: 08/13/20 22:21 Dose: 500 mg Documented by: Cyanocobalamin (Vitamin B-12) 1,000 mcg PO DAILY [facility] Last Admin: 08/13/20 10:42 Dose: 1,000 mcg Documented by: Dextrose (Dextrose 50%) 0 ml IV UD PRN PRN Reason: Hypoglycemia Diagnostic Test (Pha) (Accu-Chek) 1 each FS ACHS [facility] Last Admin: 08/13/20 22:23 Dose: 1 each Documented by: Diphenhydramine HCl (Benadryl) 25 mg PO Q6HP PRN PRN Reason: Allergic Symptoms Docusate Sodium (Colace) 100 mg PO BID [facility] Last Admin: 08/13/20 22:19 Dose: 100 mg Documented by: Ergocalciferol (Drisdol) 50,000 unit PO TuFr@0900 [facility] Last Admin: 08/13/20 10:42 Dose: 50,000 unit Documented by: Glucose (Insta-Glucose) 15 gm PO PRN PRN PRN Reason: Hypoglycemia Heparin Sodium (Porcine) (Heparin) 5,000 unit SQ Q12 [facility] Last Admin: 08/13/20 22:20 Dose: 5,000 unit Documented by: Magnesium Sulfate (Magnesium Sulfate) 2 gm in 50 mls @ 50 mls/hr IV UD PRN PRN Reason: MG = or < 1.7 Last Infusion: 08/11/20 11:24 Dose: Infused Documented by: Potassium Chloride 40 meq/ (Dextrose) 520 mls @ 130 mls/hr IV UD PRN PRN Reason: K+ = or < 3.5 Acetaminophen (Ofirmev) 650 mg in 65 mls @ 130 mls/hr IV Q6HP PRN; Protocol PRN Reason: Per Pain Protocol/Fever > 101 Dextrose/Sodium Chloride (Dextrose 5%-Ns Iv Solution) 1,000 mls @ 84 mls/hr IV .[id number] [facility] Last Admin: 08/14/20 03:02 Dose: Not Given Documented by: Insulin Glargine (Lantus) 36 unit SQ DAILY [facility] Last Admin: 08/13/20 13:29 Dose: 36 units Documented by: Insulin Human Lispro (Humalog) 0 unit SQ ACHS [facility]; Protocol Last Admin: 08/13/20 22:22 Dose: Not Given Documented by: Iron Carb/Multivit/[place]/Folic Acid (Multivitamin W/Minerals) 1 tab PO DAILY [facility] Last Admin: 08/13/20 10:42 Dose: 1 tab Documented by: Levothyroxine Sodium (Synthroid) 50 mcg PO QAMAC [facility] Last Admin: 08/13/20 07:26 Dose: 50 mcg Documented by: Loperamide HCl (Imodium) 4 mg PO Q6H PRN PRN Reason: Diarrhea Melatonin (Melatonin 3mg Tablet) 9 mg PO HS [facility] Last Admin: 08/13/20 22:19 Dose: 9 mg Documented by: Mupirocin (Bactroban Oint 2%) 1 dose NARES BID [facility] Last Admin: 08/13/20 22:21 Dose: 1 dose Documented by: Ondansetron HCl (Zofran Odt) 4 mg SL Q4-6HP PRN; Protocol PRN Reason: Nausea And Vomiting Ondansetron HCl (Zofran) 4 mg IV Q4-6HP PRN; Protocol PRN Reason: Nausea And Vomiting Fluticasone Furoate- Vilanterol [Breo Ellipta] Inhaler 1 dose INH DAILY [facility] Last Admin: 08/13/20 10:44 Dose: Not Given Documented by: Linaclotide [Linzess (] 145 Mcg Cap) 1 dose PO DAILY [facility] Last Admin: 08/13/20 13:39 Dose: Not Given Documented by: Memantine Er 21 Mg (Tab) 1 dose PO QDAY [facility] Last Admin: 08/13/20 10:45 Dose: Not Given Documented by: Polyethylene Glycol (Miralax) 17 gm PO DAILYP PRN PRN Reason: Constipation Quetiapine Fumarate (Seroquel) 200 mg PO [facility] Last Admin: 08/13/20 22:20 Dose: 200 mg Documented by: Senna/Docusate Sodium (Senna Plus Tablet) 1 tab PO [facility] Last Admin: 08/13/20 22:21 Dose: 1 tab Documented by: Sertraline HCl (Zoloft) 50 mg PO QDAY [facility] Last Admin: 08/13/20 10:42 Dose: 50 mg Documented by: Simvastatin (Zocor) 20 mg PO [facility] Last Admin: 08/13/20 22:20 Dose: 20 mg Documented by: A/P Narrative A/P Narrative: A: *Obstructive uropathy with b/l hydronephrosis: -CT showing ?bladder wall thickening and ?encasing both UPJ, worse on righ *Diffuse thickening of bladder, possible obstruction of both UPJ: *PRIMO: secondary obstructive uropathy -2.3<1.7<1.6<1.5<1.9<<2.8, worsening d/t contrast vs right side hydronephrosis *AMS, superimposed on underlying Dementia: secondary to combination of hyponatremia/renal failure uremia/medications -much improved *Dementia with anxiety: on SSRIs/quetiapine/memantine *Anemia of chronic disease: -s/p 2 units PRBC (08/08), stable *Hyponatremia: likely secondary to bladder outlet obstruction/renal failure. Urine osmolarity suggestive against SIADH -improved *Complicated MDR E. coli UTI/cystitis: recurrent in nature secondary to urinary retention/fecal soiling *GERD continue PPI *HTN/HLD: *Hypothyroid on thyroxine *DM type II: *History of gout: on allopurinol *Morbid obesity continue directed therapies/nutrition consult Plan: -Continue Cedillo's catheter decompression -Continue electrolyte/renal failure management per nephrology -urology following, pt needs Nuc med lasix renogram then possibly cystogram -on 2nd gen cephalosporin, await final UC -ARB on hold in light of renal failure, continue atenolol - continue basal prandial insulin(36u)/renal CC diet -PT OT nutrition support -Discharge planning per case management likely SNF -ppx: Heparin Time Spent With Patient Time: Total time spent is greater than 50% in coordination of care (as documented) at patient's floor/unit and/or counseling patient: QUALITY Stroke Symptom Onset Unknown: No VTE Deep Vein Thrombosis/Pulmonary Embolism Present on Admission: No
[2020-08-14] MEDS: MEMANTINE 21 MG PO SCH (08:02)
[2020-08-14] MEDS: Fluticasone Furoate-Vilanterol [Breo Ellipta] Inhaler INH SCH (08:02)
[2020-08-14] MEDS ORDERED: VANCOMYCIN PER PHARMACY IV SCH (08:27)
[2020-08-14] MEDS: HEPARIN 5,000 UNIT/ML VIAL SQ SCH ×2 (08:38→22:46)
[2020-08-14 08:39] LABS: Blood Urea Nitrogen 26 mg/dL (8-23); Calcium 8.7 mg/dL (8.6-10.4); Carbon Dioxide 21 mmol/L (22-30); Chloride 103 mmol/L (96-108); Glomerular Filtration Rate 25; Glucose 183 mg/dL (70-105)
[2020-08-14] MEDS: CEFUROXIME 500 MG TABLET PO SCH (08:39)
[2020-08-14] MEDS: ASPIRIN 325 MG ENTERIC COATED TABLET PO SCH (08:39)
[2020-08-14] MEDS: DOCUSATE SODIUM 100 MG CAPSULE PO SCH ×2 (08:39→22:45)
[2020-08-14] MEDS: MULTIVIT,THER IRON,CA,FA & MIN 1 TABLET PO SCH (08:40)
[2020-08-14] MEDS: CYANOCOBALAMIN (VITAMIN B-12) 500 MCG TABLET PO SCH (08:41)
[2020-08-14] MEDS: LEVOTHYROXINE 50 MCG TABLET PO SCH (08:41)
[2020-08-14] MEDS: ALLOPURINOL 100 MG TABLET PO SCH (08:43)
[2020-08-14] MEDS: SERTRALINE 50 MG TABLET PO SCH (08:44)
[2020-08-14] MEDS: INSULIN LISPRO 1 UNIT/0.01 ML UNIT SQ SCH ×4 (08:45→22:47)
[2020-08-14] MEDS: INSULIN GLARGINE, HUMAN 1 UNIT/0.01 ML SQ SCH (08:46)
[2020-08-14] MEDS: ATENOLOL 50 MG TABLET PO SCH ×2 (08:46→22:47)
--- NOTE | 2020-08-14 08:49 | Nephrology Progress Note ---
SUBJECTIVE Subjective Patient information: Note initiated : 08/14/20 at 8:45 am Service Date, if different from initiated Date: [] Patient: Reny Sanches 75 y/o F admitted on 08/06/20 for ARF. Chief Complaint: [ARF] Interval History: Patient with recurrent acute renal failure, bilateral hydronephrosis with bladder wall thickening and no evidence of nephrolithiasis. Subsequent to Pettit placement her creatinine initially improved and she is now has unilateral hydronephrosis on most recent contrast/noncontrast CT KUB. Her SPEP is positive for a monoclonal IgM band raising the question of underlying multiple myeloma. This still does not explain hydronephrosis or bladder wall thickening. However she would be prone to acute renal failure with dehydration, or IV contrast, if she has light chain nephropathy or IgM myeloma. Laboratory Tests 08/14/20 05:50 Sodium 137 Potassium 4.1 Chloride 103 Carbon Dioxide 21 L Anion Gap 13.0 BUN 26 H Creatinine 1.9 H GFR Calculation 25 Glucose 183 H Calcium 8.7 08/12/20 06:16 Albumin (PEP) 2.25 L Globulin (PEP) 4.8 H Albumin/Globulin (PEP) 0.5 L Clhjy-7-Fvidzagnk 0.45 Lhssz-6-Ogpnclyyb 1.02 Beta Globulins 1.18 Gamma Globulins 2.10 H IEF: Monoclonal IgM with faint Lambda LC Pharmacy reported that e coli was resistant to 2nd generation cephalosporin cefuroxime (though sensitive to cefoxitin on C&S) so back to PIP/Maddie at least till any procedure is accomplished. In addition to E coli, there is now an enterococcus growing and ID pending. Also, no urine was sent to path for cytology over New Years so we have to recollect. Constitutional Vitals: Vital Signs Temp Pulse Resp BP Pulse Ox 36.3 C 63 12 129/56 96 08/14/20 03:31 08/14/20 03:31 08/14/20 03:31 08/14/20 03:31 08/14/20 03:31 Period Temp Pulse Resp BP Sys/Corbin Pulse Ox Last 24 Hr 36.1 C-36.9 C 60-76 12-14 129-147/56-69 96-98 Intake and Output 08/13/20 08/14/20 08/14/20 21:59 05:59 13:59 Intake Total 290 400 Output Total 800 1250 Balance -510 -850 Weight 110.45 kg Intake & Output: Intake & Output 08/13/20 08/14/20 08/14/20 21:59 05:59 13:59 Intake Total 290 400 Output Total 800 1250 Balance -510 -850 Weight 110.45 kg Intake: IV 50 Zosyn 2.25 gm In Dextrose 5% in 50 Water 50 ml @ 100 mls/hr IV Q6H [facility] Rx#:[id number] Oral 240 400 Output: Urine Catheter Amount 800 1250 Other: Meal Dinner Percent of Meal Consumed 75% Feeding Ability Independent Urine Appearance Cloudy Cloudy Sediment Sediment Uretheral (Pettit) Cloudy Sediment Mucous Threads Urine Color Dark Yellow Bright Yellow Uretheral (Pettit) Dark Yellow Urine Odor Strong Uretheral (Pettit) Strong General appearance: no acute distress and obese Exam: Dementia Head Head exam: Present normal inspection and normocephalic Eye Eye exam: Present EOMI and PERRL; Absent scleral icterus Pupils: Present PERRL ENT ENT exam: Present mucous membranes dry Neck Neck exam: Present full ROM; Absent meningismus and tenderness Respiratory Respiratory exam: Present normal respiratory exam and CTAB; Absent rales, respiratory distress and stridor Cardiovascular Cardiovascular exam: Present normal rate and rhythm, RRR, +S1 and +S2; Absent rubs GI/Abdominal GI/Abdominal exam: Present normal bowel sounds, soft and guarding Back Exam Back exam: Absent CVA tenderness (L) and CVA tenderness (R) Neurological Exam Neurological exam: Present abnormal gait (Wheelchair and bedfast), alert, altered (Baseline pleasant dementia) and CN II-XII intact; Absent oriented X3 (Oriented to person) Psychiatric Psychiatric exam: Present anxious Skin Skin exam: Present dry A/P Assessment and plan (1) Acute blood loss anemia: Assessment and plan: Less blood work Transfused with 2 units pRBCs Status: Acute Comment: Check iron stores and retic count before transfusion (2) Bilateral hydronephrosis: Assessment and plan: Needs CT KUB +/- IV contrast when SCr improved (schedule for Mon) and then Cysto Status: Acute Comment: Relatively acute and not due to stones. Will need a clear the air cysto or IV contrast CT imaging (3) Urinary tract infection: Assessment and plan: Preceeded pettit E coli Rocephin => pip/maddie adjusted for GFR 30 cc/min Status: Acute Comment: E coli sensitive to pip/maddie Qualifiers: Hematuria presence: with hematuria Urinary tract infection type: site unspecified Qualified Code(s): N39.0 - Urinary tract infection, site not specified; R31.9 - Hematuria, unspecified (4) Acute hyponatremia: Assessment and plan: Improving Status: Acute Comment: I suspect she has been drinking hypotonic fluids and could not clear the free H2O load due to ARF. (5) Polypharmacy: Assessment and plan: Root cause of many of her issues Status: Acute Comment: Finally, this patient is experiencing either progressive dementia or underlying dementia with medications interfering with her thought process such as the combination of tramadol sertraline and benzodiazepines. I have stopped the tramadol, and to taper the sertraline, and stop the clonazepam. Improved and I asked the melatonin at bedtime as well and may be cut the Seroquel to 50 or 100 mg at bedtime. (6) Acute prerenal azotemia: Assessment and plan: Improving with volume and D/C of furosemide Will always have some edema Status: Acute Comment: So in summary this is a 75-year-old woman with near normal GFR 55 cc/min. In May 2020 she had an episode of acute renal failure due to a combination of ARB, diuretics, Bactrim and nonsteroidal anti-inflammatories. All this has resolved, her urine has no proteinuria and I would expect she will do fine as long as known drug combinations that reduced renal perfusion (RAASI therapy & NSAIDS), plus volume depletion (diuretics) or interfere with tubular function (Bactrim) are avoided. There is no proteinuria to suggest underlying diabetic nephropathy. After a full recovery, a second episode of ARF has reoccurred in association with bilateral hydro, abnormal urinary bladder, pyuria and an ESR >100 mm/hr. A partial w/u was started but foiled by problems of getting studies done in a [facility] over the holiday. (7) Elevated erythrocyte sedimentation rate: Assessment and plan: Cancer, Cancer Cancer > autoimmune > infection (this is a UTI no radiographic or clinical evidence of Pyelo. 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 Status: Acute Comment: The differential diagnosis includes infection/inflammation with urinary tract infections or soft tissue infections leading the list, autoimmune processes for which polymyalgia rheumatica would be the leading cause in this group based on age alone but she does not have clinical features at that presently (though she had headaches and myalgias in the past according to her problem list), and we should do some screening for autoimmune diseases with BRANDIE and ANCA testing as well as an RPR, and then malignancies in this group I had be concerned about multiple myeloma so we will check an SPEP and UPEP. (8) Pyuria: Assessment and plan: C/W UTI => E coli uti sens to pip/maddie Status: Acute Comment: Outpatient culture was lost or never sent. Recheck tonight for U/A, C&S, urine Eos, urine cytology, urine uric acid/creatinine ratio and UAG. Narrative A/P Narrative: 1. Back on pip/maddie for E. coli UTI, also with Enterococcus yet to be reported with sensitivities 2. Keep hydrated to avoid worsening GFR 3. Awaiting UPEP to decide MGUS or myeloma with renal involvement 4. Bilateral => unilateral hydro post pettit with no stones seen and bladder wall thickening and probable ureteral entrapment Waiting on urine cytology and cysto Lasix renal scan with split kidney fx cannot be done here. [facility] as an outpatient. 5. ESR > 100 is cancer till proven otherwise. In this case uroepithelial or myeloma process are possible. 6. Delta MS better with treating UTI and decreasing all the [employer] active Rx. 7. Work up abnormal SPEP, add viscosity as IgM band could spell [place] macroglobulinemia, however no report of rouleaux formation on smear or elevated TP. Time Spent With Patient Time: Total time spent is greater than 50% in coordination of care (as documented) at patient's floor/unit and/or counseling patient:
[2020-08-14] MEDS: MUPIROCIN OINT 2% 22GM NARES SCH ×2 (08:50→22:45)
[2020-08-14] MEDS: VANCOMYCIN 1,500 MG in 0.9 % SODIUM CHLORIDE 500 ML IV SCH (10:27)
--- NOTE | 2020-08-14 11:17 | Internal Med Progress Note ---
SUBJECTIVE Subjective Patient information: Note initiated : 08/14/20 at 11:16 am Service Date, if different from initiated Date: [] Patient: Reny Sanches 75 y/o F admitted on 08/06/20 for ARF. No acute events overnight. Cr has improved after CT scan with contrast and is 1.9 this am. Patient without complaints. Conference had with the hospitalist over options. Nuclear Medicine scans are not available at this facility so we cannot obtain a lasix renogram to see if her mild hydro is due to an obstructive cause or not with imaging. Plan for URINE PCR test with [facility] [employer] and will send a urine for GRAM STAIN. Urology is only covering the hospital until Wednesday this week 08/18/2020. If we can ensure no infectious cause for her filling defects, we would try to get her cystoscopy, retrograde pyelograms, possible ureteroscopy and possible stents done. Otherwise she will have to follow up with urology at [facility] or in [facility]. Chief Complaint: [] Constitutional Vitals: Vital Signs Temp Pulse Resp BP Pulse Ox 97.2 F 66 12 159/73 98 08/14/20 08:00 08/14/20 08:00 08/14/20 08:00 08/14/20 08:00 08/14/20 08:00 Period Temp Pulse Resp BP Sys/Corbin Pulse Ox Last 24 Hr 97.0 F-98.4 F 60-76 12-14 129-159/56-73 96-98 Intake and Output 08/13/20 08/14/20 08/14/20 21:59 05:59 13:59 Intake Total 290 400 Output Total 800 1250 Balance -510 -850 Weight 243 lb 8 oz Intake & Output: Intake & Output 08/13/20 08/14/20 08/14/20 21:59 05:59 13:59 Intake Total 290 400 Output Total 800 1250 Balance -510 -850 Weight 243 lb 8 oz Intake: IV 50 Zosyn 2.25 gm In Dextrose 5% in 50 Water 50 ml @ 100 mls/hr IV Q6H [facility] Rx#:[id number] Oral 240 400 Output: Urine Catheter Amount 800 1250 Other: Meal Dinner Percent of Meal Consumed 75% Feeding Ability Independent Urine Appearance Cloudy Cloudy Sediment Sediment Uretheral (Cedillo) Cloudy Sediment Mucous Threads Urine Color Dark Yellow Bright Yellow Uretheral (Cedillo) Dark Yellow Urine Odor Strong Uretheral (Cedillo) Strong OBJ DATA Labs CBC & Chem 7: 08/11/20 06:02 08/15/20 05:30 Labs: Abnormal Lab Results 08/14/20 08/13/20 08/12/20 05:50 05:24 06:16 Carbon Dioxide 21 L 21 L BUN 26 H 29 H Creatinine 1.9 H 2.3 H Glucose 183 H 168 H Calcium 8.5 L Albumin (PEP) 2.25 L Globulin (PEP) 4.8 H Albumin/Globulin (PEP) 0.5 L Gamma Globulins 2.10 H 08/12/20 06:16 Carbon Dioxide BUN 25 H Creatinine 1.7 H Glucose Calcium Albumin (PEP) Globulin (PEP) Albumin/Globulin (PEP) Gamma Globulins Meds: Medications Acetaminophen (Tylenol) 650 mg PO Q4-6HP PRN; Protocol PRN Reason: Per Pain Protocol/Fever > 101 Albuterol Sulfate (Ventolin) 1 puff INH Q4HP PRN PRN Reason: Shortness Of Breath Allopurinol (Zyloprim) 100 mg PO DAILY [facility] Last Admin: 08/14/20 08:43 Dose: 100 mg Documented by: Aspirin (Ecotrin) 325 mg PO DAILY [facility] Last Admin: 08/14/20 08:39 Dose: 325 mg Documented by: Atenolol (Tenormin) 50 mg PO BID [facility] Last Admin: 08/14/20 08:46 Dose: 50 mg Documented by: Belladonna Alkaloids/Opium (B & O) 30 mg [place] Q4HP PRN PRN Reason: Pain Bisacodyl (Dulcolax) 10 mg MO Q2-3DAYS PRN PRN Reason: Constipation Cefuroxime Axetil (Ceftin) 500 mg PO Q12 [facility]; Protocol Stop: 08/23/20 09:01 Last Admin: 08/14/20 08:39 Dose: 500 mg Documented by: Cyanocobalamin (Vitamin B-12) 1,000 mcg PO DAILY [facility] Last Admin: 08/14/20 08:41 Dose: 1,000 mcg Documented by: Dextrose (Dextrose 50%) 0 ml IV UD PRN PRN Reason: Hypoglycemia Diagnostic Test (Pha) (Accu-Chek) 1 each FS ACHS [facility] Last Admin: 08/14/20 08:33 Dose: 1 each Documented by: Diphenhydramine HCl (Benadryl) 25 mg PO Q6HP PRN PRN Reason: Allergic Symptoms Docusate Sodium (Colace) 100 mg PO BID [facility] Last Admin: 08/14/20 08:39 Dose: 100 mg Documented by: Ergocalciferol (Drisdol) 50,000 unit PO TuFr@0900 [facility] Last Admin: 08/13/20 10:42 Dose: 50,000 unit Documented by: Glucose (Insta-Glucose) 15 gm PO PRN PRN PRN Reason: Hypoglycemia Heparin Sodium (Porcine) (Heparin) 5,000 unit SQ Q12 [facility] Last Admin: 08/14/20 08:38 Dose: 5,000 unit Documented by: Magnesium Sulfate (Magnesium Sulfate) 2 gm in 50 mls @ 50 mls/hr IV UD PRN PRN Reason: MG = or < 1.7 Last Infusion: 08/11/20 11:24 Dose: Infused Documented by: Potassium Chloride 40 meq/ (Dextrose) 520 mls @ 130 mls/hr IV UD PRN PRN Reason: K+ = or < 3.5 Acetaminophen (Ofirmev) 650 mg in 65 mls @ 130 mls/hr IV Q6HP PRN; Protocol PRN Reason: Per Pain Protocol/Fever > 101 Dextrose/Sodium Chloride (Dextrose 5%-Ns Iv Solution) 1,000 mls @ 84 mls/hr IV .[id number] [facility] Last Admin: 08/14/20 03:02 Dose: Not Given Documented by: Vancomycin HCl 1,500 mg/ (Sodium Chloride) 500 mls @ 333.3 mls/hr IV Q24H [facility] Last Admin: 08/14/20 10:27 Dose: 333.3 mls/hr Documented by: Insulin Glargine (Lantus) 36 unit SQ DAILY [facility] Last Admin: 08/14/20 08:46 Dose: 36 units Documented by: Insulin Human Lispro (Humalog) 0 unit SQ ACHS [facility]; Protocol Last Admin: 08/14/20 08:45 Dose: 1 units Documented by: Iron Carb/Multivit/[place]ullivan/Folic Acid (Multivitamin W/Minerals) 1 tab PO DAILY [facility] Last Admin: 08/14/20 08:40 Dose: 1 tab Documented by: Levothyroxine Sodium (Synthroid) 50 mcg PO QAMAC [facility] Last Admin: 08/14/20 08:41 Dose: 50 mcg Documented by: Loperamide HCl (Imodium) 4 mg PO Q6H PRN PRN Reason: Diarrhea Melatonin (Melatonin 3mg Tablet) 9 mg PO [facility] Last Admin: 08/13/20 22:19 Dose: 9 mg Documented by: Mupirocin (Bactroban Oint 2%) 1 dose NARES BID [facility] Last Admin: 08/14/20 08:50 Dose: 1 dose Documented by: Ondansetron HCl (Zofran Odt) 4 mg SL Q4-6HP PRN; Protocol PRN Reason: Nausea And Vomiting Ondansetron HCl (Zofran) 4 mg IV Q4-6HP PRN; Protocol PRN Reason: Nausea And Vomiting Fluticasone Furoate- Vilanterol [Breo Ellipta] Inhaler 1 dose INH DAILY [facility] Last Admin: 08/14/20 08:02 Dose: Not Given Documented by: Linaclotide [Linzess (] 145 Mcg Cap) 1 dose PO DAILY [facility] Last Admin: 08/14/20 08:03 Dose: Not Given Documented by: Memantine Er 21 Mg (Tab) 1 dose PO QDAY [facility] Last Admin: 08/14/20 08:02 Dose: Not Given Documented by: Polyethylene Glycol (Miralax) 17 gm PO DAILYP PRN PRN Reason: Constipation Quetiapine Fumarate (Seroquel) 200 mg PO [facility] Last Admin: 08/13/20 22:20 Dose: 200 mg Documented by: Senna/Docusate Sodium (Senna Plus Tablet) 1 tab PO [facility] Last Admin: 08/13/20 22:21 Dose: 1 tab Documented by: Sertraline HCl (Zoloft) 50 mg PO QDAY [facility] Last Admin: 08/14/20 08:44 Dose: 50 mg Documented by: Simvastatin (Zocor) 20 mg PO [facility] Last Admin: 08/13/20 22:20 Dose: 20 mg Documented by: Vancomycin HCl (Vancomycin Per Pharmacy) 1 order IV UD [facility]; Protocol A/P Time Spent With Patient Time: Total time spent is greater than 50% in coordination of care (as documented) at patient's floor/unit and/or counseling patient: QUALITY Stroke Symptom Onset Unknown: No VTE Deep Vein Thrombosis/Pulmonary Embolism Present on Admission: No
[2020-08-14] MEDS: PIPERACILLIN SODIUM/TAZOBACTAM 2.25 GM in DEXTROSE 5% IN WATER 50 ML IV SCH ×3 (12:52→23:45)
[2020-08-14] MEDS: SENNOSIDES/DOCUSATE SODIUM 1 TAB TABLET PO SCH (22:45)
[2020-08-14] MEDS: MELATONIN 3 MG TABLET PO SCH (22:45)
[2020-08-14] MEDS: SIMVASTATIN 20 MG TABLET PO SCH (22:46)
[2020-08-14] MEDS: QUEtiapine 100 MG TABLET PO SCH (22:46)
[2020-08-15] MEDS: PIPERACILLIN SODIUM/TAZOBACTAM 2.25 GM in DEXTROSE 5% IN WATER 50 ML IV SCH ×4 (05:25→23:22)
[2020-08-15 06:57] LABS: Blood Urea Nitrogen 21 mg/dL (8-23); Calcium 8.9 mg/dL (8.6-10.4); Carbon Dioxide 20 mmol/L (22-30); Chloride 108 mmol/L (96-108); Glomerular Filtration Rate 29; Glucose 110 mg/dL (70-105)
[2020-08-15] MEDS: INSULIN LISPRO 1 UNIT/0.01 ML UNIT SQ SCH ×4 (06:58→21:38)
--- NOTE | 2020-08-15 07:15 | Internal Med Progress Note ---
SUBJECTIVE Subjective Patient information: Note initiated : 08/15/20 at 7:10 am Service Date, if different from initiated Date: [] Patient: Reny Sanches a 75 y/o F admitted on 08/06/20 for ARF. Chief Complaint: [] Interval history: Ms. Sanches is a 75 year old F resident of [facility] since mid-May with history of HTN/HLD/DM type II/morbid obesity who was recently evaluated at nephrology office for worsening renal function now presents to the ER from nephrology office for further hospitalization and evaluation of progressive renal insufficiency. Patient has become increasingly fatigued, lethargic and confused over the last few days and has not been able to function or perform ADLs. She denies associated dysuria, diarrhea, nausea but endorses difficulty urination. She denies changes in medications. Patient work-up in the ER was consistent with acute renal failure with creatinine 2.8. Notable pyuria, sodium 122 and profound change in mental status with GCS 8. Most of the history was obtained from patient's daughter/prior EMR notes. CT abdomen revealed bilateral hydronephrosis with likely bladder outlet obstruction. Urology was consulted. Nephrology was consulted and requested admission under hospitalist service. Moriah almonte hospitalist service was consulted At the time of my evaluation patient is very confused however oriented to place only. She could not provide any meaningful history over the last 72 hours. She however denies chest pain, fever, chills but endorses lightheadedness, dizziness. 08/07-patient clinically improving. Sodium up to 132. Sodium rise higher than goal. Transition to D5 half NS per nephrology. Urine osmolarity appropriately low ruling out SIADH. Creatinine down to 2.4. Continue antibiotic coverage. Await urine cultures. Improving mental status however remains disoriented. No overnight fever chills. No other concerns per nursing staff. No telemetry events. Restart diabetic diet 08/08-patient seen in room along with daughter. Intermittently confused but much more alert since yesterday. Hemoglobin 6.6, 2 units PRBC transfusion per nephrology. Creatinine down to 1.9, Cedillo's draining clear urine, sodium improved to 133. Following commands. Remains disoriented. No overnight fever chills. Ongoing management per nephrology. No concerns expressed by nursing staff except for occasional incontinence. Ongoing MRSA decolonization. Daughter expressed concerns about transitioning to [place] and would want alternate facility including [facility] 08/09-patient appears quite cheerful. No family at bedside. Ongoing physical therapy with therapist in room. No overnight fever chills. No additional concerns expressed with nursing staff. White count 6.1. Stable hemodynamics. Creatinine 1.9.Cedillo is draining clear urine. Continuing antibiotic coverage. 08/10-patient clinically improving. More lucid. Complains of intermittent b ladder spasm. Responded well to BNO suppository. White count 7.4. Nephrology recommends confusion of Cedillo's catheter with further work-up by urology on discharge. Creatinine down to 1.5, on antibiotic coverage for E. coli UTI. Multidrug-resistant sensitive to nitrofurantoin. 08/11 No new complaints. No overnight events. BC stable. Creatinine 1.6. 08/12 Pleasantly demented this morning as usual. Received CT KUB this morning. 08/13 Patient again pleasantly demented. Creatinine elevating. CT imaging concern for bladder malignancy. Urology consulted. 08/14 No overnight event or new complaints. Seen by urology. He needs Nuc med lasix renogram. 08/15 No new pains or complaints. No overnight events. Pending urine studies by urology. Creatinine improved. Review of Systems: denies headache/fever/chills/nausea/vomiting/chest or abdominal pain/cough/dyspnea/diarrhea. Otherwise see above. Constitutional Vitals: Vital Signs Temp Pulse Resp BP Pulse Ox 98.1 F 73 18 161/78 98 08/15/20 02:51 08/15/20 02:51 08/15/20 02:51 08/15/20 02:51 08/15/20 02:51 Period Temp Pulse Resp BP Sys/Corbin Pulse Ox Last 24 Hr 96.5 F-98.3 F 66-99 12-18 159-177/68-78 91-99 Intake and Output 08/14/20 08/15/20 08/15/20 21:59 05:59 13:59 Intake Total 50 1372 Output Total 500 900 Balance -450 472 Weight 111.992 kg Intake & Output: Intake & Output 08/14/20 08/15/20 08/15/20 21:59 05:59 13:59 Intake Total 50 1372 Output Total 500 900 Balance -450 472 Weight 111.992 kg Intake: IV 50 922 Dextrose 5%-Ns IV Solution 1, 872 000 ml @ 84 mls/hr IV .[id number] [facility] Rx#:[id number] Zosyn 2.25 gm In Dextrose 5% in 50 50 Water 50 ml @ 100 mls/hr IV Q6H [facility] Rx#:[id number] Oral 450 Output: Urine Catheter Amount 500 900 Other: Urine Appearance Cloudy Cloudy Sediment Sediment Uretheral (Cedillo) Cloudy Sediment Mucous Threads Urine Color Bright Yellow Straw Uretheral (Cedillo) Dark Yellow Urine Odor Normal Uretheral (Cedillo) Strong Stool Size Small Stool Color Brown # Bowel Movements 2 Exam: General: Awake, No acute Distress Eyes/N/T: EOMI, Head/Neck: neck supple, CV: RRR, No murmurs, Pulm: Clear b/l, no wheezing/rhonchi/rales Abd: soft, nontender, +BS x4, Cedillo in place Ext: no clubbing/cyanosis, 1+ b/l LE edema Neuro: confusion, no focal deficits, moves all extremities, Skin: warm/dry OBJ DATA Labs CBC & Chem 7: 08/11/20 06:02 08/15/20 05:30 Labs: Abnormal Lab Results 08/15/20 08/14/20 08/14/20 05:30 10:56 05:50 Carbon Dioxide 20 L 21 L BUN 26 H Creatinine 1.7 H 1.9 H Glucose 110 H 183 H Calcium Albumin (PEP) Globulin (PEP) Albumin/Globulin (PEP) Gamma Globulins Urine Eosinophils < 1% A 08/13/20 08/12/20 08/12/20 05:24 06:16 06:16 Carbon Dioxide 21 L BUN 29 H 25 H Creatinine 2.3 H 1.7 H Glucose 168 H Calcium 8.5 L Albumin (PEP) 2.25 L Globulin (PEP) 4.8 H Albumin/Globulin (PEP) 0.5 L Gamma Globulins 2.10 H Urine Eosinophils Meds: Medications Acetaminophen (Tylenol) 650 mg PO Q4-6HP PRN; Protocol PRN Reason: Per Pain Protocol/Fever > 101 Albuterol Sulfate (Ventolin) 1 puff INH Q4HP PRN PRN Reason: Shortness Of Breath Allopurinol (Zyloprim) 100 mg PO DAILY [facility] Last Admin: 08/14/20 08:43 Dose: 100 mg Documented by: Aspirin (Ecotrin) 325 mg PO DAILY [facility] Last Admin: 08/14/20 08:39 Dose: 325 mg Documented by: Atenolol (Tenormin) 50 mg PO BID [facility] Last Admin: 08/14/20 22:47 Dose: 50 mg Documented by: Belladonna Alkaloids/Opium (B & O) 30 mg [place] Q4HP PRN PRN Reason: Pain Bisacodyl (Dulcolax) 10 mg [place] Q2-3DAYS PRN PRN Reason: Constipation Cyanocobalamin (Vitamin B-12) 1,000 mcg PO DAILY [facility] Last Admin: 08/14/20 08:41 Dose: 1,000 mcg Documented by: Dextrose (Dextrose 50%) 0 ml IV UD PRN PRN Reason: Hypoglycemia Diagnostic Test (Pha) (Accu-Chek) 1 each FS ACHS [facility] Last Admin: 08/15/20 06:58 Dose: 1 each Documented by: Diphenhydramine HCl (Benadryl) 25 mg PO Q6HP PRN PRN Reason: Allergic Symptoms Docusate Sodium (Colace) 100 mg PO BID [facility] Last Admin: 08/14/20 22:45 Dose: 100 mg Documented by: Ergocalciferol (Drisdol) 50,000 unit PO TuFr@0900 [facility] Last Admin: 08/13/20 10:42 Dose: 50,000 unit Documented by: Glucose (Insta-Glucose) 15 gm PO PRN PRN PRN Reason: Hypoglycemia Heparin Sodium (Porcine) (Heparin) 5,000 unit SQ Q12 [facility] Last Admin: 08/14/20 22:46 Dose: 5,000 unit Documented by: Magnesium Sulfate (Magnesium Sulfate) 2 gm in 50 mls @ 50 mls/hr IV UD PRN PRN Reason: MG = or < 1.7 Last Infusion: 08/11/20 11:24 Dose: Infused Documented by: Potassium Chloride 40 meq/ (Dextrose) 520 mls @ 130 mls/hr IV UD PRN PRN Reason: K+ = or < 3.5 Acetaminophen (Ofirmev) 650 mg in 65 mls @ 130 mls/hr IV Q6HP PRN; Protocol PRN Reason: Per Pain Protocol/Fever > 101 Dextrose/Sodium Chloride (Dextrose 5%-Ns Iv Solution) 1,000 mls @ 84 mls/hr IV .[id number] [facility] Last Admin: 08/14/20 23:48 Dose: 84 mls/hr Documented by: Vancomycin HCl 1,500 mg/ (Sodium Chloride) 500 mls @ 333.3 mls/hr IV Q24H [facility] Last Infusion: 08/14/20 12:00 Dose: Infused Documented by: Piperacillin Sod/Tazobactam (Sod 2.25 gm/ Dextrose) 50 mls @ 100 mls/hr IV Q6H [facility] Last Admin: 08/15/20 05:25 Dose: 100 mls/hr Documented by: Insulin Glargine (Lantus) 36 unit SQ DAILY [facility] Last Admin: 08/14/20 08:46 Dose: 36 units Documented by: Insulin Human Lispro (Humalog) 0 unit SQ ACHS [facility]; Protocol Last Admin: 08/15/20 06:58 Dose: Not Given Documented by: Iron Carb/Multivit/[place]/Folic Acid (Multivitamin W/Minerals) 1 tab PO DAILY [facility] Last Admin: 08/14/20 08:40 Dose: 1 tab Documented by: Levothyroxine Sodium (Synthroid) 50 mcg PO QAMAC [facility] Last Admin: 08/14/20 08:41 Dose: 50 mcg Documented by: Loperamide HCl (Imodium) 4 mg PO Q6H PRN PRN Reason: Diarrhea Melatonin (Melatonin 3mg Tablet) 9 mg PO HS [facility] Last Admin: 08/14/20 22:45 Dose: 9 mg Documented by: Mupirocin (Bactroban Oint 2%) 1 dose NARES BID [facility] Last Admin: 08/14/20 22:45 Dose: 1 dose Documented by: Ondansetron HCl (Zofran Odt) 4 mg SL Q4-6HP PRN; Protocol PRN Reason: Nausea And Vomiting Ondansetron HCl (Zofran) 4 mg IV Q4-6HP PRN; Protocol PRN Reason: Nausea And Vomiting Fluticasone Furoate- Vilanterol [Breo Ellipta] Inhaler 1 dose INH DAILY [facility] Last Admin: 08/14/20 08:02 Dose: Not Given Documented by: Linaclotide [Linzess (] 145 Mcg Cap) 1 dose PO DAILY [facility] Last Admin: 08/14/20 08:03 Dose: Not Given Documented by: Memantine Er 21 Mg (Tab) 1 dose PO QDAY [facility] Last Admin: 08/14/20 08:02 Dose: Not Given Documented by: Polyethylene Glycol (Miralax) 17 gm PO DAILYP PRN PRN Reason: Constipation Quetiapine Fumarate (Seroquel) 200 mg PO [facility] Last Admin: 08/14/20 22:46 Dose: 200 mg Documented by: Senna/Docusate Sodium (Senna Plus Tablet) 1 tab PO [facility] Last Admin: 08/14/20 22:45 Dose: 1 tab Documented by: Sertraline HCl (Zoloft) 50 mg PO QDAY [facility] Last Admin: 08/14/20 08:44 Dose: 50 mg Documented by: Simvastatin (Zocor) 20 mg PO [facility] Last Admin: 08/14/20 22:46 Dose: 20 mg Documented by: Vancomycin HCl (Vancomycin Per Pharmacy) 1 order IV UD [facility]; Protocol A/P Narrative A/P Narrative: A: *Obstructive uropathy with b/l hydronephrosis: -CT showing ?bladder wall thickening and ?encasing both UPJ, worse on right *Diffuse thickening of bladder, possible obstruction of both UPJ: *PRIMO: secondary obstructive uropathy -1.7<<2.3<<1.5<<2.8, *AMS, superimposed on underlying Dementia: secondary to combination of hypo natremia/renal failure uremia/medications -resolved, now at baseline *Dementia with anxiety: on SSRIs/quetiapine/memantine *Anemia of chronic disease: -s/p 2 units PRBC (08/08), stable *Hyponatremia: likely secondary to bladder outlet obstruction/renal failure. Urine osmolarity suggestive against SIADH -improved *Complicated MDR E. coli and Enterococcus UTI/cystitis: recurrent in nature secondary to urinary retention/fecal soiling *GERD continue PPI *HTN/HLD: *Hypothyroid on thyroxine *DM type II: *History of gout: on allopurinol *Morbid obesity continue directed therapies/nutrition consult Plan: -Continue Cedillo's catheter decompression -Continue electrolyte/renal failure management per nephrology -urology following, pending urine studies and possible cystoscopy -zosyn/vanco per nephro -ARB on hold in light of renal failure, continue atenolol - continue basal prandial insulin(36u)/renal CC diet -PT OT nutrition support -Discharge planning per case management likely SNF -ppx: Heparin Time Spent With Patient Time: Total time spent is greater than 50% in coordination of care (as documented) at patient's floor/unit and/or counseling patient: QUALITY Stroke Symptom Onset Unknown: No VTE Deep Vein Thrombosis/Pulmonary Embolism Present on Admission: No
--- NOTE | 2020-08-15 07:47 | Nephrology Progress Note ---
SUBJECTIVE Subjective Patient information: Note initiated : 08/15/20 at 7:43 am Service Date, if different from initiated Date: [] Patient: Reny Sanches 75 y/o F admitted on 08/06/20 for ARF. Chief Complaint: [ARF and UTI] Pleasantly demented 75-year-old woman with recurrent acute renal failure the first episode in May that seemed to improve with IV fluids and discontinuation of her ARB medication. The second was discovered on 07/31/2020 when she was seen in my clinic. When he was elevated back in a 2-3 range, there was pyuria, and a sedimentation rate of over 100 mm/h which was confirmed. Given the patient's prison residency and the holiday, work-up was impossible as an outpatient with many of the labs canceled by either the prison or PRL to refer which had significant positive results upon collection during this hospitalization (urine culture and SPEP). So far she has a resistant E. coli urinary tract infection, bilateral hydronephrosis and diffus e bladder wall thickening with presumed ureteral entrapment. Serum creatinine has improved to 2 or less with hydration. Urine cytology is pending. The remainder of the work-up for the SPEP is included a monoclonal IgM band and UPEP is pending. She apparently had a previous positive serum protein electrophoresis in the past (? MGUS). She is on piperacillin tazobactam for her UTI the second sample is growing an Enterobacter species as well. Pettit is in place and will remain so until the urologic evaluation is finished. Finally she had altered mental status with polypharmacy which is improved greatly but she remains pleasantly demented. Laboratory Tests 08/15/20 05:30 Sodium 137 Potassium 3.8 Chloride 108 Carbon Dioxide 20 L Anion Gap 9.0 BUN 21 Creatinine 1.7 H GFR Calculation 29 Glucose 110 H Calcium 8.9 SPEP and IF: The serum protein electrophoresis shows a zone of restriction in the gamma region with increased polyclonal gamma globulins and decreased albumin. The estimated concentration of the paraprotein is 0.19 g/dL. Concurrent immunofixation characterizes this paraprotein as an IgM heavy chain protein with faint possible lambda light chain. 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 Monoclonal IgM heavy chain noted, with faint possible associated lambda light Microbiology 08/11/20 04:00 Urine - Catheterized Urine Culture - Final Enterococcus faecium (grp d) Escherichia coli#2 08/14/20 10:57 Urine - Pettit Gram Stain - Final 08/06/20 21:53 Urine - Catheterized Urine Culture - Final Escherichia coli 08/06/20 20:25 Nose MRSA (PCR) - Final Was of ceftriaxone => pip/Maddie => cefuroxime x 1 dose => Pip/Maddie and Vanco staring 08/14/2019 I'm thinking the ball is in urology's court. None of the repeated urines mentioned a fungus so this is unlikely some fungus ball occluding the ureter. My bet is a mitotic process given obstruction, bladder wall thickening and a sed rate > 100 mm/hr. message from Dr Sharif was received and appreciated. If there is no OR time available tomorrow, the plan would be a lasix renal scan as an outpatient to look for FUNCTIONAL obstruction, continued abx for 2 weeks from admission, if pettit is removed then TID straight cath at and referral to urologist at [facility] or [facility] or [facility] for semi-elective cysto. I'll be the 1st to admit that urine cytology is low yield but if atypical cells identified that would add more strength to the argument for cysto or perhaps FISH cytology if urine cells show changes of malignancy or atypical N/C ratio. I think Augmentin 875/125 BID would cover the intermediate sensitivity E coli and enterococcus if you envision discharge and follow up with urology as an outpatient. Constitutional Vitals: Vital Signs Temp Pulse Resp BP Pulse Ox 36.7 C 73 18 161/78 98 08/15/20 02:51 08/15/20 02:51 08/15/20 02:51 08/15/20 02:51 08/15/20 02:51 Period Temp Pulse Resp BP Sys/Corbin Pulse Ox Last 24 Hr 35.8 C-36.8 C 66-99 12-18 159-177/68-78 91-99 Intake and Output 08/14/20 08/15/20 08/15/20 21:59 05:59 13:59 Intake Total 50 1372 Output Total 500 900 Balance -450 472 Weight 111.992 kg Intake & Output: Intake & Output 08/14/20 08/15/20 08/15/20 21:59 05:59 13:59 Intake Total 50 1372 Output Total 500 900 Balance -450 472 Weight 111.992 kg Intake: IV 50 922 Dextrose 5%-Ns IV Solution 1, 872 000 ml @ 84 mls/hr IV .[id number] Rx#:[id number] Zosyn 2.25 gm In Dextrose 5% in 50 50 Water 50 ml @ 100 mls/hr IV Q6H [facility] Rx#:[id number] Oral 450 Output: Urine Catheter Amount 500 900 Other: Urine Appearance Cloudy Cloudy Sediment Sediment Uretheral (Pettit) Cloudy Sediment Mucous Threads Urine Color Bright Yellow Straw Uretheral (Pettit) Dark Yellow Urine Odor Normal Uretheral (Pettit) Strong Stool Size Small Stool Color Brown # Bowel Movements 2 General appearance: no acute distress and obese Head Head exam: Present normocephalic Eye Eye exam: Present PERRL; Absent nystagmus Pupils: Present fixed and PERRL Neck Neck exam: Present full ROM; Absent meningismus Respiratory Respiratory exam: Present normal respiratory exam and CTAB Cardiovascular Cardiovascular exam: Present normal rate and rhythm, RRR, +S1, +S2 and systolic murmur; Absent JVD GI/Abdominal GI/Abdominal exam: Present normal bowel sounds and soft; Absent bruit and tenderness Rectal Rectal exam: Present deferred Extremities Exam Extremities exam: Absent calf tenderness, pedal edema and tenderness Back Exam Back exam: Present CVA tenderness (R); Absent CVA tenderness (L) Neurological Exam Neurological exam: Present altered (plesantly demented) and CN II-XII intact; A bsent abnormal gait (chairbound / bedfast) and oriented X3 Psychiatric Additional comments: dementia Skin Skin exam: Present dry; Absent petechiae A/P Assessment and plan (1) Acute prerenal azotemia: Assessment and plan: Improving with volume and D/C of furosemide Will always have some edema Status: Acute Comment: So in summary this is a 75-year-old woman with near normal GFR 55 cc/min. In May 2020 she had an episode of acute renal failure due to a combination of ARB, diuretics, Bactrim and nonsteroidal anti-inflammatories. All this has resolved, her urine has no proteinuria and I would expect she will do fine as long as known drug combinations that reduced renal perfusion (RAASI therapy & NSAIDS), plus volume depletion (diuretics) or interfere with tubular function (Bactrim) are avoided. There is no proteinuria to suggest underlying diabetic nephropathy. After a full recovery, a second episode of ARF has reoccurred in association with bilateral hydro, abnormal urinary bladder, pyuria and an ESR >100 mm/hr. A partial w/u was started but foiled by problems of getting studies done in a prison over the holiday. (2) Acute blood loss anemia: Assessment and plan: Less blood work Transfused with 2 units pRBCs Status: Acute Comment: Check iron stores and retic count before transfusion (3) Bilateral hydronephrosis: Assessment and plan: Needs CT KUB +/- IV contrast when SCr improved (schedule for Mon) and then Cysto Status: Acute Comment: Relatively acute and not due to stones. Will need a clear the air cysto &/or Lasix renal scan (nuclear med) at [facility]. (4) Urinary tract infection: Assessment and plan: Preceeded pettit E coli initially. Now E coli and enterococcus group D => Augmentin 875/125vmg po BID should achieve adequate levels in the urinary tract. Status: Acute Comment: E coli sensitive to pip/maddie and intermediate to ampicillin/sulbactam Qualifiers: Hematuria presence: with hematuria Urinary tract infection type: site unspecified Qualified Code(s): N39.0 - Urinary tract infection, site not specified; R31.9 - Hematuria, unspecified (5) Acute hyponatremia: Assessment and plan: Improving Status: Acute Comment: I suspect she has been drinking hypotonic fluids and could not clear the free H2O load due to ARF. (6) Polypharmacy: Assessment and plan: Root cause of many of her issues Status: Acute Comment: Finally, this patient is experiencing either progressive dementia or underlying dementia with medications interfering with her thought process such as the combination of tramadol sertraline and benzodiazepines. I have stopped the tramadol, and to taper the sertraline, and stop the clonazepam. Improved and I asked the melatonin at bedtime as well and may be cut the Seroquel to 50 or 100 mg at bedtime. (7) Elevated erythrocyte sedimentation rate: Assessment and plan: Cancer, Cancer Cancer > autoimmune > infection (this is a UTI no radiographic or clinical evidence of Pyelo. 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 Status: Acute Comment: The differential diagnosis includes infection/inflammation with urinary tract infections or soft tissue infections leading the list, autoimmune processes for which polymyalgia rheumatica would be the leading cause in this group based on age alone but she does not have clinical features at that presently (though she had headaches and myalgias in the past according to her problem list), and we should do some screening for autoimmune diseases with BRANDIE and ANCA testing as well as an RPR, and then malignancies in this group I had be concerned about m ultiple myeloma so we will check an SPEP and UPEP. (8) Pyuria: Assessment and plan: C/W UTI => E coli uti sens to pip/maddie initially. Ecoli and enterococcus upon repeat. Status: Acute Comment: Outpatient culture was lost or never sent. Recheck tonight for U/A, C&S, urine Eos, urine cytology, urine uric acid/creatinine ratio and UAG. Narrative A/P Narrative: 1. Discharge planning Arrange outpatient lasix renal scan at [facility] D/C on Augmentin 875/125 BID x 1 week Either pettit or straight cath QID till urology eval is complete Inpatient or outpatient cysto and follow up cytology or pathology Hematology consult for IgM (+) SPEP at [facility] Urology follow at [facility], [facility] or [facility]. 2. Dr Flowers to assume nephrology care tomorrow. 3. Avoid polypharmacy in this elderly and demented patient 4. Follow up on autoimmune and UPEP/IFx studies. Time Spent With Patient Time: Total time spent is greater than 50% in coordination of care (as documented) at patient's floor/unit and/or counseling patient:
[2020-08-15] MEDS: HEPARIN 5,000 UNIT/ML VIAL SQ SCH ×2 (08:14→21:20)
[2020-08-15] MEDS: MULTIVIT,THER IRON,CA,FA & MIN 1 TABLET PO SCH (08:15)
[2020-08-15] MEDS: LEVOTHYROXINE 50 MCG TABLET PO SCH (08:15)
[2020-08-15] MEDS: CYANOCOBALAMIN (VITAMIN B-12) 500 MCG TABLET PO SCH (08:15)
[2020-08-15] MEDS: ATENOLOL 50 MG TABLET PO SCH ×2 (08:15→21:21)
[2020-08-15] MEDS: ASPIRIN 325 MG ENTERIC COATED TABLET PO SCH (08:15)
[2020-08-15] MEDS: VANCOMYCIN 1,500 MG in 0.9 % SODIUM CHLORIDE 500 ML IV SCH (08:16)
[2020-08-15] MEDS: ALLOPURINOL 100 MG TABLET PO SCH (08:16)
[2020-08-15] MEDS: SERTRALINE 50 MG TABLET PO SCH (08:16)
[2020-08-15] MEDS: INSULIN GLARGINE, HUMAN 1 UNIT/0.01 ML SQ SCH (08:16)
[2020-08-15] MEDS: MUPIROCIN OINT 2% 22GM NARES SCH ×2 (08:17→21:22)
[2020-08-15] MEDS: MEMANTINE 21 MG PO SCH (08:17)
[2020-08-15] MEDS: DOCUSATE SODIUM 100 MG CAPSULE PO SCH ×2 (08:17→21:20)
[2020-08-15] MEDS: Fluticasone Furoate-Vilanterol [Breo Ellipta] Inhaler INH SCH (08:17)
[2020-08-15] MEDS: DEXTROSE 5%-NS 1,000 ML IV SCH ×2 (15:00→18:54)
[2020-08-15] MEDS: hydrALAZINE 20 MG/ML VIAL IV PRN (19:38)
[2020-08-15] MEDS: SENNOSIDES/DOCUSATE SODIUM 1 TAB TABLET PO SCH (21:20)
[2020-08-15] MEDS: MELATONIN 3 MG TABLET PO SCH (21:20)
[2020-08-15] MEDS: QUEtiapine 100 MG TABLET PO SCH (21:20)
[2020-08-15] MEDS: SIMVASTATIN 20 MG TABLET PO SCH (21:21)
[2020-08-15 21:26] LABS: Abnormal Protein Band 1-SO 2 mg/dL (NONE DETECTED); Albumin 30 %; Alpha-1-Globulin 5 %; Alpha-2-Globulin 10 %; Creatinine, Random Urine 41 mg/dL (20-275); Gamma Globulin 37 %; Pro/Creat Ratio 4854 mg/g creat (21-161); Protein Total Random Urine 199 mg/dL (5-24)
[2020-08-16] MEDS: DEXTROSE 5%-NS 1,000 ML IV SCH ×2 (00:51→13:10)
[2020-08-16] MEDS: PIPERACILLIN SODIUM/TAZOBACTAM 2.25 GM in DEXTROSE 5% IN WATER 50 ML IV SCH ×3 (05:31→18:10)
[2020-08-16 07:09] LABS: Blood Urea Nitrogen 16 mg/dL (8-23); Calcium 8.7 mg/dL (8.6-10.4); Carbon Dioxide 19 mmol/L (22-30); Chloride 110 mmol/L (96-108); Glomerular Filtration Rate 31; Glucose 113 mg/dL (70-105)
[2020-08-16] MEDS: LEVOTHYROXINE 50 MCG TABLET PO SCH (07:14)
[2020-08-16] MEDS: INSULIN LISPRO 1 UNIT/0.01 ML UNIT SQ SCH ×4 (07:21→20:43)
--- NOTE | 2020-08-16 07:48 | Nephrology Progress Note ---
SUBJECTIVE Subjective Patient information: Note initiated : 08/16/20 at 7:42 am Patient: Reny Sanches 75 y/o F admitted on 08/06/20 for ARF. Chief Complaint: Weakness Pertinent ROS: Weakness Confusion Edema Cedillo catheter Constitutional Vitals: Vital Signs Temp Pulse Resp BP Pulse Ox 98.6 F 73 18 179/74 98 08/16/20 07:31 08/16/20 07:31 08/16/20 07:31 08/16/20 07:31 08/16/20 07:31 Period Temp Pulse Resp BP Sys/Corbin Pulse Ox Last 24 Hr 96.9 F-98.6 F 67-78 16-18 106-179/51-78 97-99 Intake and Output 08/15/20 08/16/20 08/16/20 21:59 05:59 13:59 Intake Total 115 50 Output Total 600 1275 Balance -485 -1225 Weight 252 lb Intake & Output: Intake & Output 08/15/20 08/16/20 08/16/20 21:59 05:59 13:59 Intake Total 115 50 Output Total 600 1275 Balance -485 -1225 Weight 252 lb Intake: IV 115 50 Zosyn 2.25 gm In Dextrose 5% in 50 50 Water 50 ml @ 100 mls/hr IV Q6H [facility] Rx#:[id number] Output: Urine Catheter Amount 600 1275 Other: Urine Appearance Hematuria Hematuria Small Blood Clots Small Blood Clots Large Blood Clots Large Blood Clots Uretheral (Cedillo) Hematuria Small Blood Clots Urine Color Blood Tinged Bright Red Uretheral (Cedillo) Yellow Brown Blood Tinged Urine Odor Normal Strong Stool Size Moderate Stool Color Brown Stool Consistency Soft # Voids 1 # Bowel Movements 1 General appearance: cooperative, no acute distress and obese Head Head exam: Present atraumatic and normal inspection Respiratory Respiratory exam: Present decreased breath sounds Cardiovascular Cardiovascular exam: Present normal rate and rhythm Extremities Exam Extremities exam: Present pedal edema Neurological Exam Neurological exam: Present alert and altered Psychiatric Psychiatric exam: Present anxious Skin Skin exam: Present pallor A/P Assessment and plan (1) Acute on chronic renal failure: Assessment and plan: Reny Sanches is a 75-year-old female with hypertension, hyperlipidemia, diabetes mellitus type 2, hypothyroidism, dementia with anxiety, admitted on 08/06/20 for acute kidney injury. Baseline serum creatinine: 0.9-1.1 (eGFR 50-63). In May 2020, she had an episode of acute renal failure due to a combination of ARB, diuretics, Bactrim and nonsteroidal anti-inflammatories. After a full recovery, she presented with a second episode of acute renal failure has reoccurred in association with bilateral hydro, abnormal urinary bladder, pyuria and an ESR >100 mm/hr. Acute kidney injury on chronic kidney disease stage 3a associated with obstructive uropathy (bilateral hydronephrosis diffuse thickening of bladder, possible obstruction of both UPJ) and acute complicated cystitis (MDR E. coli and Enterococcus), present on arrival. Work up: Urine culture on 08/11/20: Enterococcus faecium (grp d) and Escherichia coli SPEP/UPEP/SETH on 08/12/20: The serum protein electrophoresis shows a zone of restriction in the gamma region with increased polyclonal gammaglobulins and decreased albumin. The estimated concentration of the paraprotein is 0.19 g/dL. Concurrent immunofixation characterizes this paraprotein as an IgM heavy chain protein with faint possible lambda light chain. 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 Urine random total protein/creatinine on 08/12/20: 4,854 mg/g creatinine. CT IVP on 08/13/20: 1. Marked diffuse wall thickening of the urinary bladder including encasement of both UVJ regions. Pathologic infiltration by tumor or inflammation is suspected. The left upper collecting system and ureter have decompressed since the prior pre-Cedillo catheter CT, however there is persistent moderate right hydroureter/hydronephrosis. This may be due to pathologic encasement of the right UVJ, rather than bladder outlet obstruction or neurogenic bladder. More specific evaluation with cystoscopy is suggested. 2. Scattered small low-attenuation filling defects within the upper collecting systems of both kidneys - more prominent on the right. This could represent sloughed tissue from papillary necrosis, scattered thrombi or, less likely, nonopaque stones. This could also be more specifically evaluated at time of cystoscopy/ ureteroscopy. 3. Probable cirrhosis with evidence for mild portal hypertension and even a left splenorenal shunt. The spleen is mildly enlarged. Small amount of ascites appreciated. Progress: Serum creatinine increased from 1.7 to 1.6 in the past 24 hours. Baseline serum creatinine: 0.9-1.1 (eGFR 50-63) Urine output: X ml reported in the past 24 hours. Hyperchloremic metabolic acidosis. Recommendations/Plan: No urgent acute hemodialysis need. Avoid NSAIDs, nephrotoxic medications and IV contrast. Monitor BMP and urine output. Avoid Normal Saline due to hyperchloremic metabolic acidosis. Discharge planning Arrange outpatient lasix renal scan at [facility] D/C on Augmentin 875/125 BID x 1 week Either Cedillo or straight cath QID till urology follow up Hematology consult for IgM (+) SPEP Follow up with urology as outpatient/inpatient. Follow up with Dr. Kent as outpatient. Status: Acute Qualifiers: Acute renal failure type: with other specified pathological lesion Chronic kidney disease stage: stage 3 (moderate) Chronic kidney disease stage 3 subtype: stage 3a (GFR 45-59) Qualified Code(s): N17.8 - Other acute kidney failure; N18.31 - Chronic kidney disease, stage 3a (2) Hyperchloremic metabolic acidosis: Status: Acute Time Spent With Patient Time: Total time spent is greater than 50% in coordination of care (as documented) at patient's floor/unit and/or counseling patient:
[2020-08-16] MEDS: INSULIN GLARGINE, HUMAN 1 UNIT/0.01 ML SQ SCH (09:03)
[2020-08-16] MEDS: HEPARIN 5,000 UNIT/ML VIAL SQ SCH ×2 (09:03→20:43)
[2020-08-16] MEDS: ASPIRIN 325 MG ENTERIC COATED TABLET PO SCH (09:04)
[2020-08-16] MEDS: ATENOLOL 50 MG TABLET PO SCH ×2 (09:04→20:42)
[2020-08-16] MEDS: DOCUSATE SODIUM 100 MG CAPSULE PO SCH ×2 (09:04→20:41)
[2020-08-16] MEDS: MULTIVIT,THER IRON,CA,FA & MIN 1 TABLET PO SCH (09:04)
[2020-08-16] MEDS: ERGOCALCIFEROL (VITAMIN D2) 50,000 UNIT CAPSULE PO SCH (09:04)
[2020-08-16] MEDS: CYANOCOBALAMIN (VITAMIN B-12) 500 MCG TABLET PO SCH (09:04)
[2020-08-16] MEDS: ALLOPURINOL 100 MG TABLET PO SCH (09:05)
[2020-08-16] MEDS: SERTRALINE 50 MG TABLET PO SCH (09:05)
[2020-08-16] MEDS: Fluticasone Furoate-Vilanterol [Breo Ellipta] Inhaler INH SCH (09:06)
[2020-08-16] MEDS: MUPIROCIN OINT 2% 22GM NARES SCH (09:06)
[2020-08-16] MEDS: MEMANTINE 21 MG PO SCH (09:06)
[2020-08-16] MEDS: ACETAMINOPHEN 325 MG TABLET PO PRN (09:52)
[2020-08-16] MEDS ORDERED: FLUCONAZOLE 400 MG/200 ML BAG IV SCH (11:00)
--- NOTE | 2020-08-16 11:22 | Internal Med Progress Note ---
SUBJECTIVE Subjective Patient information: Note initiated : 08/16/20 at 11:11 am Service Date, if different from initiated Date: [] Patient: Reny Sanches a 75 y/o F admitted on 08/06/20 for ARF. Chief Complaint: [] Interval history: Ms. Sanches is a 75 year old F resident of [facility] since mid-May with history of HTN/HLD/DM type II/morbid obesity who was recently evaluated at nephrology office for worsening renal function now presents to the ER from nephrology office for further hospitalization and evaluation of progressive renal insufficiency. Patient has become increasingly fatigued, lethargic and confused over the last few days and has not been able to function or perform ADLs. She denies associated dysuria, diarrhea, nausea but endorses difficulty urination. She denies changes in medications. Patient work-up in the ER was consistent with acute renal failure with creatinine 2.8. Notable pyuria, sodium 122 and profound change in mental status with GCS 8. Most of the history was obtained from patient's daughter/prior EMR notes. CT abdomen revealed bilateral hydronephrosis with likely bladder outlet obstruction. Urology was consulted. Nephrology was consulted and requested admission under hospitalist service. Subsequently hospitalist service was consulted At the time of my evaluation patient is very confused however oriented to place only. She could not provide any meaningful history over the last 72 hours. She however denies chest pain, fever, chills but endorses lightheadedness, dizziness. 08/07-patient clinically improving. Sodium up to 132. Sodium rise higher than goal. Transition to D5 half NS per nephrology. Urine osmolarity appropriately low ruling out SIADH. Creatinine down to 2.4. Continue antibiotic coverage. Await urine cultures. Improving mental status however remains disoriented. No overnight fever chills. No other concerns per nursing staff. No telemetry events. Restart diabetic diet 08/08-patient seen in room along with daughter. Intermittently confused but much more alert since yesterday. Hemoglobin 6.6, 2 units PRBC transfusion per nephrology. Creatinine down to 1.9, Cedillo's draining clear urine, sodium improved to 133. Following commands. Remains disoriented. No overnight fever chills. Ongoing management per nephrology. No concerns expressed by nursing staff except for occasional incontinence. Ongoing MRSA decolonization. Daughter expressed concerns about transitioning to [place] and would want alternate facility including [facility] 08/09-patient appears quite cheerful. No family at bedside. Ongoing physical therapy with therapist in room. No overnight fever chills. No additional concerns expressed with nursing staff. White count 6.1. Stable hemodynamics. Creatinine 1.9.Cedillo is draining clear urine. Continuing antibiotic coverage. 08/10-patient clinically improving. More lucid. Complains of intermittent bladder spasm. Responded well to BNO suppository. White count 7.4. Nephrology recommends confusion of Cedillo's catheter with further work-up by urology on discharge. Creatinine down to 1.5, on antibiotic coverage for E. coli UTI. Multidrug-resistant sensitive to nitrofurantoin. 08/11 No new complaints. No overnight events. BC stable. Creatinine 1.6. 08/12 Pleasantly demented this morning as usual. Received CT KUB this morning. 08/13 Patient again pleasantly demented. Creatinine elevating. CT imaging concern for bladder malignancy. Urology consulted. 08/14 No overnight event or new complaints. Seen by urology. He needs Nuc med lasix renogram. 08/15 No new pains or complaints. No overnight events. Pending urine studies by urology. Creatinine improved. 08/16-Case discussed urology. Will undergo cystoscopy later today. Urology recommends 1 dose of fluconazole/removing Cedillo's catheter. Case discussed with nephrology. We will continue existing treatment and review further and urology recommendations. No overnight concerns or events per's nursing staff Constitutional Vitals: No overnight fever chillsVital Signs Temp Pulse Resp BP Pulse Ox 98.6 F 73 18 179/74 98 08/16/20 07:31 08/16/20 07:31 08/16/20 07:31 08/16/20 07:31 08/16/20 07:31 Period Temp Pulse Resp BP Sys/Corbin Pulse Ox Last 24 Hr 97.4 F-98.6 F 67-78 16-18 106-179/51-78 97-99 Intake and Output 08/15/20 08/16/20 08/16/20 21:59 05:59 13:59 Intake Total 115 50 Output Total 600 1275 Balance -485 -1225 Weight 114.305 kg Intake & Output: Intake & Output 08/15/20 08/16/20 08/16/20 21:59 05:59 13:59 Intake Total 115 50 Output Total 600 1275 Balance -485 -1225 Weight 114.305 kg Intake: IV 115 50 Zosyn 2.25 gm In Dextrose 5% in 50 50 Water 50 ml @ 100 mls/hr IV Q6H [facility] Rx#:[id number] Output: Urine Catheter Amount 600 1275 Other: Urine Appearance Hematuria Hematuria Small Blood Clots Small Blood Clots Large Blood Clots Large Blood Clots Uretheral (Cedillo) Hematuria Small Blood Clots Urine Color Blood Tinged Bright Red Uretheral (Cedillo) Yellow Brown Blood Tinged Urine Odor Normal Strong Stool Size Moderate Stool Color Brown Stool Consistency Soft # Voids 1 # Bowel Movements 1 No anxiety Cedillo draining pink urine No lymphedema Nonlabored breathing OBJ DATA Labs CBC & Chem 7: 08/11/20 06:02 08/16/20 05:27 Labs: Abnormal Lab Results 08/16/20 08/16/20 08/15/20 07:58 05:27 05:30 Chloride 110 H Carbon Dioxide 19 L 20 L BUN Creatinine 1.6 H 1.7 H Glucose 113 H 110 H Albumin (PEP) Globulin (PEP) Albumin/Globulin (PEP) Gamma Globulins Urine Eosinophils U Random Total Protein U [place] Prot/Creat Ratio U Monoclonal Protein Vancomycin Trough 21.5 H* 08/14/20 08/14/20 08/12/20 10:56 05:50 06:16 Chloride Carbon Dioxide 21 L BUN 26 H Creatinine 1.9 H Glucose 183 H Albumin (PEP) Globulin (PEP) Albumin/Globulin (PEP) Gamma Globulins Urine Eosinophils < 1% A U Random Total Protein 199 H U [place] Prot/Creat Ratio 4.854 H U Monoclonal Protein 2 H Vancomycin Trough 08/12/20 06:16 Chloride Carbon Dioxide BUN Creatinine Glucose Albumin (PEP) 2.25 L Globulin (PEP) 4.8 H Albumin/Globulin (PEP) 0.5 L Gamma Globulins 2.10 H Urine Eosinophils U Random Total Protein U [place] Prot/Creat Ratio U Monoclonal Protein Vancomycin Trough Meds: Medications Acetaminophen (Tylenol) 650 mg PO Q4-6HP PRN; Protocol PRN Reason: Per Pain Protocol/Fever > 101 Last Admin: 08/16/20 09:52 Dose: 650 mg Documented by: Albuterol Sulfate (Ventolin) 1 puff INH Q4HP PRN PRN Reason: Shortness Of Breath Allopurinol (Zyloprim) 100 mg PO DAILY [facility] Last Admin: 08/16/20 09:05 Dose: 100 mg Documented by: Aspirin (Ecotrin) 325 mg PO DAILY [facility] Last Admin: 08/16/20 09:04 Dose: 325 mg Documented by: Atenolol (Tenormin) 50 mg PO BID [facility] Last Admin: 08/16/20 09:04 Dose: 50 mg Documented by: Belladonna Alkaloids/Opium (B & O) 30 mg MI Q4HP PRN PRN Reason: Pain Bisacodyl (Dulcolax) 10 mg MI Q2-3DAYS PRN PRN Reason: Constipation Cyanocobalamin (Vitamin B-12) 1,000 mcg PO DAILY [facility] Last Admin: 08/16/20 09:04 Dose: 1,000 mcg Documented by: Dextrose (Dextrose 50%) 0 ml IV UD PRN PRN Reason: Hypoglycemia Diagnostic Test (Pha) (Accu-Chek) 1 each FS ACHS [facility] Last Admin: 08/16/20 07:06 Dose: 1 each Documented by: Diphenhydramine HCl (Benadryl) 25 mg PO Q6HP PRN PRN Reason: Allergic Symptoms Docusate Sodium (Colace) 100 mg PO BID [facility] Last Admin: 08/16/20 09:04 Dose: 100 mg Documented by: Ergocalciferol (Drisdol) 50,000 unit PO TuFr@0900 [facility] Last Admin: 08/16/20 09:04 Dose: 50,000 unit Documented by: Glucose (Insta-Glucose) 15 gm PO PRN PRN PRN Reason: Hypoglycemia Heparin Sodium (Porcine) (Heparin) 5,000 unit SQ Q12 [facility] Last Admin: 08/16/20 09:03 Dose: 5,000 unit Documented by: Hydralazine HCl (Apresoline) 0 mg IV Q2HP PRN PRN Reason: Hypertension Last Admin: 08/15/20 19:38 Dose: 20 mg Documented by: Magnesium Sulfate (Magnesium Sulfate) 2 gm in 50 mls @ 50 mls/hr IV UD PRN PRN Reason: MG = or < 1.7 Last Infusion: 08/11/20 11:24 Dose: Infused Documented by: Potassium Chloride 40 meq/ (Dextrose) 520 mls @ 130 mls/hr IV UD PRN PRN Reason: K+ = or < 3.5 Acetaminophen (Ofirmev) 650 mg in 65 mls @ 130 mls/hr IV Q6HP PRN; Protocol PRN Reason: Per Pain Protocol/Fever > 101 Last Infusion: 08/15/20 20:15 Dose: Infused Documented by: Dextrose/Sodium Chloride (Dextrose 5%-Ns Iv Solution) 1,000 mls @ 84 mls/hr IV .[id number] [facility] Last Admin: 08/16/20 00:51 Dose: Not Given Documented by: Piperacillin Sod/Tazobactam (Sod 2.25 gm/ Dextrose) 50 mls @ 100 mls/hr IV Q6H [facility] Last Admin: 08/16/20 05:31 Dose: 100 mls/hr Documented by: Fluconazole (Diflucan) 400 mg in 200 mls @ 100 mls/hr IV PREOP [facility] Stop: 08/16/20 18:00 Insulin Glargine (Lantus) 36 unit SQ DAILY [facility] Last Admin: 08/16/20 09:03 Dose: 36 units Documented by: Insulin Human Lispro (Humalog) 0 unit SQ ACHS [facility]; Protocol Last Admin: 08/16/20 07:21 Dose: Not Given Documented by: Iron Carb/Multivit/Sprayer Automatic Spray Machine/Folic Acid (Multivitamin W/Minerals) 1 tab PO DAILY [facility] Last Admin: 08/16/20 09:04 Dose: 1 tab Documented by: Levothyroxine Sodium (Synthroid) 50 mcg PO QAMAC [facility] Last Admin: 08/16/20 07:14 Dose: 50 mcg Documented by: Loperamide HCl (Imodium) 4 mg PO Q6H PRN PRN Reason: Diarrhea Melatonin (Melatonin 3mg Tablet) 9 mg PO HS [facility] Last Admin: 08/15/20 21:20 Dose: 9 mg Documented by: Ondansetron HCl (Zofran Odt) 4 mg SL Q4-6HP PRN; Protocol PRN Reason: Nausea And Vomiting Ondansetron HCl (Zofran) 4 mg IV Q4-6HP PRN; Protocol PRN Reason: Nausea And Vomiting Fluticasone Furoate- Vilanterol [Breo Ellipta] Inhaler 1 dose INH DAILY [facility] Last Admin: 08/16/20 09:06 Dose: Not Given Documented by: Linaclotide [Linzess (] 145 Mcg Cap) 1 dose PO DAILY [facility] Last Admin: 08/16/20 09:06 Dose: Not Given Documented by: Memantine Er 21 Mg (Tab) 1 dose PO QDAY [facility] Last Admin: 08/16/20 09:06 Dose: Not Given Documented by: Polyethylene Glycol (Miralax) 17 gm PO DAILYP PRN PRN Reason: Constipation Quetiapine Fumarate (Seroquel) 200 mg PO [facility] Last Admin: 08/15/20 21:20 Dose: 200 mg Documented by: Senna/Docusate Sodium (Senna Plus Tablet) 1 tab PO [facility] Last Admin: 08/15/20 21:20 Dose: 1 tab Documented by: Sertraline HCl (Zoloft) 50 mg PO QDAY [facility] Last Admin: 08/16/20 09:05 Dose: 50 mg Documented by: Simvastatin (Zocor) 20 mg PO [facility] Last Admin: 08/15/20 21:21 Dose: 20 mg Documented by: Vancomycin HCl (Vancomycin Per Pharmacy) 1 order IV UD [facility]; Protocol A/P Narrative A/P Narrative: A: *Obstructive uropathy with b/l hydronephrosis: -CT showing ?bladder wall thickening and ?encasing both UPJ, worse on right. Cystoscopy today. DC Cedillo's catheter per urology *Diffuse thickening of bladder, possible obstruction of both UPJ: Cystoscopy today *PRIMO: secondary obstructive uropathy -1.6<<2.3<<1.5<<2.8, *Complicated enterococcal/E. coli UTI multidrug resistance currently on vancomycin/Zosyn. Added fluconazole per urology for fungal coverage *AMS, superimposed on underlying Dementia: secondary to combination of hyponatremia/renal failure uremia/medications -resolved, now at baseline *Dementia with anxiety: on SSRIs/quetiapine/memantine *Anemia of chronic disease: -s/p 2 units PRBC (08/08), stable *Hyponatremia: likely secondary to bladder outlet obstruction/renal failure. Urine osmolarity suggestive against SIADH -improved *Complicated MDR E. coli and Enterococcus UTI/cystitis: recurrent in nature secondary to urinary retention/fecal soiling *GERD continue PPI *HTN/HLD: *Hypothyroid on thyroxine *DM type II: *History of gout: on allopurinol *Morbid obesity continue directed therapies/nutrition consult Plan: -DC Cedillo's catheter -Fluconazole 1 dose, cystoscopy today -Continue electrolyte/renal failure management per nephrology -zosyn/vanco per nephro based on E. coli/enterococci sensitivities -ARB on hold in light of renal failure, continue atenolol - continue basal prandial insulin(36u)/renal CC diet -PT OT nutrition support -Discharge planning per case management likely SNF -ppx: Heparin Time Spent With Patient Time: Total time spent is greater than 50% in coordination of care (as documented) at patient's floor/unit and/or counseling patient: QUALITY Stroke Symptom Onset Unknown: No VTE Deep Vein Thrombosis/Pulmonary Embolism Present on Admission: No
[2020-08-16] MEDS: VANCOMYCIN 1,500 MG in 0.9 % SODIUM CHLORIDE 500 ML IV SCH (12:12)
[2020-08-16] MEDS ORDERED: KETAMINE 100 MG/ML ML ONE (15:16)
[2020-08-16] MEDS ORDERED: GLYCOPYRROLATE 0.2 MG/ML VIAL IV ONE (15:16)
[2020-08-16] MEDS ORDERED: DEXAMETHASONE 10 MG/ML VIAL ONE (15:16)
[2020-08-16] MEDS ORDERED: fentaNYL 100 MCG/2 ML VIAL IV ONE (15:16)
[2020-08-16] MEDS ORDERED: MIDAZOLAM 2 MG/2 ML VIAL ONE (15:16)
[2020-08-16] MEDS ORDERED: LIDOCAINE HCL/PF 100 MG/5 ML SYRINGE IV ONE (15:16)
[2020-08-16] MEDS ORDERED: ONDANSETRON 4 MG/2 ML VIAL ONE (15:16)
[2020-08-16] MEDS ORDERED: PROPOFOL 200 MG/20 ML VIAL IV ONE (15:16)
--- NOTE | 2020-08-16 15:23 | Internal Med Progress Note ---
SUBJECTIVE Subjective Patient information: Note initiated : 08/16/20 at 3:18 pm Service Date, if different from initiated Date: [] Patient: Reny Sanches a 75 y/o F admitted on 08/06/20 for ARF. patient has hydronephrosis bilaterally, filling defects in both renal pelvis, h/o bilateral ureteral dilation (per her daughter who is POA) and thickened bladder wall. Nuclear med scan not available at this facility to check for obstruction vs reflux (previous CT mentioned patulous ureteral orifices). Gram stain for fungal elements negative and urine PCR send out test is not back yet. She has mobility issues and is not likely to be an easy office cystoscopy . She is otherwise doing well, has dementia, no complaints of pain. Chief Complaint: [] Constitutional Vitals: Vital Signs Temp Pulse Resp BP Pulse Ox 98.3 F 69 18 158/65 97 08/16/20 12:00 08/16/20 12:00 08/16/20 12:00 08/16/20 12:00 08/16/20 12:00 Period Temp Pulse Resp BP Sys/Corbin Pulse Ox Last 24 Hr 97.4 F-98.6 F 67-78 16-18 106-179/51-78 97-99 Intake and Output 08/16/20 08/16/20 08/16/20 05:59 13:59 21:59 Intake Total 50 1050 Output Total 1275 1200 2 Balance -1225 -150 -2 Intake & Output: Intake & Output 08/16/20 08/16/20 08/16/20 05:59 13:59 21:59 Intake Total 50 1050 Output Total 1275 1200 2 Balance -1225 -150 -2 Intake: IV 50 1050 Dextrose 5%-Ns IV Solution 1, 1000 000 ml @ 84 mls/hr IV .[id number] [facility] Rx#:[id number] Zosyn 2.25 gm In Dextrose 5% in 50 50 Water 50 ml @ 100 mls/hr IV Q6H [facility] Rx#:[id number] Output: Urine Catheter Amount 1275 1200 # of times incontinent of urine 2 Other: Meal Breakfast Percent of Meal Consumed 100% Feeding Ability Independent Nourishment/Supplement name NPO Urine Appearance Hematuria Cloudy Small Blood Clots Mucous Threads Large Blood Clots Urine Color Bright Red Bright Yellow Urine Odor Strong Stool Size Moderate Stool Color Brown Stool Consistency Soft # Voids 1 # Bowel Movements 1 # of times incontinent of 1 Bowels General appearance: cooperative and obese; no disheveled Head Head exam: Present atraumatic, normal inspection and normocephalic Eye Eye exam: Present EOMI; Absent periorbital swelling and scleral icterus Respiratory Respiratory exam: Absent respiratory distress, stridor and wheezes Cardiovascular Cardiovascular exam: Present RRR GI/Abdominal GI/Abdominal exam: Present soft and guarding; Absent distended, mass, rebound and tenderness Additional comments: no CVA tenderness Neurological Exam Neurological exam: Present alert (to person and place ) Psychiatric Psychiatric exam: Present agitated, anxious, normal affect and normal mood OBJ DATA Labs CBC & Chem 7: 08/11/20 06:02 08/16/20 05:27 Labs: Abnormal Lab Results 08/16/20 08/16/20 08/15/20 07:58 05:27 05:30 Chloride 110 H Carbon Dioxide 19 L 20 L BUN Creatinine 1.6 H 1.7 H Glucose 113 H 110 H Urine Eosinophils U Random Total Protein U [place] Prot/Creat Ratio U Monoclonal Protein Vancomycin Trough 21.5 H* 08/14/20 08/14/20 08/12/20 10:56 05:50 06:16 Chloride Carbon Dioxide 21 L BUN 26 H Creatinine 1.9 H Glucose 183 H Urine Eosinophils < 1% A U Random Total Protein 199 H U [place] Prot/Creat Ratio 4.854 H U Monoclonal Protein 2 H Vancomycin Trough Meds: Medications Acetaminophen (Tylenol) 650 mg PO Q4-6HP PRN; Protocol PRN Reason: Per Pain Protocol/Fever > 101 Last Admin: 08/16/20 09:52 Dose: 650 mg Documented by: Albuterol Sulfate (Ventolin) 1 puff INH Q4HP PRN PRN Reason: Shortness Of Breath Allopurinol (Zyloprim) 100 mg PO DAILY [facility] Last Admin: 08/16/20 09:05 Dose: 100 mg Documented by: Aspirin (Ecotrin) 325 mg PO DAILY [facility] Last Admin: 08/16/20 09:04 Dose: 325 mg Documented by: Atenolol (Tenormin) 50 mg PO BID [facility] Last Admin: 08/16/20 09:04 Dose: 50 mg Documented by: Belladonna Alkaloids/Opium (B & O) 30 mg PA Q4HP PRN PRN Reason: Pain Bisacodyl (Dulcolax) 10 mg PA Q2-3DAYS PRN PRN Reason: Constipation Cyanocobalamin (Vitamin B-12) 1,000 mcg PO DAILY [facility] Last Admin: 08/16/20 09:04 Dose: 1,000 mcg Documented by: Dextrose (Dextrose 50%) 0 ml IV UD PRN PRN Reason: Hypoglycemia Diagnostic Test (Pha) (Accu-Chek) 1 each FS ACHS [facility] Last Admin: 08/16/20 11:19 Dose: 1 each Documented by: Diphenhydramine HCl (Benadryl) 25 mg PO Q6HP PRN PRN Reason: Allergic Symptoms Docusate Sodium (Colace) 100 mg PO BID [facility] Last Admin: 08/16/20 09:04 Dose: 100 mg Documented by: Ergocalciferol (Drisdol) 50,000 unit PO TuFr@0900 [facility] Last Admin: 08/16/20 09:04 Dose: 50,000 unit Documented by: Glucose (Insta-Glucose) 15 gm PO PRN PRN PRN Reason: Hypoglycemia Heparin Sodium (Porcine) (Heparin) 5,000 unit SQ Q12 [facility] Last Admin: 08/16/20 09:03 Dose: 5,000 unit Documented by: Hydralazine HCl (Apresoline) 0 mg IV Q2HP PRN PRN Reason: Hypertension Last Admin: 08/15/20 19:38 Dose: 20 mg Documented by: Magnesium Sulfate (Magnesium Sulfate) 2 gm in 50 mls @ 50 mls/hr IV UD PRN PRN Reason: MG = or < 1.7 Last Infusion: 08/11/20 11:24 Dose: Infused Documented by: Potassium Chloride 40 meq/ (Dextrose) 520 mls @ 130 mls/hr IV UD PRN PRN Reason: K+ = or < 3.5 Acetaminophen (Ofirmev) 650 mg in 65 mls @ 130 mls/hr IV Q6HP PRN; Protocol PRN Reason: Per Pain Protocol/Fever > 101 Last Infusion: 08/15/20 20:15 Dose: Infused Documented by: Dextrose/Sodium Chloride (Dextrose 5%-Ns Iv Solution) 1,000 mls @ 84 mls/hr IV .[id number] [facility] Last Admin: 08/16/20 13:10 Dose: 84 mls/hr Documented by: Piperacillin Sod/Tazobactam (Sod 2.25 gm/ Dextrose) 50 mls @ 100 mls/hr IV Q6H [facility] Last Admin: 08/16/20 13:09 Dose: 100 mls/hr Documented by: Fluconazole (Diflucan) 400 mg in 200 mls @ 100 mls/hr IV PREOP [facility] Stop: 08/16/20 18:00 Last Admin: 08/16/20 11:19 Dose: 100 mls/hr Documented by: Insulin Glargine (Lantus) 36 unit SQ DAILY [facility] Last Admin: 08/16/20 09:03 Dose: 36 units Documented by: Insulin Human Lispro (Humalog) 0 unit SQ ACHS [facility]; Protocol Last Admin: 08/16/20 11:22 Dose: 1 units Documented by: Iron Carb/Multivit/Warranty Clerk/Folic Acid (Multivitamin W/Minerals) 1 tab PO DAILY [facility] Last Admin: 08/16/20 09:04 Dose: 1 tab Documented by: Levothyroxine Sodium (Synthroid) 50 mcg PO QAMAC [facility] Last Admin: 08/16/20 07:14 Dose: 50 mcg Documented by: Loperamide HCl (Imodium) 4 mg PO Q6H PRN PRN Reason: Diarrhea Melatonin (Melatonin 3mg Tablet) 9 mg PO HS [facility] Last Admin: 08/15/20 21:20 Dose: 9 mg Documented by: Ondansetron HCl (Zofran Odt) 4 mg SL Q4-6HP PRN; Protocol PRN Reason: Nausea And Vomiting Ondansetron HCl (Zofran) 4 mg IV Q4-6HP PRN; Protocol PRN Reason: Nausea And Vomiting Fluticasone Furoate- Vilanterol [Breo Ellipta] Inhaler 1 dose INH DAILY [facility] Last Admin: 08/16/20 09:06 Dose: Not Given Documented by: Linaclotide [Linzess (] 145 Mcg Cap) 1 dose PO DAILY [facility] Last Admin: 08/16/20 09:06 Dose: Not Given Documented by: Memantine Er 21 Mg (Tab) 1 dose PO QDAY [facility] Last Admin: 08/16/20 09:06 Dose: Not Given Documented by: Polyethylene Glycol (Miralax) 17 gm PO DAILYP PRN PRN Reason: Constipation Quetiapine Fumarate (Seroquel) 200 mg PO HS [facility] Last Admin: 08/15/20 21:20 Dose: 200 mg Documented by: Senna/Docusate Sodium (Senna Plus Tablet) 1 tab PO [facility] Last Admin: 08/15/20 21:20 Dose: 1 tab Documented by: Sertraline HCl (Zoloft) 50 mg PO QDAY [facility] Last Admin: 08/16/20 09:05 Dose: 50 mg Documented by: Simvastatin (Zocor) 20 mg PO [facility] Last Admin: 08/15/20 21:21 Dose: 20 mg Documented by: Vancomycin HCl (Vancomycin Per Pharmacy) 1 order IV UD [facility]; Protocol A/P Assessment and plan (1) Bladder wall thickening: Status: Acute (2) Kidney filling defect: Status: Acute (3) Bilateral hydronephrosis: Status: Acute Comment: Relatively acute and not due to stones. Will need a clear the air cysto &/or Lasix renal scan (nuclear med) at [facility]. Narrative A/P Narrative: d/w her daughter who is POA extensively 1) bladder wall thickening -cystoscopy and possible biopsy 2) filling defects -ureteral catheterization and selective sampling 3) hydronephrosis -retrograde pyelograms and possible cystogram and possible stents Hold off on ureteroscopy as possible concerns for fungal elements Time Spent With Patient Time: Total time spent is greater than 50% in coordination of care (as documented) at patient's floor/unit and/or counseling patient: QUALITY Stroke Symptom Onset Unknown: No VTE Deep Vein Thrombosis/Pulmonary Embolism Present on Admission: No
[2020-08-16] MEDS ORDERED: BENZOCAINE/MENTHOL 1 LOZENGE PO PRN (15:41)
[2020-08-16] MEDS ORDERED: MEPERIDINE 25 MG/ML SYRINGE IV PRN (15:41)
[2020-08-16] MEDS ORDERED: IPRATROPIUM/ALBUTEROL 3 ML AMPUL.NEB NEB PRN (15:41)
[2020-08-16] MEDS ORDERED: ePHEDrine 50 MG/ML AMPUL IV PRN (15:41)
[2020-08-16] MEDS ORDERED: fentaNYL 100 MCG/2 ML VIAL IV PRN (15:41)
[2020-08-16] MEDS ORDERED: OPIUM/BELLADONNA ALKALOIDS 60 MG SUPP.RECT PR PRN (15:41)
[2020-08-16] MEDS ORDERED: ONDANSETRON 4 MG/2 ML VIAL IV PRN (15:41)
[2020-08-16] MEDS ORDERED: IOVERSOL 20 ML VIAL IV ONE (15:42)
[2020-08-16] MEDS ORDERED: LACTATED RINGERS 1,000 ML IV SCH (15:45)
[2020-08-16] MEDS ORDERED: ACETAMINOPHEN 1,000 MG/100 ML BAG IV ONE (16:00)
--- NOTE | 2020-08-16 16:20 | Non-GYN Cytology Report ---
Non Kiln Car Repairer Cytology NG Diagnosis URINE, CATHETERIZED: --- NO ATYPICAL OR MALIGNANT CELLS PRESENT. --- PREDOMINATELY ACUTE INFLAMMATION. (RLF:sln) NG Micro Description The ThinPrep slide is examined and demonstrates a few bland urothelial cells and squamous epithelial cells along with numerous neutrophils. No atypical or malignant cells are identified. (RLF:sln) NG Gross Description Received 40 mL yellow cloudy fluid. Electronically Signed Heydi Link MD, FCAP Electronically Signed 08/16/2020 16:19
--- NOTE | 2020-08-16 16:39 | Brief Operative Note ---
Brief Operative Note Date of procedure: 08/16/20 Pre-op diagnosis: hydronephrosis, bladder wall thickening, renal pelvis filling defect Post-op diagnosis: same Procedure: cystoscopy, bladder biopsy and fulguration, bilateral ureteral catheterization with bilateral renal pelvis sampling, bilateral retrograde pyelograms, cystogram Grafts/Implants: No Anesthesia: GETA Findings: 1) contracted small capacity bladder with catheter edema changes and inflamed trigone 2) ureteral orifices patulous 3) selective urine via ureteral cath from each renal pelvis CLEAR 4) bilateral retrograde pyelograms: no filling defects corresponding to those seen on CT scan appreciated. RIGHT mild hydronephrosis and tortuous hydroureter BUT WITH GOOD ureteral jet into bladder. LEFT minimal left hydronephrosis and milder tortuous hydroureter WITH GOOD ureteral jet. 5) Some cloudy white material from left ureteral jet after retrograde pyelogram and such was sampled as bladder urine and sent for gram stain for yeast 6) cystogram: imaging limited by contrast in ureter from [facility] but CLEAR ureteral reflux seen bilaterally at LOW bladder volumes (< 200cc) Complications: none Surgeon: Johnson Sharif Estimated blood loss (cc): 0 Specimens Removed/Pathology: other (bilateral renal pelvis urine for cytology, sediment from left ureteral drainage for gram stain) Condition: stable Disposition: PACU
[2020-08-16] MEDS: SIMVASTATIN 20 MG TABLET PO SCH (20:41)
[2020-08-16] MEDS: SENNOSIDES/DOCUSATE SODIUM 1 TAB TABLET PO SCH (20:41)
[2020-08-16] MEDS: MELATONIN 3 MG TABLET PO SCH (20:42)
[2020-08-16] MEDS: QUEtiapine 100 MG TABLET PO SCH (20:42)
[2020-08-16] MEDS: hydrALAZINE 20 MG/ML VIAL IV PRN (20:43)
[2020-08-17] MEDS: PIPERACILLIN SODIUM/TAZOBACTAM 2.25 GM in DEXTROSE 5% IN WATER 50 ML IV SCH ×4 (01:54→17:07)
[2020-08-17] MEDS: DEXTROSE 5%-NS 1,000 ML IV SCH ×2 (04:23→13:36)
[2020-08-17] MEDS: LEVOTHYROXINE 50 MCG TABLET PO SCH (07:23)
[2020-08-17] MEDS: INSULIN LISPRO 1 UNIT/0.01 ML UNIT SQ SCH ×4 (07:25→21:29)
--- NOTE | 2020-08-17 08:18 | Nephrology Progress Note ---
SUBJECTIVE Subjective Patient information: Note initiated : 08/17/20 at 8:16 am Patient: Reny Sanches 75 y/o F admitted on 08/06/20 for ARF. Chief Complaint: Weakness Pertinent ROS: Weakness Edema Constitutional Vitals: Vital Signs Temp Pulse Resp BP Pulse Ox 98.5 F 72 14 124/64 96 08/17/20 06:53 08/17/20 06:53 08/17/20 07:36 08/17/20 06:53 08/17/20 07:36 Period Temp Pulse Resp BP Sys/Corbin Pulse Ox Last 24 Hr 97.3 F-98.5 F 66-76 10-18 124-166/59-106 94-100 Intake and Output 08/16/20 08/17/20 08/17/20 21:59 05:59 13:59 Intake Total 1150 1450 Output Total 3 2 Balance 1147 1448 Weight 269 lb 1.6 oz Intake & Output: Intake & Output 08/16/20 08/17/20 08/17/20 21:59 05:59 13:59 Intake Total 1150 1450 Output Total 3 2 Balance 1147 1448 Weight 269 lb 1.6 oz Intake: IV 150 1050 Dextrose 5%-Ns IV Solution 1, 1000 000 ml @ 84 mls/hr IV .[id number] [facility] Rx#:[id number] Zosyn 2.25 gm In Dextrose 5% in 50 50 Water 50 ml @ 100 mls/hr IV Q6H [facility] Rx#:[id number] Oral 400 IV - Manual Only 1000 Output: # of times incontinent of urine 3 2 Other: Stool Size Moderate Stool Color Brown Stool Consistency Soft # Voids 1 # Bowel Movements 1 # of times incontinent of 1 Bowels General appearance: cooperative and no acute distress Head Head exam: Present atraumatic and normal inspection ENT ENT exam: Present mucous membranes moist Respiratory Respiratory exam: Present decreased breath sounds Cardiovascular Cardiovascular exam: Present normal rate and rhythm GI/Abdominal GI/Abdominal exam: Present soft; Absent tenderness Neurological Exam Neurological exam: Present alert Psychiatric Psychiatric exam: Present normal affect and normal mood Skin Skin exam: Present pallor A/P Assessment and plan (1) Acute on chronic renal failure: Assessment and plan: Reny Sanches is a 75-year-old female with hypertension, hyperlipidemia, diabetes mellitus type 2, hypothyroidism, dementia with anxiety, admitted on 08/06/20 for acute kidney injury. Baseline serum creatinine: 0.9-1.1 (eGFR 50-63). In May 2020, she had an episode of acute renal failure due to a combination of ARB, diuretics, Bactrim and nonsteroidal anti-inflammatories. After a full recovery, she presented with a second episode of acute renal failure has reoccurred in association with bilateral hydro, abnormal urinary bladder, pyuria and an ESR >100 mm/hr. Acute kidney injury on chronic kidney disease stage 3a associated with obstructive uropathy (bilateral hydronephrosis diffuse thickening of bladder, possible obstruction of both UPJ) and acute complicated cystitis (MDR E. coli and Enterococcus), present on arrival. Work up: Urine culture on 08/11/20: Enterococcus faecium (grp d) and Escherichia coli SPEP/UPEP/SETH on 08/12/20: The serum protein electrophoresis shows a zone of restriction in the gamma region with increased polyclonal gammaglobulins and decreased albumin. The estimated concentration of the paraprotein is 0.19 g/dL. Concurrent immunofixation characterizes this paraprotein as an IgM heavy chain protein with faint possible lambda light chain. 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 Urine random total protein/creatinine on 08/12/20: 4,854 mg/g creatinine. CT IVP on 08/13/20: 1. Marked diffuse wall thickening of the urinary bladder including encasement of both UVJ regions. Pathologic infiltration by tumor or inflammation is suspected. The left upper collecting system and ureter have decompressed since the prior pre-Cedillo catheter CT, however there is persistent moderate right hydroureter/hydronephrosis. This may be due to pathologic encasement of the right UVJ, rather than bladder outlet obstruction or neurogenic bladder. More specific evaluation with cystoscopy is suggested. 2. Scattered small low-attenuation filling defects within the upper collecting systems of both kidneys - more prominent on the right. This could represent sloughed tissue from papillary necrosis, scattered thrombi or, less likely, nonopaque stones. This could also be more specifically evaluated at time of cystoscopy/ ureteroscopy. 3. Probable cirrhosis with evidence for mild portal hypertension and even a left splenorenal shunt. The spleen is mildly enlarged. Small amount of ascites appreciated. Cystoscopy, bladder biopsy and fulguration, bilateral ureteral catheterization with bilateral renal pelvis sampling, bilateral retrograde pyelograms, cystogram on 08/16/20: Findings: 1) contracted small capacity bladder with catheter edema changes and inflamed trigone. 2) ureteral orifices patulous. 3) selective urine via ureteral cath from each renal pelvis CLEAR. 4) bilateral retrograde pyelograms: no filling defects corresponding to those seen on CT scan appreciated. RIGHT mild hydronephrosis and tortuous hydroureter BUT WITH GOOD ureteral jet into bladder. LEFT minimal left hydronephrosis and milder tortuous hydroureter WITH GOOD ureteral jet.. 5) Some cloudy white material from left ureteral jet after retrograde pyelogram and such was sampled as bladder urine and sent for gram stain for yeast. 6) cystogram: imaging limited by contrast in ureter from RGPG but CLEAR ureteral reflux seen bilaterally at LOW bladder volumes (< 200cc) Progress: Last serum creatinine 1.6 with decreasing trend. Baseline serum creatinine: 0.9-1.1 (eGFR 50-63) Urine output: 1,200+ ml reported in the past 24 hours. Hyperchloremic metabolic acidosis. Recommendations/Plan: Anticipate no acute hemodialysis need. Avoid Normal Saline due to hyperchloremic metabolic acidosis. Follow up with Dr. Kent as outpatient. Status: Acute Qualifiers: Acute renal failure type: with other specified pathological lesion Chronic kidney disease stage: stage 3 (moderate) Chronic kidney disease stage 3 subtype: stage 3a (GFR 45-59) Qualified Code(s): N17.8 - Other acute kidney failure; N18.31 - Chronic kidney disease, stage 3a (2) Hyperchloremic metabolic acidosis: Status: Acute Time Spent With Patient Time: Total time spent is greater than 50% in coordination of care (as documented) at patient's floor/unit and/or counseling patient:
--- NOTE | 2020-08-17 08:28 | XRay Report ---
CLINICAL INFORMATION: Bilateral hydronephrosis due to pathologic infiltration of the urinary bladder possibly obstructing the UVJs COMPARISON: Abdomen and pelvic CT 08/12/2020 FINDINGS: Bilateral retrograde ureterograms show moderate right and mild left hydronephrosis/hydroureter. The urinary bladder is diminutive with marked wall thickening and trabeculation with inferior urinary bladder prolapse appreciated IMPRESSION: Moderate diffuse wall thickening urinary bladder with trabeculation and probable inferior bladder prolapse.. On the basis CT, there is evidence of chronic bladder outlet obstruction with bilateral hydronephrosis hydroureter Interpreted and Authenticated by: Coy Barr 08/17/20
[2020-08-17] MEDS: ALLOPURINOL 100 MG TABLET PO SCH (08:55)
[2020-08-17] MEDS: HEPARIN 5,000 UNIT/ML VIAL SQ SCH ×2 (08:55→21:20)
[2020-08-17] MEDS: ASPIRIN 325 MG ENTERIC COATED TABLET PO SCH (08:55)
[2020-08-17] MEDS: DOCUSATE SODIUM 100 MG CAPSULE PO SCH ×2 (08:55→21:18)
[2020-08-17] MEDS: INSULIN GLARGINE, HUMAN 1 UNIT/0.01 ML SQ SCH (08:55)
[2020-08-17] MEDS: ATENOLOL 50 MG TABLET PO SCH ×2 (08:55→21:19)
[2020-08-17] MEDS: MULTIVIT,THER IRON,CA,FA & MIN 1 TABLET PO SCH (08:55)
[2020-08-17] MEDS: Fluticasone Furoate-Vilanterol [Breo Ellipta] Inhaler INH SCH (08:56)
[2020-08-17] MEDS: MEMANTINE 21 MG PO SCH (09:11)
[2020-08-17] MEDS: CYANOCOBALAMIN (VITAMIN B-12) 500 MCG TABLET PO SCH (09:13)
[2020-08-17] MEDS: SERTRALINE 50 MG TABLET PO SCH (09:13)
[2020-08-17] MEDS: VANCOMYCIN 1,000 MG in 0.9 % SODIUM CHLORIDE 250 ML IV SCH (09:40)
--- NOTE | 2020-08-17 09:51 | Internal Med Progress Note ---
SUBJECTIVE Subjective Patient information: Note initiated : 08/17/20 at 9:46 am Service Date, if different from initiated Date: [] Patient: Reny Sanches a 75 y/o F admitted on 08/06/20 for ARF. Chief Complaint: [] Interval history: Ms. Sanches is a 75 year old F resident of [facility] since mid-May with history of HTN/HLD/DM type II/morbid obesity who was recently evaluated at nephrology office for worsening renal function now presents to the ER from nephrology office for further hospitalization and evaluation of progressive renal insufficiency. Patient has become increasingly fatigued, lethargic and confused over the last few days and has not been able to function or perform ADLs. She denies associated dysuria, diarrhea, nausea but endorses difficulty urination. She denies changes in medications. Patient work-up in the ER was consistent with acute renal failure with creatinine 2.8. Notable pyuria, sodium 122 and profound change in mental status with GCS 8. Most of the history was obtained from patient's daughter/prior EMR notes. CT abdomen revealed bilateral hydronephrosis with likely bladder outlet obstruction. Urology was consulted. Nephrology was consulted and requested admission under hospitalist service. Moriah almonte hospitalist service was consulted At the time of my evaluation patient is very confused however oriented to place only. She could not provide any meaningful history over the last 72 hours. She however denies chest pain, fever, chills but endorses lightheadedness, dizziness. 08/07-patient clinically improving. Sodium up to 132. Sodium rise higher than goal. Transition to D5 half NS per nephrology. Urine osmolarity appropriately low ruling out SIADH. Creatinine down to 2.4. Continue antibiotic coverage. Await urine cultures. Improving mental status however remains disoriented. No overnight fever chills. No other concerns per nursing staff. No telemetry events. Restart diabetic diet 08/08-patient seen in room along with daughter. Intermittently confused but much more alert since yesterday. Hemoglobin 6.6, 2 units PRBC transfusion per nephrology. Creatinine down to 1.9, Cedillo's draining clear urine, sodium improved to 133. Following commands. Remains disoriented. No overnight fever chills. Ongoing management per nephrology. No concerns expressed by nursing staff except for occasional incontinence. Ongoing MRSA decolonization. Daughter expressed concerns about transitioning to [facility] and would want alternate facility including [facility] 08/09-patient appears quite cheerful. No family at bedside. Ongoing physical therapy with therapist in room. No overnight fever chills. No additional concerns expressed with nursing staff. White count 6.1. Stable hemodynamics. Creatinine 1.9.Cedillo is draining clear urine. Continuing antibiotic coverage. 08/10-patient clinically improving. More lucid. Complains of intermittent b ladder spasm. Responded well to BNO suppository. White count 7.4. Nephrology recommends confusion of Cedillo's catheter with further work-up by urology on discharge. Creatinine down to 1.5, on antibiotic coverage for E. coli UTI. Multidrug-resistant sensitive to nitrofurantoin. 08/11 No new complaints. No overnight events. BC stable. Creatinine 1.6. 08/12 Pleasantly demented this morning as usual. Received CT KUB this morning. 08/13 Patient again pleasantly demented. Creatinine elevating. CT imaging concern for bladder malignancy. Urology consulted. 08/14 No overnight event or new complaints. Seen by urology. He needs Nuc med lasix renogram. 08/15 No new pains or complaints. No overnight events. Pending urine studies by urology. Creatinine improved. 08/16-Case discussed urology. Will undergo cystoscopy later today. Urology recommends 1 dose of fluconazole/removing Cedillo's catheter. Case discussed with nephrology. We will continue existing treatment and review further and urology recommendations. No overnight concerns or events per's nursing staff 08/17-patient status post cystoscopy. Clinical improved. Cedillo discontinued. Ongoing management per nephrology/urology recommendations. Anticipate discharge to SNF on Wednesday Constitutional Vitals: Vital Signs Temp Pulse Resp BP Pulse Ox 98.5 F 72 14 124/64 96 08/17/20 06:53 08/17/20 06:53 08/17/20 07:36 08/17/20 06:53 08/17/20 07:36 Period Temp Pulse Resp BP Sys/Corbin Pulse Ox Last 24 Hr 97.3 F-98.5 F 66-76 10-18 124-166/59-106 94-100 Intake and Output 08/16/20 08/17/20 08/17/20 21:59 05:59 13:59 Intake Total 1150 1450 400 Output Total 3 2 1 Balance 1147 1448 399 Weight 122.062 kg In good spirits Nonlabored breathing No anxiety Intake & Output: Intake & Output 08/16/20 08/17/20 08/17/20 21:59 05:59 13:59 Intake Total 1150 1450 400 Output Total 3 2 1 Balance 1147 1448 399 Weight 122.062 kg Intake: IV 150 1050 Dextrose 5%-Ns IV Solution 1, 1000 000 ml @ 84 mls/hr IV .[id number] [facility] Rx#:[id number] Zosyn 2.25 gm In Dextrose 5% in 50 50 Water 50 ml @ 100 mls/hr IV Q6H [facility] Rx#:[id number] Oral 400 400 IV - Manual Only 1000 Output: # of times incontinent of urine 3 2 1 Other: Meal Breakfast Percent of Meal Consumed 10% Stool Size Moderate Stool Color Brown Stool Consistency Soft # Voids 1 1 # Bowel Movements 1 # of times incontinent of 1 Bowels OBJ DATA Labs CBC & Chem 7: 08/11/20 06:02 08/16/20 05:27 Labs: Abnormal Lab Results 08/16/20 08/16/20 08/15/20 07:58 05:27 05:30 Chloride 110 H Carbon Dioxide 19 L 20 L Creatinine 1.6 H 1.7 H Glucose 113 H 110 H Urine Eosinophils U Random Total Protein U [place] Prot/Creat Ratio U Monoclonal Protein Vancomycin Trough 21.5 H* 08/14/20 08/12/20 10:56 06:16 Chloride Carbon Dioxide Creatinine Glucose Urine Eosinophils < 1% A U Random Total Protein 199 H U [place] Prot/Creat Ratio 4.854 H U Monoclonal Protein 2 H Vancomycin Trough Meds: Medications Acetaminophen (Tylenol) 650 mg PO Q4-6HP PRN; Protocol PRN Reason: Per Pain Protocol/Fever > 101 Last Admin: 08/16/20 09:52 Dose: 650 mg Documented by: Albuterol Sulfate (Ventolin) 1 puff INH Q4HP PRN PRN Reason: Shortness Of Breath Allopurinol (Zyloprim) 100 mg PO DAILY [facility] Last Admin: 08/17/20 08:55 Dose: 100 mg Documented by: Aspirin (Ecotrin) 325 mg PO DAILY [facility] Last Admin: 08/17/20 08:55 Dose: 325 mg Documented by: Atenolol (Tenormin) 50 mg PO BID [facility] Last Admin: 08/17/20 08:55 Dose: 50 mg Documented by: Belladonna Alkaloids/Opium (B & O) 30 mg ID Q4HP PRN PRN Reason: Pain Bisacodyl (Dulcolax) 10 mg ID Q2-3DAYS PRN PRN Reason: Constipation Cyanocobalamin (Vitamin B-12) 1,000 mcg PO DAILY [facility] Last Admin: 08/17/20 09:13 Dose: 1,000 mcg Documented by: Dextrose (Dextrose 50%) 0 ml IV UD PRN PRN Reason: Hypoglycemia Diagnostic Test (Pha) (Accu-Chek) 1 each FS ACHS [facility] Last Admin: 08/17/20 07:23 Dose: 1 each Documented by: Diphenhydramine HCl (Benadryl) 25 mg PO Q6HP PRN PRN Reason: Allergic Symptoms Docusate Sodium (Colace) 100 mg PO BID [facility] Last Admin: 08/17/20 08:55 Dose: 100 mg Documented by: Ergocalciferol (Drisdol) 50,000 unit PO TuFr@0900 [facility] Last Admin: 08/16/20 09:04 Dose: 50,000 unit Documented by: Glucose (Insta-Glucose) 15 gm PO PRN PRN PRN Reason: Hypoglycemia Heparin Sodium (Porcine) (Heparin) 5,000 unit SQ Q12 [facility] Last Admin: 08/17/20 08:55 Dose: 5,000 unit Documented by: Hydralazine HCl (Apresoline) 0 mg IV Q2HP PRN PRN Reason: Hypertension Last Admin: 08/16/20 20:43 Dose: 10 mg Documented by: Magnesium Sulfate (Magnesium Sulfate) 2 gm in 50 mls @ 50 mls/hr IV UD PRN PRN Reason: MG = or < 1.7 Last Infusion: 08/11/20 11:24 Dose: Infused Documented by: Potassium Chloride 40 meq/ (Dextrose) 520 mls @ 130 mls/hr IV UD PRN PRN Reason: K+ = or < 3.5 Acetaminophen (Ofirmev) 650 mg in 65 mls @ 130 mls/hr IV Q6HP PRN; Protocol PRN Reason: Per Pain Protocol/Fever > 101 Last Infusion: 08/15/20 20:15 Dose: Infused Documented by: Dextrose/Sodium Chloride (Dextrose 5%-Ns Iv Solution) 1,000 mls @ 84 mls/hr IV .[id number] [facility] Last Admin: 08/17/20 04:23 Dose: 84 mls/hr Documented by: Piperacillin Sod/Tazobactam (Sod 2.25 gm/ Dextrose) 50 mls @ 100 mls/hr IV Q6H [facility] Last Admin: 08/17/20 05:47 Dose: 100 mls/hr Documented by: Vancomycin HCl 1,000 mg/ (Sodium Chloride) 250 mls @ 250 mls/hr IV DAILY [facility] Last Admin: 08/17/20 09:40 Dose: 250 mls/hr Documented by: Insulin Glargine (Lantus) 36 unit SQ DAILY [facility] Last Admin: 08/17/20 08:55 Dose: 36 units Documented by: Insulin Human Lispro (Humalog) 0 unit SQ ACHS [facility]; Protocol Last Admin: 08/17/20 07:25 Dose: 3 units Documented by: Iron Carb/Multivit/[place]/Folic Acid (Multivitamin W/Minerals) 1 tab PO DAILY [facility] Last Admin: 08/17/20 08:55 Dose: 1 tab Documented by: Levothyroxine Sodium (Synthroid) 50 mcg PO QAMAC [facility] Last Admin: 08/17/20 07:23 Dose: 50 mcg Documented by: Loperamide HCl (Imodium) 4 mg PO Q6H PRN PRN Reason: Diarrhea Melatonin (Melatonin 3mg Tablet) 9 mg PO HS [facility] Last Admin: 08/16/20 20:42 Dose: 9 mg Documented by: Ondansetron HCl (Zofran Odt) 4 mg SL Q4-6HP PRN; Protocol PRN Reason: Nausea And Vomiting Ondansetron HCl (Zofran) 4 mg IV Q4-6HP PRN; Protocol PRN Reason: Nausea And Vomiting Fluticasone Furoate- Vilanterol [Breo Ellipta] Inhaler 1 dose INH DAILY [facility] Last Admin: 08/17/20 08:56 Dose: Not Given Documented by: Linaclotide [Linzess (] 145 Mcg Cap) 1 dose PO DAILY [facility] Last Admin: 08/17/20 08:56 Dose: Not Given Documented by: Memantine Er 21 Mg (Tab) 1 dose PO QDAY [facility] Last Admin: 08/17/20 09:11 Dose: Not Given Documented by: Polyethylene Glycol (Miralax) 17 gm PO DAILYP PRN PRN Reason: Constipation Quetiapine Fumarate (Seroquel) 200 mg PO [facility] Last Admin: 08/16/20 20:42 Dose: 200 mg Documented by: Senna/Docusate Sodium (Senna Plus Tablet) 1 tab PO [facility] Last Admin: 08/16/20 20:41 Dose: Not Given Documented by: Sertraline HCl (Zoloft) 50 mg PO QDAY [facility] Last Admin: 08/17/20 09:13 Dose: 50 mg Documented by: Simvastatin (Zocor) 20 mg PO [facility] Last Admin: 08/16/20 20:41 Dose: 20 mg Documented by: Vancomycin HCl (Vancomycin Per Pharmacy) 1 order IV UD [facility]; Protocol A/P Narrative A/P Narrative: A: *Obstructive uropathy with b/l hydronephrosis: Status post cystoscopy. Managed by urology *PRIMO: secondary obstructive uropathy, clinically improved with downtrending creatinine 1.6<<2.3<<1.5<<2.8, *Complicated enterococcal/E. coli UTI (MDR) fecal soiling- currently on vancomycin/Zosyn. *AMS, superimposed on underlying Dementia/anxiety: secondary to combination of hyponatremia/renal failure uremia/medications. resolved, now at baseline, continue SSRIs/quetiapine/memantine *Anemia of chronic disease: s/p 2 units PRBC (08/08), stable *Hyponatremia: likely secondary to bladder outlet obstruction/renal failure. Urine osmolarity suggestive against SIADH, resolvedo *GERD continue PPI *HTN/HLD: *Hypothyroid on thyroxine *DM type II: *History of gout: on allopurinol *Morbid obesity continue directed therapies/nutrition consult Plan: -Continue renal failure management per nephrology -zosyn/vanco per nephro based on E. coli/enterococci sensitivities -ARB on hold in light of renal failure, continue atenolol - continue basal prandial insulin(36u)/renal CC diet -PT OT nutrition support -Discharge planning per case management likely SNF/[facility] -ppx: Heparin Time Spent With Patient Time: Total time spent is greater than 50% in coordination of care (as documented) at patient's floor/unit and/or counseling patient: QUALITY Stroke Symptom Onset Unknown: No VTE Deep Vein Thrombosis/Pulmonary Embolism Present on Admission: No
[2020-08-17] MEDS: SIMVASTATIN 20 MG TABLET PO SCH (21:18)
[2020-08-17] MEDS: MELATONIN 3 MG TABLET PO SCH (21:18)
[2020-08-17] MEDS: SENNOSIDES/DOCUSATE SODIUM 1 TAB TABLET PO SCH (21:18)
[2020-08-17] MEDS: QUEtiapine 100 MG TABLET PO SCH (21:19)
[2020-08-18] MEDS: PIPERACILLIN SODIUM/TAZOBACTAM 2.25 GM in DEXTROSE 5% IN WATER 50 ML IV SCH ×4 (00:20→17:24)
[2020-08-18] MEDS: DEXTROSE 5%-NS 1,000 ML IV SCH ×4 (04:59→21:37)
[2020-08-18] MEDS: INSULIN LISPRO 1 UNIT/0.01 ML UNIT SQ SCH ×4 (07:23→20:58)
[2020-08-18] MEDS: LEVOTHYROXINE 50 MCG TABLET PO SCH (07:23)
[2020-08-18] MEDS: MULTIVIT,THER IRON,CA,FA & MIN 1 TABLET PO SCH (08:32)
[2020-08-18] MEDS: INSULIN GLARGINE, HUMAN 1 UNIT/0.01 ML SQ SCH (08:32)
[2020-08-18] MEDS: DOCUSATE SODIUM 100 MG CAPSULE PO SCH ×2 (08:32→20:57)
[2020-08-18] MEDS: ALLOPURINOL 100 MG TABLET PO SCH (08:32)
[2020-08-18] MEDS: ASPIRIN 325 MG ENTERIC COATED TABLET PO SCH (08:32)
[2020-08-18] MEDS: CYANOCOBALAMIN (VITAMIN B-12) 500 MCG TABLET PO SCH (08:32)
[2020-08-18] MEDS: SERTRALINE 50 MG TABLET PO SCH (08:32)
[2020-08-18] MEDS: Fluticasone Furoate-Vilanterol [Breo Ellipta] Inhaler INH SCH (08:33)
[2020-08-18] MEDS: ATENOLOL 50 MG TABLET PO SCH ×2 (08:33→20:57)
[2020-08-18] MEDS: HEPARIN 5,000 UNIT/ML VIAL SQ SCH ×2 (08:33→20:58)
[2020-08-18] MEDS: MEMANTINE 21 MG PO SCH (08:33)
[2020-08-18] MEDS: VANCOMYCIN 1,000 MG in 0.9 % SODIUM CHLORIDE 250 ML IV SCH (09:21)
--- NOTE | 2020-08-18 10:21 | Internal Med Progress Note ---
SUBJECTIVE Subjective Patient information: Note initiated : 08/18/20 at 10:18 am Service Date, if different from initiated Date: [] Patient: Reny Sanches a 75 y/o F admitted on 08/06/20 for ARF. Chief Complaint: [] Interval history: Ms. Sanches is a 75 year old F resident of [facility] since mid-May with history of HTN/HLD/DM type II/morbid obesity who was recently evaluated at nephrology office for worsening renal function now presents to the ER from nephrology office for further hospitalization and evaluation of progressive renal insufficiency. Patient has become increasingly fatigued, lethargic and confused over the last few days and has not been able to function or perform ADLs. She denies associated dysuria, diarrhea, nausea but endorses difficulty urination. She denies changes in medications. Patient work-up in the ER was consistent with acute renal failure with creatinine 2.8. Notable pyuria, sodium 122 and profound change in mental status with GCS 8. Most of the history was obtained from patient's daughter/prior EMR notes. CT abdomen revealed bilateral hydronephrosis with likely bladder outlet obstruction. Urology was consulted. Nephrology was consulted and requested admission under hospitalist service. Subsequently hospitalist service was consulted At the time of my evaluation patient is very confused however oriented to place only. She could not provide any meaningful history over the last 72 hours. She however denies chest pain, fever, chills but endorses lightheadedness, dizziness. 08/07-patient clinically improving. Sodium up to 132. Sodium rise higher than goal. Transition to D5 half NS per nephrology. Urine osmolarity appropriately low ruling out SIADH. Creatinine down to 2.4. Continue antibiotic coverage. Await urine cultures. Improving mental status however remains disoriented. No overnight fever chills. No other concerns per nursing staff. No telemetry events. Restart diabetic diet 08/08-patient seen in room along with daughter. Intermittently confused but much more alert since yesterday. Hemoglobin 6.6, 2 units PRBC transfusion per nephrology. Creatinine down to 1.9, Cedillo's draining clear urine, sodium improved to 133. Following commands. Remains disoriented. No overnight fever chills. Ongoing management per nephrology. No concerns expressed by nursing staff except for occasional incontinence. Ongoing MRSA decolonization. Daughter expressed concerns about transitioning to [facility] and would want alternate facility including [facility] 08/09-patient appears quite cheerful. No family at bedside. Ongoing physical therapy with therapist in room. No overnight fever chills. No additional concerns expressed with nursing staff. White count 6.1. Stable hemodynamics. Creatinine 1.9.Cedillo is draining clear urine. Continuing antibiotic coverage. 08/10-patient clinically improving. More lucid. Complains of intermittent bladder spasm. Responded well to BNO suppository. White count 7.4. Nephrology recommends confusion of Cedillo's catheter with further work-up by urology on discharge. Creatinine down to 1.5, on antibiotic coverage for E. coli UTI. Multidrug-resistant sensitive to nitrofurantoin. 08/11 No new complaints. No overnight events. BC stable. Creatinine 1.6. 08/12 Pleasantly demented this morning as usual. Received CT KUB this morning. 08/13 Patient again pleasantly demented. Creatinine elevating. CT imaging concern for bladder malignancy. Urology consulted. 08/14 No overnight event or new complaints. Seen by urology. He needs Nuc med lasix renogram. 08/15 No new pains or complaints. No overnight events. Pending urine studies by urology. Creatinine improved. 08/16-Case discussed urology. Will undergo cystoscopy later today. Urology recommends 1 dose of fluconazole/removing Cedillo's catheter. Case discussed with nephrology. We will continue existing treatment and review further and urology recommendations. No overnight concerns or events per's nursing staff 08/17-patient status post cystoscopy. Clinical improved. Cedillo discontinued. Ongoing management per nephrology/urology recommendations. Anticipate discharge to SNF on Friday 08/18-patient doing well. Pleasantly confused. Ongoing antibiotic coverage. Will discharge to SNF in 24 hours. Continuing treatment/diet interventions. Constitutional Vitals: Vital Signs Temp Pulse Resp BP Pulse Ox 98.7 F 76 18 142/66 96 08/18/20 06:57 08/18/20 06:57 08/18/20 07:31 08/18/20 06:57 08/18/20 07:31 Period Temp Pulse Resp BP Sys/Corbin Pulse Ox Last 24 Hr 98.0 F-98.9 F 74-80 16-20 110-142/55-70 95-98 Intake and Output 08/17/20 08/18/20 08/18/20 21:59 05:59 13:59 Intake Total 1530 650 200 Output Total 3 4 1 Balance 1527 646 199 Weight 126.28 kg No overnight fever chills No anxiety Pleasantly confused Nonlabored breathing Intake & Output: Intake & Output 08/17/20 08/18/20 08/18/20 21:59 05:59 13:59 Intake Total 1530 650 200 Output Total 3 4 1 Balance 1527 646 199 Weight 126.28 kg Intake: IV 1050 50 Dextrose 5%-Ns IV Solution 1, 1000 000 ml @ 84 mls/hr IV .[id number] [facility] Rx#:[id number] Zosyn 2.25 gm In Dextrose 5% in 50 50 Water 50 ml @ 100 mls/hr IV Q6H [facility] Rx#:[id number] Oral 480 600 200 Output: # of times incontinent of urine 3 4 1 Other: Meal Dinner Breakfast Percent of Meal Consumed 75% Refused Feeding Ability Independent Urine Odor Strong # Voids 1 1 Exam: General: Awake, No acute Distress Eyes/N/T: EOMI, Head/Neck: neck supple, CV: RRR, No murmurs, Pulm: Clear b/l, no wheezing/rhonchi/rales Abd: soft, nontender, +BS x4, Cedillo in place Ext: no clubbing/cyanosis, 1+ b/l LE edema Neuro: confusion, no focal deficits, moves all extremities, Skin: warm/dry OBJ DATA Labs CBC & Chem 7: 08/11/20 06:02 08/16/20 05:27 Labs: Abnormal Lab Results 08/18/20 08/16/20 08/16/20 08:06 07:58 05:27 Chloride 110 H Carbon Dioxide 19 L Creatinine 1.6 H Glucose 113 H U Random Total Protein U [place] Prot/Creat Ratio U Monoclonal Protein Vancomycin Trough 20.2 H* 21.5 H* 08/12/20 06:16 Chloride Carbon Dioxide Creatinine Glucose U Random Total Protein 199 H U [place] Prot/Creat Ratio 4.854 H U Monoclonal Protein 2 H Vancomycin Trough Meds: Medications Acetaminophen (Tylenol) 650 mg PO Q4-6HP PRN; Protocol PRN Reason: Per Pain Protocol/Fever > 101 Last Admin: 08/16/20 09:52 Dose: 650 mg Documented by: Albuterol Sulfate (Ventolin) 1 puff INH Q4HP PRN PRN Reason: Shortness Of Breath Allopurinol (Zyloprim) 100 mg PO DAILY [facility] Last Admin: 08/18/20 08:32 Dose: 100 mg Documented by: Aspirin (Ecotrin) 325 mg PO DAILY [facility] Last Admin: 08/18/20 08:32 Dose: 325 mg Documented by: Atenolol (Tenormin) 50 mg PO BID [facility] Last Admin: 08/18/20 08:33 Dose: 50 mg Documented by: [place] Alkaloids/Opium (B & O) 30 mg HI Q4HP PRN PRN Reason: Pain Bisacodyl (Dulcolax) 10 mg HI Q2-3DAYS PRN PRN Reason: Constipation Cyanocobalamin (Vitamin B-12) 1,000 mcg PO DAILY [facility] Last Admin: 08/18/20 08:32 Dose: 1,000 mcg Documented by: Dextrose (Dextrose 50%) 0 ml IV UD PRN PRN Reason: Hypoglycemia Diagnostic Test (Pha) (Accu-Chek) 1 each FS ACHS [facility] Last Admin: 08/18/20 07:22 Dose: 1 each Documented by: Diphenhydramine HCl (Benadryl) 25 mg PO Q6HP PRN PRN Reason: Allergic Symptoms Docusate Sodium (Colace) 100 mg PO BID [facility] Last Admin: 08/18/20 08:32 Dose: 100 mg Documented by: Ergocalciferol (Drisdol) 50,000 unit PO TuFr@0900 [facility] Last Admin: 08/16/20 09:04 Dose: 50,000 unit Documented by: Glucose (Insta-Glucose) 15 gm PO PRN PRN PRN Reason: Hypoglycemia Heparin Sodium (Porcine) (Heparin) 5,000 unit SQ Q12 [facility] Last Admin: 08/18/20 08:33 Dose: 5,000 unit Documented by: Hydralazine HCl (Apresoline) 0 mg IV Q2HP PRN PRN Reason: Hypertension Last Admin: 08/16/20 20:43 Dose: 10 mg Documented by: Magnesium Sulfate (Magnesium Sulfate) 2 gm in 50 mls @ 50 mls/hr IV UD PRN PRN Reason: MG = or < 1.7 Last Infusion: 08/11/20 11:24 Dose: Infused Documented by: Potassium Chloride 40 meq/ (Dextrose) 520 mls @ 130 mls/hr IV UD PRN PRN Reason: K+ = or < 3.5 Acetaminophen (Ofirmev) 650 mg in 65 mls @ 130 mls/hr IV Q6HP PRN; Protocol PRN Reason: Per Pain Protocol/Fever > 101 Last Infusion: 08/15/20 20:15 Dose: Infused Documented by: Dextrose/Sodium Chloride (Dextrose 5%-Ns Iv Solution) 1,000 mls @ 84 mls/hr IV .[id number] [facility] Last Admin: 08/18/20 08:05 Dose: 84 mls/hr Documented by: Piperacillin Sod/Tazobactam (Sod 2.25 gm/ Dextrose) 50 mls @ 100 mls/hr IV Q6H [facility] Last Admin: 08/18/20 06:05 Dose: 100 mls/hr Documented by: Insulin Glargine (Lantus) 36 unit SQ DAILY [facility] Last Admin: 08/18/20 08:32 Dose: 36 units Documented by: Insulin Human Lispro (Humalog) 0 unit SQ ACHS [facility]; Protocol Last Admin: 08/18/20 07:23 Dose: 1 units Documented by: Iron Carb/Multivit/Wright/Folic Acid (Multivitamin W/Minerals) 1 tab PO DAILY [facility] Last Admin: 08/18/20 08:32 Dose: 1 tab Documented by: Levothyroxine Sodium (Synthroid) 50 mcg PO QAMAC [facility] Last Admin: 08/18/20 07:23 Dose: 50 mcg Documented by: Loperamide HCl (Imodium) 4 mg PO Q6H PRN PRN Reason: Diarrhea Melatonin (Melatonin 3mg Tablet) 9 mg PO HS [facility] Last Admin: 08/17/20 21:18 Dose: 9 mg Documented by: Ondansetron HCl (Zofran Odt) 4 mg SL Q4-6HP PRN; Protocol PRN Reason: Nausea And Vomiting Ondansetron HCl (Zofran) 4 mg IV Q4-6HP PRN; Protocol PRN Reason: Nausea And Vomiting Fluticasone Furoate- Vilanterol [Breo Ellipta] Inhaler 1 dose INH DAILY [facility] Last Admin: 08/18/20 08:33 Dose: Not Given Documented by: Linaclotide [Linzess (] 145 Mcg Cap) 1 dose PO DAILY [facility] Last Admin: 08/18/20 08:33 Dose: Not Given Documented by: Memantine Er 21 Mg (Tab) 1 dose PO QDAY [facility] Last Admin: 08/18/20 08:33 Dose: Not Given Documented by: Polyethylene Glycol (Miralax) 17 gm PO DAILYP PRN PRN Reason: Constipation Quetiapine Fumarate (Seroquel) 200 mg PO [facility] Last Admin: 08/17/20 21:19 Dose: 200 mg Documented by: Senna/Docusate Sodium (Senna Plus Tablet) 1 tab PO [facility] Last Admin: 08/17/20 21:18 Dose: 1 tab Documented by: Sertraline HCl (Zoloft) 50 mg PO QDAY [facility] Last Admin: 08/18/20 08:32 Dose: 50 mg Documented by: Simvastatin (Zocor) 20 mg PO [facility] Last Admin: 08/17/20 21:18 Dose: 20 mg Documented by: Vancomycin HCl (Vancomycin Per Pharmacy) 1 order IV UD [facility]; Protocol A/P Assessment and plan (1) Acute on chronic renal failure: Assessment and plan: Reny Sanches is a 75-year-old female with hypertension, hyperlipidemia, diabetes mellitus type 2, hypothyroidism, dementia with anxiety, admitted on 08/06/20 for acute kidney injury. Baseline serum creatinine: 0.9-1.1 (eGFR 50-63). In May 2020, she had an episode of acute renal failure due to a combination of ARB, diuretics, Bactrim and nonsteroidal anti-inflammatories. After a full recovery, she presented with a second episode of acute renal failure has reoccurred in association with bilateral hydro, abnormal urinary bladder, pyuria and an ESR >100 mm/hr. Acute kidney injury on chronic kidney disease stage 3a associated with obstructive uropathy (bilateral hydronephrosis diffuse thickening of bladder, possible obstruction of both UPJ) and acute complicated cystitis (MDR E. coli and Enterococcus), present on arrival. Work up: Urine culture on 08/11/20: Enterococcus faecium (grp d) and Escherichia coli SPEP/UPEP/SETH on 08/12/20: The serum protein electrophoresis shows a zone of restriction in the gamma region with increased polyclonal gammaglobulins and decreased albumin. The estimated concentration of the paraprotein is 0.19 g/dL. Concurrent immunofixation characterizes this paraprotein as an IgM heavy chain protein with faint possible lambda light chain. 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 Urine random total protein/creatinine on 08/12/20: 4,854 mg/g creatinine. CT IVP on 08/13/20: 1. Marked diffuse wall thickening of the urinary bladder including encasement of both UVJ regions. Pathologic infiltration by tumor or inflammation is suspected. The left upper collecting system and ureter have decompressed since the prior pre-Cedillo catheter CT, however there is persistent moderate right hydroureter/hydronephrosis. This may be due to pathologic encasement of the right UVJ, rather than bladder outlet obstruction or neurogenic bladder. More specific evaluation with cystoscopy is suggested. 2. Scattered small low-attenuation filling defects within the upper collecting systems of both kidneys - more prominent on the right. This could represent sloughed tissue from papillary necrosis, scattered thrombi or, less likely, nonopaque stones. This could also be more specifically evaluated at time of cystoscopy/ ureteroscopy. 3. Probable cirrhosis with evidence for mild portal hypertension and even a left splenorenal shunt. The spleen is mildly enlarged. Small amount of ascites appreciated. Cystoscopy, bladder biopsy and fulguration, bilateral ureteral catheterization with bilateral renal pelvis sampling, bilateral retrograde pyelograms, cystogram on 08/16/20: Findings: 1) contracted small capacity bladder with catheter edema changes and inflamed trigone. 2) ureteral orifices patulous. 3) selective urine via ureteral cath from each renal pelvis CLEAR. 4) bilateral retrograde pyelograms: no filling defects corresponding to those seen on CT scan appreciated. RIGHT mild hydronephrosis and tortuous hydroureter BUT WITH GOOD ureteral jet into bladder. LEFT minimal left hydronephrosis and milder tortuous hydroureter WITH GOOD ureteral jet.. 5) Some cloudy white material from left ureteral jet after retrograde pyelogram and such was sampled as bladder urine and sent for gram stain for yeast. 6) cystogram: imaging limited by contrast in ureter from [facility] but CLEAR ureteral reflux seen bilaterally at LOW bladder volumes (< 200cc) Progress: Last serum creatinine 1.6 with decreasing trend. Baseline serum creatinine: 0.9-1.1 (eGFR 50-63) Urine output: 1,200+ ml reported in the past 24 hours. Hyperchloremic metabolic acidosis. Recommendations/Plan: Anticipate no acute hemodialysis need. Avoid Normal Saline due to hyperchloremic metabolic acidosis. Follow up with Dr. Kent as outpatient. Status: Acute Qualifiers: Acute renal failure type: with other specified pathological lesion Chronic kidney disease stage: stage 3 (moderate) Chronic kidney disease stage 3 subtype: stage 3a (GFR 45-59) Qualified Code(s): N17.8 - Other acute kidney failure; N18.31 - Chronic kidney disease, stage 3a (2) Hyperchloremic metabolic acidosis: Status: Acute Narrative A/P Narrative: *Obstructive uropathy with b/l hydronephrosis: Status post cystoscopy. Managed by urology *PRIMO: secondary obstructive uropathy, clinically improved with downtrending creatinine 1.6<<2.3<<1.5<<2.8, *Complicated enterococcal/E. coli UTI (MDR) fecal soiling- currently on vancomycin/Zosyn. *AMS, superimposed on underlying Dementia/anxiety: secondary to combination of hyponatremia/renal failure uremia/medications. resolved, now at baseline, continue SSRIs/quetiapine/memantine, clinically improved *Anemia of chronic disease: s/p 2 units PRBC (08/08), stable *Hyponatremia: likely secondary to bladder outlet obstruction/renal failure. Urine osmolarity suggestive against SIADH, *GERD continue PPI *HTN/HLD: *Hypothyroid on thyroxine *DM type II: *History of gout: on allopurinol *Morbid obesity continue directed therapies/nutrition consult Plan: -Continue renal failure management per nephrology -Continue antibiotics per nephrology -ARB on hold in light of renal failure, continue atenolol - continue basal prandial insulin(36u)/renal CC diet -PT OT nutrition support -Discharge planning per case management likely SNF/[facility] -ppx: Heparin Time Spent With Patient Time: Total time spent is greater than 50% in coordination of care (as documented) at patient's floor/unit and/or counseling patient: QUALITY Stroke Symptom Onset Unknown: No VTE Deep Vein Thrombosis/Pulmonary Embolism Present on Admission: No
[2020-08-18 10:45] LABS: ALT/SGPT 18 U/L (<40); AST/SGOT 21 U/L (<32); Albumin 2.5 gm/dL (3.2-5.2); Albumin/Globulin Ratio 0.6 (1.0-2.3); Alkaline Phosphatase 105 U/L (39-117); Bilirubin,Direct < 0.2 mg/dL (<0.3); Bilirubin,Total 0.3 mg/dL (0.1-1.0); Blood Urea Nitrogen 20 mg/dL (8-23); Calcium 8.7 mg/dL (8.6-10.4); Carbon Dioxide 19 mmol/L (22-30); Chloride 106 mmol/L (96-108); Globulin 4.4 gm/dL (2.2-3.7); Glomerular Filtration Rate 31; Glucose 139 mg/dL (70-105); Lactate Dehydrogenase 158 U/L (135-225); Phosphorous 2.5 mg/dL (2.5-4.5); Triglycerides 104 mg/dL (<150); Uric Acid 3.8 mg/dL (2.5-8.0)
[2020-08-18 11:09] LABS: Basophils # (Auto) 0.04 K/mcL (0.00-0.20); Basophils % (Auto) 0.6 % (0.0-2.0); Eosinophils # (Auto) 0.27 K/mcL (0.00-0.70); Eosinophils % (Auto) 4.4 % (0.0-7.0); Hematocrit 28.7 % (36.0-48.0); Hemoglobin 9.1 g/dL (12.0-15.0); Lymphocytes # (Auto) 0.96 K/mcL (1.50-4.80); Lymphocytes % (Auto) 15.5 % (15.0-49.0); Mean Cell Volume 95.7 fL (80.0-100.0); Mean Corpuscular HGB Conc 31.7 g/dL (31.0-36.0); Mean Platelet Volume 9.8 fL (7.4-10.4); Monocytes % (Auto) 9.7 % (1.0-12.0); Neutrophils % (Auto) 69.8 % (38.0-78.0); Platelet Count 111 K/mcL (140-440); Red Cell Distribution Width 15.9 % (11.5-14.5); WBC 6.2 K/mcL (4.5-11.0)
--- NOTE | 2020-08-18 12:59 | Nephrology Progress Note ---
SUBJECTIVE Subjective Patient information: Note initiated : 08/18/20 at 12:55 pm Patient: Reny Sanches 75 y/o F admitted on 08/06/20 for ARF. Chief Complaint: Weakness Pertinent ROS: Weakness Edema Confusion Constitutional Vitals: Vital Signs Temp Pulse Resp BP Pulse Ox 97.1 F 76 18 127/58 96 08/18/20 11:25 08/18/20 11:25 08/18/20 11:25 08/18/20 11:25 08/18/20 11:25 Period Temp Pulse Resp BP Sys/Corbin Pulse Ox Last 24 Hr 97.1 F-98.9 F 75-80 16-20 110-142/55-66 95-98 Intake and Output 08/17/20 08/18/20 08/18/20 21:59 05:59 13:59 Intake Total 2352 382 9760 Output Total 3 4 2 Balance 0778 421 2014 Weight 278 lb 6.4 oz Intake & Output: Intake & Output 08/17/20 08/18/20 08/18/20 21:59 05:59 13:59 Intake Total 6074 494 6327 Output Total 3 4 2 Balance 5226 573 1222 Weight 278 lb 6.4 oz Intake: IV 1050 50 50 Dextrose 5%-Ns IV Solution 1, 1000 000 ml @ 84 mls/hr IV .[id number] [facility] Rx#:[id number] Zosyn 2.25 gm In Dextrose 5% in 50 50 50 Water 50 ml @ 100 mls/hr IV Q6H [facility] Rx#:[id number] Oral [phone] Output: # of times incontinent of urine 3 4 2 Other: Meal Dinner Breakfast Percent of Meal Consumed 75% Refused Feeding Ability Independent Urine Odor Strong # Voids 1 1 General appearance: cooperative and no acute distress Head Head exam: Present atraumatic and normal inspection Respiratory Respiratory exam: Present decreased breath sounds Cardiovascular Cardiovascular exam: Present normal rate and rhythm GI/Abdominal GI/Abdominal exam: Present soft Neurological Exam Neurological exam: Present alert and altered Psychiatric Psychiatric exam: Present normal affect and normal mood Skin Skin exam: Present pallor A/P Assessment and plan (1) Acute on chronic renal failure: Assessment and plan: Reny Sanches is a 75-year-old female with hypertension, hyperlipidemia, diabetes mellitus type 2, hypothyroidism, dementia with anxiety, admitted on 08/06/20 for acute kidney injury. Baseline serum creatinine: 0.9-1.1 (eGFR 50-63). In May 2020, she had an episode of acute renal failure due to a combination of ARB, diuretics, Bactrim and nonsteroidal anti-inflammatories. After a full recovery, she presented with a second episode of acute renal failure has reoccurred in association with bilateral hydro, abnormal urinary bladder, pyuria and an ESR >100 mm/hr. Acute kidney injury on chronic kidney disease stage 3a associated with obstructive uropathy (bilateral hydronephrosis diffuse thickening of bladder, possible obstruction of both UPJ) and acute complicated cystitis (MDR E. coli and Enterococcus), present on arrival, resolving. Work up: Urine culture on 08/11/20: Enterococcus faecium (grp d) and Escherichia coli SPEP/UPEP/SETH on 08/12/20: The serum protein electrophoresis shows a zone of restriction in the gamma region with increased polyclonal gammaglobulins and decreased albumin. The estimated concentration of the paraprotein is 0.19 g/dL. Concurrent immunofixation characterizes this paraprotein as an IgM heavy chain protein with faint possible lambda light chain. 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 Urine random total protein/creatinine on 08/12/20: 4,854 mg/g creatinine. CT IVP on 08/13/20: 1. Marked diffuse wall thickening of the urinary bladder including encasement of both UVJ regions. Pathologic infiltration by tumor or inflammation is suspected. The left upper collecting system and ureter have decompressed since the prior pre-Cedillo catheter CT, however there is persistent moderate right hydroureter/hydronephrosis. This may be due to pathologic encasement of the right UVJ, rather than bladder outlet obstruction or neurogen ic bladder. More specific evaluation with cystoscopy is suggested. 2. Scattered small low-attenuation filling defects within the upper collecting systems of both kidneys - more prominent on the right. This could represent sloughed tissue from papillary necrosis, scattered thrombi or, less likely, nonopaque stones. This could also be more specifically evaluated at time of cystoscopy/ ureteroscopy. 3. Probable cirrhosis with evidence for mild portal hypertension and even a left splenorenal shunt. The spleen is mildly enlarged. Small amount of ascites appreciated. Cystoscopy, bladder biopsy and fulguration, bilateral ureteral catheterization with bilateral renal pelvis sampling, bilateral retrograde pyelograms, cystogram on 08/16/20: Findings: 1) contracted small capacity bladder with catheter edema changes and inflamed trigone. 2) ureteral orifices patulous. 3) selective urine via ureteral cath from each renal pelvis CLEAR. 4) bilateral retrograde pyelograms: no filling defects corresponding to those seen on CT scan appreciated. RIGHT mild hydronephrosis and tortuous hydroureter BUT WITH GOOD ureteral jet into bladder. LEFT minimal left hydronephrosis and milder tortuous hydroureter WITH GOOD ureteral jet.. 5) Some cloudy white material from left ureteral jet after retrograde pyelogram and such was sampled as bladder urine and sent for gram stain for yeast. 6) cystogram: imaging limited by contrast in ureter from [facility] but CLEAR ureteral reflux seen bilaterally at LOW bladder volumes (< 200cc) Progress: Serum creatinine 1.6 did not change in the past 48 hours. Baseline serum creatinine: 0.9-1.1 (eGFR 50-63) Hyperchloremic metabolic acidosis. Hypomagnesemia. Recommendations/Plan: Anticipate no acute hemodialysis need. Avoid Normal Saline due to hyperchloremic metabolic acidosis. Sodium Bicarbonate 1300 mg PO BID x 2 doses for metabolic acidosis. Magnesium Oxide 400 mg PO BID x 2 doses for hypomagnesemia. Follow up with Dr. Kent as outpatient. Status: Acute Qualifiers: Acute renal failure type: with other specified pathological lesion Chronic kidney disease stage: stage 3 (moderate) Chronic kidney disease stage 3 subtype: stage 3a (GFR 45-59) Qualified Code(s): N17.8 - Other acute kidney failure; N18.31 - Chronic kidney disease, stage 3a (2) Hyperchloremic metabolic acidosis: Status: Acute Time Spent With Patient Time: Total time spent is greater than 50% in coordination of care (as documented) at patient's floor/unit and/or counseling patient:
[2020-08-18] MEDS: MAGNESIUM OXIDE 400 MG TABLET PO SCH ×2 (13:42→20:58)
[2020-08-18] MEDS: SODIUM BICARBONATE 650 MG TABLET PO SCH ×2 (13:42→20:58)
--- NOTE | 2020-08-18 15:20 | Non-GYN Cytology Report ---
Non Relay Technician Cytology NG Diagnosis URINE, CATHETERIZED: --- RARE ATYPICAL UROTHELIAL CELLS PRESENT, SEE COMMENT. (RLF:adj) NG Comments There are rare atypical urothelial cells present in a background of numerous neutrophils. A urothelial neoplasm cannot be excluded. No high-grade features are seen. NG Micro Description The thinprep slide is examined and demonstrates rare clustered urothelial cells with mild nuclear enlargement and small nucleoli. Background bland individual urothelial cells and squamous epithelial cells and neutrophils are present. (RLF:adj) NG Gross Description Received 5 mL clear fluid. Electronically Signed Heydi Link MD, FCAP Electronically Signed 08/18/2020 15:17
[2020-08-18] MEDS: MELATONIN 3 MG TABLET PO SCH (20:58)
[2020-08-18] MEDS: QUEtiapine 100 MG TABLET PO SCH (20:59)
[2020-08-18] MEDS: SIMVASTATIN 20 MG TABLET PO SCH (20:59)
[2020-08-18] MEDS: SENNOSIDES/DOCUSATE SODIUM 1 TAB TABLET PO SCH (20:59)
[2020-08-19] MEDS: PIPERACILLIN SODIUM/TAZOBACTAM 2.25 GM in DEXTROSE 5% IN WATER 50 ML IV SCH ×3 (00:15→11:26)
[2020-08-19] MEDS: DEXTROSE 5%-NS 1,000 ML IV SCH (03:26)
[2020-08-19] MEDS: ACETAMINOPHEN 325 MG TABLET PO PRN (03:29)
[2020-08-19] MEDS: MAGNESIUM SULFATE 2 GM/50 ML BAG IV PRN (05:55)
[2020-08-19] MEDS: INSULIN LISPRO 1 UNIT/0.01 ML UNIT SQ SCH ×2 (07:37→12:11)
[2020-08-19] MEDS: LEVOTHYROXINE 50 MCG TABLET PO SCH (07:37)
--- NOTE | 2020-08-19 08:59 | Nephrology Progress Note ---
SUBJECTIVE Subjective Patient information: Note initiated : 08/19/20 at 8:56 am Patient: Reny Sanches 75 y/o F admitted on 08/06/20 for ARF. Chief Complaint: Weakness Pertinent ROS: Feels better Dementia Weakness No shortness of breath No Cedillo catheter Edema Constitutional Vitals: Vital Signs Temp Pulse Resp BP Pulse Ox 97.9 F 75 20 148/56 94 08/19/20 07:43 08/19/20 07:43 08/19/20 07:43 08/19/20 07:43 08/19/20 07:43 Period Temp Pulse Resp BP Sys/Corbin Pulse Ox Last 24 Hr 97.1 F-98.9 F 64-92 18-22 117-148/56-72 94-96 Intake and Output 08/18/20 08/19/20 08/19/20 21:59 05:59 13:59 Intake Total 3090 900 Output Total 5 3 2 Balance 3085 897 -2 Weight 277 lb 6.4 oz Intake & Output: Intake & Output 08/18/20 08/19/20 08/19/20 21:59 05:59 13:59 Intake Total 3090 900 Output Total 5 3 2 Balance 3085 897 -2 Weight 277 lb 6.4 oz Intake: IV 1050 100 Dextrose 5%-Ns IV Solution 1, 1000 000 ml @ 84 mls/hr IV .[id number] PAIGE Rx#:[id number] Zosyn 2.25 gm In Dextrose 5% in 50 100 Water 50 ml @ 100 mls/hr IV Q6H PAIGE Rx#:[id number] Oral 1040 800 IV - Manual Only 1000 Output: # of times incontinent of urine 5 3 2 Other: Meal Dinner Percent of Meal Consumed 100% Feeding Ability Independent Urine Appearance Clear Urine Color Straw Urine Odor Normal Stool Size Small Small Small Stool Color Brown Brown Brown Stool Consistency Soft Soft Soft # Voids 1 # of times incontinent of 1 1 1 Bowels General appearance: cooperative and no acute distress Head Head exam: Present atraumatic and normal inspection Respiratory Respiratory exam: Present decreased breath sounds Cardiovascular Cardiovascular exam: Present normal rate and rhythm Neurological Exam Neurological exam: Present alert and altered Psychiatric Psychiatric exam: Present normal affect and normal mood Skin Skin exam: Present pallor A/P Assessment and plan (1) Acute on chronic renal failure: Assessment and plan: Reny Sanches is a 75-year-old female with hypertension, hyperlipidemia, diabetes mellitus type 2, hypothyroidism, dementia with anxiety, admitted on 08/06/20 for acute kidney injury. Baseline serum creatinine: 0.9-1.1 (eGFR 50-63). In May 2020, she had an episode of acute renal failure due to a combination of ARB, diuretics, Bactrim and nonsteroidal anti-inflammatories. After a full recovery, she presented with a second episode of acute renal failure has reoccurred in association with bilateral hydro, abnormal urinary bladder, pyuria and an ESR >100 mm/hr. Acute kidney injury on chronic kidney disease stage 3a associated with obstructive uropathy (bilateral hydronephrosis diffuse thickening of bladder, possible obstruction of both UPJ) and acute complicated cystitis (MDR E. coli and Enterococcus), present on arrival, resolving. Work up: Urine culture on 08/11/20: Enterococcus faecium (grp d) and Escherichia coli SPEP/UPEP/STEH on 08/12/20: The serum protein electrophoresis shows a zone of restriction in the gamma region with increased polyclonal gammaglobulins and decreased albumin. The estimated concentration of the paraprotein is 0.19 g/dL. Concurrent immunofixation characterizes this paraprotein as an IgM heavy chain protein with faint possible lambda light chain. 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 Urine random total protein/creatinine on 08/12/20: 4,854 mg/g creatinine. CT IVP on 08/13/20: 1. Marked diffuse wall thickening of the urinary bladder including encasement of both UVJ regions. Pathologic infiltration by tumor or inflammation is suspected. The left upper collecting system and ureter have decompressed since the prior pre-Cedillo catheter CT, however there is persistent moderate right hydroureter/hydronephrosis. This may be due to pathologic encasement of the right UVJ, rather than bladder outlet obstruction or neurogenic bladder. More specific evaluation with cystoscopy is suggested. 2. Scattered small low-attenuation filling defects within the upper collecting systems of both kidneys - more prominent on the right. This could represent sloughed tissue from papillary necrosis, scattered thrombi or, less likely, nonopaque stones. This could also be more specifically evaluated at time of cystoscopy/ ureteroscopy. 3. Probable cirrhosis with evidence for mild portal hypertension and even a left splenorenal shunt. The spleen is mildly enlarged. Small amount of ascites appreciated. Cystoscopy, bladder biopsy and fulguration, bilateral ureteral catheterization with bilateral renal pelvis sampling, bilateral retrograde pyelograms, cystogram on 08/16/20: Findings: 1) contracted small capacity bladder with catheter edema changes and inflamed trigone. 2) ureteral orifices patulous. 3) selective urine via ureteral cath from each renal pelvis CLEAR. 4) bilateral retrograde pyelograms: no filling defects corresponding to those seen on CT scan appreciate d. RIGHT mild hydronephrosis and tortuous hydroureter BUT WITH GOOD ureteral jet into bladder. LEFT minimal left hydronephrosis and milder tortuous hydroureter WITH GOOD ureteral jet.. 5) Some cloudy white material from left ureteral jet after retrograde pyelogram and such was sampled as bladder urine and sent for gram stain for yeast. 6) cystogram: imaging limited by contrast in ureter from RGPG but CLEAR ureteral reflux seen bilaterally at LOW bladder volumes (< 200cc) Treatment: Sodium Bicarbonate 1300 mg PO BID x 2 doses for metabolic acidosis. Magnesium Oxide 400 mg PO BID x 2 doses for hypomagnesemia. Progress: Last serum creatinine 1.6. Baseline serum creatinine: 0.9-1.1 (eGFR 50-63) Hyperchloremic metabolic acidosis. Hypomagnesemia. Recommendations/Plan: Anticipate no acute hemodialysis need. Follow up with Dr. Kent as outpatient. Status: Acute Qualifiers: Acute renal failure type: with other specified pathological lesion Chronic kidney disease stage: stage 3 (moderate) Chronic kidney disease stage 3 subtype: stage 3a (GFR 45-59) Qualified Code(s): N17.8 - Other acute kidney failure; N18.31 - Chronic kidney disease, stage 3a (2) Hyperchloremic metabolic acidosis: Status: Acute Time Spent With Patient Time: Total time spent is greater than 50% in coordination of care (as documented) at patient's floor/unit and/or counseling patient:
--- NOTE | 2020-08-19 09:15 | Discharge Summary ---
Discharge Provider Provider Patient information: Note initiated : 08/19/20 at 9:11 am Service Date, if different from initiated Date: [] Patient: Reny Sanches a 75 y/o F admitted on 08/06/20 for ARF. Discharge diagnosis *Obstructive uropathy with b/l hydronephrosis: Status post cystoscopy. Urine cytology no evidence of malignant cells. Also no evidence of significant urine outflow obstruction. Cedillo catheter discontinued by urology. Voiding self. Recommend continued follow-up outpatient with urology/nephrology *PRIMO: secondary obstructive uropathy, clinically improved, creatinine down from 2.8-1.6. Continue follow-up with nephrology. *Complicated enterococcal/E. coli UTI (MDR) fecal soiling- clinically improved on vancomycin/Zosyn. Continue additional 5 days nitrofurantoin based on culture sensitivities. *AMS, superimposed on underlying Dementia/anxiety: secondary to combination of hyponatremia/renal failure uremia/medications. resolved, now at baseline, continue SSRIs/quetiapine/memantine, clinically improved *Anemia of chronic disease: s/p 2 units PRBC (08/08), stable *Hyponatremia: likely secondary to bladder outlet obstruction/renal failure. Urine osmolarity suggestive against SIADH, *GERD continue PPI *HTN/HLD: ARB on hold in light of renal failure. Reinitiation to be determined by nephrology. Continue atenolol *Hypothyroid on thyroxine *DM type II: On Lantus 35 units/CC diet *History of gout: on allopurinol *Morbid obesity continue directed therapies/nutrition consult Brief hospital course Ms. Sanches is a 75 year old F resident of [facility] since mid-May with history of HTN/HLD/DM type II/morbid obesity who was recently evaluated at nephrology office for worsening renal function now presents to the ER from nephrology office for further hospitalization and evaluation of progressive amanda l insufficiency. Patient has become increasingly fatigued, lethargic and confused over the last few days and has not been able to function or perform ADLs. She denies associated dysuria, diarrhea, nausea but endorses difficulty urination. She denies changes in medications. Patient work-up in the ER was consistent with acute renal failure with creatinine 2.8. Notable pyuria, sodium 122 and pro found change in mental status with GCS 8. Most of the history was obtained from patient's daughter/prior EMR notes. CT abdomen revealed bilateral hydronephrosis with likely bladder outlet obstruction. Urology was consulted. Nephrology was consulted and requested admission under hospitalist service. Subsequently hospitalist service was consulted At the time of my evaluation patient is very confused however oriented to place only. She could not provide any meaningful history over the last 72 hours. She however denies chest pain, fever, chills but endorses lightheadedness, dizziness. 08/07-patient clinically improving. Sodium up to 132. Sodium rise higher than goal. Transition to D5 half NS per nephrology. Urine osmolarity appropriately low ruling out SIADH. Creatinine down to 2.4. Continue antibiotic coverage. Await urine cultures. Improving mental status however remains disoriented. No overnight fever chills. No other concerns per nursing staff. No telemetry events. Restart diabetic diet 08/08-patient seen in room along with daughter. Intermittently confused but much more alert since yesterday. Hemoglobin 6.6, 2 units PRBC transfusion per nephrology. Creatinine down to 1.9, Cedillo's draining clear urine, sodium improved to 133. Following commands. Remains disoriented. No overnight fever chills. Ongoing management per nephrology. No concerns expressed by nursing staff except for occasional incontinence. Ongoing MRSA decolonization. Daughter expressed concerns about transitioning to [place] and would want alternate facility including [facility] 08/09-patient appears quite cheerful. No family at bedside. Ongoing physical therapy with therapist in room. No overnight fever chills. No additional concerns expressed with nursing staff. White count 6.1. Stable hemodynamics. Creatinine 1.9.Cedillo is draining clear urine. Continuing antibiotic coverage. 08/10-patient clinically improving. More lucid. Complains of intermittent bladder spasm. Responded well to BNO suppository. White count 7.4. Nephrology recommends confusion of Cedillo's catheter with further work-up by urology on discharge. Creatinine down to 1.5, on antibiotic coverage for E. coli UTI. Multidrug-resistant sensitive to nitrofurantoin. 08/11 No new complaints. No overnight events. BC stable. Creatinine 1.6. 08/12 Pleasantly demented this morning as usual. Received CT KUB this morning. 08/13 Patient again pleasantly demented. Creatinine elevating. CT imaging concern for bladder malignancy. Urology consulted. 08/14 No overnight event or new complaints. Seen by urology. He needs Nuc med lasix renogram. 08/15 No new pains or complaints. No overnight events. Pending urine studies by urology. Creatinine improved. 08/16-Case discussed urology. Will undergo cystoscopy later today. Urology recommends 1 dose of fluconazole/removing Cedillo's catheter. Case discussed with nephrology. We will continue existing treatment and review further and urology recommendations. No overnight concerns or events per's nursing staff 08/17-patient status post cystoscopy. Clinical improved. Cedillo discontinued. Ongoing management per nephrology/urology recommendations. Anticipate discharge to SNF on Friday 08/18-patient doing well. Pleasantly confused. Ongoing antibiotic coverage. Will discharge to SNF in 24 hours. Continuing treatment/diet interventions. 08/19-patient doing well. Discharging to SNF today. Recommend outpatient nephrology/urology follow-up. Creatinine 1.6. Continue fall precautions/PT OT ST eval and treatments. Dementia and delirium care. UTI resolved. Continue additional 5 days nitrofurantoin . Nephrology/PCP to follow-up on cystoscopy biopsy results Date of admission: 08/06/20 20:12 Discharge date: 08/19/20 Primary care physician: Cyrus Massey Consults: 08/06/20 16:58 Consult to Physician [CONS] Stat Comment: Consulting Provider: Jose Alberto Bernard Reason For Exam: Physician to Consult 08/06/20 20:30 Consult to Physician [CONS] Routine Comment: Consulting Provider: Yemi Kent Reason For Exam: Physician to Consult 08/12/20 17:35 Consult to Physician [CONS] Routine Comment: [place], ARF => cysto Consulting Provider: Johnson Sharif Reason For Exam: Physician to Consult Discharge Meds Discharge Medications Home Medications acetaminophen 325 mg tablet 325 - 650 mg PO Q4H PRN tab 05/18/19 [History Confirmed 08/07/20 Last Taken 08/06/20] levothyroxine 50 mcg tablet 50 mcg PO QDAY #90 tab 11/21/19 [Rx Confirmed 08/07/20 Last Taken 08/06/20] lovastatin 40 mg tablet 40 mg PO QDAY #90 tab 11/21/19 [Rx Confirmed 08/07/20 Last Taken 08/05/20] furosemide 20 mg tablet 20 mg PO QDAY #90 tab 01/22/20 [Rx Confirmed 08/07/20 Last Taken 08/06/20] ergocalciferol (vitamin D2) 1,250 mcg (50,000 unit) capsule 50,000 unit PO .COMPLEX #24 cap 02/08/20 [Rx Confirmed 08/07/20 Last Taken 08/06/20] insulin aspart U-100 100 unit/mL (3 mL) subcutaneous pen See Rx Instructions .ROUTE .COMPLEX #9 milliliter 02/08/20 [Rx Confirmed 08/07/20 Last Taken 08/06/20 07:30] memantine 21 mg capsule sprinkle,extended release 24hr 21 mg PO QDAY #90 each 02/08/20 [Rx Confirmed 08/07/20 Last Taken 08/06/20] linaclotide 145 mcg capsule See Rx Instructions .ROUTE .COMPLEX #30 each 02/19/20 [Rx Confirmed 08/07/20 Last Taken 08/06/20] fluticasone furoate 100 mcg-vilanterol 25 mcg/dose inhalation powder See Rx Instructions .ROUTE .COMPLEX #60 each 02/28/20 [Rx Confirmed 08/07/20 Last Taken 08/06/20] omeprazole 20 mg capsule,delayed release 20 mg PO QDAY #90 cap 03/04/20 [Rx Confirmed 08/07/20 Last Taken 08/06/20] pen needle, diabetic, safety 30 gauge x 1/3" #100 each 03/08/20 [Rx Confirmed 08/07/20 Last Taken Unknown] atenolol 50 mg tablet See Rx Instructions .ROUTE .COMPLEX #60 each 05/13/20 [Rx Confirmed 08/07/20 Last Taken 08/06/20 08:00] quetiapine 200 mg tablet 200 mg PO QHS #30 tab 05/27/20 [Rx Confirmed 08/07/20 Last Taken 08/05/20] albuterol sulfate 90 mcg/actuation breath activated powder inhaler,sensor 1 inh INHALATION Q4H PRN 07/31/20 [History Confirmed 08/07/20 Last Taken Unknown] cyanocobalamin (vitamin B-12) 1,000 mcg tablet 1,000 mcg PO QDAY 07/31/20 [History Confirmed 08/07/20 Last Taken 08/06/20] loperamide 2 mg capsule 4 mg PO Q6H PRN cap 07/31/20 [History Confirmed 08/07/20 Last Taken Unknown] melatonin 10 mg capsule 10 mg PO HS 07/31/20 [History Confirmed 08/07/20 Last Taken 08/05/20] polyethylene glycol 3350 17 gram/dose oral powder 17 g PO QDAY 07/31/20 [History Confirmed 08/07/20 Last Taken 08/06/20] Lantus U-100 Insulin 35 unit SUBCUT HS 08/07/20 [History Confirmed 08/07/20 Last Taken 08/05/20] allopurinol 100 mg PO DAILY 08/07/20 [History Confirmed 08/07/20 Last Taken 08/06/20] aspirin 325 mg PO QDAY 08/07/20 [History Confirmed 08/07/20 Last Taken 08/06/20] ferrous gluconate 324 mg PO QDAY 08/07/20 [History Confirmed 08/07/20 Last Taken 08/06/20] insulin aspart U-100 [Novolog U-100 Insulin aspart] 6 unit SUBCUT AC 08/07/20 [History Confirmed 08/07/20 Last Taken 08/06/20 07:00] sertraline 50 mg PO QDAY 08/07/20 [History Confirmed 08/07/20 Last Taken 08/06/20] nitrofurantoin macrocrystal 100 mg PO BID #10 cap 08/19/20 [Rx Last Taken Unknown] COURSE Hospital Course Hospital course: ,. Discharge diagnosis: PRIMO/obstructive uropathy Time Spent with Patient Time attestation: Total time spent providing and/or coordinating discharge services: EXAM Constitutional Vitals: Temp Pulse Resp BP Pulse Ox 97.9 F 75 20 148/56 94 08/19/20 07:43 08/19/20 07:43 08/19/20 07:43 08/19/20 07:43 08/19/20 07:43 Discharge Data Data Completed and Pending Labs on day of discharge: Labs from last 24 hours 08/19/20 08/18/20 08/18/20 08:09 10:38 08:06 WBC 6.2 RBC 3.00 L Hgb 9.1 L Hct 28.7 L MCV 95.7 MCH 30.3 MCHC 31.7 RDW 15.9 H Plt Count 111 L MPV 9.8 Neut % (Auto) 69.8 Lymph % (Auto) 15.5 [place] % (Auto) 9.7 Eos % (Auto) 4.4 Baso % (Auto) 0.6 Lymph # (Auto) 0.96 L [place] # (Auto) 0.60 Eos # (Auto) 0.27 Baso # (Auto) 0.04 Absolute Neutrophils 4.32 Sodium 138 Potassium 3.8 Chloride 106 Carbon Dioxide 19 L Anion Gap 13.0 BUN 20 Creatinine 1.6 H GFR Calculation 31 Glucose 139 H Uric Acid 3.8 Calcium 8.7 Phosphorus 2.5 Magnesium 1.4 L Total Bilirubin 0.3 Direct Bilirubin < 0.2 GGT 106 H AST 21 ALT 18 Alkaline Phosphatase 105 Lactate Dehydrogenase 158 Total Protein 6.9 Albumin 2.5 L Globulin 4.4 H Albumin/Globulin Ratio 0.6 L Triglycerides 104 Vancomycin Trough Random Vancomycin Pending 08/18/20 08:06 WBC RBC Hgb Hct MCV MCH MCHC RDW Plt Count MPV Neut % (Auto) Lymph % (Auto) [place] % (Auto) Eos % (Auto) Baso % (Auto) Lymph # (Auto) [place] # (Auto) Eos # (Auto) Baso # (Auto) Absolute Neutrophils Sodium Potassium Chloride Carbon Dioxide Anion Gap BUN Creatinine GFR Calculation Glucose Uric Acid Calcium Phosphorus Magnesium Total Bilirubin Direct Bilirubin GGT AST ALT Alkaline Phosphatase Lactate Dehydrogenase Total Protein Albumin Globulin Albumin/Globulin Ratio Triglycerides Vancomycin Trough 20.2 H* Random Vancomycin Preliminary micro results at discharge 08/16/20 15:40 Gram Stain - Preliminary Urine - Cytoscopic Discharge Plan Patient/Caregiver Discharge Instructions Activity: increase activity as tolerated Diet: Renal/Consistent Carbs Activity Restrictions/Additional Instructions: Discharge to SNF Continue aggressive PT OT eval and treatment Continue nitrofurantoin for additional 5 days Hold ARB until follow-up with nephrology Nephrology/PCP to follow-up on cystoscopy biopsy results Follow-up with nephrology Dr. Kent in 1 week . Urology if evidence of bladd er obstruction Delirium watch Prescriptions: New nitrofurantoin macrocrystal 100 mg capsule 100 mg PO BID Qty: 10 RF: 0 Continued memantine 21 mg capsule,sprinkle,ER 24hr 21 mg PO QDAY Qty: 90 RF: 3 ergocalciferol (vitamin D2) 1,250 mcg (50,000 unit) capsule 50,000 unit PO .COMPLEX Qty: 24 RF: 5 insulin aspart U-100 [Novolog Flexpen U-100 Insulin] 100 unit/mL (3 mL) insulin pen See Rx Instructions .ROUTE .COMPLEX Qty: 9 RF: 10 levothyroxine 50 mcg tablet 50 mcg PO QDAY Qty: 90 RF: 4 lovastatin 40 mg tablet 40 mg PO QDAY Qty: 90 RF: 4 furosemide [Lasix] 20 mg tablet 20 mg PO QDAY Qty: 90 RF: 0 linaclotide [Linzess] 145 mcg capsule See Rx Instructions .ROUTE .COMPLEX Qty: 30 RF: 10 Breo Ellipta 100-25 mcg/dose blister with device See Rx Instructions .ROUTE .COMPLEX Qty: 60 RF: 12 omeprazole 20 mg capsule,delayed release(DR/EC) 20 mg PO QDAY Qty: 90 RF: 0 (DME) Novofine Autocover 30 gauge x 1/3" needle See Rx Instructions .ROUTE .MEDSUPPLY Qty: 100 RF: 10 atenolol 50 mg tablet See Rx Instructions .ROUTE .COMPLEX Qty: 60 RF: 10 quetiapine 200 mg tablet 200 mg PO QHS Qty: 30 RF: 5 acetaminophen [Tylenol] 325 mg tablet 325 - 650 mg PO Q4H PRN (Reason: Pain) RF: 0 albuterol sulfate 90 mcg/actuation aero powdr breath act w/sensor 1 inh INHALATION Q4H PRN (Reason: Shortness Of Breath) RF: 0 loperamide [Anti-Diarrheal (loperamide)] 2 mg capsule 4 mg PO Q6H PRN (Reason: Diarrhea) RF: 0 melatonin 10 mg capsule 10 mg PO HS RF: 0 polyethylene glycol 3350 17 gram/dose powder 17 g PO QDAY RF: 0 cyanocobalamin (vitamin B-12) [Vitamin B-12] 1,000 mcg tablet 1,000 mcg PO QDAY RF: 0 allopurinol 100 mg tablet 100 mg PO DAILY RF: 0 ferrous gluconate 324 mg (38 mg iron) Tablet 324 mg PO QDAY RF: 0 sertraline 50 mg Tablet 50 mg PO QDAY RF: 0 aspirin 325 mg Tablet 325 mg PO QDAY RF: 0 Lantus U-100 Insulin 100 unit/mL Solution 35 unit SUBCUT HS RF: 0 insulin aspart U-100 [Novolog U-100 Insulin aspart] 100 unit/mL Solution 6 unit subcut AC RF: 0 Discontinued losartan 100 mg tablet 100 mg PO QDAY RF: 0 Lantus U-100 Insulin 44 unit subcut DAILY RF: 0 Follow Up Plan Follow up with: Cyrus Massey MD [Primary Care Provider] - Patient Disposition: Xfer SNF Rehab Potential: Undetermined I certify that the patient requires SNF services: Yes Overall status at discharge: patient is progressing back to baseline Discharge Orders: Discharge Order (Routine); Ordered 08/19/20 Ordered By: Jose Alberto HALL VTE Deep Vein Thrombosis/Pulmonary Embolism Present on Admission: No
[2020-08-19 10:21] LABS: Vancomycin,Random 14.7 ug/mL
[2020-08-19] MEDS: MULTIVIT,THER IRON,CA,FA & MIN 1 TABLET PO SCH (10:33)
[2020-08-19] MEDS: DOCUSATE SODIUM 100 MG CAPSULE PO SCH (10:33)
[2020-08-19] MEDS: ALLOPURINOL 100 MG TABLET PO SCH (10:33)
[2020-08-19] MEDS: SERTRALINE 50 MG TABLET PO SCH (10:33)
[2020-08-19] MEDS: ASPIRIN 325 MG ENTERIC COATED TABLET PO SCH (10:33)
[2020-08-19] MEDS: CYANOCOBALAMIN (VITAMIN B-12) 500 MCG TABLET PO SCH (10:33)
[2020-08-19] MEDS: Fluticasone Furoate-Vilanterol [Breo Ellipta] Inhaler INH SCH (10:34)
[2020-08-19] MEDS: MEMANTINE 21 MG PO SCH (10:34)
[2020-08-19] MEDS: INSULIN GLARGINE, HUMAN 1 UNIT/0.01 ML SQ SCH (10:34)
[2020-08-19] MEDS: ATENOLOL 50 MG TABLET PO SCH (10:38)
[2020-08-19] MEDS: HEPARIN 5,000 UNIT/ML VIAL SQ SCH (11:07)
[2020-08-19] MEDS ORDERED: VANCOMYCIN 1,000 MG in 0.9 % SODIUM CHLORIDE 250 ML IV SCH (12:00)
--- NOTE | 2020-08-19 13:07 | Operative Note ---
Operative Note Operative Note: Date of procedure: 08/16/20 Pre-op diagnosis: hydronephrosis, bladder wall thickening, renal pelvis filling defect Post-op diagnosis: same Procedure: cystoscopy, bladder biopsy and fulguration, bilateral ureteral catheterization with bilateral renal pelvis sampling, bilateral retrograde pyelograms, cystogram Grafts/Implants: No Anesthesia: GETA Findings: 1) contracted small capacity bladder with catheter edema changes and inflamed trigone 2) ureteral orifices patulous 3) selective urine via ureteral cath from each renal pelvis CLEAR 4) bilateral retrograde pyelograms: no filling defects corresponding to those seen on CT scan appreciated. RIGHT mild hydronephrosis and tortuous hydroureter BUT WITH GOOD ureteral jet into bladder. LEFT minimal left hydronephrosis and milder tortuous hydroureter WITH GOOD ureteral jet. 5) Some cloudy white material from left ureteral jet after retrograde pyelogram and such was sampled as bladder urine and sent for gram stain for yeast 6) cystogram: imaging limited by contrast in ureter from [facility] but CLEAR ureteral reflux seen bilaterally at LOW bladder volumes (< 200cc) Complications: none Surgeon: Johnson Sharif Estimated blood loss (cc): 0 Specimens Removed/Pathology: other (bilateral renal pelvis urine for cytology, sediment from left ureteral drainage for gram stain) Condition: stable Disposition: PACU Informed consent was obtained from her power of rotary driller and preoperative antibiotics were given. Patient was taken to the operative suite and placed on the table in the supine position. Adequate anesthesia was initiated. Patient was prepped and draped in usual sterile fashion after being placed in the dorsolithotomy position. We began the procedure with diagnostic cystoscopy. Her bladder was evaluated in a systematic fashion with a 30 and 70 degree lens and seemed to be small and contracted and trabeculated with an inflamed trigone. Each ureteral orifice was identified lateral to the inflamed trigone and seemed to be open and patulous and excellent ureteral jets were visualized. We then proceeded with bilateral ureteral catheterization to allow for selective sampling of each renal pelvis given her filling defects. On each side the stiff body Glidewire was placed and seemed to coil adequately in the area of each renal pelvis. Over this Glidewire a [place] open ended catheter was inserted and sterile saline was irrigated in and allowed to drain out. Both the right and left renal pelvis washings were collected and sent off for cytology. After the washings were obtained, while the [place] open-ended catheter was in place sequential retrograde pyelograms were obtained with radiopaque contrast material. Each renal pelvis was sequentially filled with radiopaque contrast material in the [place] opening and the catheter was slowly withdrawn and multiple views were taken. There is no filling defects appreciated in either renal pelvis. On the right-hand side there was mild hydronephrosis and more prominent hydroureter with some tortuosity and slow drainage of contrast into the bladder. On the left-hand side there is minimal hydronephrosis and less hydroureter and tortuosity and improve drainage on the left-hand side. When the [place] open-ended catheter was removed there was excellent bilateral ureteral jets visualized on each side. After the [place] open-ended catheter was removed on the left, even though the ureteral and renal pelvis washing on that side was clear, there was a jet of yellow cloudy material and such was collected and sent off for Gram stain to ensure it is not a fungal infection. We then proceeded with cystogram to assess for ureteral reflux. The cystogram was limited as there was still contrast in each ureter but the bladder was slowly filled with radiopaque contrast material and seemed to be small contracted trabeculated with an irregular appearance consistent with a high bladder wall pressure. Readily visible was contrast refluxing up each ureter and increase in the diameter of each ureter as the bladder filled consistent with bilateral ureteral reflux. When the bladder was drained and drainage films were obtained and each ureter was seen to decompress. Attention was then turned to bladder biopsy in the cold cup biopsy was utilized and bladder biopsies were taken of the trigone and bladder wall and each area was fulgurated. The bladder was drained and refilled. At the beginning of the case we had obtained a postvoid residual of her as she had voided recently, within the last 1 to 2 hours. Her bladder post void residual was 140. On the cystogram she had reflux at low levels starting around 150 cc to a capacity of 250 cc. Disposition -Would recommend starting trospium 20 mg p.o. daily for mirabegron 25 mg to see if we can relieve some of her contracted bladder wall pressure and see if we can allow better kidney drainage -Suspect her outlet obstruction to her kidneys is actually her high bladder wall pressure and not an intrinsic issue with the ureters themselves. I would not place stents at this time as that would allow more transmission of the bladder pressure directly up to the renal pelvis bilaterally unless the C[place] catheter is left in place. -As we are going to ideally get the catheter out of this patient, we will start with oral medication to relieve her bladder pressure and see if we can affect some improvement -We are still waiting on her urine PCR to ensure there is no overriding fungal infection given the inflammation of her trigone, concurrent with her bacterial infection
[2020-08-19 16:52] LABS: Complement C3C 146 mg/dL (83-193); Complement C4C 36 mg/dL (15-57); Rheumatoid Factor <14 IU/mL (<14)
--- NOTE | 2020-08-19 17:09 | Non-GYN Cytology Report ---
Non Audio/Video Technician Cytology NG Diagnosis URINE, CATHETERIZED: --- MARKED NEUTROPHILIC INFLAMMATION AND RARE YEAST FORMS. --- NO ATYPICAL OR MALIGNANT CELLS IDENTIFIED. NG Micro Description A ThinPrep monolayer slide is reviewed and contains numerous segmented neutrophils. Rare budding yeast forms are seen in the background. Scattered bland appearing urothelial and squamous epithelial cells are also present. No atypical or malignant cells are identified. (DMT:sln) NG Gross Description Received 17.5 mL yellow cloudy fluid. Electronically Signed Agustin Ruano MD, FCAP Electronically Signed 08/19/2020 17:08
--- NOTE | 2020-08-19 17:12 | Non-GYN Cytology Report ---
Non Director Labor Standards Cytology NG Diagnosis URINE, RIGHT KIDNEY, CATHETERIZED; --- MARKED NEUTROPHILIC INFLAMMATION AND SCATTERED YEAST FORMS. --- NO ATYPICAL OR MALIGNANT CELLS IDENTIFIED. (DMT:sln) NG Micro Description A ThinPrep monolayer slide is reviewed and contains numerous neutrophils with scattered bland appearing urothelial cells and few clusters of renal tubular cells. In the background are scattered microorganisms that are morphologically consistent with budding yeast forms. The background also has abundant granular debris and numerous degenerated cells. (DMT:sln) NG Gross Description Received 30 mL clear fluid. Electronically Signed Agustin Ruano MD, FCAP Electronically Signed 08/19/2020 17:11
--- NOTE | 2020-08-19 17:14 | Non-GYN Cytology Report ---
Non Director Of Rehabilitation And Wellness Cytology NG Diagnosis URINE, LEFT KIDNEY, CATHETERIZED: --- NEUTROPHILIC INFLAMMATION. --- NO YEAST FORMS, ATYPICAL CELLS OR MALIGNANT CELLS IDENTIFIED. (DMT:sln) NG Micro Description A ThinPrep monolayer slide is reviewed and contains numerous segmented neutrophils admixed with bland appearing urothelial cells and rare renal tubular cells. The background has abundant degenerative cellular debris. No yeast forms, atypical cells or malignant cells are identified. (DMT:sln) NG Gross Description Received 25 mL clear fluid. Electronically Signed Agustin Ruano MD, FCAP Electronically Signed 08/19/2020 17:13
--- NOTE | 2020-08-19 17:16 | Non-GYN Cytology Report ---
Non Development Architect Cytology NG Diagnosis URINE, CATHETERIZED: --- NEUTROPHILIC INFLAMMATION AND RARE YEAST FORMS. --- NO ATYPICAL OR MALIGNANT CELLS IDENTIFIED. (DMT:sln) NG Micro Description A ThinPrep monolayer slide is reviewed and contains numerous segmented neutrophils. Scattered in the background are rare small microorganisms morphologically consistent with budding yeast forms. Additionally there are rare unremarkable urothelial cells. The background has abundant degenerated cellular debris. No atypical or malignant cells are identified. (DMT:sln) NG Gross Description Received 30 mL clear fluid. Electronically Signed Augstin Ruano MD, FCAP Electronically Signed 08/19/2020 17:15
[2020-08-22 00:51] LABS: Viscosity-SO 1.7 (1.5-1.9)
== END 2020-08-19 12:40 | DRG 668 ==
LOC: ED 11:23 → ICU 20:12 → MEDSUR 08-10 23:10
PROVIDERS: ADMIT Internal Medicine; ATTEND Internal Medicine